=== PATIENT | female | born 1950 | race Caucasian/White ===

== ENCOUNTER → 2016-12-08 | Outpatient (CLI) | payer BC ==
[~2016-12-08] MED LIST: ALBINS INH; ASPI81TA28 PO; ATOR10TA88 PO; CALC1TAB9 PO; CEFD1CAP14 PO; CHOL100010 PO; CHOL2000 PO; CLC100 PO; CLON0.2T11 PO; CLOP1TAB15 PO; CRD2 PO; DOCU100C31 PO; FERR1TAB23 PO; FERR325T PO; FOLITAB21 PO; FRRS300 PO; INSPMPNVLG; INSULIN PUMP; LANS30CA12 PO; LNX125 PO; METO-217 PO; METO1TAB69 PO; NCTI INH; NITR0.4S UT; PLMIH INH; PRED10TA PO; PRVHFAIN INH; SALI0.6510; SERT50TA PO; TPRSR/25 PO; ZTHM250 PO; [UNRECOGNIZED DRUG - OTHER]
[2016-12-08 12:58] LABS: ESTIMATED AVERAGE GLUCOSE 143 mg/dl; HA1C FLAG Normal (Normal)
[2016-12-08 13:32] LABS: BLOOD UREA NITROGEN 14 mg/dl (7-18); BUN/CREATININE RATIO 17.6 (10-20); CARBON DIOXIDE 27 mmol/L (21-32); CHLORIDE 104 mmol/L (98-107); CREATININE 0.81 mg/dl (0.60-1.20); GLUCOSE 123 mg/dl (70-99); POTASSIUM 4.2 mmol/L (3.5-5.1); SODIUM 139 mmol/L (136-145)
[2016-12-08 13:33] LABS: ALB/GLOB RATIO 0.9 (0.9-2); ALKALINE PHOSPHATASE 80 U/L (45-117); ALT/SGPT 29 U/L (12-78); AST/SGOT 19 U/L (15-37); CALCIUM 8.6 mg/dl (8.5-10.1)
== END | disposition home or self-care (01) ==
LOC: C.LAB1850 11:43
PROVIDERS: ATTEND Internal Medicine Endocrinology, Diabetes & Metabolism
DX: E13.9 Other specified diabetes mellitus without complications (principal); I10 Essential (primary) hypertension

== ENCOUNTER 2017-03-03 22:31 | Inpatient (IN) | payer BC ==
[~2017-03-03] VITALS: Ht 162.6 cm; Wt 48.7 kg
[~2017-03-03 22:31] MED LIST changes: -ALBINS INH; -ATOR10TA88 PO; -CEFD1CAP14 PO; -CHOL2000 PO; -CLC100 PO; -DOCU100C31 PO; -FERR1TAB23 PO; +FERR1TAB62 PO; -FERR325T PO; -FRRS300 PO; -INSPMPNVLG; -METO-217 PO; -METO1TAB69 PO; -NCTI INH; -PLMIH INH; -PRED10TA PO; -PRVHFAIN INH; -SALI0.6510; -SERT50TA PO; -ZTHM250 PO
[2017-03-03] MEDS ORDERED: INSPMPNVLG (22:55)
[2017-03-03] MEDS ORDERED: SERT50TA PO (22:55)
[2017-03-03] MEDS ORDERED: ATOR10TA82 PO (22:55)
[2017-03-03] MEDS ORDERED: METO-217 PO (22:55)
[2017-03-03] MEDS ORDERED: LNX125 PO (22:55)
[2017-03-03] MEDS ORDERED: METHYLPREDNISOLONE 125 MG VIAL IV STA (22:57)
[2017-03-03] MEDS ORDERED: ACETAMINOPHEN 500 MG TAB PO STA (22:57)
[2017-03-03] MEDS ORDERED: ALBUT/IPRATROP 3MG/0.5MG NEB 3 ML VIAL INH STA (23:49)
[2017-03-03 23:50] LABS: HEMATOCRIT 27.8 % (37-47); MEAN CELL VOLUME 66.8 fL (80-100); MEAN CORPUSCULAR HEMOGLOBIN 20.4 pg (25-34); MEAN CORPUSCULAR HGB CONC 30.6 g/dl (32-36); MEAN PLATELET VOLUME 9.6 fL (7.4-10.4); PLATELET COUNT 255 K/uL (130-400); RED BLOOD COUNT 4.16 M/uL (4.2-5.4); WHITE BLOOD COUNT 13.67 K/uL (4.8-10.8)
[2017-03-04] VITALS (11 sets, daily range): BP systolic 112–170; BP diastolic 58–72; PULSE 58–77; TEMP 36.4–36.8; O2SAT 90–97; Ht 162.6 cm; Wt 48.7 kg
[2017-03-04 00:09] LABS: ANISOCYTOSIS PRESENT; BASO % 0.2 %; BASO ABS # 0.03 K/uL (0-0.2); COMPLETE YES; EOS % 0.4 %; HYPOCHROMIA PRESENT; IG% 0.6 %; LARGE PLATELETS 1+; LYMPH % 13.2 %; MICROCYTOSIS PRESENT; MONO % 9.1 %; NEUT % 76.5 %; OVALOCYTES 1+; POLYCHROMASIA 1+
[2017-03-04 00:15] LABS: ALT/SGPT 48 U/L (12-78); AST/SGOT 36 U/L (15-37); BLOOD UREA NITROGEN 14 mg/dl (7-18); BUN/CREATININE RATIO 21.5 (10-20); CALCIUM 8.3 mg/dl (8.5-10.1); CARBON DIOXIDE 25 mmol/L (21-32); CHLORIDE 103 mmol/L (98-107); CREATININE 0.64 mg/dl (0.60-1.20); GLUCOSE 121 mg/dl (70-99); POTASSIUM 3.5 mmol/L (3.5-5.1); SODIUM 136 mmol/L (136-145)
[2017-03-04 00:20] LABS: ALB/GLOB RATIO 0.6 (0.9-2); ALKALINE PHOSPHATASE 71 U/L (45-117); CKMB/CK RATIO 1.2 (0-3.0)
[2017-03-04] MEDS ORDERED: DOXYCYCLINE IV 100 MG in DEXTROSE 5% 100ML 100 ML IV STA (00:27)
[2017-03-04] MEDS ORDERED: HYDROCODONE/HOMATROPINE SYRUP 5MG/1.5MG 5ML UDP PO STA (00:27)
[2017-03-04 00:33] LABS: URINE APPEARANCE CLEAR (CLEAR); URINE BILIRUBIN NEG (NEG); URINE COLOR DK YELLOW; URINE EPITHELIAL CELL AUTO >30 /lpf (0-5); URINE NITRITE NEG (NEG); URINE PH 6.5 (4.5-7.5); URINE SPECIFIC GRAVITY 1.025 (1.000-1.030); UROBILINOGEN NEG (NEG)
[2017-03-04 00:34] LABS: MANUAL MICROSCOPIC REQUIRED? NO; REVIEW REQ? NO
[2017-03-04] MEDS ORDERED: MAGNESIUM HYDROXIDE SUSP 30 ML UDC PO PRN (01:00)
[2017-03-04] MEDS ORDERED: POLYETHYLENE (MIRALAX) 17 GM PACK PO PRN (01:00)
[2017-03-04] MEDS ORDERED: ALBUTEROL 0.083% NEBU SOLN 3 ML VIAL INH PRN (01:00)
[2017-03-04] MEDS ORDERED: ACETAMINOPHEN 325 MG TAB PO PRN (01:00)
[2017-03-04] MEDS ORDERED: ZOLPIDEM TARTRATE 5 MG TAB PO PRN (01:00)
[2017-03-04] MEDS ORDERED: NovoLOG INSULIN PUMP SCH (01:00)
[2017-03-04] MEDS ORDERED: ALUMINUM/MAGNESIUM/SIMETH (MAALOX MAX) 30 ML UDC PO PRN (01:00)
[2017-03-04] MEDS ORDERED: ONDANSETRON INJ 2 MG/ML 2 ML VIAL IV PRN (01:00)
--- NOTE | 2017-03-04 01:47 | History and Physical ---
History & Physical Date & Time of Service: Mar 04, 2017 at 01:20 Chief Complaint: FLU Primary Care Physician: RV. Rincon MD History of Present Illness Source: patient 66 y/o F Hx DM 2, CAD - presents with 8 days of flu-like symptoms including a productive cough, body aches, BECERRA, ear fullness, fatigue and fevers. She was apparently prescribed a low dose of prednisone by her MD which had no effect. Over the last day she has become exceedingly short of breath with minimal exertion and describes having to rest after walking across the room. She is a smoker but denies a history of lung disease or previous use of related medications. Initial CXR is clear. Initial labs however reveal a hemoglobin of 8.5. She has a history of mild microcytic anemia per records, although her hemoglobin has not been lower than 12. She denies hematochezia or dark stools. She has had previous colonoscopies with removal of benign polyps. Past Medical/Surgical History Medical Problems: (1) Acute Sinusitis Nos Status: Resolved (2) Anemia, unspecified Status: Chronic (3) Anxiety State Nos Status: Chronic (4) Diab Genesis Wo Compl, Type Ii Or Unspec Type, Not Uncntrld Status: Chronic (5) Diabetes Status: Chronic (6) Ectopic Status: Resolved (7) Hepatitis C Cured 2015 (8) Hyperlipidemia Nec/Nos Status: Chronic (9) Hypertension Nos Status: Chronic (10) Mitral Valve Disorder Status: Chronic (11) Reflux Esophagitis Status: Chronic (12) Sleep Disturbance Nos Status: Chronic 13) CAD - RCA stent Surgical Problems: (1) History of hysterectomy Status: Resolved (2) History of right coronary artery stent placement Status: Resolved (3) S/P right coronary artery (RCA) stent placement Status: Resolved Family History Diabetes mellitus Heart disease Hypertension No history of gastric or colon CA Social History Smokes 1/2 pack daily > 40 years Retired from army Smoking Status: Current Every Day Smoker Marital Status: Housing status: lives alone Occupational Status: retired Allergies Coded Allergies: Levofloxacin (Verified Allergy, Unknown, UNKNOWN, 03/03/17) Penicillins (Verified Allergy, Unknown, UPPER BODY RASH, 03/03/17) Home Medications Scheduled Aspirin (Aspirin Ec), 81 MG PO DAILY Atorvastatin (Lipitor), 10 MG PO DAILY Calcium Citrate-Vitamin D (Citracal + D3 Maximum), 2 TABS PO DAILY Clonidine Hcl (Catapres), 0.2 MG PO HS Clopidogrel (Plavix), 75 MG PO DAILY Digoxin (Digoxin), 0.125 MG PO QAM Doxazosin Mesylate (Doxazosin Mesylate), 2 MG PO HS Folic Fiif-Wmrfepmwsk-Aoxuvhjy (Folbic), 25 MG PO DAILY Insulin Aspart (novoLOG INSULIN PUMP ), 1 EA N/A UD Lansoprazole (Prevacid), 30 MG PO DAILY Metoprolol Succinate (Toprol Xl), 50 MG PO DAILY Nitroglycerin (Nitrostat), 0.4 MG UT PRN Sertraline (Zoloft), 75 MG PO DAILY Review of Systems Constitutional: + chills, + fatigue, + fever, + weakness Eyes: No eye pain, No worsening of vision ENT: + hearing loss (fullness and feeling of impaired hearing), + nasal symptoms (minor congestion) Respiratory: + cough, + dyspnea on exertion, + shortness of breath, + sputum Cardiovascular: No PND, No chest pain, No orthopnea Abdomen: No GI bleeding, No constipation, No diarrhea, No nausea, No pain, No vomiting Musculoskeletal: + muscle pain, No joint pain Genitourinary - Female: No dysuria, No urinary frequency, No urinary urgency Neurologic: + weakness, No memory loss, No paralysis Psychiatric: No anhedonism, No depression symptoms Endocrine: + fatigue Hematologic / Lymphatic: No abnormal bleeding/bruising Integumentary: No rash Allergic / Immunologic: No environmental allergies Physical Exam Vital Signs Date Time Temp Pulse Resp B/P Pulse Ox O2 Delivery O2 Flow Rate FiO2 03/04/17 00:31 95 Nasal Cannula 2.0 03/04/17 00:03 78 28 174/78 91 Room Air 03/03/17 23:57 92 Room Air 03/03/17 23:29 84 03/03/17 22:36 37.9 90 18 153/93 92 Room Air General Appearance: WD/WN, no apparent distress Head: normocephalic, atraumatic Eyes: normal inspection, PERRL, EOMI ENT: normal ENT inspection, hearing grossly normal, TMs normal, pharynx normal Neck: supple, no JVD Respiratory/Chest: chest non-tender, lungs clear, normal breath sounds, no respiratory distress, + pertinent finding (MIld end-expiratory wheezing) Cardiovascular: regular rate, rhythm, no edema, no gallop, no JVD, no murmur, normal peripheral pulses Abdomen/GI: normal bowel sounds, non tender, soft Back: normal inspection, no CVA tenderness, no muscle spasm Extremities/Musculoskelatal: normal inspection, no calf tenderness, normal capillary refill, no pedal edema, normal range of motion 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, no motor/sensory deficits, alert, normal mood/affect, normal reflexes, oriented x 3 Skin: normal color, warm/dry, no rash Diagnostics Laboratory Results Results Past 24 Hours Test 03/03/17 23:30 03/04/17 00:15 03/04/17 00:54 Range/Units White Blood Count 13.67 4.8-10.8 K/uL Red Blood Count 4.16 4.2-5.4 M/uL Hemoglobin 8.5 12.0-16.0 g/dL Hematocrit 27.8 37-47 % Mean Corpuscular Volume 66.8 80-100 fL Mean Corpuscular Hemoglobin 20.4 25-34 pg Mean Corpuscular Hemoglobin Concent 30.6 32-36 g/dl Platelet Count 255 130-400 K/uL Mean Platelet Volume 9.6 7.4-10.4 fL Neutrophils (%) (Auto) 76.5 % Lymphocytes (%) (Auto) 13.2 % Monocytes (%) (Auto) 9.1 % Eosinophils (%) (Auto) 0.4 % Basophils (%) (Auto) 0.2 % Neutrophils # (Auto) 10.46 1.4-6.5 K/uL Lymphocytes # (Auto) 1.80 1.2-3.4 K/uL Monocytes # (Auto) 1.25 0.11-0.59 K/uL Eosinophils # (Auto) 0.05 0-0.5 K/uL Basophils # (Auto) 0.03 0-0.2 K/uL RDW Standard Deviation 49.4 36.4-46.3 fL RDW Coefficient of Variation 20.4 11.5-14.5 % Immature Granulocyte % (Auto) 0.6 % Immature Granulocyte # (Auto) 0.08 0.00-0.02 K/uL Large Platelets 1+ Polychromasia 1+ Hypochromasia PRESENT Anisocytosis PRESENT Microcytosis PRESENT Ovalocytes 1+ Sodium Level 136 136-145 mmol/L Potassium Level 3.5 3.5-5.1 mmol/L Chloride Level 103 98-107 mmol/L Carbon Dioxide Level 25 21-32 mmol/L Anion Gap 8.0 3-11 mmol/L Blood Urea Nitrogen 14 7-18 mg/dl Creatinine 0.64 0.60-1.20 mg/dl Est Creatinine Clear Calc Drug Dose 72.6 ml/min Estimated GFR () 109.3 Estimated GFR (Non- 94.3 BUN/Creatinine Ratio 21.5 10-20 Random Glucose 121 70-99 mg/dl Calcium Level 8.3 8.5-10.1 mg/dl Total Bilirubin 0.5 0.2-1 mg/dl Aspartate Amino Transf (AST/SGOT) 36 15-37 U/L Alanine Aminotransferase (ALT/SGPT) 48 12-78 U/L Alkaline Phosphatase 71 45-117 U/L Total Creatine Kinase 58 26-192 U/L Creatine Kinase MB 0.7 0.5-3.6 ng/ml Creatine Kinase MB Ratio 1.2 0-3.0 Troponin I < 0.015 0-0.045 ng/ml Pro-B-Type Natriuretic Peptide 455 0-900 pg/ml Total Protein 8.3 6.4-8.2 gm/dl Albumin 3.2 3.4-5.0 gm/dl Globulin 5.1 2.5-4.0 gm/dl Albumin/Globulin Ratio 0.6 0.9-2 Urine Color DK YELLOW Urine Appearance CLEAR CLEAR Urine pH 6.5 4.5-7.5 Urine Specific [place] 1.025 1.000-1.030 Urine Protein 1+ NEG Urine Glucose (UA) NEG NEG Urine Ketones TRACE NEG Urine Occult Blood NEG NEG Urine Nitrite NEG NEG Urine Bilirubin NEG NEG Urine Urobilinogen NEG NEG Urine Leukocyte Esterase SMALL NEG Urine WBC (Auto) 5-10 0-5 /hpf Urine RBC (Auto) 0-4 0-4 /hpf Urine Hyaline Casts (Auto) 1-5 0-5 /lpf Urine Epithelial Cells (Auto) >30 0-5 /lpf Urine Bacteria (Auto) NEG NEG Microbiology Results 03/03/17 Blood Culture, Received Pending 03/03/17 Blood Culture, Received Pending Diagnostic Radiology CXR - no acute changes from CXR 2015 - no acute PNM Impression Assessment and Plan 66 y/o F Hx DM 2, CAD - presents with 8 days of flu-like symptoms including a productive cough, body aches, BECERRA, ear fullness, fatigue and fevers. She was apparently prescribed a low dose of prednisone by her MD which had no effect. Over the last day she has become exceedingly short of breath with minimal exertion and describes having to rest after walking across the room. She is a smoker but denies a history of lung disease or previous use of related medications. Initial CXR is clear. Initial labs however reveal a hemoglobin of 8.5. She has a history of mild microcytic anemia per records, although her hemoglobin has not been lower than 12. She denies hematochezia or dark stools. She has had previous colonoscopies with removal of benign polyps. 1) URI/SOB - rapid flu is pending. Pt was febrile on arrival to the ER which is slightly unusual 8 days after the onset of symptoms. She continues to have a productive cough with worsening SOB. A CT chest will therefore be ordered to evaluate for an occult pnm. It is possible that her anemia is now contributing to her SOB and fatigue but does not explain her fever. She is a detention smoker and there may also be an element of undiagnosed lung disease. Empirically she will be treated with Abx, Nebs, Steroids and an 02 protocol. 2) Anemia - She is microcytic on previous labs but was not aware of a history of anemia. We will obtain stool guiacs and check her Hb q6h although I suspect this is a chronic, slow process. We will hold her ASA and Plavix and consult GI. Would consider a transfusion below 8 or with any significant hypoxia considering her Hx of CAD 3) DM - pt has a pump which she will continue to use. 4) CAD - no evidence of ACS - ASA and Plavix held 2/2 anemia - cont B sara and NTG PRN 5) Explained to pt that smoking can lead to lung disease. SCDs - full code Total time for this admit including review of labs, meds, imaging, records - discussion with ER attending and pt - 40 min Level of Care Telemetry Resuscitation Status FULL RESUSCITATION VTE Prophylaxis VTE Risk Assessment Done? Y/N: Yes Risk Level: Moderate Given or contraindicated: SCD's, Contraindicated
--- NOTE | 2017-03-04 02:03 | EMERGENCY ROOM VISIT NOTE ---
History Report prepared by [place]: Karina Cardenas Under the Supervision of: Dr. Lalo Cole M.D. First contact with patient: 22:42 Chief Complaint: FLU LIKE SX Stated Complaint: FLU History of Present Illness The patient is a 66 year old female who presents to the Emergency Room with complaints of worsening flu like symptoms starting eight days ago. The patient states that it started with headaches, body aches and pains. She reports that it made her feel "like I have the flu." The patient then reports that it moved into her lower chest and now has a cough. She states that she took Robitussin and it helped. She reports that she saw her PCP's PA four days ago who prescribed her Prednisone, but the Prednisone offered no relief. She states she came into the ED because she started to become short of breath. The patient complains of lack of energy and trouble hearing form the stuffiness. The patient states she is a smoker, but has not smoked in the last eight days. She reports that she has a history of diabetes and Hep C. She states that she has no history of using a nebulizer or inhaler. She also reports no history of asthma or COPD. Pt denies LOC, fevers, chills, diaphoresis, visual changes, neck pain, chest pain, nausea, vomiting, abdominal pain, back pain, melena, hematochezia, urinary symptoms, numbness, weakness, lymphadenopathy, rash, or other complaints. Source of History: patient Onset: eight days ago Position: other (global) Quality: other (global) Timing: worsening Associated Symptoms: + SOB, + cough, + fatigue Review of Systems See HPI for pertinent positives and negatives. A total of ten systems were reviewed and were otherwise negative. Past Medical & Surgical Medical Problems: (1) Acute Sinusitis Nos (2) Anemia (3) Anemia, unspecified (4) Anxiety State Nos (5) Diab Genesis Wo Compl, Type Ii Or Unspec Type, Not Uncntrld (6) Diabetes (7) Ectopic (8) Hepatitis C (9) Hyperglycemia (10) Hyperlipidemia (11) Hyperlipidemia Nec/Nos (12) Hypertension (13) Hypertension Nos (14) Mitral Valve Disorder (15) Reflux Esophagitis (16) Sleep Disturbance Nos (17) Upper respiratory infection Surgical Problems: (1) History of hysterectomy (2) History of right coronary artery stent placement (3) S/P right coronary artery (RCA) stent placement Family History Diabetes mellitus Heart disease Hypertension Social History Smoking Status: Current Every Day Smoker Alcohol Use: occasionally Marital Status: Housing Status: lives alone Occupation Status: retired Current/Historical Medications Scheduled Aspirin (Aspirin Ec), 81 MG PO DAILY Atorvastatin (Lipitor), 10 MG PO DAILY Calcium Citrate-Vitamin D (Citracal + D3 Maximum), 2 TABS PO DAILY Clonidine Hcl (Catapres), 0.2 MG PO HS Clopidogrel (Plavix), 75 MG PO DAILY Digoxin (Digoxin), 0.125 MG PO QAM Doxazosin Mesylate (Doxazosin Mesylate), 2 MG PO HS Folic Sczn-Vlehgouahp-Lsbhdkno (Folbic), 25 MG PO DAILY Insulin Aspart (novoLOG INSULIN PUMP ), 1 EA N/A UD Lansoprazole (Prevacid), 30 MG PO DAILY Metoprolol Succinate (Toprol Xl), 50 MG PO DAILY Nitroglycerin (Nitrostat), 0.4 MG UT PRN Sertraline (Zoloft), 75 MG PO DAILY Allergies Coded Allergies: Levofloxacin (Verified Allergy, Unknown, UNKNOWN, 03/03/17) Penicillins (Verified Allergy, Unknown, UPPER BODY RASH, 03/03/17) Physical Exam Vital Signs Date Time Temp Pulse Resp B/P Pulse Ox O2 Delivery O2 Flow Rate FiO2 03/04/17 01:31 76 23 138/59 90 03/04/17 01:16 78 20 92 03/04/17 01:01 78 28 91 03/04/17 01:00 157/75 03/04/17 00:46 84 22 159/68 93 03/04/17 00:31 78 27 94 03/04/17 00:31 95 Nasal Cannula 2.0 03/04/17 00:16 82 27 91 03/04/17 00:03 78 28 174/78 91 Room Air 03/04/17 00:01 84 33 91 03/03/17 23:57 92 Room Air 03/03/17 23:31 90 27 03/03/17 23:29 84 03/03/17 22:36 37.9 90 18 153/93 92 Room Air Physical Exam GENERAL: Awake, alert, well-appearing, in no distress HENT: Normocephalic, atraumatic. Oropharynx unremarkable. EYES: Normal conjunctiva. Sclera non-icteric. NECK: Supple. No nuchal rigidity. FROM. No JVD. RESPIRATORY: Expiratory wheezing and scattered rhonchi in right side. Frequent cough present. CARDIAC: Regular rate, normal rhythm. Extremities warm and well perfused. Pulses equal. ABDOMEN: Soft, non-distended. No tenderness to palpation. No rebound or guarding. No masses. RECTAL: Brown stool. Heme negative. MUSCULOSKELETAL: Chest examination reveals no tenderness. The back is symmetrical on inspection without obvious abnormality. There is no CVA tenderness to palpation. No joint edema. LOWER EXTREMITIES: Calves are equal size bilaterally and non-tender. No edema. No discoloration. NEURO: Normal sensorium. No sensory or motor deficits noted. SKIN: No rash or jaundice noted. Medical Decision & Procedures ER Provider Diagnostic Interpretation: Chest x-ray. Findings: A chest x-ray was performed and revealed no pneumothorax , effusion, pulmonary edema, free air under the diaphragm, or wide mediastinum. The was small infiltrate in the right lower lobe. Laboratory Results 03/03/17 23:30 Red Blood Count 4.16, Mean Corpuscular Volume 66.8, Mean Corpuscular Hemoglobin 20.4, Mean Corpuscular Hemoglobin Concent 30.6, Mean Platelet Volume 9.6, Neutrophils (%) (Auto) 76.5, Lymphocytes (%) (Auto) 13.2, Monocytes (%) (Auto) 9.1, Eosinophils (%) (Auto) 0.4, Basophils (%) (Auto) 0.2, Neutrophils # (Auto) 10.46, Lymphocytes # (Auto) 1.80, Monocytes # (Auto) 1.25, Eosinophils # (Auto) 0.05, Basophils # (Auto) 0.03 03/03/17 23:30 Test 03/03/17 23:30 03/04/17 00:15 White Blood Count 13.67 K/uL (4.8-10.8) Red Blood Count 4.16 M/uL (4.2-5.4) Hemoglobin 8.5 g/dL (12.0-16.0) Hematocrit 27.8 % (37-47) Mean Corpuscular Volume 66.8 fL (80-100) Mean Corpuscular Hemoglobin 20.4 pg (25-34) Mean Corpuscular Hemoglobin Concent 30.6 g/dl (32-36) Platelet Count 255 K/uL (130-400) Mean Platelet Volume 9.6 fL (7.4-10.4) Neutrophils (%) (Auto) 76.5 % Lymphocytes (%) (Auto) 13.2 % Monocytes (%) (Auto) 9.1 % Eosinophils (%) (Auto) 0.4 % Basophils (%) (Auto) 0.2 % Neutrophils # (Auto) 10.46 K/uL (1.4-6.5) Lymphocytes # (Auto) 1.80 K/uL (1.2-3.4) Monocytes # (Auto) 1.25 K/uL (0.11-0.59) Eosinophils # (Auto) 0.05 K/uL (0-0.5) Basophils # (Auto) 0.03 K/uL (0-0.2) RDW Standard Deviation 49.4 fL (36.4-46.3) RDW Coefficient of Variation 20.4 % (11.5-14.5) Immature Granulocyte % (Auto) 0.6 % Immature Granulocyte # (Auto) 0.08 K/uL (0.00-0.02) Large Platelets 1+ Polychromasia 1+ Hypochromasia PRESENT Anisocytosis PRESENT Microcytosis PRESENT Ovalocytes 1+ Anion Gap 8.0 mmol/L (3-11) Est Creatinine Clear Calc Drug Dose 72.6 ml/min Estimated GFR () 109.3 Estimated GFR (Non- 94.3 BUN/Creatinine Ratio 21.5 (10-20) Calcium Level 8.3 mg/dl (8.5-10.1) Total Bilirubin 0.5 mg/dl (0.2-1) Aspartate Amino Transf (AST/SGOT) 36 U/L (15-37) Alanine Aminotransferase (ALT/SGPT) 48 U/L (12-78) Alkaline Phosphatase 71 U/L (45-117) Total Creatine Kinase 58 U/L (26-192) Creatine Kinase MB 0.7 ng/ml (0.5-3.6) Creatine Kinase MB Ratio 1.2 (0-3.0) Troponin I < 0.015 ng/ml (0-0.045) Pro-B-Type Natriuretic Peptide 455 pg/ml (0-900) Total Protein 8.3 gm/dl (6.4-8.2) Albumin 3.2 gm/dl (3.4-5.0) Globulin 5.1 gm/dl (2.5-4.0) Albumin/Globulin Ratio 0.6 (0.9-2) Urine Color DK YELLOW Urine Appearance CLEAR (CLEAR) Urine pH 6.5 (4.5-7.5) Urine Specific [place] 1.025 (1.000-1.030) Urine Protein 1+ (NEG) Urine Glucose (UA) NEG (NEG) Urine Ketones TRACE (NEG) Urine Occult Blood NEG (NEG) Urine Nitrite NEG (NEG) Urine Bilirubin NEG (NEG) Urine Urobilinogen NEG (NEG) Urine Leukocyte Esterase SMALL (NEG) Urine WBC (Auto) 5-10 /hpf (0-5) Urine RBC (Auto) 0-4 /hpf (0-4) Urine Hyaline Casts (Auto) 1-5 /lpf (0-5) Urine Epithelial Cells (Auto) >30 /lpf (0-5) Urine Bacteria (Auto) NEG (NEG) Laboratory results reviewed by me Medications Administered Medications (Trade) Dose Ordered Sig/Adam Route Start Time Stop Time Status Last Admin Dose Admin Methylprednisolone Sodium Succinate (Solu-Medrol IV) 125 mg NOW STAT IV 03/03/17 22:57 03/03/17 22:59 DC 03/03/17 23:57 125 MG Albuterol/ Ipratropium (Duoneb) 3 ml NOW STAT INH 03/03/17 23:49 03/03/17 23:50 DC 03/03/17 23:57 3 ML Hydrocodone Bit/ Homatropine Methylb (Hycodan Syrup) 5 ml NOW STAT PO 03/04/17 00:27 03/04/17 00:30 DC 03/04/17 01:00 5 ML ECG Indication: SOB/dyspnea Rate (beats per minute): 93 Rhythm: normal sinus Findings: T-wave inversion (Anterior), no ectopy ED Course 2254: The patient was evaluated in room B4. A complete history and physical exam was performed. 2257: Ordered Tylenol Tab 1000 mg PO, Solu-Medrol IV 125 mg IV. 2349: Ordered Duoneb 3 ml INH. 0014: I reevaluated the patient and completed a rectal examination that was heme negative. 0027: Ordered Hycodan Syrup 5 ml PO, Doxycycline Hyclate 100 mg/ Dextrose 110 ml @ 50 mls/hr IV. 0041: Discussed the patient's case with Dr. Walker. The patient will be evaluated for further treatment and disposition. Medical Decision Triage Nursing notes reviewed. The patient's presentation and history were concerning for shortness of breath . Etiologies such as pneumonia, COPD, reactive airway disease, CHF, cardiac ischemia, pulmonary embolism, pneumothorax, musculoskeletal, infections, gastrointestinal, as well as others were entertained. The patient was evaluated. She was given Solu-Medrol and a DuoNeb. Chest x- ray was concerning for right lower lobe infiltrate. She was wheezing and had rhonchi the side. The patient had a mild leukocytosis but moderate anemia noted on CBC. She appears to be microcytic. The patient had a rectal examination performed and this was heme negative. Her CBC and cardiac markers were unremarkable. The patient's O2 saturations were borderline. She was given Hycodan and IV doxycycline due to her allergies. Given her shortness of breath, anemia that has developed and the pulmonary symptoms the patient will need further evaluation and management in the hospital. I gave my usual and customary discussion regarding this issue. Consultation was made with internal medicine. The patient was evaluated in the Emergency Room for further treatment. The chart was completed utilizing [employer] Speech voice recognition software. Grammatical errors, random word insertions, pronoun errors, and incomplete sentences are an occasional consequence of this system due to software limitations, ambient noise, and hardware issues. Any formal questions or concerns about the content, text, or information contained within the body of this dictation should be directly addressed to the physician for clarification. Consults Time Called: 34 Consulting Physician: Dr. Walker Returned Call: [phone] Discussed the patient's case. The patient will be evaluated for further treatment and disposition. Scribe Attestation The scribe's documentation has been prepared under my direction and personally reviewed by me in its entirety. I confirm that the note above accurately reflects all work, treatment, procedures, and medical decision making performed by me. Departure Information Dispostion Being Evaluated By Hospitalist Referrals RV. Rincon MD (PCP) Patient Instructions My [facility]
[2017-03-04] MEDS: NSS + 20MEQ KCL 1000ML 1,000 ML IV SCH ×2 (03:30→18:21)
[2017-03-04 05:10] LABS: INFLUENZA A PCR Neg for Influ A (NEG); INFLUENZA B PCR Neg for Influ B (NEG)
[2017-03-04] MEDS: METHYLPREDNISOLONE IV 40 MG in SYRINGE 0 ML IV SCH ×3 (05:24→18:23)
[2017-03-04] MEDS ORDERED: DEXTROSE 50% 50 ML SYR IV PRN ×2 (05:45→15:30)
[2017-03-04] MEDS ORDERED: GLUCOSE 10 TABS/TUBE PO PRN ×2 (05:45→15:30)
[2017-03-04] MEDS ORDERED: GLUCOSE 40% GEL 15 GM TUBE PO PRN ×2 (05:45→15:30)
[2017-03-04] MEDS ORDERED: GLUCAGON FOR INJ 1 MG VIAL SQ PRN ×2 (05:45→15:30)
[2017-03-04] MEDS ORDERED: INSULIN ASPART 100 UNITS/ML VIAL SC PRN (05:45)
--- NOTE | 2017-03-04 07:06 | DIAGNOSTIC IMAGING REPORT ---
CT OF THE CHEST WITHOUT IV CONTRAST CLINICAL HISTORY: Persistent hypoxia and fever. COMPARISON STUDY: Chest x-ray dated 03/03/2017 CT DOSE: 272.75 mGycm TECHNIQUE: CT of the thorax was performed from the thoracic inlet to the lung bases. Images are reviewed in the axial, sagittal, and coronal planes. IV contrast was not administered for this examination. FINDINGS: Thyroid: Imaged portions of the thyroid gland are normal in appearance. Thoracic aorta: The thoracic aorta is normal in course and caliber, noting standard 3 vessel arch anatomy. Heart: There is a small pericardial effusion. Lungs and pleural spaces: There are no pleural effusions. There are tubular groundglass opacities within the right upper lobe measuring 31 mm and 20 mm respectively. There is a right lower lobe groundglass opacity measuring 13 mm. A few additional right upper lobe groundglass opacities are evident. There is an area of focal cystic change/emphysema within the superior segment of the right lower lobe. There is scattered tree-in-bud nodularity within the right lower lobe. There is bilateral lower lobe bronchial wall thickening. There are areas of presumed dependent atelectasis within both lower lobes. Mediastinum: There is no mediastinal lymphadenopathy. Janice: There is a tubular right infrahilar opacity. It is difficult to determine whether this represents a vessel, or mucoid distended bronchus. Axilla: Clear. Upper abdomen: There is possible splenomegaly Skeletal structures: There are no lytic or blastic osseous lesions. IMPRESSION: 1. Scattered tree-in-bud nodularity, a nonspecific finding but likely infectious 2. Foci of groundglass opacity including 31 mm and 20 mm. Pure groundglass right upper lobe lesions. These are likely infectious/inflammatory, but a [address] follow-up is recommended 3. Lower lobe bronchial wall thickening and areas of presumed dependent lower lobe atelectatic change 4. Area of focal cystic change/emphysema within the superior segment of the right lower lobe. There is a tubular structure extending to this parenchymal abnormality. This either represents a prominent vessel or prominent mucoid filled bronchus as would be seen in bronchial atresia. 5. Small pericardial effusion Electronically signed by: Fredy Arrington M.D. 03/04/2017 7:04 AM Dictated Date/Time: 03/04/2017 6:53 AM
--- NOTE | 2017-03-04 07:14 | DIAGNOSTIC IMAGING REPORT ---
CHEST ONE VIEW PORTABLE CLINICAL HISTORY: Respiratory distress COMPARISON STUDY: 08/20/2015 FINDINGS: The heart is normal in size. There is mild interstitial thickening. There are a subtle nodular right upper lobe airspace opacities statistically inflammatory. Short-term radiographic follow-up is recommended. There are no pleural effusions.[ IMPRESSION: 1. Subtle nodular right upper lobe airspace opacities statistically inflammatory. 2. Subtle interstitial thickening most pronounced the right lung base. 3. The above-mentioned findings are likely inflammatory. Short-term radiographic follow-up is recommended. Electronically signed by: Fredy Arrington M.D. 03/04/2017 7:12 AM Dictated Date/Time: 03/04/2017 7:10 AM
[2017-03-04] MEDS: VITAMIN B COMPLEX TAB PO SCH (08:45)
[2017-03-04] MEDS: SERTRALINE HCL 50 MG TAB PO SCH (08:46)
[2017-03-04] MEDS: ATORVASTATIN 10 MG TAB PO SCH (08:46)
[2017-03-04] MEDS: METOPROLOL SUCC 50MG EXT REL TAB PO SCH (08:47)
[2017-03-04] MEDS ORDERED: ALBUT/IPRATROP 3MG/0.5MG NEB 3 ML VIAL INH SCH (09:00)
[2017-03-04] MEDS: CEFTRIAXONE SOD INJ 1 GM in DEXTROSE 5% 50ML 50 ML IV SCH (11:06)
--- NOTE | 2017-03-04 11:50 | Hospitalist Progress Note ---
Hospitalist Progress Note Date of Service Mar 04, 2017. (Neda Daily PA-C) Subjective Pt evaluation today including: conversation w/ patient Patient reports feeling completely wiped out. She has no energy. It is difficult to even get up and go to the restroom. She is also feeling somewhat short of breath, particularly with exertion. She has had a nonproductive cough and fever. She was put on prednisone last Thursday. She has been taking it without any relief. She does not report any chest pain or pressure. No dark stools, black stools or bright red blood. She does admit to a poor appetite and a weight loss of 4 pounds over the last 9-10 days. Additional Comments: 6 system review negative. Please see pertinent positives in the history of present illness section. (Neda Daily PA-C) Objective Vital Signs Date Time Temp Pulse Resp B/P Pulse Ox O2 Delivery O2 Flow Rate FiO2 03/04/17 08:00 Nasal Cannula 2.0 03/04/17 07:22 36.4 74 18 112/58 93 Room Air 03/04/17 06:58 72 14 93 Room Air 03/04/17 04:00 Nasal Cannula 2.0 03/04/17 03:08 94 Nasal Cannula 2.0 03/04/17 02:30 36.8 67 18 118/61 93 Room Air 03/04/17 02:00 70 24 137/62 92 Nasal Cannula 3.0 03/04/17 01:31 76 23 138/59 90 03/04/17 01:16 78 20 92 03/04/17 01:01 78 28 91 03/04/17 01:00 157/75 03/04/17 00:46 84 22 159/68 93 03/04/17 00:31 78 27 94 03/04/17 00:31 95 Nasal Cannula 2.0 03/04/17 00:16 82 27 91 03/04/17 00:03 78 28 174/78 91 Room Air 03/04/17 00:01 84 33 91 03/03/17 23:57 92 Room Air 03/03/17 23:31 90 27 03/03/17 23:29 84 03/03/17 22:36 37.9 90 18 153/93 92 Room Air (Neda Daily PA-C) Physical Exam General Appearance: + mild distress (visibly fatigued. Pale.) Eyes: EOMI ENT: + pertinent finding (oral mucosa somewhat dry and pale.) Neck: no JVD Respiratory/Chest: + pertinent finding (coarse breath sounds throughout. Mild wheezing noted. No crackles at the bases.) Cardiovascular: regular rate, rhythm, no murmur Abdomen: normal bowel sounds, non tender, soft Extremities: non-tender, no pedal edema Neurologic/Psychiatric: no motor/sensory deficits, oriented x 3 Skin: warm/dry (Neda Daily PA-C) Laboratory Results 03/03/17 23:30 Red Blood Count 4.16, Mean Corpuscular Volume 66.8, Mean Corpuscular Hemoglobin 20.4, Mean Corpuscular Hemoglobin Concent 30.6, Mean Platelet Volume 9.6, Neutrophils (%) (Auto) 76.5, Lymphocytes (%) (Auto) 13.2, Monocytes (%) (Auto) 9.1, Eosinophils (%) (Auto) 0.4, Basophils (%) (Auto) 0.2, Neutrophils # (Auto) 10.46, Lymphocytes # (Auto) 1.80, Monocytes # (Auto) 1.25, Eosinophils # (Auto) 0.05, Basophils # (Auto) 0.03 03/04/17 06:49 03/03/17 23:30 Test 03/03/17 23:30 03/04/17 00:15 03/04/17 02:55 03/04/17 06:49 White Blood Count 13.67 K/uL (4.8-10.8) Red Blood Count 4.16 M/uL (4.2-5.4) Hemoglobin 8.5 g/dL (12.0-16.0) Hematocrit 27.8 % (37-47) Mean Corpuscular Volume 66.8 fL (80-100) Mean Corpuscular Hemoglobin 20.4 pg (25-34) Mean Corpuscular Hemoglobin Concent 30.6 g/dl (32-36) Platelet Count 255 K/uL (130-400) Mean Platelet Volume 9.6 fL (7.4-10.4) Neutrophils (%) (Auto) 76.5 % Lymphocytes (%) (Auto) 13.2 % Monocytes (%) (Auto) 9.1 % Eosinophils (%) (Auto) 0.4 % Basophils (%) (Auto) 0.2 % Neutrophils # (Auto) 10.46 K/uL (1.4-6.5) Lymphocytes # (Auto) 1.80 K/uL (1.2-3.4) Monocytes # (Auto) 1.25 K/uL (0.11-0.59) Eosinophils # (Auto) 0.05 K/uL (0-0.5) Basophils # (Auto) 0.03 K/uL (0-0.2) RDW Standard Deviation 49.4 fL (36.4-46.3) RDW Coefficient of Variation 20.4 % (11.5-14.5) Immature Granulocyte % (Auto) 0.6 % Immature Granulocyte # (Auto) 0.08 K/uL (0.00-0.02) Large Platelets 1+ Polychromasia 1+ Hypochromasia PRESENT Anisocytosis PRESENT Microcytosis PRESENT Ovalocytes 1+ Anion Gap 8.0 mmol/L (3-11) Est Creatinine Clear Calc Drug Dose 72.6 ml/min Estimated GFR () 109.3 Estimated GFR (Non- 94.3 BUN/Creatinine Ratio 21.5 (10-20) Calcium Level 8.3 mg/dl (8.5-10.1) Total Bilirubin 0.5 mg/dl (0.2-1) Aspartate Amino Transf (AST/SGOT) 36 U/L (15-37) Alanine Aminotransferase (ALT/SGPT) 48 U/L (12-78) Alkaline Phosphatase 71 U/L (45-117) Total Creatine Kinase 58 U/L (26-192) Creatine Kinase MB 0.7 ng/ml (0.5-3.6) Creatine Kinase MB Ratio 1.2 (0-3.0) Troponin I < 0.015 ng/ml (0-0.045) Pro-B-Type Natriuretic Peptide 455 pg/ml (0-900) Total Protein 8.3 gm/dl (6.4-8.2) Albumin 3.2 gm/dl (3.4-5.0) Globulin 5.1 gm/dl (2.5-4.0) Albumin/Globulin Ratio 0.6 (0.9-2) Urine Color DK YELLOW Urine Appearance CLEAR (CLEAR) Urine pH 6.5 (4.5-7.5) Urine Specific [place] 1.025 (1.000-1.030) Urine Protein 1+ (NEG) Urine Glucose (UA) NEG (NEG) Urine Ketones TRACE (NEG) Urine Occult Blood NEG (NEG) Urine Nitrite NEG (NEG) Urine Bilirubin NEG (NEG) Urine Urobilinogen NEG (NEG) Urine Leukocyte Esterase SMALL (NEG) Urine WBC (Auto) 5-10 /hpf (0-5) Urine RBC (Auto) 0-4 /hpf (0-4) Urine Hyaline Casts (Auto) 1-5 /lpf (0-5) Urine Epithelial Cells (Auto) >30 /lpf (0-5) Urine Bacteria (Auto) NEG (NEG) Influenza Type A (RT-PCR) Neg for Influ A (NEG) Influenza Type A Antigen Neg for Influ A (NEG) Influenza Type B Antigen Neg for Influ B (NEG) Influenza Type B (RT-PCR) Neg for Influ B (NEG) Iron Level 20 mcg/dl (35-150) Total Iron Binding Capacity 378 mcg/dl (250-450) Transferrin 287 mg/dl (200-360) Transferrin % Saturation 5 % (15-50) Ferritin 19.0 ng/ml (8.0-388.0) Test 03/04/17 07:40 Bedside Glucose 229 mg/dl (70-90) Last 24 Hours Test 03/03/17 23:30 03/04/17 00:15 03/04/17 02:55 03/04/17 06:49 White Blood Count 13.67 K/uL Red Blood Count 4.16 M/uL Hemoglobin 8.5 g/dL 8.4 g/dL Hematocrit 27.8 % Mean Corpuscular Volume 66.8 fL Mean Corpuscular Hemoglobin 20.4 pg Mean Corpuscular Hemoglobin Concent 30.6 g/dl Platelet Count 255 K/uL Mean Platelet Volume 9.6 fL Neutrophils (%) (Auto) 76.5 % Lymphocytes (%) (Auto) 13.2 % Monocytes (%) (Auto) 9.1 % Eosinophils (%) (Auto) 0.4 % Basophils (%) (Auto) 0.2 % Neutrophils # (Auto) 10.46 K/uL Lymphocytes # (Auto) 1.80 K/uL Monocytes # (Auto) 1.25 K/uL Eosinophils # (Auto) 0.05 K/uL Basophils # (Auto) 0.03 K/uL RDW Standard Deviation 49.4 fL RDW Coefficient of Variation 20.4 % Immature Granulocyte % (Auto) 0.6 % Immature Granulocyte # (Auto) 0.08 K/uL Large Platelets 1+ Polychromasia 1+ Hypochromasia PRESENT Anisocytosis PRESENT Microcytosis PRESENT Ovalocytes 1+ Sodium Level 136 mmol/L Potassium Level 3.5 mmol/L Chloride Level 103 mmol/L Carbon Dioxide Level 25 mmol/L Anion Gap 8.0 mmol/L Blood Urea Nitrogen 14 mg/dl Creatinine 0.64 mg/dl Est Creatinine Clear Calc Drug Dose 72.6 ml/min Estimated GFR () 109.3 Estimated GFR (Non- 94.3 BUN/Creatinine Ratio 21.5 Random Glucose 121 mg/dl Calcium Level 8.3 mg/dl Total Bilirubin 0.5 mg/dl Aspartate Amino Transf (AST/SGOT) 36 U/L Alanine Aminotransferase (ALT/SGPT) 48 U/L Alkaline Phosphatase 71 U/L Total Creatine Kinase 58 U/L Creatine Kinase MB 0.7 ng/ml Creatine Kinase MB Ratio 1.2 Troponin I < 0.015 ng/ml Pro-B-Type Natriuretic Peptide 455 pg/ml Total Protein 8.3 gm/dl Albumin 3.2 gm/dl Globulin 5.1 gm/dl Albumin/Globulin Ratio 0.6 Urine Color DK YELLOW Urine Appearance CLEAR Urine pH 6.5 Urine Specific [place] 1.025 Urine Protein 1+ Urine Glucose (UA) NEG Urine Ketones TRACE Urine Occult Blood NEG Urine Nitrite NEG Urine Bilirubin NEG Urine Urobilinogen NEG Urine Leukocyte Esterase SMALL Urine WBC (Auto) 5-10 /hpf Urine RBC (Auto) 0-4 /hpf Urine Hyaline Casts (Auto) 1-5 /lpf Urine Epithelial Cells (Auto) >30 /lpf Urine Bacteria (Auto) NEG Influenza Type A (RT-PCR) Neg for Influ A Influenza Type A Antigen Neg for Influ A Influenza Type B Antigen Neg for Influ B Influenza Type B (RT-PCR) Neg for Influ B Iron Level 20 mcg/dl Total Iron Binding Capacity 378 mcg/dl Transferrin 287 mg/dl Transferrin % Saturation 5 % Ferritin 19.0 ng/ml Test 03/04/17 07:40 Bedside Glucose 229 mg/dl (Neda Daily PAWillamC) Assessment and Plan 66-year-old female presents to the emergency department with fever, nonproductive cough and overall weakness. Found to be significantly anemic with abnormal findings on the chest CT. Shortness of breath, cough, abnormal CT of the chest-likely infectious etiology such as community-acquired pneumonia. ? Chest CT abnormalities (ground glass opacities, cystic changes, ? tubular structure) -Continue doxycycline 100 mg IV BID -Add Rocephin 1 g IV. Discussed penicillin reaction. She reports a mild rash. No reported anaphylaxis. -Continue Solu-Medrol 40 mg IV q 6 h -Continue duo nebs every 6 hours scheduled -Pulmonary consult -Smoking cessation Microcytic anemia-likely iron deficient -Begin iron sulfate 325 mg po BID in addition to Colace 100 mg daily -Follow up next H&H. Could probably back H&H down to q 12 h is stable -Fecal occult blood--> no high suspicion of GI bleeding -Continue to hold Plavix -Consider adding on aspirin if H&H okay Coronary artery disease status post stent placement 2011 -Continue medical management with metoprolol XL 50 mg daily. -Aspirin and Plavix currently on hold ? History of MVP/heart arrhythmia -Continue digoxin 0.125 mg daily -Check dig level History of hepatitis C thought to be contracted from a blood transfusion 1980 -Treatment supposedly completed in October of last year Diabetes type 1 late onset -Patient has an insulin pump -We will need to increase the basal rate given the patient is on high-dose steroids DVT prophylaxis -Teds, SCDs -Coccal means of antegrade elation currently on hold given anemia CODE STATUS -LEVEL I FULL CODE (Neda Daily PA-C) Reviewed: Pt Seen/Exam by Me (Pepper Sinha MD) History Physician Unix System Administrator Supervision Note: I interviewed and examined the patient. Discussed with ZHOU Daily and agree with findings and plan as documented in the note. Any exceptions or clarifications are listed here: Patient does not feel much better with her breathing and cough since admission. She does report that her raging headache is now almost completely gone. She is still requiring oxygen. Her sugars have been elevated due to the steroids and she does not know how to program her insulin pump. We have turned it off and will manage her insulin subcutaneous injections. She has a history of iron deficiency anemia in the past but reports that she has responded well to by mouth iron tablets in the past. She has had negative serological testing for celiac disease, but has not had a biopsy during endoscopy to check for celiac disease, however she follows a gluten-free diet. She also reports that she developed diabetes in her 50s and is on an insulin pump in order to avoid doing multiple injections syrup the day and has found better control with this. She is not sure of the type of diabetes she has, however she has been told that she may have some sort of autoimmune type of diabetes. She is followed by an endocrinology PA as an outpatient. VSS Thin, pale, NAD RRR no murmurs gallops or rubs Lungs with scattered rhonchi and wheezes throughout bilateral lung briones Abdomen soft nontender nondistended positive bowel sounds Extremities no edema, calves nontender 66-year-old female who is a current smoker, probable type 1 diabetes mellitus, with history of iron deficiency anemia, CAD status post drug-eluting stent in 2011, and history of chronic hepatitis C now cured, who is here with multifocal pneumonia with probable chronic bronchiectasis. -Strongly encouraged smoking cessation -Discussed with pulmonology and likely will have bronchoscopy on Thursday -Sputum culture if possible to be obtained -Continue Rocephin and doxycycline -Wean off oxygen as tolerated For her anemia, this is likely a chronic iron deficiency anemia due to poor absorption, iron studies show low ferritin and low transferrin saturation. However she had a normal EGD and colonoscopy except for mild gastritis within 2 years. Will Hemoccult her stool but as long as it is negative, no further endoscopy as needed. GI has been consulted. Start ferrous sulfate tabs. -Continue to hold aspirin and Plavix but will restart both of them if the Hemoccult is negative as soon as possible For her diabetes, she has turned off her pump. We'll start Lantus 12 units twice a day and sliding scale NovoLog with carb coverage. To start off with, will give Lantus 12 units now this afternoon and 5 units tonight, then start the 12 units twice a day tomorrow. -Check hemoglobin A1c Documented By: Pepper Sinha (Pepper Sinha MD)
[2017-03-04] MEDS: ALBUT/IPRATROP 3MG/0.5MG NEB 3 ML VIAL INH SCH ×3 (12:00→20:00)
[2017-03-04] MEDS: DOXYCYCLINE IV 100 MG in DEXTROSE 5% 100ML 100 ML IV SCH (12:23)
[2017-03-04] MEDS: DOCUSATE SODIUM 100 MG CAP PO SCH (12:24)
--- NOTE | 2017-03-04 12:43 | CONSULTATION REPORT ---
Patient's case reviewed and plan agreed upon.DATE OF CONSULTATION: 03/04/2017 DATE OF CONSULTATION: 03/04/2017. REASON FOR CONSULTATION: Pneumonia with abnormal CAT scan imaging. HISTORY OF PRESENT ILLNESS: The patient is a 66-year-old female who has significant past medical history of anemia, hep C which the patient received cure treatment for, hypertension, mitral valve prolapse, coronary artery disease. The patient presented to the Emergency Room at [facility] on 03/03/2017 in the evening due to increased shortness of breath. The patient reports that she has had approximately 8 days of a flu-like symptom. She states that she started off with body aches, fever or chills. She also had a productive cough of a yellow very thick mucus. She denies any blood in the mucus. She was short of breath associated with this. She did see her PCP office on 02/27/2017 at which point she was started on a Medrol Dosepak by ZHOU in the office. It was felt that she had a viral illness. No testing was done at the time. The patient reports she was also using Robitussin early on which did seem to help bring the mucus up but unfortunately the mucus stopped coming up after about 3 days. She states that her shortness of breath seemed to worsen, she got shortness of breath with any type of exertion. She states that what what prompted her to come into the ER was that she could not really catch her breath. She was short of breath all the time. She states that she has also been having sweats constantly. She has been feeling fatigued and run down. She has also had headache and a lot of sinus drainage. She reports she is very frustrated in that she cannot seem to catch her breath. She states that her ribs are sore from coughing. She denies any other chest pain. She states that she does have a history of reflux but it has been well controlled for several years. She has not had any current reflux symptoms. No nausea or vomiting, no indigestion or heartburn. She states that her appetite is diminished. She reports that she has not had any difficulty with her bowel. She does have a history of colonoscopy without any difficulty. She has not had any difficulty voiding. No genitourinary symptoms. She was found to be slightly anemic on admission. She is on Plavix and aspirin for her cardiac disease and mitral valve prolapse. Her hemoglobin on admission was 8.5, repeat done today was 8.4. She did have a chest x-ray done in the ER which did not show any evidence of pneumonia. She did have flu titers done which were negative as well. She did have a CAT scan of her chest which is showing some abnormalities which will be discussed further on. In talking with the patient the patient did have hep C as stated earlier then was treated with cure. She states she developed hep C from having a blood transfusion in 1979 for an ectopic . She states that her daughter who she was with at the time has tested negative for hep C. We did discuss any potential TB exposure. The patient states that her mother was a nurse and always tested positive for TB. The patient states that she has had multiple TB michael tests in the past which were negative. The patient reports that she currently does follow with cardiology. As far as her current breathing, she states that she received a nebulizer treatment in the ER which did seem to help a little bit. She has not had any other concerns or problems. Her weight has been stable as well. PAST MEDICAL HISTORY: Includes anemia, anxiety, diabetes mellitus, hepatitis C, hyperlipidemia, hypertension, mitral valve prolapse, gastroesophageal reflux disease, coronary artery disease. PAST SURGICAL HISTORY: Include hysterectomy, stent placed in the RCA. FAMILY HISTORY: Includes diabetes mellitus, coronary artery disease, hypertension. SOCIAL HISTORY: The patient is a current smoker. She smokes approximately half pack a day for 40 years. The patient is retired. She worked for the [employer] and was never stationed outside of the country. She is . The patient states that she did live in [place] for 5 years. This was several years ago. She has not been outside of the country for several years. She has also visited [place]. 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 The students are from [place] and [place]. HOME MEDICATIONS: Include aspirin 81 mg daily, atorvastatin 10 mg daily, Citracal D 2 tabs daily, Catapres 0.2 mg nightly, Plavix 75 mg daily, digoxin 0.125 mg daily, doxazosin 2 mg daily, folic acid 25 mg daily, insulin pump as directed, Prevacid 30 mg daily, metoprolol 50 mg daily, nitroglycerin 0.4 mg sublingual as needed and Zoloft 75 mg daily. ALLERGIES: LEVOFLOXACIN AND PENICILLIN. REVIEW OF SYSTEMS: As above, otherwise unremarkable. PHYSICAL EXAMINATION: GENERAL: The patient is a 66-year-old female lying in bed, does not appear in any acute distress. Is able to complete sentences without difficulty; however, when she does move around in bed she does get slightly dyspneic. She is alert and oriented x3. Mood is good. Affect is good. VITAL SIGNS: Temp 36.4, pulse 74, respiration 18, blood pressure is 112/58, pulse ox is 93% on room air. HEAD, EYES, EARS, NOSE, AND THROAT: Normocephalic, atraumatic. Pupils equal, round react to light and accommodation. Extraocular movements are intact. [place] moist gingival and buccal mucosa. NECK: Thin, no mass, no adenopathy, no bruit noted. No JVD or thyromegaly. CHEST: The patient has diminished breath sounds bilaterally. She does have some mild diffuse expiratory wheeze. No rale or rhonchi. CARDIOVASCULAR: Regular rate and rhythm. There are no murmurs, gallops or rubs. ABDOMEN: Bowel sounds are present. Abdomen soft, nontender. No guarding, rigidity or organomegaly. EXTREMITIES: No erythema, no edema. NEUROLOGIC: Cranial nerves II through XII are intact. No focal deficit noted. LABORATORY DATA: Shows white count 13,000, H\T\H 8.5 and 27.8 on admission, platelet count 255,000, hemoglobin today is 8.4, BUN 14, creatinine 0.64. Influenza A and B are negative. Blood cultures are pending. IMAGING: CAT scan of the chest is showing scattered tree-in-bud nodularity throughout. There is also focal ground-glass opacities which includes a 3.1 cm and 2.0 cm right upper lobe lesion as well as some lower lobe bronchial wall thickening and atelectatic change. Also questionable mucoid impaction in the superior segment of the right upper lobe. IMPRESSION: 1. A 66-year-old female who presented with acute onset of dyspnea and flu-like symptoms. At this point, I think the patient is to be continued on current antibiotic which consists of doxycycline and Rocephin. Also recommend she be continued on Solu-Medrol. She currently is getting 40 mg q. 6 hours. I am going to change her nebulizer to q. 4 hours while awake and q. 2 hours p.r.n. as I think that the patient is going to need more aggressive pulmonary toilet. I would like to get the patient started on a mucolytic in the form of Mucinex. I would also like the patient to have an incentive spirometer and flutter valve to see if we can mobilize secretions. She does have a cup in her room for sputum culture. We will await that. In light of the abnormalities on imaging, it may be prudent to have the patient undergo bronchoscopic evaluation. Will discuss with Dr. Murillo. 2. Anemia. This definitely can be contributing to her dyspnea. Hospitalists are following this. Her aspirin and Plavix was held. GI is also consulted. If it does drop any more agree with recommendation for transfusion. 3. Tobacco use. This was discussed with the patient. I think the patient should follow up with pulmonary as an outpatient following hospitalization. I did discuss the potential for doing a bronchoscopy with the patient. She is agreeable to having it done if we felt it was necessary. We will continue to follow the patient during hospitalization. Patient's case reviewed and plan agreed upon. BINA
[2017-03-04] MEDS ORDERED: INSULIN GLARGINE SOLOSTAR 100 UNITS/ML 3 ML PEN SC ONE ×3 (14:15→21:00)
[2017-03-04] MEDS ORDERED: CODEINE SULFATE 30 MG TAB PO PRN (15:45)
[2017-03-04] MEDS ORDERED: CODEINE SULFATE 30 MG TAB PO ONE (16:00)
[2017-03-04] MEDS: DIGOXIN 0.125 MG TAB PO SCH (16:31)
[2017-03-04] MEDS: FERROUS SULFATE 325 MG TAB PO SCH (18:22)
[2017-03-04] MEDS: INSULIN ASPART 100 UNITS/ML 3 ML PEN SC SCH ×2 (18:29→20:43)
[2017-03-04] MEDS: DORNASE ALFA (2500U) 2.5MG/2.5ML INH SCH (20:30)
[2017-03-04] MEDS: GUAIFENESIN 600 MG TABCR PO SCH (20:39)
[2017-03-04] MEDS: CLONIDINE HCL 0.1 MG TAB PO SCH (20:39)
[2017-03-04] MEDS: DOXAZosin MESYLATE TAB 2 MG TAB PO SCH (20:40)
[2017-03-05] VITALS (12 sets, daily range): BP systolic 128–163; BP diastolic 56–68; PULSE 50–89; TEMP 36.5–36.9; O2SAT 91–100
[2017-03-05] MEDS: METHYLPREDNISOLONE IV 40 MG in SYRINGE 0 ML IV SCH ×5 (00:16→23:28)
[2017-03-05] MEDS: DOXYCYCLINE IV 100 MG in DEXTROSE 5% 100ML 100 ML IV SCH ×3 (00:16→23:29)
[2017-03-05 06:23] LABS: BASO % 0.1 %; BASO ABS # 0.02 K/uL (0-0.2); HEMATOCRIT 27.4 % (37-47); IG% 0.7 %; LYMPH % 4.1 %; MEAN CELL VOLUME 68.2 fL (80-100); MEAN CORPUSCULAR HEMOGLOBIN 20.1 pg (25-34); MEAN CORPUSCULAR HGB CONC 29.6 g/dl (32-36); MEAN PLATELET VOLUME 10.6 fL (7.4-10.4); MONO % 3.8 %; NEUT % 91.3 %; PLATELET COUNT 285 K/uL (130-400); RED BLOOD COUNT 4.02 M/uL (4.2-5.4); WHITE BLOOD COUNT 16.91 K/uL (4.8-10.8)
[2017-03-05 06:24] LABS: BUN/CREATININE RATIO 22.5 (10-20); CALCIUM 8.5 mg/dl (8.5-10.1); CREATININE 0.62 mg/dl (0.60-1.20)
[2017-03-05] MEDS: DORNASE ALFA (2500U) 2.5MG/2.5ML INH SCH ×2 (07:35→19:43)
[2017-03-05 07:37] LABS: COMPLETE YES; HYPOCHROMIA PRESENT; MICROCYTOSIS PRESENT; POLYCHROMASIA 1+
[2017-03-05] MEDS: ALBUT/IPRATROP 3MG/0.5MG NEB 3 ML VIAL INH SCH ×4 (07:37→19:43)
[2017-03-05] MEDS: ATORVASTATIN 10 MG TAB PO SCH (07:51)
[2017-03-05] MEDS: FERROUS SULFATE 325 MG TAB PO SCH ×2 (07:51→17:47)
[2017-03-05] MEDS: DOCUSATE SODIUM 100 MG CAP PO SCH ×2 (07:52→20:51)
[2017-03-05] MEDS: GUAIFENESIN 600 MG TABCR PO SCH ×2 (07:52→20:51)
[2017-03-05] MEDS: VITAMIN B COMPLEX TAB PO SCH (07:52)
[2017-03-05] MEDS: SERTRALINE HCL 50 MG TAB PO SCH (07:53)
[2017-03-05] MEDS: METOPROLOL SUCC 50MG EXT REL TAB PO SCH (07:55)
[2017-03-05 08:21] LABS: ESTIMATED AVERAGE GLUCOSE 143 mg/dl; HA1C FLAG Normal (Normal)
[2017-03-05] MEDS: INSULIN ASPART 100 UNITS/ML 3 ML PEN SC SCH ×4 (08:50→20:54)
[2017-03-05] MEDS: INSULIN GLARGINE SOLOSTAR 100 UNITS/ML 3 ML PEN SC SCH ×2 (08:51→20:55)
[2017-03-05] MEDS: CEFTRIAXONE SOD INJ 1 GM in DEXTROSE 5% 50ML 50 ML IV SCH (10:49)
[2017-03-05] MEDS ORDERED: TRAMADOL HCL 50 MG TAB PO PRN (11:30)
[2017-03-05] MEDS ORDERED: LORAZEPAM 0.5 MG TAB PO PRN (11:30)
--- NOTE | 2017-03-05 14:26 | Hospitalist Progress Note ---
Hospitalist Progress Note Date of Service Mar 05, 2017. (Neda Daily PA-C) Subjective Pt evaluation today including: conversation w/ patient, physical exam, chart review, lab review, conversation w/ service consultant, review of inpatient medication list Patient reports no fevers overnight. Still complaining of a nonproductive cough and feeling weak. Mild shortness of breath at rest. Denies having any bowel movements. No abdominal pain or nausea. She is complaining of decreased hearing bilaterally. She also complains of sinus pressure and notes that her teeth have hurt over the last several days. Additional Comments: 6 system review performed and negative unless otherwise noted (Neda Daily PA-C) Objective Vital Signs Date Time Temp Pulse Resp B/P Pulse Ox O2 Delivery O2 Flow Rate FiO2 03/05/17 12:00 Room Air 03/05/17 11:36 36.7 79 16 135/56 100 Room Air 03/05/17 11:03 80 16 94 Nasal Cannula 2.0 03/05/17 08:00 Room Air 03/05/17 07:25 74 16 94 Nasal Cannula 2.0 03/05/17 07:14 36.6 70 16 128/62 94 Room Air 03/05/17 04:33 36.5 50 16 147/66 91 Room Air 03/05/17 04:00 Nasal Cannula 2.0 03/05/17 00:00 Nasal Cannula 2.0 03/04/17 23:53 36.6 58 16 138/60 92 Room Air 03/04/17 20:59 64 18 97 Nasal Cannula 2.0 03/04/17 20:09 36.7 71 18 170/72 94 Nasal Cannula 2.0 03/04/17 20:00 Nasal Cannula 2.0 03/04/17 16:31 68 03/04/17 16:00 Nasal Cannula 2.0 03/04/17 15:44 59 14 97 Nasal Cannula 2.0 03/04/17 15:32 36.8 64 16 137/69 91 Nasal Cannula 3.0 (Neda Daily PA-C) Physical Exam General Appearance: + mild distress (mildly uncomfortable in appearance) Eyes: EOMI Neck: no adenopathy, no JVD Respiratory/Chest: + pertinent finding (coarse breath sounds with wheezing bilaterally.) Cardiovascular: regular rate, rhythm Abdomen: normal bowel sounds, non tender, soft Extremities: non-tender, no pedal edema Neurologic/Psychiatric: no motor/sensory deficits, oriented x 3 Skin: warm/dry, no rash (Neda Daily PA-C) Laboratory Results 03/05/17 05:07 Red Blood Count 4.02, Mean Corpuscular Volume 68.2, Mean Corpuscular Hemoglobin 20.1, Mean Corpuscular Hemoglobin Concent 29.6, Mean Platelet Volume 10.6, Neutrophils (%) (Auto) 91.3, Lymphocytes (%) (Auto) 4.1, Monocytes (%) (Auto) 3.8, Eosinophils (%) (Auto) 0.0, Basophils (%) (Auto) 0.1, Neutrophils # (Auto) 15.43, Lymphocytes # (Auto) 0.70, Monocytes # (Auto) 0.65, Eosinophils # (Auto) 0.00, Basophils # (Auto) 0.02 03/05/17 05:07 Test 03/05/17 05:07 03/05/17 11:51 White Blood Count 16.91 K/uL (4.8-10.8) Red Blood Count 4.02 M/uL (4.2-5.4) Hemoglobin 8.1 g/dL (12.0-16.0) Hematocrit 27.4 % (37-47) Mean Corpuscular Volume 68.2 fL (80-100) Mean Corpuscular Hemoglobin 20.1 pg (25-34) Mean Corpuscular Hemoglobin Concent 29.6 g/dl (32-36) Platelet Count 285 K/uL (130-400) Mean Platelet Volume 10.6 fL (7.4-10.4) Neutrophils (%) (Auto) 91.3 % Lymphocytes (%) (Auto) 4.1 % Monocytes (%) (Auto) 3.8 % Eosinophils (%) (Auto) 0.0 % Basophils (%) (Auto) 0.1 % Neutrophils # (Auto) 15.43 K/uL (1.4-6.5) Lymphocytes # (Auto) 0.70 K/uL (1.2-3.4) Monocytes # (Auto) 0.65 K/uL (0.11-0.59) Eosinophils # (Auto) 0.00 K/uL (0-0.5) Basophils # (Auto) 0.02 K/uL (0-0.2) RDW Standard Deviation 51.4 fL (36.4-46.3) RDW Coefficient of Variation 20.9 % (11.5-14.5) Immature Granulocyte % (Auto) 0.7 % Immature Granulocyte # (Auto) 0.11 K/uL (0.00-0.02) Polychromasia 1+ Hypochromasia PRESENT Microcytosis PRESENT Anion Gap 6.0 mmol/L (3-11) Est Creatinine Clear Calc Drug Dose 72.5 ml/min Estimated GFR () 110.4 Estimated GFR (Non- 95.3 BUN/Creatinine Ratio 22.5 (10-20) Estimated Average Glucose 143 mg/dl Hemoglobin A1c 6.6 % (4.5-5.6) Calcium Level 8.5 mg/dl (8.5-10.1) Bedside Glucose 329 mg/dl (70-90) Last 24 Hours Test 03/04/17 16:43 03/04/17 20:35 03/05/17 05:07 03/05/17 07:25 Bedside Glucose 176 mg/dl 209 mg/dl 210 mg/dl White Blood Count 16.91 K/uL Red Blood Count 4.02 M/uL Hemoglobin 8.1 g/dL Hematocrit 27.4 % Mean Corpuscular Volume 68.2 fL Mean Corpuscular Hemoglobin 20.1 pg Mean Corpuscular Hemoglobin Concent 29.6 g/dl Platelet Count 285 K/uL Mean Platelet Volume 10.6 fL Neutrophils (%) (Auto) 91.3 % Lymphocytes (%) (Auto) 4.1 % Monocytes (%) (Auto) 3.8 % Eosinophils (%) (Auto) 0.0 % Basophils (%) (Auto) 0.1 % Neutrophils # (Auto) 15.43 K/uL Lymphocytes # (Auto) 0.70 K/uL Monocytes # (Auto) 0.65 K/uL Eosinophils # (Auto) 0.00 K/uL Basophils # (Auto) 0.02 K/uL RDW Standard Deviation 51.4 fL RDW Coefficient of Variation 20.9 % Immature Granulocyte % (Auto) 0.7 % Immature Granulocyte # (Auto) 0.11 K/uL Polychromasia 1+ Hypochromasia PRESENT Microcytosis PRESENT Sodium Level 140 mmol/L Potassium Level 4.0 mmol/L Chloride Level 108 mmol/L Carbon Dioxide Level 26 mmol/L Anion Gap 6.0 mmol/L Blood Urea Nitrogen 14 mg/dl Creatinine 0.62 mg/dl Est Creatinine Clear Calc Drug Dose 72.5 ml/min Estimated GFR () 110.4 Estimated GFR (Non- 95.3 BUN/Creatinine Ratio 22.5 Random Glucose 210 mg/dl Estimated Average Glucose 143 mg/dl Hemoglobin A1c 6.6 % Calcium Level 8.5 mg/dl Test 03/05/17 11:51 Bedside Glucose 329 mg/dl (Neda Daily PA-C) Assessment and Plan 66-year-old female presents to the emergency department with fever, nonproductive cough and overall weakness. Found to be significantly anemic with abnormal findings on the chest CT. Shortness of breath, cough, abnormal CT of the chest-likely infectious etiology such as community-acquired pneumonia. ? Chest CT abnormalities (ground glass opacities, cystic changes, ? tubular structure)-O2 stable -Continue doxycycline 100 mg IV BID and Rocephin 1 g IV. Discussed penicillin reaction. She reports a mild rash. No reported anaphylaxis. No rxn noted -Continue Solu-Medrol 40 mg IV q 6 h -Continue duo nebs every 6 hours scheduled -Dornase BID added -Smoking cessation -f/u sputum cx -Pulmonary consult appreciated. Possible Bronch in AM. NPO after MN ? Subjective difficulty hearing, sinus pressure-likely secondary to sinusitis -Continue antibiotics as noted above and monitor for improvement Microcytic anemia-likely iron deficient. Low suspicion of GI bleed -iron sulfate 325 mg po BID in addition to Colace 100 mg BID -H&H daily -Continue to hold plavix, restart ASA -hold off on transfusion til hgb <7.8 -FOB Coronary artery disease status post stent placement 2011 -Continue medical management with metoprolol XL 50 mg daily. -Aspirin restarted -Plavix on hold ? History of MVP/heart arrhythmia -Continue digoxin 0.125 mg daily -Dig therapeutic History of hepatitis C thought to be contracted from a blood transfusion 1980 -Treatment supposedly completed in October of last year Diabetes type 1 late onset-BSGs slightly high -pump d/c'ed -Lantus 12 units BID in addition to a sliding scale DVT prophylaxis -Teds, SCDs -Chemical means currently on hold given anemia CODE STATUS -LEVEL I FULL CODE (Neda Daily, EMELYN) Reviewed: Pt Seen/Exam by Me (Pepper Sinha MD) History Physician Assisted Living Director Supervision Note: I interviewed and examined the patient. Discussed with ZHOU Daily and agree with findings and plan as documented in the note. Any exceptions or clarifications are listed here: Breathing and cough feel about the same today. She is off oxygen at rest at least. She does feel short of breath with ambulation. I discussed the case with Dr. Murillo of pulmonology today. We'll be holding off on bronchoscopy for now. Glucose levels were high today and I was going start an insulin drip, however than the glucose went down to 127. VSS Thin, pale, NAD RRR no murmurs gallops or rubs Lungs with scattered rhonchi and wheezes throughout bilateral lung briones Abdomen soft nontender nondistended positive bowel sounds Extremities no edema, calves nontender 66-year-old female who is a current smoker, probable type 1 diabetes mellitus, with history of iron deficiency anemia, CAD status post drug-eluting stent in 2011, and history of chronic hepatitis C now cured, who is here with multifocal pneumonia with probable chronic bronchiectasis. -Strongly encouraged smoking cessation -Discussed with pulmonology will hold off on bronchoscopy for now -Sputum culture if possible to be obtained -Continue antibiotics -Plan to repeat CT chest in 6 weeks and possible bronchoscopy if abnormal findings are not resolved For her anemia, this is likely a chronic iron deficiency anemia due to poor absorption, iron studies show low ferritin and low transferrin saturation. However she had a normal EGD and colonoscopy except for mild gastritis within 2 years. Will Hemoccult her stool but as long as it is negative, no further endoscopy as needed. GI has been consulted. Start ferrous sulfate tabs. 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 Hemoglobin A1c well controlled at 6.6% -Continue Lantus 12 units twice a day and sliding scale NovoLog with carb coverage. No insulin drip needed at this time Documented By: Pepper Sinha (Pepper Sinha MD)
[2017-03-05] MEDS: DIGOXIN 0.125 MG TAB PO SCH (15:46)
[2017-03-05] MEDS ORDERED: INSULIN IV INFUSION PROTOCOL STA (16:13)
[2017-03-05] MEDS ORDERED: INSULIN PROTOCOL GOAL RANGE ONE (16:15)
[2017-03-05] MEDS ORDERED: SEVERE STRESS LEVEL ONE (16:15)
[2017-03-05] MEDS ORDERED: DC ALL PREVIOUSLY ORDERED DIABETES MEDS ONE (16:15)
[2017-03-05] MEDS ORDERED: PHARMACY GLYCEMIC MGMT CONSULT SCH (16:39)
[2017-03-05] MEDS ORDERED: INSULIN REGULAR 250 UNITS in SODIUM CHLORIDE 0.9% 250ML 250 ML IV SCH (16:57)
[2017-03-05] MEDS ORDERED: INSULIN ASPART 100 UNITS/ML 3 ML PEN SC SCH ×2 (18:00)
[2017-03-05] MEDS: CLONIDINE HCL 0.1 MG TAB PO SCH (20:51)
[2017-03-05] MEDS: DOXAZosin MESYLATE TAB 2 MG TAB PO SCH (20:51)
[2017-03-06] VITALS (12 sets, daily range): BP systolic 147–172; BP diastolic 62–77; PULSE 52–78; TEMP 36.6–36.8; O2SAT 93–97
[2017-03-06] MEDS: METHYLPREDNISOLONE IV 40 MG in SYRINGE 0 ML IV SCH ×3 (05:47→21:54)
[2017-03-06] MEDS: ALBUT/IPRATROP 3MG/0.5MG NEB 3 ML VIAL INH SCH ×3 (07:23→18:57)
[2017-03-06 07:50] LABS: BASO % 0.1 %; BASO ABS # 0.01 K/uL (0-0.2); HEMATOCRIT 27.3 % (37-47); LYMPH % 5.8 %; LYMPH ABS # 0.95 K/uL (1.2-3.4); MEAN CELL VOLUME 67.9 fL (80-100); MEAN CORPUSCULAR HEMOGLOBIN 19.9 pg (25-34); MEAN CORPUSCULAR HGB CONC 29.3 g/dl (32-36); MEAN PLATELET VOLUME 9.8 fL (7.4-10.4); MONO % 4.5 %; NEUT % 88.6 %; PLATELET COUNT 299 K/uL (130-400); RED BLOOD COUNT 4.02 M/uL (4.2-5.4); WHITE BLOOD COUNT 16.29 K/uL (4.8-10.8)
[2017-03-06] MEDS: DORNASE ALFA (2500U) 2.5MG/2.5ML INH SCH ×2 (08:00→19:10)
[2017-03-06 08:11] LABS: ANISOCYTOSIS PRESENT; COMPLETE YES; HYPOCHROMIA PRESENT; MICROCYTOSIS PRESENT
[2017-03-06] MEDS: DOCUSATE SODIUM 100 MG CAP PO SCH ×2 (08:15→21:53)
[2017-03-06] MEDS: FERROUS SULFATE 325 MG TAB PO SCH ×2 (08:15→16:51)
[2017-03-06 08:16] LABS: BUN/CREATININE RATIO 28.9 (10-20); CREATININE 0.63 mg/dl (0.60-1.20); MAGNESIUM 2.3 mg/dl (1.8-2.4); POTASSIUM 4.1 mmol/L (3.5-5.1)
[2017-03-06] MEDS: ASPIRIN 81 MG ECTAB PO SCH (08:16)
[2017-03-06] MEDS: VITAMIN B COMPLEX TAB PO SCH (08:16)
[2017-03-06] MEDS: ATORVASTATIN 10 MG TAB PO SCH (08:16)
[2017-03-06] MEDS: GUAIFENESIN 600 MG TABCR PO SCH (08:17)
[2017-03-06] MEDS: SERTRALINE HCL 50 MG TAB PO SCH (08:17)
[2017-03-06] MEDS: METOPROLOL SUCC 50MG EXT REL TAB PO SCH (08:17)
[2017-03-06] MEDS: POLYETHYLENE (MIRALAX) 17 GM PACK PO SCH (08:26)
[2017-03-06] MEDS: INSULIN GLARGINE SOLOSTAR 100 UNITS/ML 3 ML PEN SC SCH ×2 (08:46→21:58)
[2017-03-06] MEDS: INSULIN ASPART 100 UNITS/ML 3 ML PEN SC SCH ×4 (08:46→21:58)
[2017-03-06] MEDS: CEFTRIAXONE SOD INJ 1 GM in DEXTROSE 5% 50ML 50 ML IV SCH (09:49)
[2017-03-06] MEDS ORDERED: AZITHROMYCIN 250 MG TAB PO ONE (12:00)
--- NOTE | 2017-03-06 13:28 | Hospitalist Progress Note ---
Hospitalist Progress Note Date of Service Mar 06, 2017. (Neda Daily PA-C) Subjective Pt evaluation today including: conversation w/ patient, conversation w/ family , physical exam, chart review, lab review, review of studies, conversation w/ erp implementation consultant, review of inpatient medication list Patient reports less shortness of breath this morning. She also feels like she has more energy. No fever or chills. Denies any chest pain or pressure. No dizziness. Still no bowel movements. Enjoying her breakfast. No nausea. Denies abdominal pain. She is complaining of feeling jittery, which she associates with getting her Mucinex. Additional Comments: 6 system review negative. Please see pertinent positives in the history of present illness section. (Neda Daily PA-C) Objective Vital Signs Date Time Temp Pulse Resp B/P Pulse Ox O2 Delivery O2 Flow Rate FiO2 03/06/17 11:52 36.7 65 16 149/69 94 Room Air 03/06/17 11:19 78 16 96 Room Air 03/06/17 08:00 Room Air 03/06/17 07:23 78 16 96 Room Air 03/06/17 07:15 36.6 52 16 147/65 95 Room Air 03/06/17 04:00 Room Air Nasal Cannula 03/06/17 04:00 36.7 54 16 159/64 96 Room Air 03/06/17 00:00 Room Air 2.0 Nasal Cannula 03/05/17 23:59 36.9 67 16 143/63 94 Room Air 03/05/17 20:48 89 163/68 03/05/17 20:00 94 Room Air 03/05/17 19:43 78 16 96 Room Air 03/05/17 16:24 80 16 94 Nasal Cannula 2.0 03/05/17 16:00 94 Room Air 03/05/17 15:46 71 03/05/17 15:17 36.9 76 18 152/63 94 Room Air (Neda Daily PA-C) Physical Exam General Appearance: no apparent distress (sitting up in a chair conversing with family.) Eyes: EOMI ENT: + pertinent finding (TMs bulging but not erythematous bilaterally. Clear fluid noted behind each TM.) Neck: no JVD Respiratory/Chest: + pertinent finding (few wheezes and coarse breath sounds particularly at the left base. Overall improved.) Cardiovascular: regular rate, rhythm Abdomen: normal bowel sounds, non tender, soft Extremities: non-tender, no pedal edema Neurologic/Psychiatric: no motor/sensory deficits, oriented x 3 Skin: warm/dry (Neda Daily, EMELYN) Laboratory Results 03/06/17 06:20 Red Blood Count 4.02, Mean Corpuscular Volume 67.9, Mean Corpuscular Hemoglobin 19.9, Mean Corpuscular Hemoglobin Concent 29.3, Mean Platelet Volume 9.8, Neutrophils (%) (Auto) 88.6, Lymphocytes (%) (Auto) 5.8, Monocytes (%) (Auto) 4.5, Eosinophils (%) (Auto) 0.0, Basophils (%) (Auto) 0.1, Neutrophils # (Auto) 14.44, Lymphocytes # (Auto) 0.95, Monocytes # (Auto) 0.73, Eosinophils # (Auto) 0.00, Basophils # (Auto) 0.01 03/06/17 06:20 Test 03/06/17 06:20 03/06/17 11:42 White Blood Count 16.29 K/uL (4.8-10.8) Red Blood Count 4.02 M/uL (4.2-5.4) Hemoglobin 8.0 g/dL (12.0-16.0) Hematocrit 27.3 % (37-47) Mean Corpuscular Volume 67.9 fL (80-100) Mean Corpuscular Hemoglobin 19.9 pg (25-34) Mean Corpuscular Hemoglobin Concent 29.3 g/dl (32-36) Platelet Count 299 K/uL (130-400) Mean Platelet Volume 9.8 fL (7.4-10.4) Neutrophils (%) (Auto) 88.6 % Lymphocytes (%) (Auto) 5.8 % Monocytes (%) (Auto) 4.5 % Eosinophils (%) (Auto) 0.0 % Basophils (%) (Auto) 0.1 % Neutrophils # (Auto) 14.44 K/uL (1.4-6.5) Lymphocytes # (Auto) 0.95 K/uL (1.2-3.4) Monocytes # (Auto) 0.73 K/uL (0.11-0.59) Eosinophils # (Auto) 0.00 K/uL (0-0.5) Basophils # (Auto) 0.01 K/uL (0-0.2) RDW Standard Deviation 51.2 fL (36.4-46.3) RDW Coefficient of Variation 21.0 % (11.5-14.5) Immature Granulocyte % (Auto) 1.0 % Immature Granulocyte # (Auto) 0.16 K/uL (0.00-0.02) Nucleated RBC Absolute Count (auto) 0.02 K/uL (0-0) Nucleated Red Blood Cells % 0.1 % Hypochromasia PRESENT Anisocytosis PRESENT Microcytosis PRESENT Anion Gap 7.0 mmol/L (3-11) Est Creatinine Clear Calc Drug Dose 71.1 ml/min Estimated GFR () 109.9 Estimated GFR (Non- 94.8 BUN/Creatinine Ratio 28.9 (10-20) Calcium Level 9.0 mg/dl (8.5-10.1) Magnesium Level 2.3 mg/dl (1.8-2.4) Bedside Glucose 180 mg/dl (70-90) Last 24 Hours Test 03/05/17 16:30 03/05/17 20:20 03/06/17 06:20 03/06/17 07:32 Bedside Glucose 127 mg/dl 137 mg/dl 184 mg/dl White Blood Count 16.29 K/uL Red Blood Count 4.02 M/uL Hemoglobin 8.0 g/dL Hematocrit 27.3 % Mean Corpuscular Volume 67.9 fL Mean Corpuscular Hemoglobin 19.9 pg Mean Corpuscular Hemoglobin Concent 29.3 g/dl Platelet Count 299 K/uL Mean Platelet Volume 9.8 fL Neutrophils (%) (Auto) 88.6 % Lymphocytes (%) (Auto) 5.8 % Monocytes (%) (Auto) 4.5 % Eosinophils (%) (Auto) 0.0 % Basophils (%) (Auto) 0.1 % Neutrophils # (Auto) 14.44 K/uL Lymphocytes # (Auto) 0.95 K/uL Monocytes # (Auto) 0.73 K/uL Eosinophils # (Auto) 0.00 K/uL Basophils # (Auto) 0.01 K/uL RDW Standard Deviation 51.2 fL RDW Coefficient of Variation 21.0 % Immature Granulocyte % (Auto) 1.0 % Immature Granulocyte # (Auto) 0.16 K/uL Nucleated RBC Absolute Count (auto) 0.02 K/uL Nucleated Red Blood Cells % 0.1 % Hypochromasia PRESENT Anisocytosis PRESENT Microcytosis PRESENT Sodium Level 139 mmol/L Potassium Level 4.1 mmol/L Chloride Level 106 mmol/L Carbon Dioxide Level 26 mmol/L Anion Gap 7.0 mmol/L Blood Urea Nitrogen 18 mg/dl Creatinine 0.63 mg/dl Est Creatinine Clear Calc Drug Dose 71.1 ml/min Estimated GFR () 109.9 Estimated GFR (Non- 94.8 BUN/Creatinine Ratio 28.9 Random Glucose 159 mg/dl Calcium Level 9.0 mg/dl Magnesium Level 2.3 mg/dl Test 03/06/17 11:42 Bedside Glucose 180 mg/dl (Neda Daily, PAWillamC) Assessment and Plan 66-year-old female presents to the emergency department with fever, nonproductive cough and overall weakness. Found to be significantly anemic with abnormal findings on the chest CT. Shortness of breath, cough, abnormal CT of the chest-likely infectious etiology such as community-acquired pneumonia-clinically improving. -Continue doxycycline 100 mg IV BID and Rocephin 1 g IV. Discussed penicillin reaction. She reports a mild rash. No reported anaphylaxis. No rxn noted -Taper Solu-Medrol 60 mg IV to q 8 hr -Continue duo nebs every 6 hours scheduled -ok to d/c Mucinex per pulm -Dornase BID -Smoking cessation -Discussed with pulmonary. No bronchoscopy while inpatient. Continue to treat as infectious etiology. Repeat CT in 6 weeks. Possible bronchoscopy as an outpatient. ? Subjective difficulty hearing, sinus pressure-TMs bulging with fluid bilaterally. Likely element of sinusitis. Overall symptoms are improving. -Continue antibiotics as noted above and monitor for improvement Microcytic anemia-likely iron deficient. Low suspicion of GI bleed -iron sulfate 325 mg po BID in addition to Colace 100 mg BID -H&H daily -Continue to hold plavix, restart ASA -FOB Coronary artery disease status post stent placement 2011-no anginal symptoms -Continue medical management with metoprolol XL 50 mg daily. -Aspirin restarted -Plavix on hold ? History of MVP/heart arrhythmia -Continue digoxin 0.125 mg daily -Dig therapeutic History of hepatitis C thought to be contracted from a blood transfusion 1980 -Treatment supposedly completed in October of last year Diabetes type 1 late onset- -pump d/c'ed -pharmacy now managing DVT prophylaxis -Teds, SCDs -Chemical means currently on hold given anemia CODE STATUS -LEVEL I FULL CODE (Neda Daily, EMELYN) Reviewed: Pt Seen/Exam by Me (Pepper Sinha MD) History Physician Closing Coordinator Supervision Note: I interviewed and examined the patient. Discussed with ZHOU Daily and agree with findings and plan as documented in the note. Any exceptions or clarifications are listed here: Feeling much better today. VSS Thin, pale, NAD RRR no murmurs gallops or rubs Lungs with scattered rhonchi and wheezes throughout bilateral lung briones improved from previous Abdomen soft nontender nondistended positive bowel sounds Extremities no edema, calves nontender 66-year-old female who is a current smoker, probable type 1 diabetes mellitus, with history of iron deficiency anemia, CAD status post drug-eluting stent in 2011, and history of chronic hepatitis C now cured, who is here with multifocal pneumonia with probable chronic bronchiectasis. -Strongly encouraged smoking cessation-she plans on using nicotine lozenges -Discussed with pulmonology -Continue Rocephin and changed to by mouth azithromycin-we'll likely discharge to home tomorrow on by mouth Omnicef and azithromycin -Plan to repeat CT chest in 6 weeks and possible bronchoscopy if abnormal findings are not resolved For her anemia, this is a chronic iron deficiency anemia due to poor absorption , iron studies show low ferritin and low transferrin saturation. She had a normal EGD and colonoscopy except for mild gastritis 2 years ago. Hemoccult stool is negative, no further endoscopy is needed. -Continue ferrous sulfate tabs. 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 Hemoglobin A1c well controlled at 6.6% -Continue Lantus 12 units twice a day and sliding scale NovoLog with carb coverage. No insulin drip needed at this time Documented By: Pepper Sinha (Pepper Sinha MD)
--- NOTE | 2017-03-06 14:23 | DIAGNOSTIC IMAGING REPORT ---
CHEST 2 VIEWS ROUTINE CLINICAL HISTORY: pneumonia COMPARISON STUDY: 03/03/2017 FINDINGS: The cardiac and mediastinal contours remain stable. The previously described right upper lobe airspace opacity is not visualized the current study. There is no focal pulmonary consolidation. There is no failure. There is blunting of the posterior costophrenic angles. Trace effusions are suspected.[ IMPRESSION: 1. No evidence of parenchyma consolidation on conventional radiographic imaging 2. Trace pleural effusions Electronically signed by: Fredy Arrington M.D. 03/06/2017 2:21 PM Dictated Date/Time: 03/06/2017 2:20 PM
--- NOTE | 2017-03-06 16:38 | PROGRESS NOTE ---
DATE: 03/06/2017 PULMONARY PROGRESS NOTE PROBLEM LIST: Includes: 1. Respiratory infection including possibly pneumonia with some hypoxia. 2. Anemia. 3. Tobacco use. SUBJECTIVE: The patient is feeling much better today. She states that she is able to take a deep breath and without coughing as much. She actually has very little cough. At this time, she has not gotten much mucus up when she just cough. She has no chest discomfort or heaviness. No chest pain or painful respirations. She denies any other concerns or problems at this time. The patient's daughter, niece and mother were in the room today. They all had several questions and I did spend approximately 45 minutes to an hour discussing and answering questions for them. The patient reports that she has not really had much sputum production at this point. She was supposed to get a sputum culture, but has been unable to do this. She denies any other concerns. She has been tolerating her medications well. OBJECTIVE: GENERAL: The patient is a 66-year-old female sitting at bedside, in no acute distress. She is alert and oriented x3. Mood is good. Affect is good. VITAL SIGNS: Temp 36.8, pulse 59, respirations 16, blood pressure is 166/62, pulse ox is 97% on room air. HEENT: Normocephalic, atraumatic. Pupils equal, round and react to light and accommodation. Extraocular movements are intact. [place] moist gingival and buccal mucosa. NECK: Supple. No mass. No adenopathy. No bruit. CHEST: She does have a few scattered wheezes throughout, but does have much improved breath sounds from when I listened to her on the . No rale or rhonchi appreciated. CARDIOVASCULAR: Regular rate and rhythm. No murmurs, gallops or rubs. ABDOMEN: Soft, nontender. No guarding, rigidity or organomegaly. EXTREMITIES: No erythema or edema. LABORATORY DATA: Shows a white count of 16,000, H\T\H of 8.0 and 27.3, platelet count of 299,000. Blood cultures are negative to date. IMAGING DATA: Chest x-ray that was ordered earlier in the day showing resolution of the previously mentioned consolidation and is showing some questionable trace pleural effusions as well. IMPRESSION AND PLAN: 1. A 66-year-old female who had presented to the hospital with acute onset of dyspnea and flu-like symptoms. The patient is showing significant improvement. Imaging looks better. At this point, we can continue to taper Solu-Medrol and convert to where she is on prednisone. Once on prednisone, I would recommend a taper of 10 mg every 2 days until she is off. Also recommend continue doxycycline to complete a 10-day course. I will not be in over the weekend, but Dr. Murillo will. It sounds like the patient should be ready for discharge sometime over the weekend, hopefully. We did discuss and the patient would like to follow up with our office as an outpatient. An appointment was made for March 19 in the [place] office. This information was entered on the discharge forms. 2. Anemia. Hospitalist are following this. 3. Tobacco use. We had a long discussion again today about tobacco use with the patient at the family's request. We are going to work on this as an outpatient as well. The patient is hopeful that she will be able to stop smoking. We will continue to follow through hospitalization. Patient'[id number] MTDD
[2017-03-06] MEDS: DIGOXIN 0.125 MG TAB PO SCH (16:50)
[2017-03-06] MEDS ORDERED: ENOXAPARIN 40 MG/0.4 ML SYR SQ ONE (16:51)
[2017-03-06] MEDS: BOOST GLUCOSE CONTROL PO SCH (16:54)
[2017-03-06 18:19] LABS: INR 1.2 (0.9-1.1); PARTIAL THROMBOPLASTIN RATIO 0.9; PROTHROMBIN TIME (PATIENT) 12.4 SECONDS (9.0-12.0)
[2017-03-06] MEDS ORDERED: SODIUM CHLORIDE 0.65% NA SOLN 45 ML (OCEAN) ONE (19:09)
[2017-03-06] MEDS ORDERED: SODIUM CHLORIDE 0.65% NA SOLN 45 ML (OCEAN) PRN (19:15)
[2017-03-06] MEDS: DOXAZosin MESYLATE TAB 2 MG TAB PO SCH (21:53)
[2017-03-06] MEDS: CLONIDINE HCL 0.1 MG TAB PO SCH (21:53)
[2017-03-07] VITALS (8 sets, daily range): BP systolic 114–170; BP diastolic 61–76; PULSE 51–74; TEMP 36.6–37; O2SAT 97–100
[2017-03-07] MEDS: METHYLPREDNISOLONE IV 40 MG in SYRINGE 0 ML IV SCH ×2 (06:25→13:03)
[2017-03-07] MEDS: ALBUT/IPRATROP 3MG/0.5MG NEB 3 ML VIAL INH SCH ×3 (07:48→16:00)
[2017-03-07] MEDS: DORNASE ALFA (2500U) 2.5MG/2.5ML INH SCH (07:48)
[2017-03-07 08:07] LABS: HEMATOCRIT 27.8 % (37-47); MEAN CORPUSCULAR HEMOGLOBIN 20.3 pg (25-34); MEAN CORPUSCULAR HGB CONC 29.9 g/dl (32-36); MEAN PLATELET VOLUME 10.2 fL (7.4-10.4); PLATELET COUNT 323 K/uL (130-400); RED BLOOD COUNT 4.09 M/uL (4.2-5.4); WHITE BLOOD COUNT 11.97 K/uL (4.8-10.8)
[2017-03-07 08:15] LABS: ANISOCYTOSIS PRESENT; BASO % 0.1 %; BASO ABS # 0.01 K/uL (0-0.2); COMPLETE YES; EOS % 0.1 %; LARGE PLATELETS 1+; LYMPH % 12.7 %; LYMPH ABS # 1.52 K/uL (1.2-3.4); MICROCYTOSIS PRESENT; MONO % 5.8 %; NEUT % 80.3 %
[2017-03-07 08:20] LABS: CREATININE 0.62 mg/dl (0.60-1.20); POTASSIUM 4.2 mmol/L (3.5-5.1)
[2017-03-07 08:21] LABS: MAGNESIUM 2.3 mg/dl (1.8-2.4)
[2017-03-07 08:53] LABS: CALCIUM 8.8 mg/dl (8.5-10.1)
[2017-03-07] MEDS ORDERED: INSULIN GLARGINE SOLOSTAR 100 UNITS/ML 3 ML PEN SC SCH (09:00)
[2017-03-07] MEDS ORDERED: AZITHROMYCIN 250 MG TAB PO SCH (09:00)
[2017-03-07] MEDS ORDERED: CLOPIDOGREL BISULFATE 75 MG TAB PO SCH (09:00)
[2017-03-07] MEDS: FERROUS SULFATE 325 MG TAB PO SCH ×2 (09:02→17:00)
[2017-03-07] MEDS: METOPROLOL SUCC 50MG EXT REL TAB PO SCH (09:02)
[2017-03-07] MEDS: DOCUSATE SODIUM 100 MG CAP PO SCH (09:02)
[2017-03-07] MEDS: SERTRALINE HCL 50 MG TAB PO SCH (09:02)
[2017-03-07] MEDS: POLYETHYLENE (MIRALAX) 17 GM PACK PO SCH (09:04)
[2017-03-07] MEDS: ASPIRIN 81 MG ECTAB PO SCH (09:05)
[2017-03-07] MEDS: ATORVASTATIN 10 MG TAB PO SCH (09:05)
[2017-03-07] MEDS: BOOST GLUCOSE CONTROL PO SCH ×2 (09:05→17:00)
[2017-03-07] MEDS: VITAMIN B COMPLEX TAB PO SCH (09:05)
[2017-03-07] MEDS: CEFTRIAXONE SOD INJ 1 GM in DEXTROSE 5% 50ML 50 ML IV SCH (09:06)
[2017-03-07] MEDS: INSULIN ASPART 100 UNITS/ML 3 ML PEN SC SCH ×3 (09:09→16:30)
[2017-03-07] MEDS ORDERED: PRED10TA PO (14:06)
[2017-03-07] MEDS ORDERED: ALBINS INH (14:06)
[2017-03-07] MEDS ORDERED: PLMIH INH (14:06)
[2017-03-07] MEDS ORDERED: CLC100 PO (14:06)
[2017-03-07] MEDS ORDERED: FRRS300 PO (14:06)
[2017-03-07] MEDS ORDERED: CEFD1CAP14 PO (14:06)
[2017-03-07] MEDS ORDERED: PRVHFAIN INH (14:06)
[2017-03-07] MEDS ORDERED: SALI0.6510 (14:06)
[2017-03-07] MEDS ORDERED: AZIT-57 PO (14:06)
--- NOTE | 2017-03-07 14:11 | Discharge Instructions ---
Discharge Instructions Date of Service Mar 07, 2017. Admission Reason for Admission: Anemia,Pneumonia Discharge Discharge Diagnosis / Problem: Pneumonia, anemia Discharge Goals Goal(s): Improve disease control, Diagnostic testing, Therapeutic intervention Activity Recommendations Activity Limitations: as noted below Lifting Limitations: gradually increase as tolerated Exercise/Sports Limitations: gradually increase as tolerated Shower/Bathe: no limitations Driving or Machine Use: no limitations . Instructions / Follow-Up Instructions / Follow-Up You were admitted for pneumonia and treated with antibiotics. You will need to follow up with the [facility] [employer] within 2 weeks and then have a repeat CT scan of your chest in 6 weeks to ensure the pneumonia has resolved. Please continue to not smoke cigarettes. You were also found to be anemic and this is due to iron deficiency. You did NOT have blood in your stool and it is safe for you to take your aspirin and Plavix. You should continue to take iron pills along with a stool softener twice daily and follow up with your PCP about this. An appt with a Supervisor Se[facility] was also scheduled for you for this. Please see your PCP in 1-2 weeks. Current Hospital Diet Patient's current hospital diet: Gluten Free Diet, Diabetes Type 1 Diet Discharge Diet Recommended Diet: Diabetes Type 1 Diet (and Gluten free) Procedures Procedures Performed: CT Chest Pending Studies Studies pending at discharge: no Laboratory Results Hemoglobin A1c Test 03/05/17 05:07 Range/Units Estimated Average Glucose 143 mg/dl Hemoglobin A1c 6.6 H 4.5-5.6 % Medical Emergencies . Who to Call and When: Medical Emergencies: If at any time you feel your situation is an emergency, please call 911 immediately. . Non-Emergent Contact Non-Emergency issues call your: Primary Care Provider, [employer] [employer] Call Non-Emergent contact if: you have a fever, you have any medication questions If your cough or shortness of breath is worsening . . "Provider Documentation" section prepared by Pepper Sinha. . Change Management Facilitator Recommendations Change Management Facilitator Recommendations: Her followup appointment with Pulm is on March 19, 2017 at 2:15 pm in the [place] office with Vikram Titus PA-C. VTE Core Measure Inpt VTE Proph given/why not?: Enoxaparin (Lovenox)SQ, SCD's, Contraindicated ( due to anemia)
[2017-03-07] MEDS: DIGOXIN 0.125 MG TAB PO SCH (16:00)
[2017-03-07] MEDS ORDERED: NCTI INH (16:47)
[2017-03-07] MEDS ORDERED: ENOXAPARIN 40 MG/0.4 ML SYR SQ SCH (18:00)
--- NOTE | 2017-03-09 11:49 | Discharge Summary ---
Discharge Summary Date of Service March 09, 2017. Discharge Summary Admission Date: Mar 04, 2017 at 01:03 Discharge Date: Mar 07, 2017 Discharge Disposition: Home Principal Diagnosis: Multifocal Pneumonia, Acute hypoxemic respiratory insufficiency Problems/Secondary Diagnoses: Current smoker Insulin dependent diabetes mellitus Iron deficiency anemia CAD status post drug-eluting stent in 2011 History of chronic hepatitis C now cured Serous otitis media Acute sinusitis MVP/heart arrhythmia that sounds like SVT? Procedures: Chest CT Chest xray Consultations: Pulmonology Medication Reconciliation New Medications: Albuterol (Ventolin Hfa) 60 Puffs/5400 Mcg Aers 2 PUFF INH Q4 for SOB/Wheezing, #1 INHALER Cefdinir (Omnicef) 300 Mg Cap 300 MG PO Q12H for 6 Days, #12 CAP Nicotine (Nicotrol Inhaler) 10 Mg Inh 4 MG INH Q1H PRN for nicotine craving MDD 64mg, #3 BOX 3 Refills Prednisone Tab (Prednisone) 10 Mg Tab 60 MG PO DAILY for 12 Days, #42 TAB x 2 days then go down by 10mg per day every 2 days until tabs finished Albuterol Sulf (Albuterol Sulfate) 2.5 Mg/3 Ml Nebu 2.5 MG INH Q4H PRN for Shortness of Breath, #100 AMP Azithromycin (Azithromycin) 250 Mg Tab 250 MG PO DAILY for 3 Days, #3 TAB Docusate Sodium (Docusate Sodium) 100 Mg Cap 100 MG PO BID for 30 Days, #60 CAP Dornase [place] (Pulmozyme) 2.5 Ml Inha 2.5 ML INH BIDR for 30 Days, #1 INHA Ferrous Sulfate (Ferrous Sulfate) 325 Mg Tab 325 MG PO BIDM for 30 Days, #60 TAB Saline ([place] Nasal [place]) 0.65 % Spr 2 SPRAYS NA Q2H PRN for nasal congestion,ear fullness for 30 Days Continued Medications: Aspirin (Aspirin Ec) 81 Mg Tab 81 MG PO DAILY Atorvastatin (Lipitor) 10 Mg Tab 10 MG PO DAILY, TAB Calcium Citrate-Vitamin D (Citracal + D3 Maximum) 1 Tab Tab 2 TABS PO DAILY Clonidine Hcl (Catapres) 0.2 Mg Tab 0.2 MG PO HS, TAB Clopidogrel (Plavix) 75 Mg Tab 75 MG PO DAILY, TAB Digoxin (Digoxin) 0.125 Mg Tab 0.125 MG PO QAM Doxazosin Mesylate (Doxazosin Mesylate) 2 Mg Tab 2 MG PO HS Folic Evbv-Mbedptvfum-Gdtfqnqe (Folbic) 1 Tab Tab 25 MG PO DAILY Insulin Aspart (novoLOG INSULIN PUMP ) 1 Ea Inj 1 EA N/A UD, EA Lansoprazole (Prevacid) 30 Mg Capcr 30 MG PO DAILY, CAP Metoprolol Succinate (Toprol Xl) 50 Mg Tabcr 50 MG PO DAILY, #30 TAB Nitroglycerin (Nitrostat) 0.4 Mg Sub 0.4 MG UT PRN, BTL Sertraline (Zoloft) 50 Mg Tab 75 MG PO DAILY, TAB Referrals At Discharge Follow up Referrals: Guest Attendant Referral - 03/19/17 with Patrick Titus PA-C Discharge Exam Physical Exam: VSS, [id number]% on RA Thin, pale, NAD RRR no murmurs gallops or rubs Lungs with scattered rhonchi and wheezes throughout bilateral lung briones much improved from previous Abdomen soft nontender nondistended positive bowel sounds Extremities no edema, calves nontender Review of Systems: Constitutional: No fever Eyes: No problem reported ENT: No problem reported Respiratory: No problem reported Cardiovascular: No problem reported Abdomen: No problem reported Musculoskeletal: No problem reported Genitourinary - Female: No problem reported Neurologic: No problem reported Psychiatric: No problem reported Endocrine: No problem reported Hematologic / Lymphatic: No problem reported Integumentary: No problem reported Hospital Course 66-year-old female who is a current smoker, probable type 1 diabetes mellitus, with history of iron deficiency anemia, CAD status post drug-eluting stent in 2011, and history of chronic hepatitis C now cured, who is here with multifocal pneumonia with probable chronic bronchiectasis. -received doxycycline 100 mg IV BID and Rocephin 1 g IV x 3 days. Discussed penicillin reaction. She reports a mild rash. No reported anaphylaxis. No rxn noted during hospitalization--> dc to home on po azithro and Omnicef to complete 10 day course -received Solu-Medrol 60 mg IV and taper down on po prednisone upon discharge -Continue albuterol nebs and/or Ventolin HFA q4hrs upon return to home -started on Dornase BID -Smoking cessation counseling provided extensively -Discussed with pulmonary. No bronchoscopy while inpatient. Continue to treat as infectious etiology. Repeat CT in 6 weeks. Possible bronchoscopy as an outpatient if findings not improving to r/o malignancy or bronchiectasis. For her anemia, this is a chronic iron deficiency anemia due to poor absorption , iron studies show low ferritin and low transferrin saturation. She had a normal EGD and colonoscopy except for mild gastritis 2 years ago. Hemoccult stool is negative, no further endoscopy is needed. -Continue ferrous sulfate tabs and colace -Okay to restart aspirin and will restart Plavix Diabetes mellitus type 1.5-she has turned off her pump. Hemoglobin A1c well controlled at 6.6% -Continue Lantus 12 units twice a day and sliding scale NovoLog with carb coverage. No insulin drip needed at this time Difficulty hearing secondary to serous otitis media, sinusitis-TMs bulging with fluid bilaterally. Likely element of sinusitis. Overall symptoms are improving. -Continue antibiotics as noted above and monitor for improvement Coronary artery disease status post stent placement 2011-no anginal symptoms this admission -Continue medical management with metoprolol XL 50 mg daily. -Aspirin and Plavix History of MVP/heart arrhythmia that sounds like SVT? -Continue digoxin 0.125 mg daily -Dig level within normal range here History of hepatitis C thought to be contracted from a blood transfusion 1980 -Treatment completed in October of last year and in remission as per pt Diabetes type 1 late onset- -pump d/c'ed -on Lantus and Novolog SSI here with carb coverage--> glucose in 300s due to steroids, hyperglycemia but improved after adjustment in dosing -turn pump back on for home use HgbA1C here well controlled at 6.6% DVT prophylaxis -Teds, SCDs CODE STATUS -LEVEL I FULL CODE Dispo-to home today Total Time Spent: Greater than 30 minutes This includes examination of the patient, discharge planning, medication reconciliation, and communication with other providers. Discharge Instructions Please refer to the electronic Patient Visit Report (Discharge Instructions) for additional information. Follow-Up PCP within 1 week Pulmonology within 2 weeks Additional Copies To RV. Rin[place] MD; Patrick Titus PA-C
[2017-05-27] MEDS ORDERED: DOCU100C31 PO (07:42)
[2017-05-27] MEDS ORDERED: FERR1TAB23 PO (07:42)
[2017-05-27] MEDS ORDERED: METO100T44 PO (07:42)
[2017-05-27] MEDS ORDERED: CHOL2000 PO (07:42)
== END 2017-03-07 16:50 | disposition home or self-care (01) | DRG 194 ==
LOC: ENRESERVTM → ENRESERVDT → C.EDB 22:32 → C.MED 03-04 01:03
PROVIDERS: ADMIT Internal Medicine; ATTEND Family Medicine
DX: J18.9 Pneumonia, unspecified organism (principal); J47.0 Bronchiectasis with acute lower respiratory infection; J01.90 Acute sinusitis, unspecified; H65.93 Unspecified nonsuppurative otitis media, bilateral; I25.10 Atherosclerotic heart disease of native coronary artery without angina pectoris; D50.9 Iron deficiency anemia, unspecified; E10.9 Type 1 diabetes mellitus without complications; I10 Essential (primary) hypertension; K21.9 Gastro-esophageal reflux disease without esophagitis; Z79.02 Long term (current) use of antithrombotics/antiplatelets; Z79.4 Long term (current) use of insulin; Z79.82 Long term (current) use of aspirin; Z79.899 Other long term (current) drug therapy; Z96.41 Presence of insulin pump (external) (internal); Z95.5 Presence of coronary angioplasty implant and graft; Z86.19 Personal history of other infectious and parasitic diseases; F17.200 Nicotine dependence, unspecified, uncomplicated

== ENCOUNTER → 2017-04-20 | Outpatient (CLI) | payer BC ==
[~2017-04-20] MED LIST changes: +ALBINS INH; +ATOR10TA82 PO; +AZIT-57 PO; -CHOL100010 PO; +CHOL2000 PO; +CLC100 PO; +DOCU100C31 PO; +FERR1TAB23 PO; -FERR1TAB62 PO; +FRRS300 PO; +INSPMPNVLG; -INSULIN PUMP; +METO-217 PO; +METO100T44 PO; +NCTI INH; +PLMIH INH; +PRVHFAIN INH; +SALI0.6510; +SERT50TA PO; -TPRSR/25 PO; -[UNRECOGNIZED DRUG - OTHER]
[2017-04-20 10:07] LABS: ESTIMATED AVERAGE GLUCOSE 117 mg/dl; HA1C FLAG Normal (Normal)
[2017-04-20 10:13] LABS: CHOLESTEROL/HDL RATIO 5.5; THYROID STIMULATING HORMONE 2.47 uIu/ml (0.300-4.500)
== END | disposition home or self-care (01) ==
LOC: C.LAB1850 07:50
PROVIDERS: ATTEND Physician Assistant
DX: E13.9 Other specified diabetes mellitus without complications (principal)

== ENCOUNTER → 2017-05-14 | Outpatient (CLI) | payer OTHER, BC ==
[~2017-05-14] MED LIST changes: -ATOR10TA82 PO; +ATOR10TA88 PO; -AZIT-57 PO; -METO100T44 PO; +METO1TAB69 PO; +ZTHM250 PO
[2017-05-14 14:40] LABS: BASO % 0.3 %; BASO ABS # 0.02 K/uL (0-0.2); EOS % 2.1 %; HEMATOCRIT 41.4 % (37-47); IG% 0.3 %; LYMPH % 21.4 %; LYMPH ABS # 1.61 K/uL (1.2-3.4); MEAN CORPUSCULAR HEMOGLOBIN 28.6 pg (25-34); MEAN CORPUSCULAR HGB CONC 34.1 g/dl (32-36); NEUT % 69.9 %; PLATELET COUNT 163 K/uL (130-400); RED BLOOD COUNT 4.93 M/uL (4.2-5.4); WHITE BLOOD COUNT 7.52 K/uL (4.8-10.8)
[2017-05-14 14:57] LABS: ALT/SGPT 79 U/L (12-78); BLOOD UREA NITROGEN 14 mg/dl (7-18); BUN/CREATININE RATIO 16.4 (10-20); CALCIUM 9.2 mg/dl (8.5-10.1); CARBON DIOXIDE 28 mmol/L (21-32); CHLORIDE 105 mmol/L (98-107); CREATININE 0.85 mg/dl (0.60-1.20); GLUCOSE 102 mg/dl (70-99); POTASSIUM 4.1 mmol/L (3.5-5.1); SODIUM 139 mmol/L (136-145)
[2017-05-14 15:00] LABS: ALKALINE PHOSPHATASE 71 U/L (45-117); AST/SGOT 57 U/L (15-37); TOTAL IRON BINDING CAPACITY 325 mcg/dl (250-450)
[2017-05-14 15:12] LABS: ANISOCYTOSIS PRESENT; COMPLETE YES; HYPOCHROMIA PRESENT; MICROCYTOSIS PRESENT
== END | disposition home or self-care (01) ==
LOC: C.LAB1850 12:31
PROVIDERS: ATTEND Internal Medicine Hematology & Oncology
DX: D50.0 Iron deficiency anemia secondary to blood loss (chronic) (principal); M10.9 Gout, unspecified

== ENCOUNTER → 2017-06-04 | Day surgery (SDC) | payer OTHER, BC ==
[2017-05-27 07:44] VITALS: Ht 165.1 cm; Wt 53.6 kg
[~2017-06-04] VITALS: Ht 165.1 cm; Wt 53.6 kg
[~2017-06-04] MED LIST changes: -CALC1TAB9 PO; -CLC100 PO; -FRRS300 PO; +LIDOCAINE HCL 2% 2 ML VIAL (20MG/ML) ONE; -METO-217 PO; -PLMIH INH; +PROPOFOL IV EMULSION 10 MG/ML 20 ML VIAL IV ONE; +SODIUM CHLORIDE 0.9% 500ML 500 ML IV ONE; -ZTHM250 PO
--- NOTE | 2017-06-04 08:47 | Endo History and Physical ---
History & Physical Date of Service: Jun 04, 2017. Chief Complaint: anemia Referring Physician: Dr. Oswald History of Present Illness 67 yo CF who presents for EGD and colonoscopy secondary to anemia. Past Medical History Diabetes, Anxiety, Reflux, Heart Disease, Hypertension Past Surgical History Hx Cardiac Surgery: Yes (HEART CATH-1 STENT PLACED) Hx Internal Defibrillator: No Hx Pacemaker: No Hx Abdominal Surgery: Yes (ECOPTIC SX) Hx Post-Op Nausea and Vomiting: No Hx Cancer Surgery: No (CLARITA BSO) Hx Thoracic Surgery: No Hx Orthopedic: Yes (LEFT THUMB TRIGGER FINGER) Hx Urinary Tract Surgery: No Family History Polyp, IBD Social History Smoking Status: Current Every Day Smoker Hx Substance Use: No Hx Alcohol Use: Yes (1 GLASS OF WINE DAILY) Allergies Coded Allergies: Levofloxacin (Verified Allergy, Unknown, FOGGY FEELING, 05/27/17) Penicillins (Verified Allergy, Unknown, UPPER BODY RASH, 05/27/17) Gluten (Verified Adverse Reaction, Unknown, GI SYMPTOMS, 05/27/17) Current Medications Reported Home Medications Medications Dose Route/Sig Max Daily Dose Days Date Category Toprol-Xl (Metoprolol Succinate) 100 Mg Tabcr 50 Mg PO BID 05/27/17 Reported Iron (Ferrous Sulfate) 325 Mg Tab 1 Tab PO QAM 05/27/17 Reported Docusate Sodium 100 Mg Cap 1 Cap PO QAM 7 05/27/17 Reported Vitamin D3 (Cholecalciferol) 2,000 Unit Cap 1 Cap PO DAILY 90 05/27/17 Reported Nicotrol Inhaler (Nicotine) 10 Mg Inh 4 Mg INH Q1H PRN MDD 64mg 03/07/17 Rx [place] Nasal [place] (Saline) 0.65 % Spr 2 Sprays NA Q2H PRN 30 03/07/17 Rx Ventolin Hfa (Albuterol) 60 Puffs/5400 Mcg Aers 2 Puff INH Q4 03/07/17 Rx Albuterol Sulfate (Albuterol Sulf) 2.5 Mg/3 Ml Nebu 2.5 Mg INH Q4H PRN 03/07/17 Rx Digoxin 0.125 Mg Tab 0.125 Mg PO QAM 03/03/17 Reported Lipitor (Atorvastatin Calcium) 10 Mg Tab 10 Mg PO HS 03/03/17 Reported Zoloft (Sertraline HCl) 50 Mg Tab 75 Mg PO QAM 03/03/17 Reported novoLOG INSULIN PUMP (Insulin Aspart) 1 Ea Inj 1 Ea N/A UD 03/03/17 Reported Doxazosin Mesylate 2 Mg Tab 2 Mg PO HS 08/20/15 Reported Folbic (Folic Yylg-Bmkfycjqny-Bqzonvmu) 1 Tab Tab 25 Mg PO QAM 04/11/15 Reported Nitrostat (Nitroglycerin) 0.4 Mg Sub 0.4 Mg UT PRN 03/29/15 Reported Prevacid (Lansoprazole) 30 Mg Capcr 30 Mg PO QAM 10/21/13 Reported Plavix (Clopidogrel Bisulfate) 75 Mg Tab 75 Mg PO HS 10/20/13 Reported Catapres (Clonidine Hcl) 0.2 Mg Tab 0.2 Mg PO HS 10/20/13 Reported Aspirin Ec (Aspirin) 81 Mg Tab 81 Mg PO HS 10/20/13 Reported Vital Signs Weight (Kilograms): 53.64 Height (Feet): 5 Height (Inches): 5 Date Time Temp Pulse Resp B/P (MAP) Pulse Ox O2 Delivery O2 Flow Rate FiO2 06/04/17 08:10 36.1 46 20 152/82 (105) 99 Room Air Physical Exam General Appearance: WD/WN, no apparent distress Respiratory/Chest: Auscultation: breath sounds normal Cardiovascular: Heart Auscultation: RRR Abdomen: Bowel Sounds: normal Inspection & Palpation: soft, non-distended, no tenderness, guarding & rebound Assessment and Plan Assessment: 67 yo CF who presents for EGD and colonoscopy secondary to anemia. Plan: Proceed with EGD and colonoscopy.
--- NOTE | 2017-06-04 09:17 | Discharge Instructions ---
Endoscopy Patient Instructions Date / Procedure(s) Performed Jun 04, 2017. Colonoscopy, EGD Allergy Information Coded Allergies: Levofloxacin (Verified Allergy, Unknown, FOGGY FEELING, 05/27/17) Penicillins (Verified Allergy, Unknown, UPPER BODY RASH, 05/27/17) Gluten (Verified Adverse Reaction, Unknown, GI SYMPTOMS, 05/27/17) Discharge Date / Findings Jun 04, 2017. EGD: Gastritis Colonoscopy: Colon polyp, Diverticulosis, Internal hemorrhoids Medication Instructions Stopped Medication(s): Plavix stopped on 05/26,last dose ASA 05/31 OK to resume all medications today as prescribed Reported Home Medications Medications Dose Route/Sig Max Daily Dose Days Date Category Toprol-Xl (Metoprolol Succinate) 100 Mg Tabcr 50 Mg PO BID 05/27/17 Reported Iron (Ferrous Sulfate) 325 Mg Tab 1 Tab PO QAM 05/27/17 Reported Docusate Sodium 100 Mg Cap 1 Cap PO QAM 7 05/27/17 Reported Vitamin D3 (Cholecalciferol) 2,000 Unit Cap 1 Cap PO DAILY 90 05/27/17 Reported Nicotrol Inhaler (Nicotine) 10 Mg Inh 4 Mg INH Q1H PRN MDD 64mg 03/07/17 Rx [place] Nasal [place] (Saline) 0.65 % Spr 2 Sprays NA Q2H PRN 30 03/07/17 Rx Ventolin Hfa (Albuterol) 60 Puffs/5400 Mcg Aers 2 Puff INH Q4 03/07/17 Rx Albuterol Sulfate (Albuterol Sulf) 2.5 Mg/3 Ml Nebu 2.5 Mg INH Q4H PRN 03/07/17 Rx Digoxin 0.125 Mg Tab 0.125 Mg PO QAM 03/03/17 Reported Lipitor (Atorvastatin Calcium) 10 Mg Tab 10 Mg PO HS 03/03/17 Reported Zoloft (Sertraline HCl) 50 Mg Tab 75 Mg PO QAM 03/03/17 Reported novoLOG INSULIN PUMP (Insulin Aspart) 1 Ea Inj 1 Ea N/A UD 03/03/17 Reported Doxazosin Mesylate 2 Mg Tab 2 Mg PO HS 08/20/15 Reported Folbic (Folic Tvxk-Owaheppypb-Gbnddcom) 1 Tab Tab 25 Mg PO QAM 04/11/15 Reported Nitrostat (Nitroglycerin) 0.4 Mg Sub 0.4 Mg UT PRN 03/29/15 Reported Prevacid (Lansoprazole) 30 Mg Capcr 30 Mg PO QAM 10/21/13 Reported Plavix (Clopidogrel Bisulfate) 75 Mg Tab 75 Mg PO HS 10/20/13 Reported Catapres (Clonidine Hcl) 0.2 Mg Tab 0.2 Mg PO HS 10/20/13 Reported Aspirin Ec (Aspirin) 81 Mg Tab 81 Mg PO HS 10/20/13 Reported Provider Instructions Activity Restrictions - No exercising or heavy lifting for 24 hours. - Do not drink alcohol the day of the procedure. - Do not drive a car or operate machinery until the day after the procedure. - Do not make any important decisions or sign important papers in 24 hours after the procedure. Following Day: - Return to full activity which may include returning to work/school. Diet Start your diet with liquids and light foods (jello, soup, juice, toast). Then eat your usual diet if not nauseated. Treatment For Common After Affects For mild abdominal pain, bloating, or excessive gas: - Rest - Eat lightly - Lie on right side Follow-Up Information Follow-up with Dr. Oswald as scheduled Anesthesia Information What You Should Know You have had a procedure that required some medicine to reduce anxiety and discomfort. This treatment is called moderate sedation. After receiving the treatment, you may be sleepy, but you will be able to breathe on your own. The effects of the treatment may last for several hours. Follow these instructions along with Activity/Diet recommendations noted above: * Do NOT do anything where dizziness or clumsiness would be dangerous. * Rest quietly at home today, then you can be up and about tomorrow. * Have a responsible person stay with you the rest of today. * You may have had an I.V. today. If so, you may take the dressing off later today. Recommendations Call your doctor if: * Trouble breathing * Continuous vomiting for more than 24 hours * Temperature above 101 degrees * Severe abdominal pain or bloating * Pain not relieved by pain medicine ordered * There is increased drainage or redness from any incision * A large amount of rectal bleeding greater than 2-3 tablespoons. (If you had a polyp/s removed or have hemorrhoids, a small amount of blood - from the rectum is to be expected.) * You have any unanswered questions or concerns. IN THE EVENT OF A SERIOUS EMERGENCY, GO TO THE NEAREST EMERGENCY ROOM Your discharge instructions were prepared by provider Prasad Saleem. Patient Instructions Signature Page Loren Chavez Patient (or Guardian) Signature/Date: I have read and understand the instructions given to me by my caregivers. Caregiver/RN/Doctor Signature/Date: The above-named patient and/or guardian has received patient instructions on this date. + Original Patient Signature Page (only) stays with chart. Please make copy for patient.
--- NOTE | 2017-06-04 09:24 | GI REPORT ---
Procedure Date: 06/04/2017 8:11 AM Procedure: Colonoscopy Indications: Iron deficiency anemia Medicines: Monitored Anesthesia Care Complications: No immediate complications. Estimated Blood Loss: Estimated blood loss: none. Procedure: Pre-Anesthesia Assessment: - Prior to the procedure, a History and Physical was performed, and patient medications and allergies were reviewed. The patient's tolerance of previous anesthesia was also reviewed. The risks and benefits of the procedure and the sedation options and risks were discussed with the patient. All questions were answered, and informed consent was obtained. Prior Anticoagulants: The patient last took aspirin 1 day and Plavix (clopidogrel) 9 days prior to the procedure. ASA Grade Assessment: III - A patient with severe systemic disease. After reviewing the risks and benefits, the patient was deemed in satisfactory condition to undergo the procedure. After I obtained informed consent, the scope was passed under direct vision. Throughout the procedure, the patient's blood pressure, pulse, and oxygen saturations were monitored continuously. The Scope was introduced through the anus and advanced to the terminal ileum. The colonoscopy was performed without difficulty. The patient tolerated the procedure well. The quality of the bowel preparation was good. The terminal ileum, ileocecal valve, appendiceal orifice, and rectum were photographed. Findings: A 5 mm polyp was found in the transverse colon. The polyp was sessile. The polyp was removed with a hot snare. Resection and retrieval were complete. Multiple small-mouthed diverticula were found in the sigmoid colon. Non-bleeding internal hemorrhoids were found during retroflexion. The hemorrhoids were small. Impression: - One 5 mm polyp in the transverse colon, removed with a hot snare. Resected and retrieved. - Diverticulosis in the sigmoid colon. - Non-bleeding internal hemorrhoids. Recommendation: - Resume previous diet. - Continue present medications. - Repeat colonoscopy for surveillance based on pathology results. - Return to primary care physician as previously scheduled. Prasad Saleem DO 06/04/2017 9:23:04 AM This report has been signed electronically. Note Initiated On: 06/04/2017 8:11 AM I attest to the content of the Intraoperative Record and orders documented therein, exceptions below
--- NOTE | 2017-06-04 09:29 | GI REPORT ---
Procedure Date: 06/04/2017 8:12 AM Procedure: Upper GI endoscopy Indications: Iron deficiency anemia Medicines: Monitored Anesthesia Care Complications: No immediate complications. Estimated Blood Loss: Estimated blood loss: none. Procedure: Pre-Anesthesia Assessment: - Prior to the procedure, a History and Physical was performed, and patient medications and allergies were reviewed. The patient's tolerance of previous anesthesia was also reviewed. The risks and benefits of the procedure and the sedation options and risks were discussed with the patient. All questions were answered, and informed consent was obtained. Prior Anticoagulants: The patient last took aspirin 1 day and Plavix (clopidogrel) 9 days prior to the procedure. ASA Grade Assessment: III - A patient with severe systemic disease. After reviewing the risks and benefits, the patient was deemed in satisfactory condition to undergo the procedure. After obtaining informed consent, the endoscope was passed under direct vision. Throughout the procedure, the patient's blood pressure, pulse, and oxygen saturations were monitored continuously. The scope was introduced through the mouth, and advanced to the second part of duodenum. The upper GI endoscopy was accomplished without difficulty. The patient tolerated the procedure well. Findings: The esophagus was normal. Patchy moderately erythematous mucosa without bleeding was found in the stomach. The examined duodenum was normal. Impression: - Normal esophagus. - Erythematous mucosa in the stomach. - Normal examined duodenum. - No specimens collected. Recommendation: - Resume previous diet. - Continue present medications. - Return to primary care physician as previously scheduled. Prasad Saleem DO 06/04/2017 9:28:16 AM This report has been signed electronically. Note Initiated On: 06/04/2017 8:12 AM I attest to the content of the Intraoperative Record and orders documented therein, exceptions below
[2017-06-04 10:00] VITALS: BP 177/83; PULSE 51; O2SAT 100
--- NOTE | 2017-06-04 10:17 | Anesthesiology Progress Note ---
Anesthesia Post Op Note Date & Time Jun 04, 2017 at 10:17 Vital Signs Pain Intensity: 0 Vital Signs Past 12 Hours Date Time Temp Pulse Resp B/P (MAP) Pulse Ox O2 Delivery O2 Flow Rate FiO2 06/04/17 10:00 51 20 177/83 (114) 100 Room Air 06/04/17 09:34 51 16 161/68 (99) 98 Room Air 06/04/17 09:19 54 14 136/67 (90) 99 Room Air 06/04/17 08:10 36.1 46 20 152/82 (105) 99 Room Air Notes Mental Status: alert / awake / arousable, participated in evaluation Pt Amnestic to Procedure: Yes Nausea / Vomiting: adequately controlled Pain: adequately controlled Airway Patency, RR, SpO2: stable & adequate BP & HR: stable & adequate Hydration State: stable & adequate Anesthetic Complications: no major complications apparent
== END | disposition home or self-care (01) ==
LOC: C.GI 07:33
PROVIDERS: ATTEND Internal Medicine
DX: D50.9 Iron deficiency anemia, unspecified (principal); D12.3 Benign neoplasm of transverse colon; K57.92 Diverticulitis of intestine, part unspecified, without perforation or abscess without bleeding; K64.8 Other hemorrhoids; E11.9 Type 2 diabetes mellitus without complications; F41.9 Anxiety disorder, unspecified; K21.9 Gastro-esophageal reflux disease without esophagitis; I10 Essential (primary) hypertension; F17.200 Nicotine dependence, unspecified, uncomplicated; Z79.82 Long term (current) use of aspirin; J44.9 Chronic obstructive pulmonary disease, unspecified; G47.33 Obstructive sleep apnea (adult) (pediatric); I25.10 Atherosclerotic heart disease of native coronary artery without angina pectoris; I34.1 Nonrheumatic mitral (valve) prolapse; B19.20 Unspecified viral hepatitis C without hepatic coma; E10.9 Type 1 diabetes mellitus without complications; Z96.41 Presence of insulin pump (external) (internal); Z85.41 Personal history of malignant neoplasm of cervix uteri; Z95.5 Presence of coronary angioplasty implant and graft

== ENCOUNTER → 2017-07-20 | Outpatient (CLI) | payer OTHER, BC ==
[~2017-07-20] MED LIST changes: -LIDOCAINE HCL 2% 2 ML VIAL (20MG/ML) ONE; -PROPOFOL IV EMULSION 10 MG/ML 20 ML VIAL IV ONE; -SODIUM CHLORIDE 0.9% 500ML 500 ML IV ONE
[2017-07-20 10:16] LABS: ESTIMATED AVERAGE GLUCOSE 137 mg/dl; HA1C FLAG Normal (Normal)
[2017-07-20 10:19] LABS: THYROID STIMULATING HORMONE 2.34 uIu/ml (0.300-4.500)
== END | disposition home or self-care (01) ==
LOC: C.LAB1850 08:14
PROVIDERS: ATTEND Internal Medicine
DX: R74.8 Abnormal levels of other serum enzymes (principal); R53.83 Other fatigue; E10.9 Type 1 diabetes mellitus without complications

== ENCOUNTER → 2017-07-28 | Outpatient (CLI) | payer BC | END | disposition home or self-care (01) | LOC: C.MAMM 08:45 | PROVIDERS: ATTEND Internal Medicine | DX: M85.88 Other specified disorders of bone density and structure, other site (principal); M85.852 Other specified disorders of bone density and structure, left thigh; M85.851 Other specified disorders of bone density and structure, right thigh ==

== ENCOUNTER → 2017-08-25 | Outpatient (CLI) | payer OTHER, BC ==
[2017-08-25 16:52] LABS: BLOOD UREA NITROGEN 13 mg/dl (7-18); BUN/CREATININE RATIO 17.8 (10-20); CALCIUM 8.8 mg/dl (8.5-10.1); CARBON DIOXIDE 29 mmol/L (21-32); CHLORIDE 102 mmol/L (98-107); CREATININE 0.72 mg/dl (0.60-1.20); GLUCOSE 115 mg/dl (70-99); POTASSIUM 3.6 mmol/L (3.5-5.1); SODIUM 137 mmol/L (136-145)
== END | disposition home or self-care (01) ==
LOC: C.LAB1850 16:01
PROVIDERS: ATTEND Physician Assistant
DX: E11.3299 Type 2 diabetes mellitus with mild nonproliferative diabetic retinopathy without macular edema, unspecified eye (principal); J44.9 Chronic obstructive pulmonary disease, unspecified; R06.02 Shortness of breath

== ENCOUNTER → 2017-08-27 | Outpatient (CLI) | payer OTHER, BC ==
[~2017-08-27] MED LIST changes: +OPTIRAY 320 IV PRN
--- NOTE | 2017-08-27 09:11 | DIAGNOSTIC IMAGING REPORT ---
CT OF THE CHEST WITH IV CONTRAST CLINICAL HISTORY: J44.9 Chronic obstructive pulmonary [id number] eustachian tube dysfunction. Abnormal prior CT scan with groundglass opacities COMPARISON STUDY: 03/04/2017 TECHNIQUE: Following the IV administration of 119 mL of Optiray-320, CT of the thorax was performed from the thoracic inlet to the lung bases. Images are reviewed in the axial, sagittal, and coronal planes. IV contrast was administered without complication. A dose lowering technique was utilized adhering to the principles of ALARA. CT DOSE: 215.37 mGy.cm FINDINGS: Thyroid: Imaged portions of the thyroid gland are normal in appearance. Thoracic aorta: The thoracic aorta is normal in course and caliber, noting standard 3-vessel arch anatomy. No aneurysm or dissection is seen. There are extensive atheromatous changes present within the distal descending thoracic aorta. Pulmonary vasculature: The pulmonary trunk is normal in caliber. There are no central filling defects identified to suggest pulmonary embolus. Note that this examination was not protocoled for the evaluation of pulmonary emboli. HEART: The heart is normal in size and configuration, without pericardial effusion. Lungs and pleural spaces: There is pulmonary emphysema. There is no focal pulmonary consolidation. There is been interval resolution of the previously identified right upper lobe groundglass opacities. There is a new 5 mm groundglass opacity within the left upper lobe as visualized in image #[id number]. There is a persistent right lower lobe tubular opacity, possibly representing a mucoid impacted bronchus. There is associated focal cystic change/emphysema within the superior segment of the right lower lobe. Mediastinum: There is no mediastinal lymphadenopathy. Janice: Clear. Axilla: Clear. Upper abdomen: Partially visualized upper abdominal viscera is within normal limits. Skeletal structures: There are no lytic or blastic osseous lesions. IMPRESSION: 1. Interval resolution of the previously identified right upper lobe groundglass opacities 2. Persistent area of focal cystic change/emphysema within the superior segment of the right lower lobe. There is a tubular structure extending to this parenchymal abnormality. 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 No evidence of pathologic adenopathy 4. New 5 mm groundglass nodule within the left upper lobe. Based on current recommendations, no follow-up is indicated Please refer to below summary of Fleischner criteria recommendations for follow-up of incidental CT nodules (Mednel Barnes, Guidelines for management of small pulmonary nodules detected on CT scans: A statement from the Fleischner Society, Radiology 237: [phone].) SOLID NODULES Solitary nodule size: <6 mm * low risk patients: no follow-up needed * high risk patients: optional CT at 12 months Solitary nodule size: 6-8 mm * low risk patients: follow-up at 6-12 months, then consider further follow-up at 18-24 months * high risk patients: initial follow-up CT at 6-12 months and then at 18-24 months if no change Solitary nodule size: >8 mm * either low or high risk patients - consider follow-up CT at 3 months, and/or CT-PET, and/or biopsy Multiple nodules size: <6 mm * low risk patients: no routine follow-up * high risk patients: optional CT at 12 months Multiple nodules size: 6-8 mm * low risk patients: follow-up at 3-6 months, then consider further follow-up at 18-24 months * high risk patients: follow-up at 3-6 months, then at 18-24 months if no change Multiple nodules size: >8 mm * low risk patients: follow-up at 3-6 months, then consider further follow-up at 18-24 months * high risk patients: follow-up at 3-6 months, then at 18-24 months if no change Note: newly detected indeterminate nodule in persons 35 years of age or older. * low risk patients: minimal or absent history of smoking and/or other known risk factors * high risk patients: history of smoking or of other known risk factors (e.g. first degree relative with lung cancer, or exposure to asbestos, radon, uranium) * if a nodule up to 8 mm is partly solid or is ground glass further follow-up is required after 24 months to exclude possible slow growing adenocarcinoma (CHRIS) SUBSOLID NODULES Solitary pure ground-glass nodule * nodule size <6 mm - no CT follow-up required * nodule size >=6 mm - follow-up CT at 6-12 months, then every 2 years until 5 years Solitary part-solid nodule * nodule size <6 mm - no CT follow-up required * nodule size >=6 mm - follow-up CT at 3-6 months. If unchanged, and solid component remains <6 mm, then annual follow-up for 5 years Multiple subsolid nodules * nodule size <6 mm - follow-up CT at 3-6 months, consider further follow-up at 2 and 4 years if stable * nodule size >=6 mm - follow-up CT at 3-6 months, subsequent management based on the most suspicious nodule(s) Electronically signed by: Fredy Arrington M.D. 08/27/2017 9:09 AM Dictated Date/Time: 08/27/2017 9:00 AM
== END | disposition home or self-care (01) ==
LOC: C.CTS 08:38
PROVIDERS: ATTEND Physician Assistant
DX: H69.80 Other specified disorders of Eustachian tube, unspecified ear (principal); J44.9 Chronic obstructive pulmonary disease, unspecified; R91.1 Solitary pulmonary nodule

== ENCOUNTER → 2017-10-14 | Outpatient (CLI) | payer OTHER, BC ==
[~2017-10-14] MED LIST changes: +ATOR10TA82 PO; -ATOR10TA88 PO; +METO100T44 PO; -METO1TAB69 PO; -OPTIRAY 320 IV PRN
== END | disposition home or self-care (01) ==
LOC: C.PAPS 16:40
PROVIDERS: ATTEND Obstetrics & Gynecology
DX: Z12.4 Encounter for screening for malignant neoplasm of cervix (principal); Z11.51 Encounter for screening for human papillomavirus (HPV)

== ENCOUNTER → 2017-10-19 | Outpatient (CLI) | payer OTHER, BC ==
[2017-10-19 10:12] LABS: CHOLESTEROL/HDL RATIO 5.9
[2017-10-19 10:15] LABS: CREATININE RANDOM URINE 97.7 mg/dl
[2017-10-19 10:26] LABS: RATIO 12.5 mcg/mg (0-30.0)
[2017-10-19 10:30] LABS: ESTIMATED AVERAGE GLUCOSE 128 mg/dl; HA1C FLAG Normal (Normal)
== END | disposition home or self-care (01) ==
LOC: C.LAB1850 08:15
PROVIDERS: ATTEND Physician Assistant
DX: E10.9 Type 1 diabetes mellitus without complications (principal)

== ENCOUNTER → 2017-10-23 | Outpatient (CLI) | payer OTHER, BC ==
--- NOTE | 2017-10-26 07:58 | MAMMOGRAPHY REPORT ---
BILATERAL DIGITAL SCREENING MAMMOGRAM TOMOSYNTHESIS WITH CAD: 10/23/2017 CLINICAL HISTORY: Routine screening. The patient has no current complaints. TECHNIQUE: Breast tomosynthesis in addition to standard 2D mammography was performed. Current study was also evaluated with a Computer Aided Detection (CAD) system. COMPARISON: Comparison is made to exams dated: 10/21/2016 mammogram, 10/15/2015 mammogram, 10/13/2014 mammogram, 07/25/2013 mammogram - [facility], 09/24/2011 mammogram - [facility], and 03/09/2007 mammogram - [facility]. BREAST COMPOSITION: The tissue of both breasts is extremely dense, which lowers the sensitivity of m ammography. FINDINGS: No suspicious masses, calcifications, or areas of architectural distortion are noted in ei ther breast. There has been no significant interval change compared to prior exams. IMPRESSION: ACR BI-RADS CATEGORY 1: NEGATIVE There is no mammographic evidence of malignancy. A 1 year screening mammogram is recommended. The pa tient will receive written notification of the results. Approximately 10% of breast cancers are not detected with mammography. A negative mammographic report should not delay biopsy if a clinically suggestive mass is present. Kristy Card M.D. /:10/23/2017 16:58:35 Fermenter Operator: Desi LINTON(Hao)(Rashawn), [facility] letter sent: Normal 1/2 BI-RADS Code: ACR BI-RADS Category 1: Negative
== END | disposition home or self-care (01) ==
LOC: C.MAMM 10:29
PROVIDERS: ATTEND Internal Medicine
DX: Z12.31 Encounter for screening mammogram for malignant neoplasm of breast (principal)

== ENCOUNTER → 2017-11-16 | Outpatient (CLI) | payer OTHER, BC | END | disposition home or self-care (01) | LOC: C.LAB1850 13:13 | PROVIDERS: ATTEND Physician Assistant | DX: R68.2 Dry mouth, unspecified (principal) ==

== ENCOUNTER → 2017-12-28 | Outpatient (CLI) | payer OTHER, BC | LOC: C.LAB1850 09:14 | PROVIDERS: ATTEND Internal Medicine Cardiovascular Disease | DX: I25.10 Atherosclerotic heart disease of native coronary artery without angina pectoris (principal) ==

== ENCOUNTER → 2018-02-18 | Outpatient (CLI) | payer OTHER, BC | END | disposition home or self-care (01) | LOC: C.LAB1850 07:25 | PROVIDERS: ATTEND Physician Assistant | DX: E78.5 Hyperlipidemia, unspecified (principal); E10.9 Type 1 diabetes mellitus without complications ==

== ENCOUNTER → 2018-03-09 | Outpatient (CLI) | payer OTHER, BC ==
--- NOTE | 2018-03-09 13:18 | DIAGNOSTIC IMAGING REPORT ---
STANDING AP RADIOGRAPH OF THE KNEES CLINICAL HISTORY: Knee pain. COMPARISON: None FINDINGS: Right knee: Medial and lateral compartment joint spaces are preserved. No fracture or osseous lesion is identified on this AP projection. There is no significant osteophytosis. Left knee: Medial and lateral compartment joint spaces are preserved. No fracture or osseous lesion is identified on AP projection. IMPRESSION: Unremarkable standing AP radiograph of the knees. Electronically signed by: Froylan Jacobs M.D. 03/09/2018 1:16 PM Dictated Date/Time: 03/09/2018 1:13 PM
== END | disposition home or self-care (01) ==
LOC: C.RAD1850 12:51
PROVIDERS: ATTEND Internal Medicine
DX: M25.561 Pain in right knee (principal)

== ENCOUNTER → 2018-03-19 | Outpatient (CLI) | payer OTHER, BC ==
--- NOTE | 2018-03-19 10:46 | DIAGNOSTIC IMAGING REPORT ---
BRAIN WITHOUT CONTRAST HISTORY: Mental status change I25.10 Coronary [id number] [id number] FatigueF4 TECHNIQUE: Multiplanar multisequence MRI of the brain was performed without the use of contrast. COMPARISON STUDY: None. FINDINGS: There are no areas of restricted diffusion to suggest acute infarction. The midline structures are intact. The paranasal sinuses are clear. The mastoid air cells are clear. The ventricles and sulci are within normal limits for age. There is no mass, hematoma, midline shift. The major vascular flow-voids at the skull base are well maintained. IMPRESSION: No acute intracranial abnormality. The above report was generated using voice recognition software. It may contain grammatical, syntax or spelling errors. Electronically signed by: Fletcher Warner M.D. 03/19/2018 10:45 AM Dictated Date/Time: 03/19/2018 10:41 AM
== END | disposition home or self-care (01) ==
LOC: C.MRIBC 09:47
PROVIDERS: ATTEND Internal Medicine
DX: F40.240 Claustrophobia (principal); I25.10 Atherosclerotic heart disease of native coronary artery without angina pectoris; R51 Headache; R53.83 Other fatigue; I10 Essential (primary) hypertension

== ENCOUNTER → 2018-06-17 | Outpatient (CLI) | payer OTHER, BC ==
[2018-06-17 10:00] LABS: HEMOGLOBIN A1C 6.1 % (4.5-5.6)
[2018-06-17 10:06] LABS: ALKALINE PHOSPHATASE 48 U/L (45-117); ALT/SGPT 27 U/L (12-78); AST/SGOT 20 U/L (15-37); BLOOD UREA NITROGEN 16 mg/dl (7-18); CALCIUM 8.6 mg/dl (8.5-10.1); CARBON DIOXIDE 29 mmol/L (21-32); CHOLESTEROL 142 mg/dl (0-200); CREATININE 0.88 mg/dl (0.60-1.20); GLUCOSE 123 mg/dl (70-99); LDL CHOLESTEROL CALCULATED 53 mg/dl; POTASSIUM 3.7 mmol/L (3.5-5.1); SODIUM 139 mmol/L (136-145); TOTAL PROTEIN 7.7 gm/dl (6.4-8.2)
== END | disposition home or self-care (01) ==
LOC: C.LAB1850 08:10
PROVIDERS: ATTEND Physician Assistant
DX: E10.9 Type 1 diabetes mellitus without complications (principal)

== ENCOUNTER 2022-06-13 00:42 | Observation (INO) ==
--- NOTE | 2022-06-13 00:56 | Emergency Department Note ---
Impression & Plan Chest pain ADMIT ED Provider Note HPI: The patient is a 72-year-old female with history of paroxysmal atrial fibrillation, on anticoagulation, who presents emergency department with a chief complaint of chest discomfort and palpitations. Patient arrives via EMS, EKG in the field showed atrial fibrillation with RVR, patient states she did take a dose of metoprolol prior to arriving to the hospital, while in route repeat EKG was obtained that showed patient had converted to sinus rhythm. Patient did state that she had some chest pressure that lasted about 45 minutes although this resolved when she was on her way to the ED. On arrival here to the ED the patient is in sinus rhythm, she denies any current chest pain, denies any shortness of breath, she is otherwise in no acute distress on my initial assessment. ROS: -Cardio: Palpitations, chest pain, atrial fibrillation with RVR *10 point review systems was conducted and is otherwise negative unless stated above *Outpatient medications and allergy history reviewed PE: General: Alert, NAD HEENT: Normocephalic, atraumatic Eyes: Extraocular eye movement is intact, no scleral erythema Pulmonary: Clear to auscultation bilaterally, no wheezing Cardio: Regular rate and rhythm GI: Abdomen is soft, nontender : No suprapubic tenderness MSK: No evidence of trauma or malformation of the extremities, no edema Skin: No evidence of rash Neuro: Alert, no focal deficits Psychiatric: Cooperative laboratory monitor: - An order was placed for continuous cardiac monitoring - Patient was noted to be in sinus rhythm with rate of 80 EKG: Rate: 78 Rhythm: Normal sinus rhythm Intervals: Within normal limits ST changes: No ST elevation Time: 0054 Medical Decision Making: Patient presented to the emergency department with a chief complaint of substernal chest discomfort as well as palpitations that been ongoing for about 45 minutes prior to arrival to the ED. EKG obtained in the field via EMS showed evidence of atrial fibrillation with RVR. Patient does have a history of paroxysmal atrial fibrillation. She took a dose of her metoprolol prior to arrival and by the time I am assessing her here in the ED she is converted back to sinus rhythm. Patient states her chest pain is also improved. IV was established, lab work obtained, lab work shows a normal high-sensitivity troponin level, EKG does not show any acute ischemic changes and patient is noted to be back in normal sinus rhythm. Lab work otherwise shows evidence of a slight hypokalemia 3.3, this was repleted orally in the ED. Otherwise no critical electrolyte abnormalities are noted. Patient was held in the ED and delta troponin was obtained and does show change from 12.1-19.1. On my reassessment the patient is resting comfortably, she does have multiple risk factors including age, smoking history, tells me she does have a history of a right coronary artery stent that was placed in 2011 at [facility] in [place]. I feel that given the delta troponin change and patient's episode of chest discomfort prior to arrival she should be admitted for observation and trending of troponin and likely cardiology consultation. Patient is in agreement to this. Hospitalist service was consulted for admi ssion and the patient was admitted in stable condition for further care. Diagnosis: 1. Atrial fibrillation with RVR, resolved 2. Substernal chest pain, transient 3. Elevated high-sensitivity troponin 4. History of coronary artery disease status post stent Disposition: Admission Fletcher Garcia DO Emergency Medicine Past Med/Surg History Medical History Abdominal bruit Adenomatous polyp of colon Anemia Anxiety Arthritis CAD (coronary artery disease) Carpal tunnel syndrome Celiac artery stenosis Cervical cancer screening Chronic obstructive pulmonary disease Claustrophobia Coronary arteriosclerosis Diabetes Diabetic retinopathy, nonproliferative Fatigue Gluten intolerance Hepatitis C History of hepatitis C virus infection Hypertrophy of nasal turbinates Internal hemorrhoids Iron deficiency anemia 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 Denies family history of Colon cancer Ovarian cancer Prostate cancer Crohn's disease Colorectal cancer Social History Smoking Status: Current every day smoker Tobacco Type: Cigarettes Hx Alcohol Use: No Hx Substance Use: No Preferred Language: Luxembourgish Communication Ability: Effective Visual Impairment: No Limitations Hearing Ability: Normal marital status: / Current Living Situation: Alone current occupational status: retired Feels Safe at Home: Yes Seatbelt Use: always Sunscreen Use: Yes Allergies Allergies Allergy/AdvReac Type Severity Reaction Status Date / Time levofloxacin Allergy U FOGGY Verified 06/13/22 02:37 FEELING Penicillins Allergy U UPPER BODY Verified 06/13/22 02:37 RASH gluten AdvReac U GI SYMPTOMS Verified 06/13/22 02:37 Acetaminophen TABS AdvReac not to Uncoded 06/13/22 02:37 take due to hep C Home Meds Home Medications Medication Instructions Recorded Confirmed lancets 28 gauge (FreeStyle #25 ea 06/02/19 05/22/22 Lancets) aspirin 81 mg tablet,delayed 81 mg PO 3XWK 07/05/19 06/13/22 release blood sugar diagnostic (FreeStyle #10 ea 08/20/21 05/22/22 Lite Strips) fenofibrate nanocrystallized 145 145 mg PO HS 03/27/22 06/13/22 mg tablet lansoprazole 30 mg capsule,delayed 30 mg PO DAILYBB esophageal reflux 03/27/22 06/13/22 release metoprolol tartrate 25 mg tablet 25 mg PO UD 03/27/22 06/13/22 multivitamin 1 tab PO HS 03/27/22 06/13/22 triamterene 37.5 1 cap PO QAM 03/27/22 06/13/22 mg-hydrochlorothiazide 25 mg capsule sertraline 50 mg tablet 50 mg PO HS 04/03/22 06/13/22 vitamin B complex (B 1 tab PO DAILY 05/08/22 06/13/22 Complex-Vitamin B12 tablet) potassium chloride 20 mEq oral 20 meq PO 2XWK hypokalemia 06/13/22 06/13/22 packet Previous Rx's Medication Instructions Recorded nitroglycerin 0.4 mg sublingual 0.4 mg sublingual Q5M PRN chest 10/23/20 tablet pain #25 tabs Novolog U-100 Insulin aspart 100 See Rx Instructions subcut 02/04/21 unit/mL subcutaneous solution .COMPLEX #20 mL (insulin aspart U-100) flash glucose sensor (FreeStyle #2 ea 10/30/21 Julianna 14 Day Sensor kit) doxazosin 2 mg tablet 2 mg PO HS #90 tabs 03/27/22 atorvastatin 40 mg tablet 40 mg PO DAILY #90 tabs 03/31/22 clonazepam 0.5 mg tablet 0.5 mg PO HS PRN Sleep /Anxiety 03/31/22 #30 tabs clonidine HCl 0.1 mg tablet See Rx Instructions .Route 03/31/22 .COMPLEX #60 tabs metoprolol succinate 50 mg capsule 50 mg PO DAILY #90 ea 03/31/22 sprinkle, ext. release 24 hr Omnipod Dash Pods (Gen 4) (insulin #30 ea 04/03/22 pump cart,cont inf,BT) apixaban 5 mg tablet 5 mg PO BID #180 tabs 05/08/22 digoxin 125 mcg (0.125 mg) tablet 125 mcg PO 3XWK #90 tabs 05/16/22 Results & Data (ED) Vital Signs Vital Signs - 24 hr 06/13/22 00:57 06/13/22 00:57 06/13/22 00:57 Temperature 36.7 C Temperature Source Oral Pulse Rate 77 Pulse Rate [Apical] Pulse Rate from SpO2 Sensor Respiratory Rate 18 Respiratory Effort / Characteristics Non-Labored Spontaneous Respiratory Depth Normal Blood Pressure 131/79 Blood Pressure [Right Arm] Blood Pressure Mean 96 Blood Pressure Mean [Right Arm] Blood Pressure Position Right Lateral Pulse Oximetry 97 96 96 Oxygen Delivery Method Room Air Room Air Room Air Sepsis Recent Fever Within 48 Hours No Sepsis New/Unexplained Change in Mental Status No Sepsis Action Taken by Nursing No Action Required 06/13/22 02:34 06/13/22 03:00 06/13/22 03:30 Temperature Temperature Source Pulse Rate 68 58 L Pulse Rate [Apical] 66 Pulse Rate from SpO2 Sensor 68 58 L Respiratory Rate 17 25 H 19 Respiratory Effort / Characteristics Non-Labored Respiratory Depth Normal Blood Pressure 126/70 Blood Pressure [Right Arm] 126/70 Blood Pressure Mean 88 Blood Pressure Mean [Right Arm] 88 Blood Pressure Position Pulse Oximetry 97 98 97 Oxygen Delivery Method Room Air Room Air Sepsis Recent Fever Within 48 Hours Sepsis New/Unexplained Change in Mental Status Sepsis Action Taken by Nursing Laboratory Data Result diagrams: 06/13/22 00:55 06/13/22 00:55 Lab Results 06/13/22 06/13/22 06/13/22 Range/Units 00:55 00:55 00:55 WBC 6.09 (4.8-10.8) K/ul RBC 4.20 (3.93-5.22) M/uL Hgb 12.8 (12.0-16.0) g/dl Hct 38.3 (34.1-44.9) % MCV 91.2 (80.0-100.0) fL MCH 30.5 (25.0-34.0) pg MCHC 33.4 (32.0-36.0) g/dL RDW Std Deviation 42.8 (36.4-46.3) fL RDW Coeff of Mercedes 12.9 (11.5-14.5) % Plt Count 264 (130-400) K/uL MPV 10.5 (9.4-12.3) fL Immature Gran % (Auto) 0.5 % Neut % (Auto) 56.9 % Lymph % (Auto) 32.2 % [place] % (Auto) 7.9 % Eos % (Auto) 2.0 % Baso % (Auto) 0.5 % Neut # (Auto) 3.47 (1.4-6.5) K/uL Lymph # (Auto) 1.96 (1.2-3.4) K/uL [place] # (Auto) 0.48 (0.24-0.82) K/uL Eos # (Auto) 0.12 (0-0.50) K/uL Baso # (Auto) 0.03 (0-0.2) K/uL Immature Gran # (Auto) 0.03 H (0.00-0.02) K/uL PT 12.3 H (9.0-12.0) Seconds INR 1.2 H (0.9-1.1) APTT 25.8 (21.0-31.0) Seconds PTT Ratio 0.9 Sodium 135 L (136-145) mmol/L Potassium 3.3 L (3.5-5.1) mmol/L Chloride 101 (98-107) mmol/L Carbon Dioxide 25 (21-32) mmol/L Anion Gap 9 (3-11) BUN 18 (6-23) mg/dl Creatinine 0.77 (0.6-1.2) mg/dl Est Cr Clr Drug Dosing 54.6 ml/min Est GFR ( Amer) 90.7 ml/min Est GFR (Non-Af Amer) 78.2 ml/min BUN/Creatinine Ratio 23.4 H (10-20) Glucose 190 H (70-99(Fasting)) mg/dl Calcium 9.2 (8.5-10.1) mg/dl Magnesium (1.7-2.4) mg/dl Total Bilirubin 0.4 (0.2-1.0) mg/dl AST 33 (13-39) U/L ALT 21 (7-52) U/L Alkaline Phosphatase 49 (34-104) U/L Troponin I High Sens 12.0 (0-14) pg/ml Total Protein 7.5 (6.0-8.3) gm/dl Albumin 4.2 (3.4-5.0) gm/dl Globulin 3.3 (2.5-4.0) gm/dl Albumin/Globulin Ratio 1.3 (0.9-2) Lipase 84 H (11-82) U/L 06/13/22 Range/Units 02:28 WBC (4.8-10.8) K/ul RBC (3.93-5.22) M/uL Hgb (12.0-16.0) g/dl Hct (34.1-44.9) % MCV (80.0-100.0) fL MCH (25.0-34.0) pg MCHC (32.0-36.0) g/dL RDW Std Deviation (36.4-46.3) fL RDW Coeff of Mercedes (11.5-14.5) % Plt Count (130-400) K/uL MPV (9.4-12.3) fL Immature Gran % (Auto) % Neut % (Auto) % Lymph % (Auto) % [place] % (Auto) % Eos % (Auto) % Baso % (Auto) % Neut # (Auto) (1.4-6.5) K/uL Lymph # (Auto) (1.2-3.4) K/uL [place] # (Auto) (0.24-0.82) K/uL Eos # (Auto) (0-0.50) K/uL Baso # (Auto) (0-0.2) K/uL Immature Gran # (Auto) (0.00-0.02) K/uL PT (9.0-12.0) Seconds INR (0.9-1.1) APTT (21.0-31.0) Seconds PTT Ratio Sodium (136-145) mmol/L Potassium (3.5-5.1) mmol/L Chloride (98-107) mmol/L Carbon Dioxide (21-32) mmol/L Anion Gap (3-11) BUN (6-23) mg/dl Creatinine (0.6-1.2) mg/dl Est Cr Clr Drug Dosing ml/min Est GFR ( Amer) ml/min Est GFR (Non-Af Amer) ml/min BUN/Creatinine Ratio (10-20) Glucose (70-99(Fasting)) mg/dl Calcium (8.5-10.1) mg/dl Magnesium 1.7 (1.7-2.4) mg/dl Total Bilirubin (0.2-1.0) mg/dl AST (13-39) U/L ALT (7-52) U/L Alkaline Phosphatase (34-104) U/L Troponin I High Sens 19.1 H D (0-14) pg/ml Total Protein (6.0-8.3) gm/dl Albumin (3.4-5.0) gm/dl Globulin (2.5-4.0) gm/dl Albumin/Globulin Ratio (0.9-2) Lipase (11-82) U/L Administered Medications Discontinued Medications Potassium Chloride (Potassium Chloride Crtab 20 Meq Tabcr) 40 meq PO NOW STA Stop: 06/13/22 02:22 Last Admin: 06/13/22 03:03 Dose: 40 meq Documented By: [facility] Discharge Plan Visit Data Chief Complaint: Chest Pain ED Provider: Fletcher Garcia Discharge Problem: Chest pain Patient Disposition: Admitted As Inpatient Forms Stand Alone Forms: My [facility] [employer] Prescriptions Prescriptions: No Action Novolog U-100 Insulin aspart 100 unit/mL solution See Rx Instructions SQ .COMPLEX Qty: 20 5RF Rx Instructions: 45-50 UNITS DAILY VIA INSULIN PUMP; (DME) FreeStyle Julianna 14 Day Sensor Kit See Rx Instructions .ROUTE .MEDSUPPLY Qty: 2 11RF Rx Instructions: Change sensor every 14 days doxazosin 2 mg tablet 2 mg PO HS Qty: 90 3RF clonidine HCl 0.1 mg tablet See Rx Instructions .ROUTE .COMPLEX Qty: 60 5RF Dose Instruction: TAKE 1 TABLET BY MOUTH TWICE DAILY Rx Instructions: TAKE 1 TABLET BY MOUTH TWICE DAILY clonazepam 0.5 mg tablet 0.5 mg PO HS PRN (Reason: Sleep /Anxiety ) Qty: 30 0RF digoxin 125 mcg (0.125 mg) tablet 125 mcg PO 3XWK Qty: 90 3RF Rx Instructions: mowefr sertraline 50 mg tablet 50 mg PO HS atorvastatin 40 mg tablet 40 mg PO DAILY Qty: 90 3RF metoprolol succinate 50 mg capsule,sprinkle,ER 24hr 50 mg PO DAILY Qty: 90 3RF nitroglycerin 0.4 mg tablet, sublingual 0.4 mg SL Q5M PRN (Reason: chest pain) Qty: 25 3RF Rx Instructions: do not exceed 3 doses per episode vitamin B complex [B Complex-Vitamin B12] Tablet 1 tab PO DAILY apixaban 5 mg tablet 5 mg PO BID Qty: 180 3RF (DME) lancets [FreeStyle Lancets] 28 gauge misc See Dose Instructions .ROUTE .MEDSUPPLY Qty: 25 Rx Instructions: FOR USE 4 TIMES DAILY (DME) FreeStyle Lite Strips Strip See Rx Instructions .ROUTE .MEDSUPPLY Qty: 10 Rx Instructions: TEST 1 TIMES DAILY (DME) Omnipod Dash Pods (Gen 4) Cartridge See Rx Instructions .Route Qty: 30 3RF Rx Instructions: Change pod every 72 hours aspirin 81 mg tablet,delayed release (DR/EC) 81 mg PO 3XWK Rx Instructions: mowefr potassium chloride 20 mEq packet 20 meq PO 2XWK multivitamin Tablet 1 tab PO HS metoprolol tartrate 25 mg tablet 25 mg PO UD Rx Instructions: Take one tablet for increased heart rate more than 120. triamterene-hydrochlorothiazid 37.5-25 mg capsule 1 cap PO QAM lansoprazole 30 mg capsule,delayed release(DR/EC) 30 mg PO DAILYBB fenofibrate nanocrystallized 145 mg tablet 145 mg PO HS Referrals Referrals: Saba Hinkle MD [Primary Care Provider] -
[2022-06-13 01:19] LABS: Basophils # (auto) 0.03 K/uL (0-0.2); Basophils % (auto) 0.5 %; Eosinophils # (auto) 0.12 K/uL (0-0.50); Hematocrit (blood only) 38.3 % (34.1-44.9); Hemoglobin 12.8 g/dl (12.0-16.0); Immature Granulocytes # (auto) 0.03 K/uL (0.00-0.02); Immature Granulocytes % (auto) 0.5 %; Lymphocytes # (auto) 1.96 K/uL (1.2-3.4); Lymphocytes % (auto) 32.2 %; Mean Corpuscular Hemoglobin 30.5 pg (25.0-34.0); Mean Corpuscular Hgb Conc 33.4 g/dL (32.0-36.0); Mean Corpuscular Volume 91.2 fL (80.0-100.0); Mean Platelet Volume 10.5 fL (9.4-12.3); Monocytes # (auto) 0.48 K/uL (0.24-0.82); Monocytes % (auto) 7.9 %; Neutrophils # (auto) 3.47 K/uL (1.4-6.5); Neutrophils % (auto) 56.9 %; Platelet Count 264 K/uL (130-400); RDW Coefficient of Variation 12.9 % (11.5-14.5); RDW Standard Deviation 42.8 fL (36.4-46.3); White Blood Count 6.09 K/ul (4.8-10.8)
[2022-06-13 01:37] LABS: INR 1.2 (0.9-1.1); Partial Thromboplastin Ratio 0.9; Partial Thromboplastin Time 25.8 Seconds (21.0-31.0); Prothrombin Time 12.3 Seconds (9.0-12.0)
[2022-06-13 01:43] LABS: Albumin Globulin Ratio 1.3 (0.9-2); Albumin Level 4.2 gm/dl (3.4-5.0); BUN Creatinine Ratio 23.4 (10-20); Bilirubin,Total 0.4 mg/dl (0.2-1.0); Calcium 9.2 mg/dl (8.5-10.1); Creatinine Clr Calc Pharmacy 54.6 ml/min; Est GFR (African American) 90.7 ml/min; Est GFR (Non-African American) 78.2 ml/min; Globulin 3.3 gm/dl (2.5-4.0); Potassium 3.3 mmol/L (3.5-5.1); Total Protein 7.5 gm/dl (6.0-8.3)
[2022-06-13] MEDS ORDERED: POTASSIUM CHLORIDE CRTAB 20 MEQ TABCR PO STA ×2 (02:21→04:20)
[2022-06-13 03:08] LABS: Magnesium 1.7 mg/dl (1.7-2.4)
[2022-06-13 03:17] LABS: Troponin I High Sensitivity 19.1 pg/ml (0-14)
[2022-06-13] MEDS ORDERED: ASPIRIN CHEW 324 MG PO STA (04:02)
--- NOTE | 2022-06-13 04:38 | History & Physical Report ---
Date of Service June 13, 2022 Assessment & Plan (1) Paroxysmal atrial fibrillation with RVR: Plan: Paroxysmal A. fib with RVR/NSTEMI/hypokalemia/hypomagnesemia- The patient will be admitted to telemetry for serial cardiac enzymes, serial EKG's, cardiac rhythm monitoring and a 2-D echocardiogram with Dopplers. Give Klor-Con 40 mEq p.o. x2 for a total of 80 Get mag sulfate 1 g IV Would stop triamterene hydrochlorothiazide continue apixaban, aspirin, clonidine, digoxin, doxazosin, metoprolol succinate, meToprolol tartrate Consult her retail merchandising specialist Dr. 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 Primary Care Provider: Saba Hinkle MD The patient is a 72 yo female with PMH including SVT, hypokalemia, non-STEMI, paroxysmal atrial fibrillation with RVR, hyperlipidemia, left renal artery stenosis, reflux esophagitis, history of hepatitis C, superior mesenteric artery stenosis, right renal artery stenosis, SABINE, COPD, celiac artery stenosis, abdominal aortic aneurysm, hypertension, hyperlipidemia, and placement of RCA stent. When she developed palpitations and chest tightness this evening, she took an additional dose of metoprolol, and then called EMS. When EMS arrived, EKG at that time showed atrial fibrillation with RVR. In route to the hospital, the patient converted to sinus rhythm, remains in sinus rhythm in the ED. Significant abnormal laboratories: Potassium 3.3, glucose 190, troponin initially 12.0, with repeat in 2 hours increased at 19.1. Patient was given Klor-Con 40 mEq p.o. by the ED, and I added additional 40 mEq while in the ED. Allergies Allergy/AdvReac Type Severity Reaction Status Date / Time levofloxacin Allergy U FOGGY Verified 06/13/22 02:37 FEELING Penicillins Allergy U UPPER BODY Verified 06/13/22 02:37 RASH gluten AdvReac U GI SYMPTOMS Verified 06/13/22 02:37 Acetaminophen TABS AdvReac not to Uncoded 06/13/22 02:37 take due to hep C Home Medications Medication Instructions Recorded Confirmed Type lancets 28 gauge (FreeStyle #25 ea 06/02/19 05/22/22 History Lancets) aspirin 81 mg tablet,delayed 81 mg PO 3XWK 07/05/19 06/13/22 History release nitroglycerin 0.4 mg sublingual 0.4 mg sublingual Q5M PRN chest 10/23/20 06/13/22 Rx tablet pain #25 tabs Novolog U-100 Insulin aspart 100 See Rx Instructions subcut 02/04/21 06/13/22 Rx unit/mL subcutaneous solution .COMPLEX #20 mL (insulin aspart U-100) blood sugar diagnostic (FreeStyle #10 ea 08/20/21 05/22/22 History Lite Strips) flash glucose sensor (FreeStyle #2 ea 10/30/21 05/22/22 Rx Julianna 14 Day Sensor kit) doxazosin 2 mg tablet 2 mg PO HS #90 tabs 03/27/22 06/13/22 Rx fenofibrate nanocrystallized 145 145 mg PO HS 03/27/22 06/13/22 History mg tablet lansoprazole 30 mg capsule,delayed 30 mg PO DAILYBB esophageal reflux 03/27/22 06/13/22 History release metoprolol tartrate 25 mg tablet 25 mg PO UD 03/27/22 06/13/22 History multivitamin 1 tab PO HS 03/27/22 06/13/22 History triamterene 37.5 1 cap PO QAM 03/27/22 06/13/22 History mg-hydrochlorothiazide 25 mg capsule atorvastatin 40 mg tablet 40 mg PO DAILY #90 tabs 03/31/22 06/13/22 Rx clonazepam 0.5 mg tablet 0.5 mg PO HS PRN Sleep /Anxiety 03/31/22 06/13/22 Rx #30 tabs clonidine HCl 0.1 mg tablet See Rx Instructions .Route 03/31/22 06/13/22 Rx .COMPLEX #60 tabs metoprolol succinate 50 mg capsule 50 mg PO DAILY #90 ea 03/31/22 06/13/22 Rx sprinkle, ext. release 24 hr Omnipod Dash Pods (Gen 4) (insulin #30 ea 04/03/22 06/13/22 Rx pump cart,cont inf,BT) sertraline 50 mg tablet 50 mg PO HS 04/03/22 06/13/22 History apixaban 5 mg tablet 5 mg PO BID #180 tabs 05/08/22 06/13/22 Rx vitamin B complex (B 1 tab PO DAILY 05/08/22 06/13/22 History Complex-Vitamin B12 tablet) digoxin 125 mcg (0.125 mg) tablet 125 mcg PO 3XWK #90 tabs 05/16/22 06/13/22 Rx potassium chloride 20 mEq oral 20 meq PO 2XWK hypokalemia 06/13/22 06/13/22 History packet Past Med/Surg History Medical History Abdominal bruit Adenomatous polyp of colon Anemia Anxiety Arthritis CAD (coronary artery disease) Carpal tunnel syndrome Celiac artery stenosis Cervical cancer screening Chronic obstructive pulmonary disease Claustrophobia Coronary arteriosclerosis Diabetes Diabetic retinopathy, nonproliferative Fatigue Gluten intolerance Hepatitis C History of hepatitis C virus infection Hypertrophy of nasal turbinates Internal hemorrhoids Iron deficiency anemia 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 Denies family history of Colon cancer Ovarian cancer Prostate cancer Crohn's disease Colorectal cancer Social History Smoking Status: Current every day smoker Tobacco Type: Cigarettes Hx Alcohol Use: No Hx Substance Use: No Preferred Language: Chinese Communication Ability: Effective Visual Impairment: No Limitations Hearing Ability: Normal marital status: / Current Living Situation: Alone current occupational status: retired Feels Safe at Home: Yes Seatbelt Use: always Sunscreen Use: Yes Review of Systems Review of Systems: The patient denies cough, lower extremity swelling, sore throat, fevers, chills, sweats, nausea, vomiting, diarrhea , constipation, abdominal pain, pelvic pain, blood in urine or stool, dysuria, urinary frequency or urgency, lightheadedness, dizziness, headache, memory loss, loss of consciousness, rash, abnormal bruising or bleeding, imbalance, focal or generalized weakness, numbness or tingling in arms or legs, generalized arthralgias or myalgias, back or neck pain, or night sweats. The review of systems is otherwise negative other than for that already noted above, and at least 10 systems have been reviewed. Physical Exam Physical Exam: The patient is awake, alert and oriented 3, well developed and well nourished, normocephalic and atraumatic, lying in bed and in no acute distress. HEENT--PERRL, EOMI, mucous membranes and oropharynx normal. Neck--supple. No JVD. No bruits. Thyroid normal, trachea midline, no adenopathy. Heart--normal S1 and S2. No murmurs, rubs or gallops. Lungs--clear bilaterally, no respiratory distress, no accessory muscle use. Abdomen--normal bowel sounds and soft. Nontender. Nondistended, no hernias or masses, no organomegaly. Extremities--no cyanosis or clubbing. No edema. There are good distal pulses b/l. Dermatologic--normal skin turgor, normal color, no abnormal lymph nodes, no rash. Neurologic--cranial nerves II through XII grossly intact. Rheumatologic--normal range of motion. Psychiatric--normal affect. Results & Data Results & Data ([facility]) Vital Signs (Past 12 Hours) Vital Signs Temp Pulse Pulse Resp BP BP Pulse Ox 06/13/22 04:00 59 L 14 132/66 97 06/13/22 03:30 58 L 19 97 06/13/22 03:00 68 25 H 98 06/13/22 02:34 66 17 126/70 97 06/13/22 00:57 96 06/13/22 00:57 96 06/13/22 00:57 36.7 C 77 18 131/79 97 O2 Del Method 06/13/22 04:00 Room Air 06/13/22 03:30 Room Air 06/13/22 03:00 Room Air 06/13/22 02:34 06/13/22 00:57 Room Air 06/13/22 00:57 Room Air 06/13/22 00:57 Room Air Laboratory Results Laboratory Results WBC 6.09 K/ul (4.8-10.8) 06/13/22 00:55 RBC 4.20 M/uL (3.93-5.22) 06/13/22 00:55 Hgb 12.8 g/dl (12.0-16.0) 08 00:55 Hct 38.3 % (34.1-44.9) 06/13/22 00:55 MCV 91.2 fL (80.0-100.0) 06/13/22 00:55 MCH 30.5 pg (25.0-34.0) 06/13/22 00:55 MCHC 33.4 g/dL (32.0-36.0) 06/13/22 00:55 RDW Std Deviation 42.8 fL (36.4-46.3) 06/13/22 00:55 RDW Coeff of Mercedes 12.9 % (11.5-14.5) 06/13/22 00:55 Plt Count 264 K/uL (130-400) 06/13/22 00:55 MPV 10.5 fL (9.4-12.3) 06/13/22 00:55 Immature Gran % (Auto) 0.5 % 06/13/22 00:55 Neut % (Auto) 56.9 % 06/13/22 00:55 Lymph % (Auto) 32.2 % 06/13/22 00:55 [place] % (Auto) 7.9 % 06/13/22 00:55 Eos % (Auto) 2.0 % 06/13/22 00:55 Baso % (Auto) 0.5 % 06/13/22 00:55 Neut # (Auto) 3.47 K/uL (1.4-6.5) 06/13/22 00:55 Lymph # (Auto) 1.96 K/uL (1.2-3.4) 06/13/22 00:55 [place] # (Auto) 0.48 K/uL (0.24-0.82) 06/13/22 00:55 Eos # (Auto) 0.12 K/uL (0-0.50) 06/13/22 00:55 Baso # (Auto) 0.03 K/uL (0-0.2) 06/13/22 00:55 Immature Gran # (Auto) 0.03 K/uL (0.00-0.02) H 06/13/22 00:55 PT 12.3 Seconds (9.0-12.0) H 06/13/22 00:55 INR 1.2 (0.9-1.1) H 06/13/22 00:55 APTT 25.8 Seconds (21.0-31.0) 06/13/22 00:55 PTT Ratio 0.9 06/13/22 00:55 Sodium 135 mmol/L (136-145) L 06/13/22 00:55 Potassium 3.3 mmol/L (3.5-5.1) L 06/13/22 00:55 Chloride 101 mmol/L (98-107) 06/13/22 00:55 Carbon Dioxide 25 mmol/L (21-32) 06/13/22 00:55 Anion Gap 9 (3-11) 06/13/22 00:55 BUN 18 mg/dl (6-23) 06/13/22 00:55 Creatinine 0.77 mg/dl (0.6-1.2) 06/13/22 00:55 Est Cr Clr Drug Dosing 54.6 ml/min 06/13/22 00:55 Est GFR ( Amer) 90.7 ml/min 06/13/22 00:55 Est GFR (Non-Af Amer) 78.2 ml/min 06/13/22 00:55 BUN/Creatinine Ratio 23.4 (10-20) H 06/13/22 00:55 Glucose 190 mg/dl (70-99(Fasting)) H 06/13/22 00:55 Calcium 9.2 mg/dl (8.5-10.1) 06/13/22 00:55 Magnesium 1.7 mg/dl (1.7-2.4) 06/13/22 02:28 Total Bilirubin 0.4 mg/dl (0.2-1.0) 06/13/22 00:55 AST 33 U/L (13-39) 06/13/22 00:55 ALT 21 U/L (7-52) 06/13/22 00:55 Alkaline Phosphatase 49 U/L (34-104) 06/13/22 00:55 Troponin I High Sens 19.1 pg/ml (0-14) H D 06/13/22 02:28 Total Protein 7.5 gm/dl (6.0-8.3) 06/13/22 00:55 Albumin 4.2 gm/dl (3.4-5.0) 06/13/22 00:55 Globulin 3.3 gm/dl (2.5-4.0) 06/13/22 00:55 Albumin/Globulin Ratio 1.3 (0.9-2) 06/13/22 00:55 Lipase 84 U/L (11-82) H 06/13/22 00:55 SARS-CoV-2, RNA, NAAT NEGATIVE (NEGATIVE) 06/13/22 03:43 Code Status & VTE Plan Code Status Full code VTE Prophylaxis Plan VTE Prophylaxis will be ordered: Yes PG Care Time/CCT Total # of Minutes Spent Total Time Spent with Patient: Total time spent is greater than 50% in coordination of care (as documented) at patient's floor/unit and/or counseling patient: Coding Level of Care Code INT OBSERVATION CARE 72M LVL 3 Diagnoses Paroxysmal atrial fibrillation with RVR I48.0 Non-ST elevation (NSTEMI) myocardial infarction I21.4 Hyperlipidemia E78.5 Hypokalemia E87.6 Hypomagnesemia E83.42 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
[2022-06-13] MEDS ORDERED: MAGNESIUM SULFATE / D5W 1 GM/100 ML BAG IV ONE (05:11)
[2022-06-13] MEDS ORDERED: INSULIN ASPART PER UNIT SQ SCH (07:14)
[2022-06-13] MEDS ORDERED: NITROGLYCERIN SL 0.4 MG/TAB TAB SL PRN (07:14)
[2022-06-13] MEDS ORDERED: clonazePAM 0.5 MG TAB PO PRN (07:14)
[2022-06-13] MEDS ORDERED: ONDANSETRON INJ 2 MG/ML 2 ML VIAL IV PRN (07:14)
--- NOTE | 2022-06-13 07:50 | XRay Report ---
SINGLE VIEW CHEST CLINICAL HISTORY: Atypical chest pain. FINDINGS: An AP, portable, upright chest radiograph is compared to study dated 05/20/2022 and correlat ed with chest CT dated 03/27/2022. The examination is degraded by portable technique and apical lordot ic positioning. The heart is mildly enlarged noting atherosclerotic calcification of the thoracic aor ta. The pulmonary vasculature is noncongested. Emphysema and chronic interstitial thickening is simil ar to previous. Parenchymal scarring is seen throughout both lungs. Nipple shadows project over the l rashel bases. The lungs and pleural spaces are otherwise clear. No pneumothorax is seen. The skeletal st ructures are osteopenic. The bony thorax is grossly intact. IMPRESSION: Cardiomegaly and emphysema with no active disease in the chest. ACT 112: Negative or not required by law. Electronically signed by: Clemente Krueger M.D. 06/13/2022 7:48 AM
--- NOTE | 2022-06-13 08:12 | Hospitalist Progress Note ---
Date of Service June 13, 2022 Assessment & Plan (1) Paroxysmal atrial fibrillation with RVR: Plan: Paroxysmal A. fib with RVR/NSTEMI/hypokalemia/hypomagnesemia- The patient will be admitted to telemetry for serial cardiac enzymes, serial EKG's, cardiac rhythm monitoring and a 2-D echocardiogram with Dopplers. Give Klor-Con 40 mEq p.o. x2 for a total of 80 Get mag sulfate 1 g IV Would stop triamterene hydrochlorothiazide continue apixaban, aspirin, clonidine, digoxin, doxazosin, metoprolol succinate, meToprolol tartrate Consult her spa coordinator Dr. 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 HEENT--PERRL, EOMI, mucous membranes and oropharynx normal. Neck--supple. No JVD. No bruits. Thyroid normal, trachea midline, no adenopathy. Heart--normal S1 and S2. No murmurs, rubs or gallops. Lungs--clear bilaterally, no respiratory distress, no accessory muscle use. Abdomen--normal bowel sounds and soft. Nontender. Nondistended, no hernias or masses, no organomegaly. Extremities--no cyanosis or clubbing. No edema. There are good distal pulses b/l. Dermatologic--normal skin turgor, normal color, no abnormal lymph nodes, no rash. Neurologic--cranial nerves II through XII grossly intact. Rheumatologic--normal range of motion. Psychiatric--normal affect. Results & Data Results & Data ([facility]) Vital Signs (Past 12 Hours) Vital Signs Temp Pulse Pulse Resp BP BP Pulse Ox 06/13/22 07:15 51 L 06/13/22 07:09 36.8 C 54 L 14 125/75 97 06/13/22 06:03 60 20 145/66 H 97 06/13/22 05:00 55 L 19 115/54 L 98 06/13/22 04:00 59 L 14 132/66 97 06/13/22 03:30 58 L 19 97 06/13/22 03:00 68 25 H 98 06/13/22 02:34 66 17 126/70 97 06/13/22 00:57 96 06/13/22 00:57 96 06/13/22 00:57 36.7 C 77 18 131/79 97 O2 Del Method 06/13/22 07:15 06/13/22 07:09 Room Air 06/13/22 06:03 Room Air 06/13/22 05:00 Room Air 06/13/22 04:00 Room Air 06/13/22 03:30 Room Air 06/13/22 03:00 Room Air 06/13/22 02:34 06/13/22 00:57 Room Air 06/13/22 00:57 Room Air 06/13/22 00:57 Room Air
[2022-06-13] MEDS ORDERED: CARBOHYDRATES FOR HYPOGLYCEMIA PO PRN (08:15)
[2022-06-13] MEDS ORDERED: INSULIN ASPART 100 UNITS/ML VIAL SC PRN (08:15)
[2022-06-13] MEDS ORDERED: GLUCOSE 40% GEL 15 GM TUBE PO PRN (08:15)
[2022-06-13] MEDS ORDERED: DEXTROSE 50% 50 ML SYRINGE IV PRN (08:15)
[2022-06-13] MEDS ORDERED: GLUCOSE 10 TAB/TUBE PO PRN (08:15)
[2022-06-13] MEDS ORDERED: GLUCAGON FOR INJ 1 MG VIAL SQ PRN (08:15)
[2022-06-13] MEDS ORDERED: PHARMACY GLYCEMIC MGMT CONSULT PRN (08:23)
[2022-06-13] MEDS ORDERED: cloNIDine HCL 0.1 MG TAB PO SCH (09:00)
[2022-06-13] MEDS ORDERED: POTASSIUM CHLORIDE PWD 20 MEQ PACK PO SCH (09:00)
[2022-06-13] MEDS ORDERED: VITAMIN B COMPLEX TAB PO SCH (09:00)
[2022-06-13] MEDS ORDERED: DIGOXIN 0.125 MG TAB PO SCH (09:00)
[2022-06-13] MEDS ORDERED: ATORVASTATIN 40 MG TAB PO SCH (09:00)
[2022-06-13] MEDS ORDERED: PANTOprazole 40 MG TAB PO SCH (09:00)
[2022-06-13] MEDS ORDERED: ASPIRIN 81 MG ECTAB PO SCH (09:00)
[2022-06-13] MEDS ORDERED: APIXABAN 5 MG TABLET PO SCH (09:00)
[2022-06-13] MEDS: METOPROLOL SUCC 50MG EXT REL TAB PO SCH ×2 (09:08→10:10)
--- NOTE | 2022-06-13 09:19 | Pharmacy Report ---
Pharmacy Glycemic Short Note 2 - Date of Service June 13, 2022 - Glycemic Short BSG Results (Last 24 hours): 06/13/22 00:55 Glucose 190 H OUTPATIENT ANTIDIABETIC REGIMEN: * insulin pump - basal ~10.25 units/day / CF 100 / CR 20 * A1c 6.1 04/01/22 ASSESSMENT: * 72 year old admitted with atrial fibrillation. Patient is type 1 diabetic managed on insulin pump. She continues with insulin pump today. Talked with patient and she feels comfortable managing insulin pump while admitted. She reports that her pump supplies will late this evening, but will try and have a neighbor bring in more supplies if the plan is for her to stay overnight * She reports she is feeling well and ate some breakfast this morning. Her continuous glucose monitor showed her blood sugar was 160 mg/dL this morning. She was able to tell me her insulin pump settings and I was able to confirm settings with outpatient diabetes visit notes as she follows with BENITA Gordon. Will follow, may need to transition to SQ insulin this evening depending on if supplies for insulin pump can be brought in PLAN FOR INPATIENT GLYCEMIC CONTROL: * Continue insulin pump - patient signed insulin pump agreement per hospital policy
[2022-06-13] MEDS: NovoLOG INSULIN PUMP SCH ×2 (09:40→11:47)
[2022-06-13 10:44] LABS: BUN Creatinine Ratio 23.4 (10-20); Calcium 9.1 mg/dl (8.5-10.1); Creatinine Clr Calc Pharmacy 57.1 ml/min; Est GFR (African American) 90.7 ml/min; Est GFR (Non-African American) 78.2 ml/min; Potassium 4.2 mmol/L (3.5-5.1)
--- NOTE | 2022-06-13 13:04 | Cardiology Consultation ---
Date of Consultation June 13, 2022 Assessment & Plan (1) Paroxysmal atrial fibrillation with RVR: -converted to sinus rhythm on fruit to the emergency room last evening. -would increase metoprolol succinate to 50 mg b.i.d. -would increase potassium supplements to 20 mEq b.i.d. -continue metoprolol tartrate p.r.n. atrial fibrillation. -keep appoint with scheduled for August 14. -follow-up with me as scheduled in July. (2) CAD (coronary artery disease): -RCA ANITA December 2011. -patent stent at catheterization in March 2022. -severe ostial LCX stenosis, medical management. (3) Hypertension: -adequate control on current regimen. (4) Hyperlipidemia: -continue atorvastatin and Tricor. History of Present Illness Attending Physician: Randy Briceno, History of Present Illness Mrs. Chavez is a 72-year-old female admitted earlier today because of a paroxysm of atrial fibrillation and a rapid ventricular response. This consultation was ordered to assist in her cardiac management. Of note, patient is well known to me from the outpatient setting. The patient was in usual state of health until last evening when she developed a paroxysm of her previously diagnosed atrial fibrillation. She noted significant palpitations and heaviness in her chest. Heart rate was well over 100 beats per minute. She administered an extra dose of short-acting metoprolol, however, remained in atrial fibrillation. Therefore, she called 911. During transportation, the patient converted to sinus rhythm. She was seen in our office on May 22 and had complained of several episodes of her atrial fibrillation. Mr. Johnson made arrangements for her to meet with Dr. Foreman with the [facility] this is scheduled for August 14. Consideration will be made for a radiofrequency ablation. She does carry history of coronary artery disease. She had a ANITA placed in the RCA in December 2011. She underwent a cardiac catheterization in March 2022 which noted a patent stent and severe disease in the ostium of the left circumflex. A small obtuse marginal branch was 100% occluded. Medical management was suggested at that time. Currently, patient is resting comfortably in bed without complaints. Past medical and surgical history 1. Coronary artery disease-see above 2. RCA ANITA-December 2011, patent March 2022 3. Hypertension 4. Hypercholesterolemia 5. Class 1 angina pectoris 6. Paroxysmal atrial fibrillation 7. Paroxysmal SVT 8. GERD 9. Diabetes mellitus 10. COPD 11. Iron deficiency anemia 12. Peripheral vascular disease 13. Right renal artery stenosis 14. Superior mesenteric artery stenosis 15. Celiac artery stenosis 16. Vitamin-D deficiency 17. Colonic polyps 18. Hepatitis-C 19. Liver hemangioma 20. Hysterectomy Social history , lives alone Smokes 1 pack of cigarettes daily No alcohol Family history Noncontributory Review of systems A 10 review systems was undertaken and negative except for that described above. Allergies Allergy/AdvReac Type Severity Reaction Status Date / Time levofloxacin Allergy U FOGGY Verified 06/13/22 02:37 FEELING Penicillins Allergy U UPPER BODY Verified 06/13/22 02:37 RASH acetaminophen AdvReac Unknown not to Verified 06/13/22 06:33 take due to hep C gluten AdvReac U GI SYMPTOMS Verified 06/13/22 02:37 Home Medications Medication Instructions Recorded Confirmed Type lancets 28 gauge (FreeStyle #25 ea 06/02/19 05/22/22 History Lancets) aspirin 81 mg tablet,delayed 81 mg PO 3XWK 07/05/19 06/13/22 History release nitroglycerin 0.4 mg sublingual 0.4 mg sublingual Q5M PRN chest 10/23/20 06/13/22 Rx tablet pain #25 tabs Novolog U-100 Insulin aspart 100 See Rx Instructions subcut 02/04/21 06/13/22 Rx unit/mL subcutaneous solution .COMPLEX #20 mL (insulin aspart U-100) blood sugar diagnostic (FreeStyle #10 ea 08/20/21 05/22/22 History Lite Strips) flash glucose sensor (FreeStyle #2 ea 10/30/21 05/22/22 Rx Julianna 14 Day Sensor kit) doxazosin 2 mg tablet 2 mg PO HS #90 tabs 03/27/22 06/13/22 Rx fenofibrate nanocrystallized 145 145 mg PO HS 03/27/22 06/13/22 History mg tablet lansoprazole 30 mg capsule,delayed 30 mg PO DAILYBB esophageal reflux 03/27/22 06/13/22 History release metoprolol tartrate 25 mg tablet 25 mg PO UD 03/27/22 06/13/22 History multivitamin 1 tab PO HS 03/27/22 06/13/22 History triamterene 37.5 1 cap PO QAM 03/27/22 06/13/22 History mg-hydrochlorothiazide 25 mg capsule atorvastatin 40 mg tablet 40 mg PO DAILY #90 tabs 03/31/22 06/13/22 Rx clonazepam 0.5 mg tablet 0.5 mg PO HS PRN Sleep /Anxiety 03/31/22 06/13/22 Rx #30 tabs clonidine HCl 0.1 mg tablet See Rx Instructions .Route 03/31/22 06/13/22 Rx .COMPLEX #60 tabs Omnipod Dash Pods (Gen 4) (insulin #30 ea 04/03/22 06/13/22 Rx pump cart,cont inf,BT) sertraline 50 mg tablet 50 mg PO HS 04/03/22 06/13/22 History apixaban 5 mg tablet 5 mg PO BID #180 tabs 05/08/22 06/13/22 Rx vitamin B complex (B 1 tab PO DAILY 05/08/22 06/13/22 History Complex-Vitamin B12 tablet) digoxin 125 mcg (0.125 mg) tablet 125 mcg PO 3XWK #90 tabs 05/16/22 06/13/22 Rx metoprolol succinate 50 mg capsule 50 mg PO BID #60 ea 06/13/22 Rx sprinkle, ext. 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 HEENT exam is negative. Neck is supple with full carotid upstrokes. There no carotid bruits. No jugular venous distention. There is no thyromegaly. Cardiovascular exam reveals a regular rhythm with a normal S1 and S2. No S3, S4, or murmurs are noted. Lungs are clear without rales rhonchi, or recent. Abdomen is benign without bruits. Extremities reveal intact radial artery and posterior tibial pulses bilaterally. There is no peripheral edema. Results & Data ([facility]) Vital Signs (Past 12 Hours) Vital Signs Temp Pulse Pulse Resp BP BP Pulse Ox 06/13/22 11:01 36.8 C 54 L 14 125/75 97 06/13/22 09:08 57 L 06/13/22 07:15 51 L 06/13/22 07:09 36.8 C 54 L 14 125/75 97 06/13/22 06:03 60 20 145/66 H 97 06/13/22 05:00 55 L 19 115/54 L 98 06/13/22 04:00 59 L 14 132/66 97 06/13/22 03:30 58 L 19 97 06/13/22 03:00 68 25 H 98 06/13/22 02:34 66 17 126/70 97 O2 Del Method 06/13/22 11:01 06/13/22 09:08 06/13/22 07:15 06/13/22 07:09 Room Air 06/13/22 06:03 Room Air 06/13/22 05:00 Room Air 06/13/22 04:00 Room Air 06/13/22 03:30 Room Air 06/13/22 03:00 Room Air 06/13/22 02:34 Laboratory Results CBC notes hemoglobin 12.8, hematocrit 30.3, white count 6.09, and platelet count [id number]. Electrolytes note a sodium of 135, potassium 3.3, chloride 101, bicarb 25, BUN 18, creatinine 0.77, glucose of 190. High sensitivity troponin was 12.0 on presentation, currently 19.1. Diagnostic Findings Echocardiogram performed March 08, 2022 noted normal systolic function with ejection fraction of 60-65%. There was mild LVH with mild mitral regurgitation. EKG now notes sinus rhythm with poor R-wave progression across the anterior precordium. Chest x-ray notes cardiomegaly and emphysematous changes. PG Care Time/CCT Total # of Minutes Spent Total Time Spent with Patient: Total time spent is greater than 50% in coordination of care (as documented) at patient's floor/unit and/or counseling patient: Coding Level of Care Code INT OBSERVATION CARE 72M LVL 3 Diagnoses Paroxysmal atrial fibrillation with RVR I48.0 CAD (coronary artery disease) I25.10 Hypertension I10 Hyperlipidemia E78.5
--- NOTE | 2022-06-13 15:16 | Electrocardiogram Report ---
Test Reason : Blood Pressure : / mmHG Vent. Rate : 078 BPM Atrial Rate : 078 BPM P-R Int : 166 ms QRS Dur : 088 ms QT Int : 408 ms P-R-T Axes : 073 013 066 degrees QTc Int : 465 ms Normal sinus rhythm When compared with ECG of 20-MAY-2022 21:35, Borderline criteria for Inferior infarct are no longer Present Nonspecific T wave abnormality no longer evident in Inferior leads T wave inversion no longer evident in Lateral leads Confirmed by Trip Maurice ([id number]) on 06/13/2022 3:16:19 PM Referred By: Saba Hsieh Confirmed By:Paddy Maurice
--- NOTE | 2022-06-13 19:28 | Discharge Summary ---
Date of Service June 13, 2022 Admission HPI Per Admitting Provider The patient is a 72 yo female with PMH including SVT, hypokalemia, non-STEMI, paroxysmal atrial fibrillation with RVR, hyperlipidemia, left renal artery stenosis, reflux esophagitis, history of hepatitis C, superior mesenteric artery stenosis, right renal artery stenosis, SABINE, COPD, celiac artery stenosis, abdominal aortic aneurysm, hypertension, hyperlipidemia, and placement of RCA stent. When she developed palpitations and chest tightness this evening, she took an additional dose of metoprolol, and then called EMS. When EMS arrived, EKG at that time showed atrial fibrillation with RVR. In route to the hospital, the patient converted to sinus rhythm, remains in sinus rhythm in the ED. Significant abnormal laboratories: Potassium 3.3, glucose 190, troponin initially 12.0, with repeat in 2 hours increased at 19.1. Patient was given Klor-Con 40 mEq p.o. by the ED, and I added additional 40 mEq while in the ED. Principal Diagnosis afib, RVR - now converted to NSR Discharge Exam In general she is awake and alert pleasant no distress. HEENT normocephalic atraumatic mucous membranes moist. Breathing unlabored no accessory muscle use good effort. Skin shows no rashes no pallor or icterus. Neuro without focal deficits. Discharge Data Allergies Allergy/AdvReac Type Severity Reaction Status Date / Time levofloxacin Allergy U FOGGY Verified 06/13/22 02:37 FEELING Penicillins Allergy U UPPER BODY Verified 06/13/22 02:37 RASH acetaminophen AdvReac Unknown not to Verified 06/13/22 06:33 take due to hep C gluten AdvReac U GI SYMPTOMS Verified 06/13/22 02:37 Consultations 06/13/22 04:08 ED Decision to Admit Stat 06/13/22 07:14 Consult Cardiology Routine Hospital Course (1) Paroxysmal atrial fibrillation with RVR: Paroxysmal A. fib with RVR/NSTEMI/hypokalemia/hypomagnesemia- Converted to sinus rhythm. Stable for home. Increase metoprolol, increase potassium. Outpatient follow-up with cardiology and electrophysiology. 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), managed as type 1: On an insulin pump Total Time Total Time Spent Total Time Spent (In Minutes): Less than 30 Discharge Plan Discharge Items Patient Disposition: Home - Self-Care Reason For Visit: ATRIAL FIB WITH RVR,HYPOKALEMIA Discharge Diagnosis: Atrial fibrillationnow under control again Activity: Resume your previous activity Non-emergency contact: Primary Care Provider and Residential Appraiser Call non-emergency contact if: you have any medication questions and your symptoms worsen Follow-up/Referrals: Saba Hinkle MD [Primary Care Provider] - Diet: Regular Addtl Attending Provider Instructions: Atrial fibrillation -Fortunately, while your heart did start racing again with atrial fibrillation, it did, under quick control basically by itself. That said, as we discussed, given that these things do not always self resolveI would rather have you evaluated when things start to race/when you are feeling palpitations, rather than have you sit at home and potentially get into trouble. Your apple watch, while not technically FDA approved, is something that I would look at is a fairly trustworthy deviceparticularly as it relates to your heart rates and to a large degree the rhythmso the way you have been using it makes sense. Of course, if you are feeling symptoms even if the watch tells you "everything is okay" I would still want you to be looked at. -For now, we will increase the metoprolol to 50 mg twice a day, and increase the potassium to 20 mEq twice a daythis should hopefully help keep things under a bit better control -Dr. Hassan will be trying to get the electrophysiology appointment moved up to sooner. As we discussed, an ablation for atrial fibrillation generally is not so much a cure as it is another tool to help control be better than it has been -have Dr Seymour or Dr Hassan check labwork (BMP, basic metabolic panel) next week Pending Studies at Discharge: No Stand-Alone Forms: My [employer], Smoking Cessation Medications and DC Order Prescriptions: Continued Novolog U-100 Insulin aspart 100 unit/mL solution See Rx Instructions SQ .COMPLEX Qty: 20 5RF Rx Instructions: 45-50 UNITS DAILY VIA INSULIN PUMP; (DME) FreeStyle Julianna 14 Day Sensor Kit See Rx Instructions .ROUTE .MEDSUPPLY Qty: 2 11RF Rx Instructions: Change sensor every 14 days doxazosin 2 mg tablet 2 mg PO HS Qty: 90 3RF clonidine HCl 0.1 mg tablet See Rx Instructions .ROUTE .COMPLEX Qty: 60 5RF Dose Instruction: TAKE 1 TABLET BY MOUTH TWICE DAILY Rx Instructions: TAKE 1 TABLET BY MOUTH TWICE DAILY clonazepam 0.5 mg tablet 0.5 mg PO HS PRN (Reason: Sleep /Anxiety ) Qty: 30 0RF digoxin 125 mcg (0.125 mg) tablet 125 mcg PO 3XWK Qty: 90 3RF Rx Instructions: mowefr sertraline 50 mg tablet 50 mg PO HS atorvastatin 40 mg tablet 40 mg PO DAILY Qty: 90 3RF nitroglycerin 0.4 mg tablet, sublingual 0.4 mg SL Q5M PRN (Reason: chest pain) Qty: 25 3RF Rx Instructions: do not exceed 3 doses per episode vitamin B complex [B Complex-Vitamin B12] Tablet 1 tab PO DAILY apixaban 5 mg tablet 5 mg PO BID Qty: 180 3RF (DME) lancets [FreeStyle Lancets] 28 gauge misc See Dose Instructions .ROUTE .MEDSUPPLY Qty: 25 Rx Instructions: FOR USE 4 TIMES DAILY (DME) FreeStyle Lite Strips Strip See Rx Instructions .ROUTE .MEDSUPPLY Qty: 10 Rx Instructions: TEST 1 TIMES DAILY (DME) Omnipod Dash Pods (Gen 4) Cartridge See Rx Instructions .Route Qty: 30 3RF Rx Instructions: Change pod every 72 hours aspirin 81 mg tablet,delayed release (DR/EC) 81 mg PO 3XWK Rx Instructions: mowefr multivitamin Tablet 1 tab PO HS metoprolol tartrate 25 mg tablet 25 mg PO UD Rx Instructions: Take one tablet for increased heart rate more than 120. triamterene-hydrochlorothiazid 37.5-25 mg capsule 1 cap PO QAM lansoprazole 30 mg capsule,delayed release(DR/EC) 30 mg PO DAILYBB fenofibrate nanocrystallized 145 mg tablet 145 mg PO HS Changed potassium chloride 20 mEq packet 20 meq PO BID Qty: 60 0RF metoprolol succinate 50 mg capsule,sprinkle,ER 24hr 50 mg PO BID Qty: 60 3RF Discharge Orders: Discharge Order (Routine); Ordered 06/13/22 Ordered By: Randy Briceno Admission Data Admit Date/Time: 06/13/22 04:34 Attending Provider: Randy Briceno Admit Provider: Giacomo Blevins Primary Care Provider: Saba Hinkle V. 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
[2022-06-13] MEDS ORDERED: SERTRALINE HCL 50 MG TABLET PO SCH (21:00)
[2022-06-13] MEDS ORDERED: DOXAZosin MESYLATE TAB 2 MG TAB PO SCH (21:00)
[2022-06-13] MEDS ORDERED: FENOFIBRATE NANOCRYSTALLIZED 145 MG TABLET PO SCH (21:00)
== END 2022-06-13 13:19 | disposition home or self-care (01) ==
LOC: 2S 00:42 → ED 00:42 → SUATTDRO 04:34 → 2S 06:28

== ENCOUNTER 2022-08-03 08:08 | Inpatient (IN) ==
[2022-08-03] MEDS ORDERED: METOPROLOL TARTRATE 1 MG/ML VIAL IV STA ×2 (08:18→08:38)
[2022-08-03 08:44] LABS: Basophils # (auto) 0.02 K/uL (0-0.2); Basophils % (auto) 0.3 %; Eosinophils # (auto) 0.01 K/uL (0-0.50); Eosinophils % (auto) 0.1 %; Hemoglobin 11.3 g/dl (12.0-16.0); Immature Granulocytes # (auto) 0.02 K/uL (0.00-0.02); Immature Granulocytes % (auto) 0.3 %; Lymphocytes # (auto) 0.85 K/uL (1.2-3.4); Lymphocytes % (auto) 11.4 %; Mean Corpuscular Hemoglobin 28.3 pg (25.0-34.0); Mean Corpuscular Hgb Conc 33.2 g/dL (32.0-36.0); Mean Corpuscular Volume 85.2 fL (80.0-100.0); Mean Platelet Volume 11.1 fL (9.4-12.3); Monocytes # (auto) 0.56 K/uL (0.24-0.82); Monocytes % (auto) 7.5 %; Neutrophils % (auto) 80.4 %; Platelet Count 210 K/uL (130-400); RDW Coefficient of Variation 12.8 % (11.5-14.5); RDW Standard Deviation 39.4 fL (36.4-46.3); Red Blood Count 3.99 M/uL (3.93-5.22); White Blood Count 7.46 K/ul (4.8-10.8)
[2022-08-03 09:23] LABS: Troponin I High Sensitivity 14.7 pg/ml (0-14)
[2022-08-03 09:47] LABS: Calcium 8.5 mg/dl (8.5-10.1)
--- NOTE | 2022-08-03 09:48 | XRay Report ---
SINGLE VIEW CHEST CLINICAL HISTORY: Atypical chest pain. FINDINGS: An AP, portable, upright chest radiograph is compared to study dated 07/19/2022 and correlat ed with chest CT dated 03/27/2022. The heart is mildly enlarged noting atherosclerotic calcification o f the thoracic aorta. The pulmonary vasculature is noncongested. Emphysema and chronic interstitial t hickening is similar to previous. Airspace opacities are seen at the right lung base. No large pleura l effusion or pneumothorax is identified. The skeletal structures are osteopenic. The bony thorax is grossly intact. IMPRESSION: 1. Cardiomegaly and emphysema without radiographic evidence of congestive failure. 2. Airspace opacities at the right lung base could represent atelectasis versus pneumonia/aspiration pneumonitis. Clinical correlation will be required and radiographic follow-up to resolution is recomm ended ACT 112: Negative or not required by law. Electronically signed by: Clemente Krueger M.D. 08/03/2022 9:46 AM
[2022-08-03 09:53] LABS: BUN Creatinine Ratio 19.4 (10-20); Creatinine Clr Calc Pharmacy 43.6 ml/min; Est GFR (African American) 60.2 ml/min; Total Protein 7.1 gm/dl (6.0-8.3)
--- NOTE | 2022-08-03 09:54 | Emergency Department Note ---
History of Present Illness General Chief complaint: Cardiac Assessment Time Seen by Provider: 08/03/22 08:09 History of Present Illness 72-year-old female presents to the ED with a chief complaint of lightheadedness and palpitations. The patient states that she had some body aches yesterday and felt cold. That seems to be improving today. The patient states that only been around someone with COVID. The reason the patient came to the ED this morning, however, is that she developed lightheadedness and a sensation that her heart was racing. She states that this seemed to be intermittent. Coming and going about every 5 to 10 minutes. EMS, during transport found the patient to have intermittent SVT with heart rates up to 160. This would break after a few minutes into a sinus rhythm. The patient was hypotensive for EMS during the episode where her blood pressure would drop as low as 70 systolic. She was given some IV fluids in route here. The patient did have the same episodes while she was in the emergency department. Chronically on apixaban. She reports this is for her intermittent A. fib. She states that she is not chronically in A. fib. She is scheduled for an ablation in August. Home Medications Medication Instructions Recorded Confirmed Type lancets 28 gauge (FreeStyle #25 ea 06/02/19 07/10/22 History Lancets) aspirin 81 mg tablet,delayed 81 mg PO 3XWK 07/05/19 08/03/22 History release nitroglycerin 0.4 mg sublingual 0.4 mg sublingual Q5M PRN chest 10/23/20 08/03/22 Rx tablet pain #25 tabs blood sugar diagnostic (FreeStyle #10 ea 08/20/21 07/10/22 History Lite Strips) doxazosin 2 mg tablet 2 mg PO HS #90 tabs 03/27/22 08/03/22 Rx fenofibrate nanocrystallized 145 145 mg PO HS 03/27/22 08/03/22 History mg tablet multivitamin 1 tab PO HS 03/27/22 08/03/22 History atorvastatin 40 mg tablet 40 mg PO DAILY #90 tabs 03/31/22 08/03/22 Rx Omnipod Dash Pods (Gen 4) (insulin #30 ea 04/03/22 07/10/22 Rx pump cart,cont inf,BT) sertraline 50 mg tablet 50 mg PO HS 04/03/22 08/03/22 History apixaban 5 mg tablet 5 mg PO BID #180 tabs 05/08/22 08/03/22 Rx digoxin 125 mcg (0.125 mg) tablet 125 mcg PO 3XWK #90 tabs 05/16/22 08/03/22 Rx metoprolol succinate 50 mg capsule 50 mg PO BID #60 ea 06/13/22 08/03/22 Rx sprinkle, ext. release 24 hr potassium chloride 20 mEq oral 20 meq PO BID hypokalemia #60 ea 06/13/22 08/03/22 Rx packet Novolog U-100 Insulin aspart 100 See Rx Instructions subcut 06/17/22 08/03/22 Rx unit/mL subcutaneous solution .COMPLEX #20 mL (insulin aspart U-100) coenzyme Q10 75 mg capsule (Ultra 100 mg PO 3XWK 06/25/22 08/03/22 History CoQ10) blood-glucose sensor (Dexcom G6 #3 ea 07/10/22 07/10/22 Rx Sensor device) metoprolol tartrate 25 mg tablet 25 mg PO DAILY PRN a fib 07/10/22 08/03/22 History lansoprazole 30 mg capsule,delayed 30 mg PO DAILYBB esophageal reflux 07/18/22 08/03/22 Rx release #30 caps triamterene 37.5 1 cap PO QAM #90 caps 07/18/22 08/03/22 Rx mg-hydrochlorothiazide 25 mg capsule clonidine HCl 0.1 mg tablet 0.1 mg PO BID 07/19/22 08/03/22 History clonazepam 0.5 mg tablet 0.25 - 0.5 mg PO HS PRN Sleep 07/25/22 08/03/22 Rx /Anxiety #30 tabs Allergies Allergy/AdvReac Type Severity Reaction Status Date / Time levofloxacin Allergy U FOGGY Verified 08/03/22 09:30 FEELING Penicillins Allergy U UPPER BODY Verified 08/03/22 09:30 RASH acetaminophen AdvReac Unknown not to Verified 08/03/22 09:30 take due to hep C gluten AdvReac U GI SYMPTOMS Verified 08/03/22 09:30 Past Med/Surg History Medical History Abdominal bruit Adenomatous polyp of colon Anemia Anxiety Arthritis CAD (coronary artery disease) Carpal tunnel syndrome Celiac artery stenosis Cervical cancer screening Chest pain Chronic obstructive pulmonary disease Claustrophobia Coronary arteriosclerosis Diabetes Diabetic retinopathy, nonproliferative Fatigue Gluten intolerance Hepatitis C History of hepatitis C virus infection Hypertrophy of nasal turbinates Internal hemorrhoids Iron deficiency anemia 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 Denies family history of Colon cancer Ovarian cancer Prostate cancer Crohn's disease Colorectal cancer Social History Smoking Status: Current every day smoker Tobacco Type: Cigarettes Cigarettes Per Day: 10; Hx Alcohol Use: Yes Alcohol type: wine Hx Substance Use: No Preferred Language: Slovak Communication Ability: Effective Visual Impairment: No Limitations Hearing Ability: Normal [employer] Work[employer] Required: No Beliefs That Will Affect Care: None marital status: / Current Living Situation: Alone current occupational status: retired Feels Safe at Home: Yes Seatbelt Use: always Sunscreen Use: Yes Review of Systems A total of 10 systems reviewed and were otherwise negative Physical Exam Vital Signs Vital Signs - 24 hr 08/03/22 08:16 08/03/22 08:25 08/03/22 08:25 Temperature 37.1 C Temperature Source Oral Pulse Rate 78 Pulse Rate [Finger] 75 Pulse Rhythm Irregular Pulse Rhythm [Finger] Respiratory Rate 18 18 Respiratory Effort / Characteristics Respiratory Depth Blood Pressure 138/68 Blood Pressure [Right Arm] 154/82 H Blood Pressure Mean 91 Blood Pressure Mean [Right Arm] 106 Pulse Oximetry 96 95 96 Oxygen Delivery Method Room Air Room Air Room Air Sepsis Recent Fever Within 48 Hours No Sepsis New/Unexplained Change in Mental Status No Sepsis Action Taken by Nursing No Action Required 08/03/22 08:36 08/03/22 08:43 08/03/22 09:11 Temperature Temperature Source Pulse Rate Pulse Rate [Finger] 157 H 76 73 Pulse Rhythm Pulse Rhythm [Finger] Regular Respiratory Rate 18 16 16 Respiratory Effort / Characteristics Non-Labored Non-Labored Respiratory Depth Normal Normal Blood Pressure Blood Pressure [Right Arm] 142/75 H 142/75 H 98/65 L Blood Pressure Mean Blood Pressure Mean [Right Arm] 97 97 76 Pulse Oximetry 98 95 95 Oxygen Delivery Method Room Air Room Air Room Air Sepsis Recent Fever Within 48 Hours Sepsis New/Unexplained Change in Mental Status Sepsis Action Taken by Nursing 08/03/22 09:32 08/03/22 10:11 08/03/22 10:41 Temperature Temperature Source Pulse Rate Pulse Rate [Finger] 73 160 H 62 Pulse Rhythm Pulse Rhythm [Finger] Respiratory Rate 16 18 16 Respiratory Effort / Characteristics Non-Labored Respiratory Depth Normal Normal Blood Pressure Blood Pressure [Right Arm] 117/63 126/65 105/58 L Blood Pressure Mean Blood Pressure Mean [Right Arm] 81 85 73 Pulse Oximetry 94 94 96 Oxygen Delivery Method Room Air Room Air Room Air Sepsis Recent Fever Within 48 Hours Sepsis New/Unexplained Change in Mental Status Sepsis Action Taken by Nursing CONSTITUTIONAL/VITAL SIGNS: Reviewed / noted above. GENERAL: Non-toxic in appearance. INTEGUMENTARY: Warm, dry, and [place]. HEAD: Normocephalic. EYES: without scleral icterus or trauma. ENT/OROPHARYNX: clear and moist. LYMPHADENOPATHY/NECK: Is supple without lymphadenopathy or meningismus. RESPIRATORY: Clear to auscultation bilaterally. No increased work of breathing. CARDIOVASCULAR: Regular rate and rhythm. GI/ABDOMEN: Soft and nontender. No organomegaly or pulsatile mass. EXTREMITIES: Warm and well perfused. BACK: No CVA tenderness. NEUROLOGICAL: Intact without focal deficits. PSYCHIATRIC: normal affect. MUSCULOSKELETAL: Normally developed with good muscle tone. TRIAGE NURSING DOCUMENTATION REVIEWED. Course Administered Medications Discontinued Medications Amiodarone HCl/Dextrose (Nexterone / D5w) 150 mg in 100 mls @ 600 mls/hr IV NOW STA Stop: 08/03/22 10:18 Last Infusion: 08/03/22 10:36 Dose: 0 mls/hr Documented By: REG Co-signed By: LORETTA Admin: 08/03/22 10:23 Dose: 600 mls/hr Documented By: REG Co-signed By: LORETTA Metoprolol Tartrate (Metoprolol Tartrate 1 Mg/Ml Vial) 5 mg IV NOW STA Stop: 08/03/22 08:19 Last Admin: 08/03/22 08:31 Dose: 5 mg Documented By: REG Metoprolol Tartrate (Metoprolol Tartrate 1 Mg/Ml Vial) 5 mg IV NOW STA Stop: 08/03/22 08:39 Last Admin: 08/03/22 08:41 Dose: 5 mg Documented By: REG Medical Decision Making Differential Diagnosis The differential that was considered includes acute myocardial infarction, acute coronary syndrome, myocarditis, pericarditis, pericardial effusions /tamponade, esophageal perforation, thoracic aortic dissection, pulmonary embolism, pneumonia, pneumothorax, pancreatitis, shingles, acute cholecystitis, perforated abdominal viscus. Medical Records Attestation: I reviewed the patient's medical records. Home Medications Current Medication List: was personally reviewed by me Laboratory Data Attestation: I reviewed the patient's lab results. Result diagrams: 08/03/22 08:20 08/03/22 08:20 Lab Results 08/03/22 08/03/22 08/03/22 Range/Units 08:20 08:20 08:20 WBC 7.46 (4.8-10.8) K/ul RBC 3.99 (3.93-5.22) M/uL Hgb 11.3 L (12.0-16.0) g/dl Hct 34.0 L (34.1-44.9) % MCV 85.2 (80.0-100.0) fL MCH 28.3 (25.0-34.0) pg MCHC 33.2 (32.0-36.0) g/dL RDW Std Deviation 39.4 (36.4-46.3) fL RDW Coeff of Mercedes 12.8 (11.5-14.5) % Plt Count 210 (130-400) K/uL MPV 11.1 (9.4-12.3) fL Immature Gran % (Auto) 0.3 % Neut % (Auto) 80.4 % Lymph % (Auto) 11.4 % [place] % (Auto) 7.5 % Eos % (Auto) 0.1 % Baso % (Auto) 0.3 % Neut # (Auto) 6.00 (1.4-6.5) K/uL Lymph # (Auto) 0.85 L (1.2-3.4) K/uL [place] # (Auto) 0.56 (0.24-0.82) K/uL Eos # (Auto) 0.01 (0-0.50) K/uL Baso # (Auto) 0.02 (0-0.2) K/uL Immature Gran # (Auto) 0.02 (0.00-0.02) K/uL Sodium 133 L (136-145) mmol/L Potassium 3.0 L (3.5-5.1) mmol/L Chloride 100 (98-107) mmol/L Carbon Dioxide 25 (21-32) mmol/L Anion Gap 8 (3-11) BUN 21 (6-23) mg/dl Creatinine 1.08 (0.6-1.2) mg/dl Est Cr Clr Drug Dosing 43.6 ml/min Est GFR ( Amer) 60.2 ml/min Est GFR (Non-Af Amer) 52.0 ml/min BUN/Creatinine Ratio 19.4 (10-20) Glucose 171 H (70-99(Fasting)) mg/dl Calcium 8.5 (8.5-10.1) mg/dl Total Bilirubin 0.7 (0.2-1.0) mg/dl AST 28 (13-39) U/L ALT 17 (7-52) U/L Alkaline Phosphatase 29 L (34-104) U/L Troponin I High Sens 14.7 H D (0-14) pg/ml Total Protein 7.1 (6.0-8.3) gm/dl Albumin 3.8 (3.4-5.0) gm/dl Globulin 3.3 (2.5-4.0) gm/dl Albumin/Globulin Ratio 1.2 (0.9-2) Lipase 47 (11-82) U/L TSH 1.293 (0.300-4.500) uIu/ml Imaging Data Radiologist's Impression: Chest X-Ray 08/03/22 08:18 SINGLE VIEW CHEST CLINICAL HISTORY: Atypical chest pain. FINDINGS: An AP, portable, upright chest radiograph is compared to study dated 07/19/2022 and correlated with chest CT dated 03/27/2022. The heart is mildly enlarged noting atherosclerotic calcification of the thoracic aorta. The pulmonary vasculature is noncongested. Emphysema and chronic interstitial thickening is similar to previous. Airspace opacities are seen at the right lung base. No large pleural effusion or pneumothorax is identified. The skeletal structures are osteopenic. The bony thorax is grossly intact. IMPRESSION: 1. Cardiomegaly and emphysema without radiographic evidence of congestive failure. 2. Airspace opacities at the right lung base could represent atelectasis versus pneumonia/aspiration pneumonitis. Clinical correlation will be required and radiographic follow-up to resolution is recommended ACT 112: Negative or not required by law. Electronically signed by: Clemente Krueger M.D. 08/03/2022 9:46 AM ECG Data Attestation: I personally reviewed and interpreted this ECG as follows: Additional Comments: Twelve-lead EKG #1: Per my interpretation there is a sinus rhythm at a rate of 83 with a PAC. No ST elevation. Normal QTC. Twelve-lead EKG #2: Per my interpretation shows a SVT at a rate of [address] depressions laterally. No ST elevations. No PVCs. Normal QTC. MDM Narrative 72-year-old female presents to the ED with a chief complaint of palpitations that started this morning as well as some dizziness associated with the palpitations. Patient was found to have intermittent SVT for EMS with heart rates of 160 and hypotension with this. The heart rates would spontaneously convert to a sinus rhythm in the 80s. This occurred a couple of times for EMS and a couple of times here. The patient SVT with a heart rate of 160. She would then spontaneously convert to a sinus rhythm in the 80s here. She was given 10 mg of IV Lopressor. This controlled her SVT for about an hour. She then developed additional intermittent SVT he was given 150 mg IV amiodarone.. A chest x-ray did not show any acute process although a right lung basilar opacity could represent atelectasis, pneumonia or aspiration pneumonitis. Clinically the patient does have a cough during exam but denied having a cough. She is not hypoxic or febrile. She has had a recent episode of body aches yesterday but is feeling better today. Her white blood cell count is normal. Chemistry panel shows a potassium of 3.0. Troponin is mildly elevated at 14.7. This might be related to the patient's SVT as she does have some T wave changes laterally during the SVT. Amiodarone, patient's heart rate seems to be under control. I did speak with Dr. Presley. He does recommend continuing her on amiodarone drip. The patient will be seen by the hospitalist. She was given some oral potassium for her hypokalemia. She was also given a dose of IV Zithromax and IV Rocephin for possible pneumonia. Impression & Plan Nonsustained paroxysmal supraventricular tachycardia, Elevated troponin, Right lower lobe pneumonia, Hypokalemia Discharge Plan Visit Data Chief Complaint: Cardiac Assessment ED Provider: Nikolas Berg Discharge Problem: Nonsustained paroxysmal supraventricular tachycardia, Elevated troponin, Right lower lobe pneumonia, Hypokalemia Patient Disposition: Being Evaluated by Hospitalist Forms Stand Alone Forms: [facility] Prescriptions Prescriptions: No Action doxazosin 2 mg tablet 2 mg PO HS Qty: 90 3RF digoxin 125 mcg (0.125 mg) tablet 125 mcg PO 3XWK Qty: 90 3RF Rx Instructions: Mon, Wed, Fri Novolog U-100 Insulin aspart 100 unit/mL solution See Rx Instructions SQ .COMPLEX Qty: 20 5RF Rx Instructions: 45-50 UNITS DAILY VIA INSULIN PUMP; Ultra CoQ10 75 mg capsule 100 mg PO 3XWK Rx Instructions: 100 mg orally 3 times a week; Mon, Wed, Fri lansoprazole 30 mg capsule,delayed release(DR/EC) 30 mg PO DAILYBB Qty: 30 11RF triamterene-hydrochlorothiazid 37.5-25 mg capsule 1 cap PO QAM Qty: 90 3RF clonazepam 0.5 mg tablet 0.25 - 0.5 mg PO HS PRN (Reason: Sleep /Anxiety ) Qty: 30 1RF sertraline 50 mg tablet 50 mg PO HS atorvastatin 40 mg tablet 40 mg PO DAILY Qty: 90 3RF nitroglycerin 0.4 mg tablet, sublingual 0.4 mg SL Q5M PRN (Reason: chest pain) Qty: 25 3RF Rx Instructions: do not exceed 3 doses per episode apixaban 5 mg tablet 5 mg PO BID Qty: 180 3RF (DME) Dexcom G6 Sensor Device See Rx Instructions .ROUTE Qty: 3 0RF Rx Instructions: change every 10 days (DME) lancets [FreeStyle Lancets] 28 gauge misc See Dose Instructions .ROUTE .MEDSUPPLY Qty: 25 Rx Instructions: FOR USE 4 TIMES DAILY (DME) FreeStyle Lite Strips Strip See Rx Instructions .ROUTE .MEDSUPPLY Qty: 10 Rx Instructions: TEST 1 TIMES DAILY (DME) Omnipod Dash Pods (Gen 4) Cartridge See Rx Instructions .Route Qty: 30 3RF Rx Instructions: Change pod every 72 hours aspirin 81 mg tablet,delayed release (DR/EC) 81 mg PO 3XWK Rx Instructions: Mon, Wed, Fri potassium chloride 20 mEq packet 20 meq PO BID Qty: 60 0RF metoprolol succinate 50 mg capsule,sprinkle,ER 24hr 50 mg PO BID Qty: 60 3RF multivitamin Tablet 1 tab PO HS fenofibrate nanocrystallized 145 mg tablet 145 mg PO HS metoprolol tartrate 25 mg tablet 25 mg PO DAILY PRN (Reason: a fib) Rx Instructions: Take one tablet for increased heart rate more than 120. clonidine HCl 0.1 mg tablet 0.1 mg PO BID Rx Instructions: TAKE 1 TABLET BY MOUTH TWICE DAILY Referrals Referrals: Saba Hinkle MD [Primary Care Provider] -
[2022-08-03] MEDS ORDERED: POTASSIUM CHLORIDE CRTAB 20 MEQ TABCR PO STA (09:59)
[2022-08-03 10:02] LABS: Bilirubin,Total 0.7 mg/dl (0.2-1.0)
[2022-08-03] MEDS ORDERED: cefTRIAXone SODIUM 2,000 MG/70 ML BAG IV STA (10:05)
[2022-08-03] MEDS ORDERED: AZITHROMYCIN 500 MG in DEXTROSE 5% 250 ML IV STA (10:05)
[2022-08-03 10:08] LABS: Albumin Globulin Ratio 1.2 (0.9-2); Albumin Level 3.8 gm/dl (3.4-5.0); Globulin 3.3 gm/dl (2.5-4.0)
[2022-08-03] MEDS ORDERED: 0.2 MICRON FILTER SET 1 EACH IV ONE ×3 (10:09→18:03)
[2022-08-03] MEDS ORDERED: AMIODARONE / D5W 150 MG/100 ML BAG IV STA (10:09)
[2022-08-03] MEDS ORDERED: AMIODARONE IV BOLUS & DRIP IV STA (10:41)
[2022-08-03] MEDS ORDERED: AMIODARONE / D5W 360 MG/200 ML BAG IV ONE (10:41)
[2022-08-03] MEDS ORDERED: METOPROLOL TARTRATE 25 MG TAB PO PRN (11:12)
[2022-08-03] MEDS ORDERED: INSULIN ASPART PER UNIT SQ SCH (11:15)
[2022-08-03] MEDS ORDERED: POTASSIUM CHLORIDE PWD 20 MEQ PACK PO STA (11:30)
[2022-08-03] MEDS ORDERED: PHARMACY GLYCEMIC MGMT CONSULT PRN (11:30)
[2022-08-03] MEDS ORDERED: SODIUM CHLORIDE 0.9% 500 ML IV ONE (11:30)
[2022-08-03] MEDS ORDERED: CELECOXIB 100 MG CAP PO ONE (14:15)
--- NOTE | 2022-08-03 15:12 | History & Physical Report ---
Date of Service August 03, 2022 Assessment & Plan (1) Nonsustained paroxysmal supraventricular tachycardia: Plan: Nonsustained SVT in a 72 yo female with possible history of atrial fibrillation. Responded to amiodarone. Patient currently in sinus. consult cardio. continue anticoagulation. Patient had a sick contact with covid 19. recevied antibiotics for possible pneumonia. will hold and monitor. zan check inflammatory markers and check UA (2) Elevated troponin: Plan: likely from deman ischemia (3) Hypokalemia: Plan: will replenish (4) Anxiety: Plan: resume home meds (5) Hypertension: Plan: resume home meds (6) Hyperlipidemia: Plan: resume home meds (7) S/P right coronary artery (RCA) stent placement: Plan: chronic History of Present Illness Chief Complaint: palpitations/ lightheadedness Primary Care Provider: Saba Hinkle MD 72 yo female presents to the ED with PMH of SVT, questionable Atrial fibrillation, with planned ablation in August. Patient reports that yesterday she had generalized malaise, with generalized weakness, lack of appetite, aches and felt cold. Patient today was found to be lightheaded and dizzy. Her apple watch was noted to have shown atrial fibrillation and elevated heart rate over 100. Patient reports having a heart monitor at home that broke 2 weeks ago. EMS was called and patient was found to be hypotensive and in SVT with rates above 160 Patient required fluid boluses, rhtym would spontaneously convert. Once in the ER, patient was placed on amiodarone. Cardiology was consulted as well as Hospitalist team. Allergies Allergy/AdvReac Type Severity Reaction Status Date / Time levofloxacin Allergy U FOGGY Verified 08/03/22 09:30 FEELING Penicillins Allergy U UPPER BODY Verified 08/03/22 09:30 RASH acetaminophen AdvReac Unknown not to Verified 08/03/22 09:30 take due to hep C gluten AdvReac U GI SYMPTOMS Verified 08/03/22 09:30 Home Medications Medication Instructions Recorded Confirmed Type lancets 28 gauge (FreeStyle #25 ea 06/02/19 07/10/22 History Lancets) aspirin 81 mg tablet,delayed 81 mg PO 3XWK 07/05/19 08/03/22 History release nitroglycerin 0.4 mg sublingual 0.4 mg sublingual Q5M PRN chest 10/23/20 08/03/22 Rx tablet pain #25 tabs blood sugar diagnostic (FreeStyle #10 ea 08/20/21 07/10/22 History Lite Strips) doxazosin 2 mg tablet 2 mg PO HS #90 tabs 03/27/22 08/03/22 Rx fenofibrate nanocrystallized 145 145 mg PO HS 03/27/22 08/03/22 History mg tablet multivitamin 1 tab PO HS 03/27/22 08/03/22 History atorvastatin 40 mg tablet 40 mg PO DAILY #90 tabs 03/31/22 08/03/22 Rx Omnipod Dash Pods (Gen 4) (insulin #30 ea 04/03/22 07/10/22 Rx pump cart,cont inf,BT) sertraline 50 mg tablet 50 mg PO HS 04/03/22 08/03/22 History apixaban 5 mg tablet 5 mg PO BID #180 tabs 05/08/22 08/03/22 Rx digoxin 125 mcg (0.125 mg) tablet 125 mcg PO 3XWK #90 tabs 05/16/22 08/03/22 Rx metoprolol succinate 50 mg capsule 50 mg PO BID #60 ea 06/13/22 08/03/22 Rx sprinkle, ext. release 24 hr potassium chloride 20 mEq oral 20 meq PO BID hypokalemia #60 ea 06/13/22 08/03/22 Rx packet Novolog U-100 Insulin aspart 100 See Rx Instructions subcut 06/17/22 08/03/22 Rx unit/mL subcutaneous solution .COMPLEX #20 mL (insulin aspart U-100) coenzyme Q10 75 mg capsule (Ultra 100 mg PO 3XWK 06/25/22 08/03/22 History CoQ10) blood-glucose sensor (Dexcom G6 #3 ea 07/10/22 07/10/22 Rx Sensor device) metoprolol tartrate 25 mg tablet 25 mg PO DAILY PRN a fib 07/10/22 08/03/22 History lansoprazole 30 mg capsule,delayed 30 mg PO DAILYBB esophageal reflux 07/18/22 08/03/22 Rx release #30 caps triamterene 37.5 1 cap PO QAM #90 caps 07/18/22 08/03/22 Rx mg-hydrochlorothiazide 25 mg capsule clonidine HCl 0.1 mg tablet 0.1 mg PO BID 07/19/22 08/03/22 History clonazepam 0.5 mg tablet 0.25 - 0.5 mg PO HS PRN Sleep 07/25/22 08/03/22 Rx /Anxiety #30 tabs Past Med/Surg History Medical History Abdominal bruit Adenomatous polyp of colon Anemia Anxiety Arthritis CAD (coronary artery disease) Carpal tunnel syndrome Celiac artery stenosis Cervical cancer screening Chest pain Chronic obstructive pulmonary disease Claustrophobia Coronary arteriosclerosis Diabetes Diabetic retinopathy, nonproliferative Fatigue Gluten intolerance Hepatitis C History of hepatitis C virus infection Hypertrophy of nasal turbinates Internal hemorrhoids Iron deficiency anemia 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 Beliefs That Will Affect Care: None marital status: / Current Living Situation: Alone current occupational status: retired Other Information That Helps Us Care for You: No Feels Safe at Home: Yes Safety Concerns: Feels Safe At This Time Seatbelt Use: always Sunscreen Use: Yes Assistive Devices: Glasses Review of Systems Constitutional: + chills, + body aches, + fatigue and + weakness; no fever Eyes: no blind spots Ear, Nose, Mouth, Throat: no ear pain and no tinnitus Respiratory: no cough Cardiovascular: + palpitations and + lightheadedness; no chest pain Gastrointestinal: + early satiety; no abdominal pain Genitourinary: no dysuria Musculoskeletal: no back pain Integumentary: no acne Neurologic: no gait abnormality and no localized weakness Psychiatric: no behavioral changes Hematologic / Lymphatic: no easy bleeding Allergy / Immunological: no dyspnea Physical Exam Constitutional: WD/WN, vitals as above Eyes: PERRL, conjunctivae normal, anicteric sclerae ENMT: external ear and nose normal, oropharynx normal Neck: trachea midline, no thyromegaly Respiratory: normal respiratory effort, lungs clear to auscultation Cardiovascular: Rate/Rhythm: regular rate and regular rhythm Gastrointestinal (Abdomen): normal bowel sounds, soft, nontender, no hepatosplenomegaly Musculoskeletal: no cyanosis or clubbing, extremities motor strength 5/5 Skin: no rashes, warm and dry Neurologic: PERRL, EOMI, accommodation nl, no face palsy, no dysarthria Psychiatric: A+Ox3, euthymic affect Lymphatic: no cervical or axillary lymphadenopathy Results & Data Results & Data ([facility]) Vital Signs (Past 12 Hours) Vital Signs Temp Pulse Pulse Resp BP BP Pulse Ox 08/03/22 14:00 61 18 125/59 L 97 08/03/22 12:35 64 18 123/62 08/03/22 11:47 62 18 117/68 08/03/22 11:16 96 08/03/22 10:41 62 16 105/58 L 96 08/03/22 10:11 160 H 18 126/65 94 08/03/22 09:32 73 16 117/63 94 08/03/22 09:11 73 16 98/65 L 95 08/03/22 08:43 76 16 142/75 H 95 08/03/22 08:36 157 H 18 142/75 H 98 08/03/22 08:25 96 08/03/22 08:25 75 18 154/82 H 95 08/03/22 08:16 37.1 C 78 18 138/68 96 O2 Del Method 08/03/22 14:00 Room Air 08/03/22 12:35 08/03/22 11:47 08/03/22 11:16 Room Air 08/03/22 10:41 Room Air 08/03/22 10:11 Room Air 08/03/22 09:32 Room Air 08/03/22 09:11 Room Air 08/03/22 08:43 Room Air 08/03/22 08:36 Room Air 08/03/22 08:25 Room Air 08/03/22 08:25 Room Air 08/03/22 08:16 Room Air PG Care Time/CCT Total # of Minutes Spent Total Time Spent with Patient: Total time spent is greater than 50% in coordination of care (as documented) at patient's floor/unit and/or counseling patient: Coding Level of Care Code 12354 Initial Inpt Care Lvl 3 Diagnoses Nonsustained paroxysmal supraventricular tachycardia I47.1 Elevated troponin R77.8 Hypokalemia E87.6 Anxiety F41.9 Hypertension I10 Hyperlipidemia E78.5 S/P right coronary artery (RCA) stent placement Z95.5
[2022-08-03] MEDS ORDERED: INSULIN ASPART 100 UNITS/ML VIAL SC PRN (16:45)
[2022-08-03] MEDS ORDERED: GLUCOSE 10 TAB/TUBE PO PRN (16:45)
[2022-08-03] MEDS ORDERED: GLUCOSE 40% GEL 15 GM TUBE PO PRN (16:45)
[2022-08-03] MEDS ORDERED: CARBOHYDRATES FOR HYPOGLYCEMIA PO PRN (16:45)
[2022-08-03] MEDS ORDERED: GLUCAGON FOR INJ 1 MG VIAL SQ PRN (16:45)
[2022-08-03] MEDS ORDERED: DEXTROSE 50% 50 ML SYRINGE IV PRN (16:45)
[2022-08-03 17:12] LABS: C Reactive Protein 2.26 mg/dl (0-0.5)
[2022-08-03 17:18] LABS: Troponin I High Sensitivity 14.2 pg/ml (0-14)
[2022-08-03] MEDS: NovoLOG INSULIN PUMP SCH ×2 (17:57→20:09)
[2022-08-03] MEDS: AMIODARONE / D5W 360 MG/200 ML BAG IV SCH (18:23)
--- NOTE | 2022-08-03 18:51 | Cardiology Consultation ---
Date of Consultation August 03, 2022 Assessment & Plan (1) Nonsustained paroxysmal supraventricular tachycardia: (2) Paroxysmal atrial fibrillation with RVR: (3) Elevated troponin: (4) Coronary arteriosclerosis: Plan 1. 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 It is likely been present for many years. She is scheduled for ablation in the near future. At this point however given her coronary disease, rapid rate with hypotension and frequent recurrences we do need to get better control of her arrhythmia. She did respond transiently to beta-blockade, however she is on a fairly high dose of beta-blockade as an outpatient (100 mg daily of metoprolol) so going up on it probably would not eliminate all the episodes although it may help. Amiodarone appears he working so perhaps for the short-term that is the best option. That would minimize the atrial activity which is triggering these arrhythmias and may treat the SVT as well. 2. Atrial fibrillation: She has had a recent diagnosis of atrial fibrillation but I do not know details, and it sounds like it was not identified locally. It is possible this was a mistaken diagnosis although atrial activity and SVT can trigger atrial fibrillation. My approach would probably be to treat the SVT (with ablation) and see whether controls her atrial fibrillation, unless we have clear documentation of primary atrial fibrillation. I do not know what is planned however. 3. Elevated troponin: Her troponin is very minimally elevated, certainly consistent with her SVT and I would not pursue further evaluation. 4. Coronary disease: She has coronary disease and is treated with aspirin and atorvastatin, I would continue these although a platelet inhibitor in addition to Eliquis does increase bleeding risk substantially. Without an elevated troponin (despite the rapid heart rate) I would not pursue further evaluation. History of Present Illness Reason for Consultation: SVT Attending Physician: Pee Clark History of Present Illness This is a 72-year-old woman with a history of diabetes mellitus, hypertension, hyperlipidemia, atherosclerosis including peripheral arterial disease and coronary artery disease. She had a right coronary artery stent placed in December 2011 and does have continued stable angina. He presented to the emergency room on the morning of August 03, 2022 with symptoms of intermittent lightheadedness and racing heartbeat. This was intermittent but recurrent. She was brought in by EMS who noted that her heart rate was of 260 bpm and she was hypotensive during 1 episode where they reported a blood pressure 70 systolic. She evidently presented to an urgent care center in [facility] in the summer 2021 for lightheadedness and hypertension, but has had multiple emergency room visits and hospitalizations since February of this year. Her atrial fibrillation appears to have been diagnosed on March 08, 2022 in the emergency room at [facility], their evaluation notes that atrial fibrillation was identified by EMS in the ambulance but by the time she got to the hospital she had converted to sinus rhythm and is near as I can tell from the discharge summary she had no recurrence. Her digoxin was discontinued and she is discharged with instructions to take "metoprolol tartrate 25 mg for tachycardic episodes refractory to vagal massage". This would be unusual treatment for primary atrial fibrillation. I do not see any electrogram showing atrial fibrillation from that hospitalization. She tells me that she has had apple watch recording showing atrial fibrillation but she was unable to pull those up for me to review. Although she is reported to have atrial fibrillation she has a longstanding history of supraventricular tachycardia and I believe is scheduled for ablation at [facility]. I am unable to find documentation of atrial fibrillation in her chart subsequently, although she is maintained on anticoagulation. She is also maintained on metoprolol succinate 50 mg twice daily and digoxin 0.125 mg 3 times a week (although in [place] that was discontinued for reasons which are unclear to me). She also has as needed metoprolol heart rate 25 mg available for tachycardia. In the emergency room she had episodes of her typical SVT which appears to be typical AV ramesh reentry on twelve-lead electrocardiography. She was initially treated with intravenous metoprolol however with recurrence amiodarone was instituted. She is very symptomatic when she has these arrhythmias and they are clearly more frequent recently than they have been in the past. At the time my evaluation she was comfortable in bed but was in sinus rhythm. Allergies Allergy/AdvReac Type Severity Reaction Status Date / Time levofloxacin Allergy U FOGGY Verified 08/03/22 09:30 FEELING Penicillins Allergy U UPPER BODY Verified 08/03/22 09:30 RASH acetaminophen AdvReac Unknown not to Verified 08/03/22 09:30 take due to hep C gluten AdvReac U GI SYMPTOMS Verified 08/03/22 09:30 Home Medications Medication Instructions Recorded Confirmed Type lancets 28 gauge (FreeStyle #25 ea 06/02/19 07/10/22 History Lancets) aspirin 81 mg tablet,delayed 81 mg PO 3XWK 07/05/19 08/03/22 History release nitroglycerin 0.4 mg sublingual 0.4 mg sublingual Q5M PRN chest 10/23/20 08/03/22 Rx tablet pain #25 tabs blood sugar diagnostic (FreeStyle #10 ea 08/20/21 07/10/22 History Lite Strips) doxazosin 2 mg tablet 2 mg PO HS #90 tabs 03/27/22 08/03/22 Rx fenofibrate nanocrystallized 145 145 mg PO HS 03/27/22 08/03/22 History mg tablet multivitamin 1 tab PO HS 03/27/22 08/03/22 History atorvastatin 40 mg tablet 40 mg PO DAILY #90 tabs 03/31/22 08/03/22 Rx Omnipod Dash Pods (Gen 4) (insulin #30 ea 04/03/22 07/10/22 Rx pump cart,cont inf,BT) sertraline 50 mg tablet 50 mg PO HS 04/03/22 08/03/22 History apixaban 5 mg tablet 5 mg PO BID #180 tabs 05/08/22 08/03/22 Rx digoxin 125 mcg (0.125 mg) tablet 125 mcg PO 3XWK #90 tabs 05/16/22 08/03/22 Rx metoprolol succinate 50 mg capsule 50 mg PO BID #60 ea 06/13/22 08/03/22 Rx sprinkle, ext. release 24 hr potassium chloride 20 mEq oral 20 meq PO BID hypokalemia #60 ea 06/13/22 08/03/22 Rx packet Novolog U-100 Insulin aspart 100 See Rx Instructions subcut 06/17/22 08/03/22 Rx unit/mL subcutaneous solution .COMPLEX #20 mL (insulin aspart U-100) coenzyme Q10 75 mg capsule (Ultra 100 mg PO 3XWK 06/25/22 08/03/22 History CoQ10) blood-glucose sensor (Dexcom G6 #3 ea 07/10/22 07/10/22 Rx Sensor device) metoprolol tartrate 25 mg tablet 25 mg PO DAILY PRN a fib 07/10/22 08/03/22 History lansoprazole 30 mg capsule,delayed 30 mg PO DAILYBB esophageal reflux 07/18/22 08/03/22 Rx release #30 caps triamterene 37.5 1 cap PO QAM #90 caps 07/18/22 08/03/22 Rx mg-hydrochlorothiazide 25 mg capsule clonidine HCl 0.1 mg tablet 0.1 mg PO BID 07/19/22 08/03/22 History clonazepam 0.5 mg tablet 0.25 - 0.5 mg PO HS PRN Sleep 07/25/22 08/03/22 Rx /Anxiety #30 tabs Patient History Medical History Abdominal bruit Adenomatous polyp of colon Anemia Anxiety Arthritis CAD (coronary artery disease) Carpal tunnel syndrome Celiac artery stenosis Cervical cancer screening Chest pain Chronic obstructive pulmonary disease Claustrophobia Coronary arteriosclerosis Diabetes Diabetic retinopathy, nonproliferative Fatigue Gluten intolerance Hepatitis C History of hepatitis C virus infection Hypertrophy of nasal turbinates Internal hemorrhoids Iron deficiency anemia 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 HEENT: Unremarkable Neck: No jugular venous distention, carotid pulses are normal and equal bilaterally without bruits. Pulmonary: Clear to auscultation bilaterally. Cardiac: Regular rhythm with no murmur, gallop or rub. Abdomen: Soft, nontender with normal bowel sounds. Extremities: No edema. Distal pulses intact. Neurologic: No focal findings. Gait was not tested. Skin: No rash, ecchymoses or petechiae. Results & Data ([facility]) Vital Signs (Past 12 Hours) Vital Signs Temp Pulse Pulse Resp BP BP Pulse Ox 08/03/22 15:37 37.6 C H 59 L 18 129/76 99 08/03/22 14:00 61 18 125/59 L 97 08/03/22 12:35 64 18 123/62 08/03/22 11:47 62 18 117/68 08/03/22 11:16 96 08/03/22 10:41 62 16 105/58 L 96 08/03/22 10:11 160 H 18 126/65 94 08/03/22 09:32 73 16 117/63 94 08/03/22 09:11 73 16 98/65 L 95 08/03/22 08:43 76 16 142/75 H 95 08/03/22 08:36 157 H 18 142/75 H 98 08/03/22 08:25 96 08/03/22 08:25 75 18 154/82 H 95 08/03/22 08:16 37.1 C 78 18 138/68 96 O2 Del Method 08/03/22 15:37 Room Air 08/03/22 14:00 Room Air 08/03/22 12:35 08/03/22 11:47 08/03/22 11:16 Room Air 08/03/22 10:41 Room Air 08/03/22 10:11 Room Air 08/03/22 09:32 Room Air 08/03/22 09:11 Room Air 08/03/22 08:43 Room Air 08/03/22 08:36 Room Air 08/03/22 08:25 Room Air 08/03/22 08:25 Room Air 08/03/22 08:16 Room Air Laboratory Results Cardiac Enzymes 08/03/22 08/03/22 Range/Units 08:20 16:31 AST 28 (13-39) U/L Troponin I High Sens 14.7 H D 14.2 H (0-14) pg/ml CBC 08/03/22 Range/Units 08:20 WBC 7.46 (4.8-10.8) K/ul RBC 3.99 (3.93-5.22) M/uL Hgb 11.3 L (12.0-16.0) g/dl Hct 34.0 L (34.1-44.9) % Plt Count 210 (130-400) K/uL Neut # (Auto) 6.00 (1.4-6.5) K/uL Lymph # (Auto) 0.85 L (1.2-3.4) K/uL Scott # (Auto) 0.56 (0.24-0.82) K/uL Eos # (Auto) 0.01 (0-0.50) K/uL Baso # (Auto) 0.02 (0-0.2) K/uL Comprehensive Metabolic Panel 08/03/22 Range/Units 08:20 Sodium 133 L (136-145) mmol/L Potassium 3.0 L (3.5-5.1) mmol/L Chloride 100 (98-107) mmol/L Carbon Dioxide 25 (21-32) mmol/L BUN 21 (6-23) mg/dl Creatinine 1.08 (0.6-1.2) mg/dl Glucose 171 H (70-99(Fasting)) mg/dl Calcium 8.5 (8.5-10.1) mg/dl AST 28 (13-39) U/L ALT 17 (7-52) U/L Alkaline Phosphatase 29 L (34-104) U/L Total Protein 7.1 (6.0-8.3) gm/dl Albumin 3.8 (3.4-5.0) gm/dl Intake and Output 08/03/22 08/03/22 08/03/22 06:59 14:59 22:59 Intake Total 1425 / 1425 Balance 1425 / 1425 Intake: IV 1425 / 1425 Amiodarone / D5w 150 mg In 100 100 / 100 ml @ 600 mls/hr IV NOW STA Rx#: [id number] Azithromycin 500 mg In Dextrose 255 / 255 5% 250 ml @ 127.5 mls/hr IV NOW STA Rx#:[id number] Sodium Chloride 0.9% 500 ml @ 500 / 500 999 mls/hr IV .Q31M ONE Rx#: [id number] cefTRIAXone SODIUM 2,000 mg In 70 / 70 70 ml @ 140 mls/hr IV NOW STA Rx#:[id number] Left Antecubital 500 / 500 Other: Weight 57.9 kg 52.7 kg Weight Measurement [facility] Patient Weight 08/04/22 06:59 Weight 52.7 kg Diagnostic Findings Electrocardiogram: Several are reviewed, they show sinus rhythm with intermittent episodes of what appears to be an atrial tachycardia and a well recorded episode of SVT at a rate of 161 bpm with atrial activity following QRS suggestive of typical AV ramesh reentry. PG Care Time/CCT Total # of Minutes Spent Total Time Spent with Patient: Total time spent is greater than 50% in coordination of care (as documented) at patient's floor/unit and/or counseling patient: Coding Level of Care Code 16635 Inpt Consult Level 5 Diagnoses Nonsustained paroxysmal supraventricular tachycardia I47.1 Paroxysmal atrial fibrillation with RVR I48.0 Elevated troponin R77.8 Coronary arteriosclerosis I25.10 Time Spent (min) 110 Comment Multiple discussions with family, obtaining and reviewing outpatient records
[2022-08-03] MEDS: APIXABAN 5 MG TABLET PO SCH (20:00)
[2022-08-03] MEDS: DOXAZosin MESYLATE TAB 2 MG TAB PO SCH (20:04)
[2022-08-03] MEDS: FENOFIBRATE NANOCRYSTALLIZED 145 MG TABLET PO SCH (20:05)
[2022-08-03] MEDS: SERTRALINE HCL 50 MG TABLET PO SCH (20:05)
[2022-08-03] MEDS: MULTIVITAMIN TAB PO SCH (20:07)
[2022-08-03] MEDS: METOPROLOL SUCC 50MG EXT REL TAB PO SCH (20:07)
[2022-08-03] MEDS ORDERED: MELATONIN 3 MG TAB PO PRN (20:43)
--- NOTE | 2022-08-03 21:10 | Electrocardiogram Report ---
Test Reason : Blood Pressure : / mmHG Vent. Rate : 083 BPM Atrial Rate : 083 BPM P-R Int : 156 ms QRS Dur : 084 ms QT Int : 382 ms P-R-T Axes : 030 -10 068 degrees QTc Int : 448 ms Poor data quality, interpretation may be adversely affected Sinus rhythm with Premature supraventricular complexes Anterior infarct (cited on or before 03-AUG-2022) Abnormal ECG When compared with ECG of 18-JUL-2022 23:58, Premature supraventricular complexes are now Present Questionable change in initial forces of Anterior leads Confirmed by Cyril Presley ([id number]) on 08/03/2022 9:10:29 PM Referred By: REFERRED SELF Confirmed By:Cyril Presley
--- NOTE | 2022-08-03 21:13 | Electrocardiogram Report ---
Test Reason : Blood Pressure : / mmHG Vent. Rate : 109 BPM Atrial Rate : 077 BPM P-R Int : 000 ms QRS Dur : 092 ms QT Int : 344 ms P-R-T Axes : 000 014 054 degrees QTc Int : 463 ms Poor data quality, interpretation may be adversely affected Paroxysmal atrial tachycardia Possible Anterior infarct (cited on or before 03-AUG-2022) Abnormal ECG When compared with ECG of 03-AUG-2022 08:16, (unconfirmed) Paroxysmal atrial tachycardia is now present Nonspecific T wave abnormality now evident in Inferior leads Confirmed by Cyril Presley ([id number]) on 08/03/2022 9:13:19 PM Referred By: REFERRED SELF Confirmed By:Cyril Presley
--- NOTE | 2022-08-03 21:14 | Electrocardiogram Report ---
Test Reason : Blood Pressure : / mmHG Vent. Rate : 161 BPM Atrial Rate : 156 BPM P-R Int : 000 ms QRS Dur : 080 ms QT Int : 300 ms P-R-T Axes : 000 020 212 degrees QTc Int : 491 ms Poor data quality, interpretation may be adversely affected Supraventricular tachycardia Possible Anterior infarct (cited on or before 03-AUG-2022) Marked ST abnormality, possible inferolateral subendocardial injury Abnormal ECG When compared with ECG of 03-AUG-2022 08:17, (unconfirmed) Supraventricular tachycardia is now Present Confirmed by Cyril Presley ([id number] on 08/03/2022 9:14:36 PM Referred By: REFERRED SELF Confirmed By:Cyril Presley
[2022-08-03] MEDS ORDERED: ACETAMINOPHEN 500 MG TAB PO STA (21:48)
[2022-08-04] MEDS: AMIODARONE / D5W 360 MG/200 ML BAG IV SCH (06:31)
[2022-08-04] MEDS: PANTOprazole 40 MG TAB PO SCH (06:35)
[2022-08-04 06:55] LABS: Appearance Urine Clear (Clear); Bacteria Urine Automated Negative (Negative); Bilirubin Urine Negative (Negative); Blood Urine Negative (Negative); Cast Urine Automated 0 /lpf (0-5); Color Urine Yellow; Glucose Urine UA Negative (Negative); Ketones Urine Negative (Negative); Leukocyte Esterase Urine Trace (Negative); Nitrite Urine Negative (Negative); Protein Urine Negative (Negative); RBC Urine Automated 0-4 /hpf (0-4); Specific Gravity Urine 1.014 (1.000-1.030); Urobilinogen Urine Negative (Negative)
[2022-08-04] MEDS: METOPROLOL SUCC 50MG EXT REL TAB PO SCH ×2 (08:55→20:29)
[2022-08-04] MEDS: NovoLOG INSULIN PUMP SCH ×4 (08:55→20:38)
[2022-08-04] MEDS: APIXABAN 5 MG TABLET PO SCH (08:55)
[2022-08-04] MEDS: TRIAMTERENE/HCTZ 37.5/25MG CAP PO SCH (08:56)
[2022-08-04] MEDS: ATORVASTATIN 40 MG TAB PO SCH (08:56)
[2022-08-04] MEDS: ASPIRIN 81 MG ECTAB PO SCH (08:56)
[2022-08-04] MEDS: POTASSIUM CHLORIDE CRTAB 20 MEQ TABCR PO SCH ×2 (12:58→20:27)
[2022-08-04 13:12] LABS: Hematocrit (blood only) 31.8 % (34.1-44.9); Hemoglobin 10.8 g/dl (12.0-16.0); Mean Corpuscular Hemoglobin 28.3 pg (25.0-34.0); Mean Corpuscular Volume 83.5 fL (80.0-100.0); Mean Platelet Volume 10.8 fL (9.4-12.3); Platelet Count 182 K/uL (130-400); RDW Standard Deviation 39.3 fL (36.4-46.3); Red Blood Count 3.81 M/uL (3.93-5.22); White Blood Count 4.88 K/ul (4.8-10.8)
[2022-08-04 13:49] LABS: BUN Creatinine Ratio 13.5 (10-20); Calcium 8.9 mg/dl (8.5-10.1); Creatinine Clr Calc Pharmacy 43.5 ml/min; Est GFR (Non-African American) 54.4 ml/min; Potassium 3.8 mmol/L (3.5-5.1)
[2022-08-04] MEDS ORDERED: DIGOXIN 0.125 MG TAB PO SCH (16:00)
[2022-08-04 18:53] LABS: A calco-baum cmplx NotReported Not Detected (NotDetected); Bact fragilis Not Reported Not Detected (NotDetected); C auris Not Reported Not Detected (NotDetected); Calbicans Not Reported Not Detected (NotDetected); Candida glabrata Not Reported Not Detected (NotDetected); Candida krusei Not Reported Not Detected (NotDetected); Cneoformans/gatti Not Reported Not Detected (NotDetected); Cparapsilosis Not Reported Not Detected (NotDetected); Ctropicalis Not Reported Not Detected (NotDetected); E cloacae compx Not Reported Not Detected (NotDetected); Efaecalis Not Reported Not Detected (NotDetected); Efaecium Not Reported Not Detected (NotDetected); Enterobacterales Not Reported Not Detected (NotDetected); Escherichia coli Not Reported Not Detected (NotDetected); H influenzae Not Reported Not Detected (NotDetected); K aerogenes Not Reported Not Detected (NotDetected); Koxytoca Not Reported Not Detected (NotDetected); Kpneumoniae grp Not Reported Not Detected (NotDetected); Lmonocyt Not Reported Not Detected (NotDetected); N meningitidis Not Reported Not Detected (NotDetected); P aeruginosa Not Reported Not Detected (NotDetected); Proteus spp Not Reported Not Detected (NotDetected); Salmonella spp Not Reported Not Detected (NotDetected); Smarcescens Not Reported Not Detected (NotDetected); Staph lugdunensis Not Reported Not Detected (NotDetected); Staph spp. Not Reported Not Detected (NotDetected); Staphaureus Not Reported Not Detected (NotDetected); Staphepi Not Reported Not Detected (NotDetected); Stenmaltophilia Not Reported Not Detected (NotDetected); Strep agal(GrpB) Not Reported Not Detected (NotDetected); Strep pneum Not Reported Not Detected (NotDetected); Strep pyog (GrpA) Not Reported Not Detected (NotDetected); Strep spp Not Reported DETECTED (NotDetected)
[2022-08-04 19:17] LABS: Streptococcus spp DETECTED (NotDetected)
--- NOTE | 2022-08-04 20:05 | Communication Note ---
Date of Service: August 04, 2022 Notified by patient's RN that / BCx returned positive for GPCs in chains. Noted that patient's [employer] results from 08/03 did demonstrate Streptococcus spp Patient's chart reviewed - noted that they got CFTX 2g in the ED x 1 Has since been afebrile, without leukocytosis, negative procalcitonin Though H&P did reveal she had been having constitutional symptoms for the few days [employer] No updates available yet from today CXR reviewed - consolidation noted Plan: Possible that this is a contaminant Will recheck BCX now Will add procalcitonin and CRP to AM labs Give single CFTX 1g dose tonight given two tests suggesting Strep spp - defer to day team on scheduling further doses Resident Activity Tracking Resident Involvement: Resident Care Provided Care Provided: Adult Hospital Medicine
[2022-08-04] MEDS ORDERED: cefTRIAXone SODIUM 1,000 MG in DEXTROSE 5% 50 ML IV STA (20:06)
[2022-08-04] MEDS: DOXAZosin MESYLATE TAB 2 MG TAB PO SCH (20:27)
[2022-08-04] MEDS: FENOFIBRATE NANOCRYSTALLIZED 145 MG TABLET PO SCH (20:28)
[2022-08-04] MEDS: MULTIVITAMIN TAB PO SCH (20:29)
[2022-08-04] MEDS: SERTRALINE HCL 50 MG TABLET PO SCH (20:30)
--- NOTE | 2022-08-04 21:28 | Hospitalist Progress Note ---
Date of Service August 04, 2022 Assessment & Plan (1) Nonsustained paroxysmal supraventricular tachycardia: Plan: Nonsustained SVT in a 72 yo female with possible history of atrial fibrillation. Responded to amiodarone. Patient currently in sinus. consult cardio. continue anticoagulation. Plan for ablation on 08/05 Patient had a sick contact with coco 19. recevied antibiotics for possible pneumonia. will hold and monitor. zan check inflammatory markers and check UA (2) Elevated troponin: Plan: likely from demand ischemia (3) Hypokalemia: Plan: will replenish (4) Anxiety: Plan: resume home meds (5) Hypertension: Plan: resume home meds (6) Hyperlipidemia: Plan: resume home meds (7) S/P right coronary artery (RCA) stent placement: Plan: chronic Admission and Anticipated Discharge Date Admission Date: August 03, 2022 Subjective 72 yo female reports no new symptoms. She coplains of generalized muscular pain. Review of Systems Review of Systems: All systems reviewed & are unremarkable except as noted in HPI & below Physical Exam Constitutional: WD/WN, vitals as above Eyes: PERRL, conjunctivae normal, anicteric sclerae ENMT: external ear and nose normal, oropharynx normal Neck: trachea midline, no thyromegaly Respiratory: normal respiratory effort, lungs clear to auscultation Cardiovascular: Rate/Rhythm: regular rate and regular rhythm Gastrointestinal (Abdomen): normal bowel sounds, soft, nontender, no hepatosplenomegaly Musculoskeletal: no cyanosis or clubbing, extremities motor strength 5/5 Skin: no rashes, warm and dry Neurologic: PERRL, EOMI, accommodation nl, no face palsy, no dysarthria Psychiatric: A+Ox3, euthymic affect Lymphatic: no cervical or axillary lymphadenopathy Results & Data Results & Data ([facility]) Vital Signs (Past 12 Hours) Vital Signs Temp Pulse Pulse Resp BP BP Pulse Ox 08/04/22 19:29 39.2 C H 72 20 184/86 H 96 08/04/22 17:36 71 08/04/22 15:20 36.7 C 67 16 175/71 H 97 O2 Del Method 08/04/22 19:29 Room Air 08/04/22 17:36 08/04/22 15:20 Room Air PG Care Time/CCT Total # of Minutes Spent Total Time Spent with Patient: Total time spent is greater than 50% in coordination of care (as documented) at patient's floor/unit and/or counseling patient: Coding Level of Care Code 42514 Subseq Hosp Care Lvl 2 Diagnoses Nonsustained paroxysmal supraventricular tachycardia I47.1 Elevated troponin R77.8 Hypokalemia E87.6 Anxiety F41.9 Hypertension I10 Hyperlipidemia E78.5 S/P right coronary artery (RCA) stent placement Z95.5 Time Spent (min) 25
[2022-08-05] MEDS: PANTOprazole 40 MG TAB PO SCH (06:20)
[2022-08-05 06:51] LABS: Basophils # (auto) 0.02 K/uL (0-0.2); Basophils % (auto) 0.5 %; Eosinophils # (auto) 0.12 K/uL (0-0.50); Eosinophils % (auto) 2.7 %; Hematocrit (blood only) 33.8 % (34.1-44.9); Hemoglobin 11.5 g/dl (12.0-16.0); Immature Granulocytes # (auto) 0.01 K/uL (0.00-0.02); Immature Granulocytes % (auto) 0.2 %; Lymphocytes % (auto) 20.3 %; Mean Corpuscular Hemoglobin 28.3 pg (25.0-34.0); Mean Corpuscular Volume 83.3 fL (80.0-100.0); Mean Platelet Volume 11.1 fL (9.4-12.3); Monocytes # (auto) 0.64 K/uL (0.24-0.82); Monocytes % (auto) 14.4 %; Neutrophils # (auto) 2.75 K/uL (1.4-6.5); Neutrophils % (auto) 61.9 %; Platelet Count 203 K/uL (130-400); RDW Coefficient of Variation 12.7 % (11.5-14.5); RDW Standard Deviation 38.7 fL (36.4-46.3); Red Blood Count 4.06 M/uL (3.93-5.22); White Blood Count 4.44 K/ul (4.8-10.8)
[2022-08-05 07:14] LABS: Albumin Globulin Ratio 1.1 (0.9-2); Albumin Level 3.9 gm/dl (3.4-5.0); BUN Creatinine Ratio 14.1 (10-20); Bilirubin,Total 0.4 mg/dl (0.2-1.0); C Reactive Protein 2.83 mg/dl (0-0.5); Calcium 9.2 mg/dl (8.5-10.1); Creatinine Clr Calc Pharmacy 58.4 ml/min; Est GFR (African American) 89.3 ml/min; Globulin 3.5 gm/dl (2.5-4.0); Potassium 3.8 mmol/L (3.5-5.1); Total Protein 7.4 gm/dl (6.0-8.3)
[2022-08-05] MEDS: NovoLOG INSULIN PUMP SCH ×4 (08:10→21:45)
--- NOTE | 2022-08-05 08:50 | Cardiology Progress Note ---
Date of Service August 05, 2022 Assessment & Plan (1) Nonsustained paroxysmal supraventricular tachycardia: (2) Paroxysmal atrial fibrillation with RVR: (3) Elevated troponin: (4) Coronary arteriosclerosis: Plan 1. 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 It is likely been present for many years. She is scheduled for atrial fibrillation ablation at [facility] August 12, 2022. At this point however given her coronary disease, rapid rate with hypotension and frequent recurrences we do need to get better control of her arrhythmia. She did respond transiently to beta-blockade, however she is on a fairly high dose of beta-blockade as an outpatient (100 mg daily of metoprolol) so going up on it probably would not eliminate all the episodes although it may help. Amiodarone appeared to be working so perhaps other antiarrhythmics could be used if needed. Although atrial fibrillation may be present SVT may be part of the mechanism of these arr hythmias. I would recommend proceeding with electrophysiologic study and possible ablation of SVT if it is found to be operative. 2. Atrial fibrillation: She has had a recent diagnosis of atrial fibrillation but I do not know details, and it sounds like it was not identified locally. It is possible this was a mistaken diagnosis although atrial activity and SVT can trigger atrial fibrillation. This morning some of her arrhythmias may be SVT although I cannot exclude these being runs of PAT or PAT triggering atrial fibrillation (which is a common initiation) or brief runs of SVT triggering atrial fibrillation. My approach would probably be to treat the SVT (with ablation) and see whether controls her atrial fibrillation, unless we have clear documentation of primary atrial fibrillation. 3. Elevated troponin: Her troponin is very minimally elevated, certainly consistent with her SVT and I would not pursue further evaluation. 4. Coronary disease: She has coronary disease and is treated with aspirin and atorvastatin, I would continue these although a platelet inhibitor in addition to Eliquis does increase bleeding risk substantially. Without an elevated troponin (despite the rapid heart rate) I would not pursue further evaluation. Admission and Anticipated Discharge Date Admission Date: August 03, 2022 Subjective This morning she has had an increase in her episodes of palpitations which corresponded to atrial arrhythmias on monitoring. At the time my evaluation she was comfortable, however several hours she had intermittent palpitations. Otherwise she has no complaints. Physical Exam Physical Exam: Constitutional: Alert, cooperative and in no distress. HEENT: Unremarkable Neck: No jugular venous distention, carotid pulses are normal and equal bilaterally without bruits. Pulmonary: Clear to auscultation bilaterally. Cardiac: Regular rhythm with no murmur, gallop or rub. Abdomen: Soft, nontender with normal bowel sounds. Extremities: No edema. Distal pulses intact. Neurologic: No focal findings. Gait was not tested. Skin: No rash, ecchymoses or petechiae. Results & Data ([facility]) Vital Signs (Past 12 Hours) Vital Signs Temp Pulse Pulse Resp BP BP Pulse Ox 08/05/22 07:54 36.6 C 61 19 136/73 98 08/05/22 03:07 37.6 C H 63 20 181/86 H 97 08/05/22 00:42 75 08/05/22 00:42 08/04/22 22:41 36.6 C 73 20 185/84 H 96 O2 Del Method 08/05/22 07:54 Room Air 08/05/22 03:07 Room Air 08/05/22 00:42 08/05/22 00:42 Room Air 08/04/22 22:41 Laboratory Results Cardiac Enzymes 08/05/22 Range/Units 06:29 AST 36 (13-39) U/L CBC 08/04/22 08/05/22 Range/Units 12:55 06:29 WBC 4.88 4.44 L (4.8-10.8) K/ul RBC 3.81 L 4.06 (3.93-5.22) M/uL Hgb 10.8 L 11.5 L (12.0-16.0) g/dl Hct 31.8 L 33.8 L (34.1-44.9) % Plt Count 182 203 (130-400) K/uL Neut # (Auto) 2.75 (1.4-6.5) K/uL Lymph # (Auto) 0.90 L (1.2-3.4) K/uL [place] # (Auto) 0.64 (0.24-0.82) K/uL Eos # (Auto) 0.12 (0-0.50) K/uL Baso # (Auto) 0.02 (0-0.2) K/uL Comprehensive Metabolic Panel 08/04/22 08/05/22 Range/Units 12:55 06:29 Sodium 134 L 135 L (136-145) mmol/L Potassium 3.8 D 3.8 (3.5-5.1) mmol/L Chloride 101 103 (98-107) mmol/L Carbon Dioxide 27 25 (21-32) mmol/L BUN 14 11 (6-23) mg/dl Creatinine 1.04 0.78 (0.6-1.2) mg/dl Glucose 209 H 142 H (70-99(Fasting)) mg/dl Calcium 8.9 9.2 (8.5-10.1) mg/dl AST 36 (13-39) U/L ALT 24 (7-52) U/L Alkaline Phosphatase 30 L (34-104) U/L Total Protein 7.4 (6.0-8.3) gm/dl Albumin 3.9 (3.4-5.0) gm/dl Intake and Output 08/04/22 08/05/22 08/05/22 22:59 06:59 14:59 Intake Total 260 / 510 Output Total 0 / 0 Balance 260 / 510 Intake: IV 260 / 260 Amiodarone / D5w 360 mg In 200 200 / 200 ml @ 0.5 MG/MIN 16.667 mls/hr IV .Q12H DEVEN Rx#:[id number] cefTRIAXone SODIUM 1,000 mg In 60 / 60 Dextrose 5% 50 ml @ 100 mls/hr IV NOW STA Rx#:[id number] Output: # Bowel Movements 0 / 0 Other: Other Intake Source ice chips # Unmeasured Voids 3 Weight 55.1 kg Diagnostic Findings Telemetry: Her rhythm was stable overnight in sinus rhythm, however this morning starting at around 6:00 and continued for several hours in a paroxysmal manner. Some of the episodes do appear to be atrial fibrillation although with frequent initiation and termination it may be more consistent with PAT or SVT, there was at least one more prolonged run but even during that run the arrhythmia stopped and started. . PG Care Time/CCT Total # of Minutes Spent Total Time Spent with Patient: Total time spent is greater than 50% in coordination of care (as documented) at patient's floor/unit and/or counseling patient: Coding Level of Care Code 94000 Subseq Hosp Care Lvl 3 Diagnoses Nonsustained paroxysmal supraventricular tachycardia I47.1 Paroxysmal atrial fibrillation with RVR I48.0 Elevated troponin R77.8 Coronary arteriosclerosis I25.10
[2022-08-05] MEDS: ATORVASTATIN 40 MG TAB PO SCH (11:48)
[2022-08-05] MEDS: TRIAMTERENE/HCTZ 37.5/25MG CAP PO SCH (11:49)
[2022-08-05] MEDS: POTASSIUM CHLORIDE CRTAB 20 MEQ TABCR PO SCH ×2 (11:49→21:51)
[2022-08-05] MEDS: METOPROLOL SUCC 50MG EXT REL TAB PO SCH ×2 (11:49→21:50)
[2022-08-05] MEDS ORDERED: LIDOCAINE 1% LOCAL 20 ML VIAL ONE (14:17)
[2022-08-05] MEDS ORDERED: MIDAZOLAM HCL 5 MG/ML 1 ML VIAL ONE (14:21)
[2022-08-05] MEDS ORDERED: fentaNYL citrate 100 MCG/2 ML VIAL ONE (14:21)
--- NOTE | 2022-08-05 14:25 | Pre Anesthesia Assessment ---
Date of Service August 05, 2022 Pre Sedation Assessment Vital Signs Temp Pulse Pulse Resp BP BP Pulse Ox 08/05/22 14:05 49 L 16 128/65 98 08/05/22 11:39 36.5 C 62 20 157/69 H 99 08/05/22 07:54 36.6 C 61 19 136/73 98 08/05/22 03:07 37.6 C H 63 20 181/86 H 97 08/05/22 00:42 75 08/05/22 00:42 08/04/22 22:41 36.6 C 73 20 185/84 H 96 08/04/22 19:29 39.2 C H 72 20 184/86 H 96 08/04/22 17:36 71 08/04/22 15:20 36.7 C 67 16 175/71 H 97 O2 Del Method 08/05/22 14:05 Room Air 08/05/22 11:39 Room Air 08/05/22 07:54 Room Air 08/05/22 03:07 Room Air 08/05/22 00:42 08/05/22 00:42 Room Air 08/04/22 22:41 08/04/22 19:29 Room Air 08/04/22 17:36 08/04/22 15:20 Room Air Cardiovascular + irregularly irregular Respiratory + respiratory effort normal Pre-Sedation Airway Assessment Smoking Status: Current every day smoker Hx Sleep Apnea: No Hx Difficult Intubation: No Short, Thick Neck: No Thyromental Distance: > or= 3.5 Finger Breadths Oral Cavity: + WNL Mallampati Class: III ASA: ASA3 NPO Status Date of Last Intake of Fluids: 08/05/22 Time of Last Intake of Fluids: 08:00 Last Oral Intake of Fluids Comment: sip with meds Date of Last Intake of Solid Food: 08/04/22 Time of Last Intake of Solid Foods: 20:00 Procedure Planning Contraindications for Sedation: none Current Medications Reviewed: Yes Notes The planned sedation has been discussed with the patient. Informed Consent was obtained. I have identified the patient, determined the appropriateness of sedation and have assessed the patient immediately prior to the procedure. All medicine(s) and interventions are by my order.
[2022-08-05] MEDS ORDERED: ISOPROTERENOL HCL 0.2 MG/ML 5 ML AMP IV ONE (15:43)
--- NOTE | 2022-08-05 16:14 | Post Anesthesia Assessment ---
Date of Service August 05, 2022 Post Sedation Assessment Vital Signs Temp Pulse Pulse Resp BP BP Pulse Ox 08/05/22 14:05 49 L 16 128/65 98 08/05/22 11:39 36.5 C 62 20 157/69 H 99 08/05/22 07:54 36.6 C 61 19 136/73 98 08/05/22 03:07 37.6 C H 63 20 181/86 H 97 08/05/22 00:42 75 08/05/22 00:42 08/04/22 22:41 36.6 C 73 20 185/84 H 96 08/04/22 19:29 39.2 C H 72 20 184/86 H 96 08/04/22 17:36 71 O2 Del Method 08/05/22 14:05 Room Air 08/05/22 11:39 Room Air 08/05/22 07:54 Room Air 08/05/22 03:07 Room Air 08/05/22 00:42 08/05/22 00:42 Room Air 08/04/22 22:41 08/04/22 19:29 Room Air 08/04/22 17:36 Recovery Score Activity: Moves 4 extremities Respiration: Deep Breath/Cough Circulation: +/-20% PreAnes Value Consciousness: Fully Awake Oxygen Saturation: > 92% On Room Air Discharge Sedation Level of Care: Fast Track Phase II Post Sedation Plan On clinical assessment, the patient appears to have tolerated the sedation without complications. Patient is recovering as anticipated. Patient will continue to be monitored by nursing and may be discharged when sedation discharge criteria are met per below protocol. Upon Completions of procedure up to 15 minutes continue every 5 minute vital signs and the P.A.R. score; then discharge to a Phase I or Fast Track to Phase II per the following guidelines: * Discharge Patient to appropriate Phase II area if PAR is 8 or greater or return to pre- procedure baseline. The post - procedure orders will be as directed. * If PAR score is less than 8 or not return to pre-procedure baseline then patient will follow Phase I monitoring till PAR is reached for Phase II. The Phase I may be done in procedure room or may call to secure a Phase I area. * If naloxone or flumazenil are used for reversal, hold in Phase I for continued monitoring from when last reversal dose was given for a minimum of 60 minutes or longer pending the nurse and/or physician discretion of patient condition before discharge to Phase II. Please call the Sedation Physician to re-evaluate and complete post-note for discharge to Phase II area. Do NOT discharge from procedure sedation or Phase 1 until post- sedation evaluation note is complete by procedure /sedation MD Sedation Discharge Instructions to be given to the patient at discharge to home.
--- NOTE | 2022-08-05 16:14 | Electrophysiology Report ---
Date of Service August 05, 2022 Electrophysiology Procedure Electrophysiology Procedure Report Procedure performed: Ablation of SVT, complete electrophysiologic testing including pacing from left atrium via the coronary sinus, arrhythmia induction using programmed stimulation, isoproterenol infusion, ultrasound-guided vascular access staff gsa coordinator: Trip Maurice MD indication: The patient is a 72-year-old woman with a history tachycardia who presented emergency room with recurrent episodes of what appears to be in SVT. She has also suspected of having some episodes of atrial fibrillation. Electrophysiologic study was recommended to better characterize her arrhythmias and possibly treat what appears to be reentrant SVT. Procedure detail: The patient was informed of the risks benefits and alternatives to the intended procedure. She understood which proceed. She was taken to the electrophysiology suite in a fasting state. Conscious sedation was administered per protocol the patient was monitored electrocardiographically throughout today's procedure. The right internal jugular area and right femoral areas were prepped and draped in usual sterile fashion. These areas were anesthetized using subcutaneous menstruation lidocaine solution. The right internal jugular vein was subsequently accessed using modified Seldinger technique under ultrasound guidance and a venous sheath was placed at the site over guidewire. The right femoral vein was subsequently accessed using modified Seldinger technique and sheath were placed over guidewires at this site. The sheath was used facilitate passage of the EP catheters to the respective chambers under fluoroscopic guidance. This included right ventricular, coronary sinus and his bundle catheters. The patient baseline conduction system was characterize. Subsequently a tachycardia was induced the elements of the tachycardia within characterize and once known radiofrequency ablation catheter was advanced to the area of interest in ablation was performed to the tachycardia was no longer ind ucible subsequent to ablation repeat electrophysiologic testing including attempts at arrhythmia induction on and off isoproterenol were again performed. At the conclusion of the procedure the catheters and sheath were removed. Hemostasis was achieved at the access site using manual pressure. The patient tolerated procedure well. There were no immediate complications. Findings: Baseline intracardiac intervals cycle length in the atrium 883 milliseconds cycle length in the ventricle 883 milliseconds PA interval 159 milliseconds QRS duration 75 milliseconds QT interval 446 milliseconds AH interval 90 milliseconds HV interval 35 milliseconds av Wenckebach occurred at 340 milliseconds VA Wenckebach occurred at 380 milliseconds. it should be noted that retrograde conduction was concentric and decremental There appeared to be dual AV ramesh physiology in the baseline state. The effective refractory period of the fast pathway was 300 milliseconds. Effective refractory period of the slow pathway could not reliably be determined as the patient continually developed SVT. Tachycardia patient developed spontaneous tachycardia. Tachycardia could also be induced with programmed stimulation. Tachycardia cycle length was 400 milliseconds. The VA time was 35 milliseconds. Ventricular entrainment of the SVT resulted in a long post pacing interval. 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 Patient had nearly incessant AVNRT prior to ablation. A 4 mm 7 [place] radiofrequency ablation catheter was advanced to the area of the slow pathway and multiple lesions were placed with good power and temperature. It was difficult to gauge retrograde atrial conduction with application of radiofrequency due to the patient's frequent ectopy. However, there were multiple accelerated junctional runs. Post ablation intervals the patient was in an atrial bigeminy and had frequent atrial ectopy subsequent to ablation. p.r.n. of 160 milliseconds QRS duration 63 milliseconds QT interval 382 milliseconds AH interval 90 milliseconds HV interval 35 milliseconds av Wenckebach occurred at 350 milliseconds av node effective refractory period was 280 milliseconds while was no discrete jump in the AH interval, there did appear to be some residual slow pathway conduction. However, there were no echo beats seen even with aggressive programmed stimulation on isoproterenol. despite being nearly incessant prior to ablation no AVNRT could be induced post ablation impression: Successful slow pathway modification rendering typical slow fast AVNRT noninducible no echo beats subsequent to ablation no evidence accessory pathway conduction normal baseline conduction intervals frequent atrial ectopy throughout the study and post ablation [facility] Electrophysiology codes EP Procedure 1: Electrophysiology: 89369 EPS and Ablation SVT Procedure 2: Electrophysiology: 36668 Catheter mapping Procedure 3: Electrophysiology: 21766 Arrhythmia induction Procedure 4: Electrophysiology: 58783-51 Comp EPS w/LA pacing Procedure 5: Electrophysiology: 20409 Drug Stimulation PG Moderate Sedation Codes Moderate Sedation Codes Procedure 1: Sedation/Anesthesia: 15185 Mod Sedation by the same physician;Init15 Min Child Age 5 & Up Procedure 2: Sedation/Anesthesia: 18801 Mod Sedation by the same physician; Ea [id number] Minutes
[2022-08-05] MEDS ORDERED: cefTRIAXone SODIUM 1,000 MG in DEXTROSE 5% 50 ML IV SCH (20:00)
--- NOTE | 2022-08-05 21:30 | Hospitalist Progress Note ---
Date of Service August 05, 2022 Assessment & Plan (1) Nonsustained paroxysmal supraventricular tachycardia: Plan: Nonsustained SVT in a 72 yo female with possible history of atrial fibrillation. Responded to amiodarone. Patient currently in sinus. consult cardio. continue anticoagulation. s/p ablation on 08/05 Patient had a sick contact with covid 19. received antibiotics for possible pneumonia. will hold and monitor. will check inflammatory markers and check UA (2) Elevated troponin: Plan: likely from demand ischemia (3) Hypokalemia: Plan: will recheck in am (4) Anxiety: Plan: resume home meds (5) Hypertension: Plan: resume home meds (6) Hyperlipidemia: Plan: resume home meds (7) S/P right coronary artery (RCA) stent placement: Plan: chronic (8) Right lower lobe pneumonia: Plan: continue ceftriaxone and doxycycline. will recheck x ray in AM Admission and Anticipated Discharge Date Admission Date: August 03, 2022 Subjective 72 yo female reports feeling well. Patient no longer has a headache. Review of Systems Review of Systems: All systems reviewed & are unremarkable except as noted in HPI & below Physical Exam Constitutional: WD/WN, vitals as above Eyes: PERRL, conjunctivae normal, anicteric sclerae ENMT: external ear and nose normal, oropharynx normal Neck: trachea midline, no thyromegaly Respiratory: normal respiratory effort, lungs clear to auscultation Cardiovascular: Rate/Rhythm: regular rate and regular rhythm Gastrointestinal (Abdomen): normal bowel sounds, soft, nontender, no hepatosplenomegaly Musculoskeletal: no cyanosis or clubbing, extremities motor strength 5/5 Skin: no rashes, warm and dry Neurologic: PERRL, EOMI, accommodation nl, no face palsy, no dysarthria Psychiatric: A+Ox3, euthymic affect Lymphatic: no cervical or axillary lymphadenopathy Results & Data Results & Data ([facility]) Vital Signs (Past 12 Hours) Vital Signs Temp Pulse Resp BP BP Pulse Ox O2 Del Method 08/05/22 18:59 36.8 C 85 18 126/63 97 Room Air 08/05/22 18:29 98 H 16 126/65 97 08/05/22 17:59 62 18 157/70 H 99 08/05/22 17:29 64 152/72 H 99 08/05/22 17:29 63 18 127/79 98 09/27/22 16:59 56 L 18 157/78 H 97 Room Air 08/05/22 16:39 36.7 C 77 18 137/56 L 94 Room Air 08/05/22 14:05 49 L 16 128/65 98 Room Air 08/05/22 11:39 36.5 C 62 20 157/69 H 99 Room Air PG Care Time/CCT Total # of Minutes Spent Total Time Spent with Patient: Total time spent is greater than 50% in coordination of care (as documented) at patient's floor/unit and/or counseling patient: Coding Level of Care Code 19172 Subseq Hosp Care Lvl 2 Diagnoses Nonsustained paroxysmal supraventricular tachycardia I47.1 Elevated troponin R77.8 Hypokalemia E87.6 Anxiety F41.9 Hypertension I10 Hyperlipidemia E78.5 S/P right coronary artery (RCA) stent placement Z95.5 Right lower lobe pneumonia J18.9
[2022-08-05] MEDS: oxyCODONE HCL IR 5 MG TAB (IMMEDIATE RELEASE) PO PRN (21:44)
[2022-08-05] MEDS: DOXYCYCLINE HYCLATE 100 MG CAP PO SCH (21:46)
[2022-08-05] MEDS: DOXAZosin MESYLATE TAB 2 MG TAB PO SCH (21:48)
[2022-08-05] MEDS: DRONEDARONE HCL 400 MG TAB PO SCH (21:49)
[2022-08-05] MEDS: FENOFIBRATE NANOCRYSTALLIZED 145 MG TABLET PO SCH (21:49)
[2022-08-05] MEDS: MULTIVITAMIN TAB PO SCH (21:50)
[2022-08-05] MEDS: SERTRALINE HCL 50 MG TABLET PO SCH (22:12)
[2022-08-06] MEDS: PANTOprazole 40 MG TAB PO SCH (06:04)
[2022-08-06 06:59] LABS: Hematocrit (blood only) 33.3 % (34.1-44.9); Hemoglobin 11.1 g/dl (12.0-16.0); Mean Corpuscular Hemoglobin 28.4 pg (25.0-34.0); Mean Corpuscular Hgb Conc 33.3 g/dL (32.0-36.0); Mean Corpuscular Volume 85.2 fL (80.0-100.0); Mean Platelet Volume 11.7 fL (9.4-12.3); Platelet Count 191 K/uL (130-400); RDW Coefficient of Variation 12.9 % (11.5-14.5); RDW Standard Deviation 39.5 fL (36.4-46.3); Red Blood Count 3.91 M/uL (3.93-5.22); White Blood Count 4.78 K/ul (4.8-10.8)
[2022-08-06] MEDS: TRIAMTERENE/HCTZ 37.5/25MG CAP PO SCH (08:03)
[2022-08-06] MEDS: ATORVASTATIN 40 MG TAB PO SCH (08:03)
[2022-08-06] MEDS: POTASSIUM CHLORIDE CRTAB 20 MEQ TABCR PO SCH (08:03)
[2022-08-06] MEDS: METOPROLOL SUCC 50MG EXT REL TAB PO SCH (08:03)
[2022-08-06] MEDS: DRONEDARONE HCL 400 MG TAB PO SCH (08:03)
[2022-08-06] MEDS: DOXYCYCLINE HYCLATE 100 MG CAP PO SCH (08:03)
[2022-08-06] MEDS: ASPIRIN 81 MG ECTAB PO SCH (08:03)
[2022-08-06 08:10] LABS: BUN Creatinine Ratio 15.1 (10-20); Calcium 9.3 mg/dl (8.5-10.1); Creatinine Clr Calc Pharmacy 47.5 ml/min; Est GFR (African American) 72.2 ml/min; Est GFR (Non-African American) 62.3 ml/min; Potassium 4.1 mmol/L (3.5-5.1)
[2022-08-06] MEDS: NovoLOG INSULIN PUMP SCH ×3 (08:34→17:24)
--- NOTE | 2022-08-06 12:37 | XRay Report ---
XR chest 2V PA/lateral CLINICAL HISTORY: pneumonia TECHNIQUE: 2 views of the chest were obtained. Comparison: Comparison is made to chest radiograph 08/03/2022 FINDINGS: No lines and tubes are seen. Cardiomegaly is noted. Calcification of the aorta is seen. Right lung ba se opacities are significantly improved from prior exam. No evidence of pleural effusion or pneumotho rax. IMPRESSION: Interval near resolution of previously noted right airspace opacities. Stable cardiomegaly. ACT 112: Negative or not required by law. Electronically signed by: Suraj Valles M.D. 08/06/2022 12:36 PM
[2022-08-06] MEDS: oxyCODONE HCL IR 5 MG TAB (IMMEDIATE RELEASE) PO PRN (14:46)
--- NOTE | 2022-08-06 22:33 | Electrocardiogram Report ---
Test Reason : Blood Pressure : / mmHG Vent. Rate : 091 BPM Atrial Rate : 091 BPM P-R Int : 138 ms QRS Dur : 080 ms QT Int : 436 ms P-R-T Axes : 079 -25 057 degrees QTc Int : 536 ms Sinus rhythm with frequent Premature supraventricular complexes Minimal voltage criteria for LVH, may be normal variant Poor R wave progression, consider anterior MT vs. lead placement vs. LVH Prolonged QT Abnormal ECG When compared with ECG of 03-AUG-2022 08:18, Sinus rhythm has replaced Supraventricular tachycardia ST no longer depressed in Inferolateral leads Vent. rate has decreased by 70 bpm Confirmed by Reynaldo August ([id number]) on 08/06/2022 10:32:47 PM Referred By: REFERRED SELF Confirmed By:Reynaldo August
--- NOTE | 2022-08-08 23:03 | Discharge Summary ---
Date of Service August 06, 2022 Admission HPI Per Admitting Provider 72 yo female presents to the ED with PMH of SVT, questionable Atrial fibrillation, with planned ablation in August. Patient reports that yesterday she had generalized malaise, with generalized weakness, lack of appetite, aches and felt cold. Patient today was found to be lightheaded and dizzy. Her apple watch was noted to have shown atrial fibrillation and elevated heart rate over 100. Patient reports having a heart monitor at home that broke 2 weeks ago. EMS was called and patient was found to be hypotensive and in SVT with rates above 160 Patient required fluid boluses, rhtym would spontaneously convert. Once in the ER, patient was placed on amiodarone. Cardiology was consulted as well as Hospitalist team. Principal Diagnosis nonsustained paroxysmal supraventricular tachycardia Discharge Exam Constitutional WD/WN, vitals as above Eyes PERRL, conjunctivae normal, anicteric sclerae ENMT external ear and nose normal, oropharynx normal Neck trachea midline, no thyromegaly Respiratory normal respiratory effort, lungs clear to auscultation Cardiovascular Rate/Rhythm: regular rate and regular rhythm Gastrointestinal (Abdomen) normal bowel sounds, soft, nontender, no hepatosplenomegaly Musculoskeletal no cyanosis or clubbing, extremities motor strength 5/5 Skin no rashes, warm and dry Neurologic PERRL, EOMI, accommodation nl, no face palsy, no dysarthria Psychiatric A+Ox3, euthymic affect Lymphatic no cervical or axillary lymphadenopathy Discharge Data Allergies Allergy/AdvReac Type Severity Reaction Status Date / Time levofloxacin Allergy U FOGGY Verified 08/03/22 09:30 FEELING Penicillins Allergy U UPPER BODY Verified 08/03/22 09:30 RASH acetaminophen AdvReac Unknown not to Verified 08/03/22 09:30 take due to hep C gluten AdvReac U GI SYMPTOMS Verified 08/03/22 09:30 Consultations 08/03/22 10:40 ED Decision to Admit Stat 08/03/22 11:32 Consult Cardiology Routine Procedures Performed Operation Date: 08/05/22 14:00 Actual Procedures p EPS + Ablation for SVT Flutter - Trip Maurice MD s Drug Stimulation - MD art Perez Ultrasound Vascular Access - MD art Perez [place] Pacing (Add-On) - Christopher W. Kaylene, MD s Bundle of his Recording - Trip Maurice MD Ordered Studies 08/05/22 06:45 EP Lab Images for PACS ONCE Hospital Course (1) Nonsustained paroxysmal supraventricular tachycardia: Nonsustained SVT in a 72 yo female with possible history of atrial fibrillation. Responded to amiodarone. Patient currently in sinus. consult cardio. continue anticoagulation. s/p ablation on 08/05 received multaq Patient had a sick contact with covid 19. Possible Pneumonia received antibiotics for possible pneumonia. will continue antibiotics will check inflammatory markers and check UA (2) Elevated troponin: likely from demand ischemia (3) Hypokalemia: will recheck in am (4) Anxiety: resume home meds (5) Hypertension: resume home meds (6) Hyperlipidemia: resume home meds (7) S/P right coronary artery (RCA) stent placement: chronic (8) Right lower lobe pneumonia: continue ceftriaxone and doxycycline. repeat xray was normal. Total Time Total Time Spent Total Time Spent (In Minutes): 35 Discharge Plan Discharge Items Patient Disposition: Home - Self-Care Reason For Visit: SVT Discharge Diagnosis: SVT Activity: Resume your previous activity Non-emergency contact: Primary Care Provider Call non-emergency contact if: you have any medication questions Follow-up/Referrals: Rodger Johnson PA-C [Physician Ink Blender] - 08/12/22 11:30 am ([facility]) Saba Hinkle MD [Primary Care Provider] - Diet: Heart Healthy Addtl Attending Provider Instructions: You were treated for a SVT and had this ablated. You improved after ablation. Will recommend followup with Cardiology. In regard to pneumonia, your x ray appears to be better. will recommend to continue antibiotics for 4 more days. Pending Studies at Discharge: No Stand-Alone Forms: My [employer], Smoking Cessation Medications and DC Order Prescriptions: New cefuroxime axetil 500 mg tablet 500 mg PO BID Qty: 8 0RF Rx Instructions: take first dose tonight 08/06 doxycycline hyclate 100 mg Capsule 100 mg PO BID Qty: 8 0RF Multaq 400 mg Tablet 400 mg PO BID Qty: 60 0RF oxycodone 5 mg tablet 5 mg PO BID PRN (Reason: pain) Qty: 7 0RF Continued doxazosin 2 mg tablet 2 mg PO HS Qty: 90 3RF Novolog U-100 Insulin aspart 100 unit/mL solution See Rx Instructions SQ .COMPLEX Qty: 20 5RF Rx Instructions: 45-50 UNITS DAILY VIA INSULIN PUMP; Ultra CoQ10 75 mg capsule 100 mg PO 3XWK Rx Instructions: 100 mg orally 3 times a week; Mon, Wed, Fri lansoprazole 30 mg capsule,delayed release(DR/EC) 30 mg PO DAILYBB Qty: 30 11RF triamterene-hydrochlorothiazid 37.5-25 mg capsule 1 cap PO QAM Qty: 90 3RF clonazepam 0.5 mg tablet 0.25 - 0.5 mg PO HS PRN (Reason: Sleep /Anxiety ) Qty: 30 1RF sertraline 50 mg tablet 50 mg PO HS atorvastatin 40 mg tablet 40 mg PO DAILY Qty: 90 3RF nitroglycerin 0.4 mg tablet, sublingual 0.4 mg SL Q5M PRN (Reason: chest pain) Qty: 25 3RF Rx Instructions: do not exceed 3 doses per episode apixaban 5 mg tablet 5 mg PO BID Qty: 180 3RF (DME) Dexcom G6 Sensor Device See Rx Instructions .ROUTE Qty: 3 0RF Rx Instructions: change every 10 days (DME) lancets [FreeStyle Lancets] 28 gauge misc See Dose Instructions .ROUTE .MEDSUPPLY Qty: 25 Rx Instructions: FOR USE 4 TIMES DAILY (DME) FreeStyle Lite Strips Strip See Rx Instructions .ROUTE .MEDSUPPLY Qty: 10 Rx Instructions: TEST 1 TIMES DAILY (DME) Omnipod Dash Pods (Gen 4) Cartridge See Rx Instructions .Route Qty: 30 3RF Rx Instructions: Change pod every 72 hours aspirin 81 mg tablet,delayed release (DR/EC) 81 mg PO 3XWK Rx Instructions: Mon, Wed, Fri potassium chloride 20 mEq packet 20 meq PO BID Qty: 60 0RF metoprolol succinate 50 mg capsule,sprinkle,ER 24hr 50 mg PO BID Qty: 60 3RF multivitamin Tablet 1 tab PO HS fenofibrate nanocrystallized 145 mg tablet 145 mg PO HS metoprolol tartrate 25 mg tablet 25 mg PO DAILY PRN (Reason: a fib) Rx Instructions: Take one tablet for increased heart rate more than 120. clonidine HCl 0.1 mg tablet 0.1 mg PO BID Rx Instructions: TAKE 1 TABLET BY MOUTH TWICE DAILY Discontinued digoxin 125 mcg (0.125 mg) tablet 125 mcg PO 3XWK Qty: 90 3RF Rx Instructions: Mon, Wed, Fri Discharge Orders: Discharge Order (Routine); Ordered 08/06/22 Ordered By: Pee Clark Admission Data Admit Date/Time: 08/03/22 11:10 Attending Provider: Pee Clark Admit Provider: Pee lCark Primary Care Provider: Saba Hinkle V. Other Providers: Pee Clark ; Cyril Presley Other Interventions: Discharge Summary Assessment (RN) Last Done: 08/06/22 16:40 Coding Level of Care Code D/C DAY MANAGEMENT >30 MINS Diagnoses Nonsustained paroxysmal supraventricular tachycardia I47.1 Elevated troponin R77.8 Hypokalemia E87.6 Anxiety F41.9 Hypertension I10 Hyperlipidemia E78.5 S/P right coronary artery (RCA) stent placement Z95.5 Right lower lobe pneumonia J18.9
== END 2022-08-06 17:48 | disposition home or self-care (01) | DRG 273 ==
LOC: ED 08:08 → 2S 11:10

== ENCOUNTER 2022-12-30 14:25 | Inpatient (IN) ==
--- NOTE | 2022-12-30 14:57 | Emergency Department Note ---
Impression & Plan Symptomatic anemia, Back pain, Chronic anticoagulation ED Provider Note NAME: SAM PENA AGE: 72 SEX: F : 1950 ARRIVES VIA: Walk-In INFORMANT: Patient, ED PROVIDER(S): Nikko Leyva MD CHIEF COMPLAINT: Anemia, outpatient referral, abnormal blood work MEDICAL DECISION MAKING: Patient presents due to concern for symptomatic anemia. Patient did have blood work completed and IV was established and the patient was ordered [address] abdomen pelvis was ordered as the patient had complained of some persistent right lower back pain in order to rule out the possibility of retroperitoneal hemorrhage. Patient had a three-point drop in her hemoglobin since her last hemoglobin and compared to today. Last was greater than 9 today was less than 6. Blood work does show the anemia. The patient was consented and ordered 2 units PRBCs. Patient's rectal exam was negative. Patient CT does not show any evidence of retroperitoneal hemorrhage. Upon further discussion the patient would like to be admitted with general things unreasonable given the patient's anemia. I did speak the on-call hospitalist service Dr. Gillespie and the patient was admitted to the medicine service. Critical Care: I have personally spent 47 minutes of critical care time in direct management of this patient. This includes bedside care, interpretation of diagnostic studies, and testing, discussion with consultants, patient, and family members, and other require inpatient management activities. This 47 minutes is in excess of all separately billable procedures. Prior /Outside records reviewed: Patient did have a primary care visit yesterday with Dr. Seymour. Patient does have a prior history of anemia. The patient did have an EGD and colonoscopy in May 2017 which showed no evidence of active bleeding. The patient has had low hemoglobins as low as 8. The patient's blood work that was completed today did show a hemoglobin of 5.9. Normal white count. Kidney function with creatinine 1.2. No elevated BUN to creatinine ratio. Patient is on Eliquis and aspirin. Differential diagnosis: Infection, dehydration, metabolic abnormality, hypo/hyperglycemia, electrolyte disturbance, anemia, hypoxia, cardiac sources, intracerebral event, toxicologic, neurologic, as well as other pathologies. Diagnostics, as interpreted by me: ECG: Sinus, rate of 64 normal intervals normal axis no ST elevations T wave version V2. Cardiac monitoring: An order was placed for continuous cardiac monitoring. The monitor shows a rate of 67 with sinus rhythm. Patient was placed on pulse oximetry Medical decision rules: None Imaging studies: See below HPI: Patient presents to the behest of her primary care doctor after being seen today did have some outpatient blood work completed which showed that her hemoglobin was less than 6. The patient does take Eliquis and aspirin. Patient does take the Eliquis for known history of prior cardiac arrhythmia and has had an ablation. Patient denies any chest pains or shortness of breath but does complain of weakness. No bright red blood per rectum or dark tarry stools. The patient denies any recent falls or trauma. The patient reports that she has had some chronic right lower back discomfort which been ongoing since December 12 as she had lifted something and strained her back. The patient has been participating with PT. The patient also does have a prior history of 2 separate thoracic back fractures which were diagnosed prior. Patient denies any nausea vomiting or diarrhea. PAST MEDICAL HISTORY: See Below PAST SURGICAL HISTORY: See Below SOCIAL HISTORY: See Below HOME MEDICATIONS: See Below ALLERGIES: See Below VITALS: See Below PHYSICAL EXAMINATION: GENERAL: NAD, wearing a mask, non-toxic. Pale in appearance, wearing glasses. EYE EXAM: Normal conjunctiva. PERRL, no anisocoria and EOM's grossly intact w/o pain. NECK: Supple, no nuchal rigidity, no adenopathy, non-tender. No signs of meningismus. FROM of the neck with good chin to chest and neck extension. No stridor. LUNGS: Clear to auscultation. Normal chest wall mechanics. HEART: NSR, no MRG. ABDOMEN: Abdomen soft, non-tender, insulin pump noted to the right abdomen Normo-active bowel sounds, no masses, no rebound or guarding. BACK: No CVA TTP. No reproducible back pain. No overlying skin changes SKIN: No rashes and no bruising. Rectal: No bright red blood or melenic stool, heme-negative. UPPER EXTREMITIES: Upper extremities are grossly normal. Dexcom noted on the posterior aspect of the left upper extremity LOWER EXTREMITIES: Grossly normal, no edema. NEURO EXAM: A&O x3, cranial nerves II-XII grossly intact, normal speech, moves all 4 extremities. 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), managed as type 1 Liver hemangioma Mitral valve disorder Myofascial pain Numbness Osteopenia Palpitations Paroxysmal supraventricular tachycardia Peripheral vascular disease Presence of stent in artery Radicular pain of thoracic region Right renal artery stenosis Skin sensitivity Sleep disturbances Superior mesenteric artery stenosis Thoracic compression fracture Thoracic kyphosis Tobacco abuse Vitamin D deficiency Surgical History History of hysterectomy History of right coronary artery stent placement S/P right coronary artery (RCA) stent placement Family History Mother Diabetes Heart disease Myocardial infarction Sister Breast cancer Grandmother (Maternal) Myocardial infarction Father No problems noted. 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 Beliefs That Will Affect Care: None marital status: / Current Living Situation: Alone Current Living Situation Comment: lives alone in a 2 story home current occupational status: retired Feels Safe at Home: Yes Seatbelt Use: always Sunscreen Use: Yes Assistive Devices: None Allergies Allergies Allergy/AdvReac Type Severity Reaction Status Date / Time levofloxacin Allergy Intermediate FOGGY Verified 12/30/22 10:35 FEELING Penicillins Allergy Intermediate UPPER BODY Verified 12/30/22 10:35 RASH gluten AdvReac Intermediate GI SYMPTOMS Verified 12/30/22 10:35 Home Meds Home Medications Medication Instructions Recorded Confirmed lancets 28 gauge (DorotheaStyle #25 ea 06/02/19 12/30/22 Lancets) aspirin 81 mg tablet,delayed 81 mg PO 3XWK 07/05/19 12/30/22 release blood sugar diagnostic (FreeStyle #10 ea 08/20/21 12/30/22 Lite Strips) multivitamin 1 tab PO QAM 03/27/22 12/30/22 sertraline 50 mg tablet 50 mg PO HS 04/03/22 12/30/22 metoprolol tartrate 25 mg tablet 25 mg PO DAILY PRN a fib 07/10/22 12/30/22 insulin aspart U-100 100 unit/mL 0 sliding scale dose continuous 08/13/22 12/30/22 subcutaneous solution (Novolog subcutaneous infusion USEASDIRECTD U-100 Insulin aspart) 45-50 UNITS DAILY coenzyme Q10 100 mg capsule 100 mg PO DAILY 11/21/22 12/30/22 (CoQ-10) cetirizine 10 mg tablet 10 mg PO DAILY PRN allergies 12/30/22 12/30/22 clonidine HCl 0.1 mg tablet 0.1 mg PO BID 12/30/22 12/30/22 metoprolol succinate 50 mg 50 mg PO BID 12/30/22 12/30/22 tablet,extended release 24 hr Previous Rx's Medication Instructions Recorded nitroglycerin 0.4 mg sublingual 0.4 mg sublingual Q5M PRN chest 10/23/20 tablet pain #25 tabs atorvastatin 40 mg tablet 40 mg PO DAILY #90 tabs 03/31/22 Omnipod Dash Pods (Gen 4) (insulin #30 ea 04/03/22 pump cart,cont inf,BT) potassium chloride 20 mEq oral 20 meq PO BID hypokalemia #60 ea 06/13/22 packet blood-glucose sensor (Dexcom G6 #3 ea 07/10/22 Sensor device) lansoprazole 30 mg capsule,delayed 30 mg PO DAILYBB esophageal reflux 07/18/22 release #30 caps triamterene 37.5 1 cap PO QAM #90 caps 07/18/22 mg-hydrochlorothiazide 25 mg capsule dronedarone 400 mg tablet (Multaq) 400 mg PO BID #180 tabs 08/12/22 fenofibrate nanocrystallized 145 145 mg PO HS #90 tabs 10/13/22 mg tablet insulin syr/ndl U100 half elton 0.3 #50 ea 10/24/22 mL 31 gauge x 5/16" (BD Insulin Syringe Ultra-Fine (half unit)) clonazepam 0.5 mg tablet 0.25 - 0.5 mg PO HS PRN Sleep 12/30/22 /Anxiety #30 tabs doxazosin 2 mg tablet 1 mg PO HS #14 tabs 12/30/22 duloxetine 20 mg capsule,delayed 20 mg PO DAILY #30 caps 12/30/22 release (Cymbalta) ferrous sulfate 325 mg (65 mg 325 mg PO BID #60 tabs 01/01/23 iron) tablet oxycodone 5 mg tablet 5 mg PO Q6H PRN #0 tabs 01/01/23 Results & Data (ED) Vital Signs Vital Signs - 24 hr 12/30/22 14:43 12/30/22 15:17 Temperature 36.9 C Temperature Source Temporal Artery Scan Pulse Rate 66 66 Pulse Rhythm Regular Pulse Strength Normal Respiratory Rate 18 Respiratory Effort / Characteristics Non-Labored Respiratory Depth Normal Respiratory Pattern Regular Blood Pressure 114/49 L Blood Pressure Mean 70 Blood Pressure Position Sitting Pulse Oximetry 99 Oxygen Delivery Method Room Air Sepsis Recent Fever Within 48 Hours No Sepsis New/Unexplained Change in Mental Status No Sepsis Action Taken by Nursing No Action Required Home Medications Current Medication List: was personally reviewed by me Laboratory Data Attestation: I reviewed the patient's lab results. 12/30/22 15:07 12/30/22 15:07 Lab Results 12/30/22 12/30/22 12/30/22 Range/Units 15:07 15:07 15:07 WBC 5.90 (4.8-10.8) K/ul RBC 3.56 L (4.20-5.40) M/uL Hgb 6.1 L* (12.0-16.0) g/dl Hct 22.1 L (37.0-47.0) % MCV 62.1 L (80.0-100.0) fL MCH 17.1 L (25.0-34.0) pg MCHC 27.6 L (32.0-36.0) g/dL RDW Std Deviation 43.9 (36.4-46.3) fL RDW Coeff of Mercedes 20.7 H (11.5-14.5) % Plt Count 314 (130-400) K/uL Immature Gran % (Auto) 0.3 % Neut % (Auto) 73.3 % Lymph % (Auto) 15.9 % Liberty % (Auto) 7.8 % Eos % (Auto) 2.0 % Baso % (Auto) 0.7 % Reticulocyte % (Auto) (0.5-2.0) % Neut # (Auto) 4.32 (1.40-6.50) K/uL Lymph # (Auto) 0.94 L (1.2-3.4) K/uL Liberty # (Auto) 0.46 (0.11-0.59) K/uL Eos # (Auto) 0.12 (0-0.50) K/uL Baso # (Auto) 0.04 (0-0.2) K/uL Reticulocyte # (0.02-0.10) 10^6/uL Immature Gran # (Auto) 0.02 (0.01-0.20) K/uL Giant Platelets 2+ Polychromasia 1+ Hypochromasia Present Anisocytosis Present Microcytosis Present Peripher Smr Path Cons PT 14.3 H (9.0-12.0) Seconds INR 1.4 H (0.9-1.1) APTT 23.4 (21.0-31.0) Seconds PTT Ratio 0.9 Sodium (136-145) mmol/L Potassium (3.5-5.1) mmol/L Chloride (98-107) mmol/L Carbon Dioxide (21-32) mmol/L Anion Gap (3-11) BUN (6-23) mg/dl Creatinine (0.6-1.2) mg/dl Est Cr Clr Drug Dosing ml/min Est GFR ( Amer) ml/min Est GFR (Non-Af Amer) ml/min BUN/Creatinine Ratio (10-20) Glucose (70-99(Fasting)) mg/dl Calcium (8.5-10.1) mg/dl Iron (35-150) mcg/dl TIBC (250-450) mcg/dl Unsaturated IBC (155-355) mcg/dl Transferrin % Sat (15-50) % Ferritin (8-388) ng/ml Total Bilirubin (0.2-1.0) mg/dl AST (13-39) U/L ALT (7-52) U/L Alkaline Phosphatase (34-104) U/L Total Protein (6.0-8.3) gm/dl Albumin (3.4-5.0) gm/dl Globulin (2.5-4.0) gm/dl Albumin/Globulin Ratio (0.9-2) POC Stool Occult Blood (Negative) SARS-CoV-2, RNA, NAAT (NEGATIVE) Blood Type B Positive Antibody Screen NEGATIVE Crossmatch See Detail 12/30/22 12/30/22 12/30/22 Range/Units 15:07 15:07 15:25 WBC (4.8-10.8) K/ul RBC (4.20-5.40) M/uL Hgb (12.0-16.0) g/dl Hct (37.0-47.0) % MCV (80.0-100.0) fL MCH (25.0-34.0) pg MCHC (32.0-36.0) g/dL RDW Std Deviation (36.4-46.3) fL RDW Coeff of Mercedes (11.5-14.5) % Plt Count (130-400) K/uL Immature Gran % (Auto) % Neut % (Auto) % Lymph % (Auto) % Liberty % (Auto) % Eos % (Auto) % Baso % (Auto) % Reticulocyte % (Auto) 2.3 H (0.5-2.0) % Neut # (Auto) (1.40-6.50) K/uL Lymph # (Auto) (1.2-3.4) K/uL Liberty # (Auto) (0.11-0.59) K/uL Eos # (Auto) (0-0.50) K/uL Baso # (Auto) (0-0.2) K/uL Reticulocyte # 0.08 (0.02-0.10) 10^6/uL Immature Gran # (Auto) (0.01-0.20) K/uL Giant Platelets Polychromasia Hypochromasia Anisocytosis Microcytosis Peripher Smr Path Cons PT (9.0-12.0) Seconds INR (0.9-1.1) APTT (21.0-31.0) Seconds PTT Ratio Sodium 135 L (136-145) mmol/L Potassium 3.6 (3.5-5.1) mmol/L Chloride 104 (98-107) mmol/L Carbon Dioxide 25 (21-32) mmol/L Anion Gap 6 (3-11) BUN 24 H (6-23) mg/dl Creatinine 1.18 (0.6-1.2) mg/dl Est Cr Clr Drug Dosing 36.7 ml/min Est GFR ( Amer) 54.1 ml/min Est GFR (Non-Af Amer) 46.7 ml/min BUN/Creatinine Ratio 20.3 H (10-20) Glucose 197 H (70-99(Fasting)) mg/dl Calcium 9.3 (8.5-10.1) mg/dl Iron 18 L (35-150) mcg/dl TIBC 711 H (250-450) mcg/dl Unsaturated IBC 693 H (155-355) mcg/dl Transferrin % Sat 3 L (15-50) % Ferritin 4.3 L (8-388) ng/ml Total Bilirubin 0.8 (0.2-1.0) mg/dl AST 25 (13-39) U/L ALT 14 (7-52) U/L Alkaline Phosphatase 40 (34-104) U/L Total Protein 7.2 (6.0-8.3) gm/dl Albumin 4.1 (3.4-5.0) gm/dl Globulin 3.1 (2.5-4.0) gm/dl Albumin/Globulin Ratio 1.3 (0.9-2) POC Stool Occult Blood (Negative) SARS-CoV-2, RNA, NAAT NEGATIVE (NEGATIVE) Blood Type Antibody Screen Crossmatch 12/30/22 Range/Units 15:26 WBC (4.8-10.8) K/ul RBC (4.20-5.40) M/uL Hgb (12.0-16.0) g/dl Hct (37.0-47.0) % MCV (80.0-100.0) fL MCH (25.0-34.0) pg MCHC (32.0-36.0) g/dL RDW Std Deviation (36.4-46.3) fL RDW Coeff of Mercedes (11.5-14.5) % Plt Count (130-400) K/uL Immature Gran % (Auto) % Neut % (Auto) % Lymph % (Auto) % Liberty % (Auto) % Eos % (Auto) % Baso % (Auto) % Reticulocyte % (Auto) (0.5-2.0) % Neut # (Auto) (1.40-6.50) K/uL Lymph # (Auto) (1.2-3.4) K/uL Liberty # (Auto) (0.11-0.59) K/uL Eos # (Auto) (0-0.50) K/uL Baso # (Auto) (0-0.2) K/uL Reticulocyte # (0.02-0.10) 10^6/uL Immature Gran # (Auto) (0.01-0.20) K/uL Giant Platelets Polychromasia Hypochromasia Anisocytosis Microcytosis Peripher Smr Path Cons PT (9.0-12.0) Seconds INR (0.9-1.1) APTT (21.0-31.0) Seconds PTT Ratio Sodium (136-145) mmol/L Potassium (3.5-5.1) mmol/L Chloride (98-107) mmol/L Carbon Dioxide (21-32) mmol/L Anion Gap (3-11) BUN (6-23) mg/dl Creatinine (0.6-1.2) mg/dl Est Cr Clr Drug Dosing ml/min Est GFR ( Amer) ml/min Est GFR (Non-Af Amer) ml/min BUN/Creatinine Ratio (10-20) Glucose (70-99(Fasting)) mg/dl Calcium (8.5-10.1) mg/dl Iron (35-150) mcg/dl TIBC (250-450) mcg/dl Unsaturated IBC (155-355) mcg/dl Transferrin % Sat (15-50) % Ferritin (8-388) ng/ml Total Bilirubin (0.2-1.0) mg/dl AST (13-39) U/L ALT (7-52) U/L Alkaline Phosphatase (34-104) U/L Total Protein (6.0-8.3) gm/dl Albumin (3.4-5.0) gm/dl Globulin (2.5-4.0) gm/dl Albumin/Globulin Ratio (0.9-2) POC Stool Occult Blood Negative (Negative) SARS-CoV-2, RNA, NAAT (NEGATIVE) Blood Type Antibody Screen Crossmatch Administered Medications Discontinued Medications Apixaban (Apixaban 5 Mg Tablet) 5 mg PO BID DEVEN Stop: 01/29/23 23:44 Last Admin: 12/31/22 08:04 Dose: 5 mg Documented By: Admin: 12/31/22 00:25 Dose: 5 mg Documented By: SALUD Aspirin (Aspirin 81 Mg Ectab) 81 mg PO MoWeFr@0900 DEVEN Stop: 01/30/23 08:59 Last Admin: 12/31/22 08:03 Dose: 81 mg Documented By: MONTANA Atorvastatin Calcium (Atorvastatin 40 Mg Tab) 40 mg PO DAILY DEVEN Stop: 01/30/23 08:59 Last Admin: 12/31/22 14:24 Dose: Not Given Documented By: MONTANA Atorvastatin Calcium (Atorvastatin 40 Mg Tab) 40 mg PO DEVEN Stop: 01/30/23 20:59 Last Admin: 12/31/22 20:24 Dose: 40 mg Documented By: SUNNY Clonidine HCl (Clonidine Hcl 0.1 Mg Tab) 0.1 mg PO BID DEVEN Stop: 01/29/23 23:44 Last Admin: 01/01/23 09:54 Dose: 0.1 mg Documented By: Admin: 12/31/22 20:22 Dose: 0.1 mg Documented By: Admin: 12/31/22 08:05 Dose: 0.1 mg Documented By: Admin: 12/31/22 00:25 Dose: 0.1 mg Documented By: SALUD Doxazosin Mesylate (Doxazosin Mesylate 1 Mg Tab) 1 mg PO HS DEVEN Stop: 01/29/23 23:44 Last Admin: 12/31/22 20:23 Dose: 1 mg Documented By: Admin: 12/31/22 00:25 Dose: 1 mg Documented By: SALUD Dronedarone (Dronedarone Hcl 400 Mg Tab) 400 mg PO BID DEVEN Stop: 01/29/23 23:44 Last Admin: 01/01/23 09:54 Dose: 400 mg Documented By: Admin: 12/31/22 20:23 Dose: 400 mg Documented By: Admin: 12/31/22 08:05 Dose: 400 mg Documented By: Admin: 12/31/22 00:25 Dose: 400 mg Documented By: SALUD Duloxetine HCl (Duloxetine Hcl 20 Mg Cap) 20 mg PO DAILY DEVEN Stop: 01/30/23 08:59 Last Admin: 01/01/23 09:55 Dose: 20 mg Documented By: Admin: 12/31/22 14:08 Dose: Not Given Documented By: MONTANA Fenofibrate (Fenofibrate Nanocrystallized 145 Mg Tablet) 145 mg PO HS [facility] [place] Stop: 01/29/23 23:44 Last Admin: 12/31/22 20:22 Dose: 145 mg Documented By: Admin: 12/31/22 00:25 Dose: 145 mg Documented By: SALUD Sodium Chloride (Nss) 500 mls @ 999 mls/hr IV .Q31M DEVEN Stop: 12/30/22 15:45 Last Infusion: 12/30/22 16:22 Dose: 0 mls/hr Documented By: Admin: 12/30/22 15:56 Dose: 999 mls/hr Documented By: VARSHA Iron Sucrose 200 mg/ Sodium (Chloride) 110 mls @ 220 mls/hr IV TODAY ONE Stop: 12/31/22 08:56 Last Infusion: 12/31/22 11:53 Dose: 0 mls/hr Documented By: Admin: 12/31/22 10:42 Dose: 220 mls/hr Documented By: MONTANA Iron Sucrose 200 mg/ Sodium (Chloride) 110 mls @ 220 mls/hr IV TODAY@1000 ONE Stop: 01/01/23 10:29 Last Infusion: 01/01/23 11:32 Dose: 0 mls/hr Documented By: Admin: 01/01/23 10:40 Dose: 220 mls/hr Documented By: MONTANA Ioversol (Optiray 350 100ml) 81 ml IV ONCE ONE Stop: 12/30/22 16:17 Last Admin: 12/30/22 16:16 Dose: 81 ml Documented By: REBECCA Lidocaine (Lidocaine 5% 1 Patch) 1 patch TD QAM [facility] [place] Stop: 01/30/23 08:59 Last Admin: 01/01/23 09:56 Dose: 1 patch Documented By: Admin: 12/31/22 08:07 Dose: 1 patch Documented By: MONTANA Metoprolol Succinate (Metoprolol Succ 50mg Ext Rel Tab) 50 mg PO BID [facility] [place] Stop: 01/29/23 23:44 Last Admin: 01/01/23 13:38 Dose: 50 mg Documented By: Admin: 12/31/22 20:23 Dose: 50 mg Documented By: Admin: 12/31/22 08:06 Dose: 50 mg Documented By: Admin: 12/31/22 00:25 Dose: 50 mg Documented By: SALUD Patiño (Remove Nicoderm Patch) 1 each N/A DAILY@0859 [facility] [place] Stop: 01/30/23 08:58 Last Admin: 01/01/23 09:53 Dose: 1 each Documented By: Admin: 12/31/22 08:02 Dose: Not Given Documented By: MONTANA Patiño (Remove Lidoderm Patch) 1 each N/A DAILY@2100 DEVEN Stop: 01/30/23 20:59 Last Admin: 12/31/22 20:33 Dose: 1 each Documented By: SUNNY Morphine Sulfate (Morphine Sulfate 4 Mg/Ml 1 Ml Carp\\Vial) 4 mg IV NOW STA Stop: 12/30/22 18:57 Last Admin: 12/30/22 19:33 Dose: 4 mg Documented By: VARSHA Morphine Sulfate (Morphine Sulfate 2 Mg/Ml Carp) 2 mg IV NOW STA Stop: 12/31/22 11:10 Last Admin: 12/31/22 11:41 Dose: 2 mg Documented By: MONTANA Morphine Sulfate (Morphine Sulfate 2 Mg/Ml Carp) 2 mg IV Q3H PRN PRN Reason: Pain Stop: 01/14/23 11:09 Last Admin: 12/31/22 18:35 Dose: 2 mg Documented By: MONTANA Nicotine (Nicotine 14 Mg/24 Hr Patch) 14 mg TD QAM [facility] [place] Stop: 01/30/23 08:59 Last Admin: 01/01/23 09:52 Dose: 14 mg Documented By: Admin: 12/31/22 08:01 Dose: 14 mg Documented By: MONTANA Oxycodone HCl (Oxycodone Hcl Ir 5 Mg Tab (Immediate Release)) 5 mg PO Q6H PRN PRN Reason: Pain Stop: 01/13/23 23:12 Last Admin: 12/31/22 07:51 Dose: 5 mg Documented By: Admin: 12/30/22 23:54 Dose: 5 mg Documented By: SALUD Polyethylene Glycol (Polyethylene (Miralax) 17 Gm Pack) 17 gm PO DAILY DEVEN Stop: 01/30/23 11:14 Last Admin: 01/01/23 09:59 Dose: 17 gm Documented By: Admin: 12/31/22 11:41 Dose: 17 gm Documented By: MONTANA Sertraline HCl (Sertraline Hcl 50 Mg Tablet) 50 mg PO HS DEVEN Stop: 01/29/23 23:44 Last Admin: 12/31/22 20:23 Dose: 50 mg Documented By: Admin: 12/31/22 00:25 Dose: 50 mg Documented By: SALUD Triamterene/Hydrochlorothiazide (Triamterene/Hctz 37.5/25mg Cap) 1 cap PO QAM DEVEN Stop: 01/30/23 08:59 Last Admin: 01/01/23 09:58 Dose: 1 cap Documented By: Admin: 12/31/22 08:06 Dose: 1 cap Documented By: MONTANA Imaging Data Radiologist's Impression: Abdomen/Pelvis CT 12/30/22 15:21 CT abd pelvis IV con only CLINICAL HISTORY: R sided low back pain; r/o retro bleed, hgb down 3 TECHNIQUE: Helical axial images of the abdomen and pelvis were obtained and displayed. Automated dose lowering techniques and/or adjustment according to patient size were utilized for this exam. This exam was performed with intravenous contrast. CT DOSE: 290.85 mGycm COMPARISON: Comparison is made to CT abdomen pelvis 08/31/2022 FINDINGS: Lower chest: Bibasilar atelectasis versus scarring is seen. Liver: Unremarkable. No focal lesions are seen. Gallbladder and biliary tree: No calcified gallstones. Normal caliber wall. No intra- or extrahepatic biliary ductal dilation. Pancreas: Unremarkable, no focal lesions. Spleen: Unremarkable. Adrenals: Unremarkable. Kidneys and ureters: Unremarkable. Bladder: Unremarkable. Reproductive organs: Unremarkable. Bowel: Unremarkable. Lymph nodes Retroperitoneal: Unremarkable. Pelvic: Subcentimeter lymph nodes are noted. Mesenteric: Unremarkable. Peritoneum: Unremarkable, in particular no evidence of retroperitoneal hemorrhage. Vessels: Atherosclerotic calcifications are seen. Infrarenal aortic aneurysm measures up to 30 mm in diameter. 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 Abdominal wall: Unremarkable. Bones: Degenerative changes in the visualized spine. L2 compression deformity is seen. IMPRESSION: 1. No acute abnormalities and in particular no evidence of retroperitoneal hemorrhage. 2. Cholelithiasis without cholecystitis. 3. Extensive atherosclerosis with a 30 mm infrarenal aortic aneurysm. ACT 112: Negative or not required by law. Electronically signed by: Suraj Valles M.D. 12/30/2022 4:37 PM Discharge Plan Visit Data Chief Complaint: Illness Stated Complaint: TRANSFUSION, REF BY DOC ED Provider: Nikko Leyva Discharge Problem: Symptomatic anemia, Back pain, Chronic anticoagulation Patient Disposition: Admitted As Inpatient Condition: Good Discharge Instructions Interventions: ED Discharge Assessment Last Done: 12/30/22 22:49
[2022-12-30] MEDS ORDERED: SODIUM CHLORIDE 0.9% 250 ML IV PRN (15:01)
[2022-12-30] MEDS ORDERED: SODIUM CHLORIDE 0.9% 500 ML IV SCH (15:15)
[2022-12-30 15:48] LABS: Albumin Globulin Ratio 1.3 (0.9-2); Albumin Level 4.1 gm/dl (3.4-5.0); BUN Creatinine Ratio 20.3 (10-20); Bilirubin,Total 0.8 mg/dl (0.2-1.0); Calcium 9.3 mg/dl (8.5-10.1); Creatinine Clr Calc Pharmacy 36.7 ml/min; Est GFR (African American) 54.1 ml/min; Est GFR (Non-African American) 46.7 ml/min; Globulin 3.1 gm/dl (2.5-4.0); Hematocrit (blood only) 22.1 % (37.0-47.0); Hemoglobin 6.1 g/dl (12.0-16.0); Mean Corpuscular Hemoglobin 17.1 pg (25.0-34.0); Mean Corpuscular Hgb Conc 27.6 g/dL (32.0-36.0); Mean Corpuscular Volume 62.1 fL (80.0-100.0); Platelet Count 314 K/uL (130-400); Potassium 3.6 mmol/L (3.5-5.1); RDW Coefficient of Variation 20.7 % (11.5-14.5); RDW Standard Deviation 43.9 fL (36.4-46.3); Red Blood Count 3.56 M/uL (4.20-5.40); Total Protein 7.2 gm/dl (6.0-8.3)
[2022-12-30 15:54] LABS: Anisocytosis Present; Basophils # (auto) 0.04 K/uL (0-0.2); Basophils % (auto) 0.7 %; Eosinophils # (auto) 0.12 K/uL (0-0.50); Giant Platelets 2+; Hypochromasia Present; Immature Granulocytes # (auto) 0.02 K/uL (0.01-0.20); Immature Granulocytes % (auto) 0.3 %; Lymphocytes # (auto) 0.94 K/uL (1.2-3.4); Lymphocytes % (auto) 15.9 %; Microcytosis Present; Monocytes # (auto) 0.46 K/uL (0.11-0.59); Monocytes % (auto) 7.8 %; Neutrophils # (auto) 4.32 K/uL (1.40-6.50); Neutrophils % (auto) 73.3 %; Polychromasia 1+
[2022-12-30 15:56] LABS: INR 1.4 (0.9-1.1); Partial Thromboplastin Ratio 0.9; Partial Thromboplastin Time 23.4 Seconds (21.0-31.0); Prothrombin Time 14.3 Seconds (9.0-12.0)
[2022-12-30] MEDS ORDERED: OPTIRAY 350 100ml IV ONE (16:16)
--- NOTE | 2022-12-30 16:38 | CT Scan Report ---
CT abd pelvis IV con only CLINICAL HISTORY: R sided low back pain; r/o retro bleed, hgb down 3 TECHNIQUE: Helical axial images of the abdomen and pelvis were obtained and displayed. Automated dose lowering techniques and/or adjustment according to patient size were utilized for this exam. This e xam was performed with intravenous contrast. CT DOSE: 290.85 mGycm COMPARISON: Comparison is made to CT abdomen pelvis 08/31/2022 FINDINGS: Lower chest: Bibasilar atelectasis versus scarring is seen. Liver: Unremarkable. No focal lesions are seen. Gallbladder and biliary tree: No calcified gallstones. Normal caliber wall. No intra- or extrahepatic biliary ductal dilation. Pancreas: Unremarkable, no focal lesions. Spleen: Unremarkable. Adrenals: Unremarkable. Kidneys and ureters: Unremarkable. Bladder: Unremarkable. Reproductive organs: Unremarkable. Bowel: Unremarkable. Lymph nodes Retroperitoneal: Unremarkable. Pelvic: Subcentimeter lymph nodes are noted. Mesenteric: Unremarkable. Peritoneum: Unremarkable, in particular no evidence of retroperitoneal hemorrhage. Vessels: Atherosclerotic calcifications are seen. Infrarenal aortic aneurysm measures up to 30 mm in diameter. 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 Abdominal wall: Unremarkable. Bones: Degenerative changes in the visualized spine. L2 compression deformity is seen. IMPRESSION: 1. No acute abnormalities and in particular no evidence of retroperitoneal hemorrhage. 2. Cholelithiasis without cholecystitis. 3. Extensive atherosclerosis with a 30 mm infrarenal aortic aneurysm. ACT 112: Negative or not required by law. Electronically signed by: Suraj Valles M.D. 12/30/2022 4:37 PM
--- NOTE | 2022-12-30 17:14 | Electrocardiogram Report ---
Test Reason : Blood Pressure : / mmHG Vent. Rate : 064 BPM Atrial Rate : 064 BPM P-R Int : 182 ms QRS Dur : 090 ms QT Int : 456 ms P-R-T Axes : 046 -04 060 degrees QTc Int : 470 ms Sinus rhythm with Premature supraventricular complexes Poor R wave progression, consider anterior NM vs. lead placement vs. LVH Abnormal ECG When compared with ECG of 30-AUG-2022 23:47, Premature supraventricular complexes are now Present Confirmed by Trip Maurice ([id number]) on 12/30/2022 5:14:13 PM Referred By: Saba Hsieh Confirmed By:Paddy Maurice
[2022-12-30] MEDS ORDERED: MoRPHine SULFATE 4 MG/ML 1 ML CARP\\VIAL IV STA (18:56)
--- NOTE | 2022-12-30 20:39 | History & Physical Report ---
Date of Service December 30, 2022 Assessment & Plan (1) Symptomatic anemia: Plan: 72-year-old female with history of coronary artery disease status post drug- eluting stent placed in 2011 on aspirin, paroxysmal atrial fibrillation on apixaban, hypertension, hyperlipidemia, COPD and diabetes presenting at the request of her primary care physician after being found with severe microcytic anemia on routine wellness labshemoglobin of 5.9. Patient endorses symptoms of dyspnea on exertion as well as fatigue and generalized weakness. Denies blood lossmelena, hematochezia, hematuria, bleeding/bruising or vaginal bleeding. Repeat labs in the ER revealed Hgb = 6.1, HCT = 22.1, MCV = 62.1, MCH = 17.1 Patient had a [id number] fecal occult blood test which was negative. CT of the abdomen and pelvis was negative for retroperitoneal bleed. Total bilirubin is normal at 0.8 Patient has been ordered 2 units of PRBCs. Presently receiving the second. Admit to medical Iron studiesiron, TIBC, unsaturated IBC, transferrin percent saturation and ferritin have been added to patient's blood specimen which was drawn prior to transfusion Reticulocyte count and peripheral blood smear have been added to patient's blood specimen which was drawn prior to transfusion Complete second unit PRBCs Repeat CBC in the morning Pending results of above, patient may benefit from IV iron transfusion and discharged on oral iron Pending results above, consider hematology consultation (2) Low Back Pain: Plan: Patient complaining of severe low back pain which interferes with her ambulation. She had an x-ray of the lumbar spine performed today which revealed interval development of a mild superior endplate compression fracture at L2 which is likely subacute when compared to thoracic spine MRI from October 2022. No associated retropulsion. Also noted a 3.7 cm infrarenal abdominal aortic aneurysm. Lidoderm patch Tylenol as needed Oxycodone 5 mg p.o. every 6 hours as needed for pain PT/OT evaluation appreciated (3) CAD (coronary artery disease): Plan: Patient with CAD status post stent placement in 2011. Presently denies chest pain. No acute ischemic EKG changes. Troponin unremarkable Continue aspirin 81 mg p.o. daily Continue metoprolol 50 mg p.o. twice daily Continue atorvastatin 40 mg p.o. daily (4) Chronic obstructive pulmonary disease: Plan: Patient with shortness of breath as above. Most likely secondary to anemia. She denies cough, wheeze, sputum production Albuterol as needed (5) Diabetes: Plan: Patient with insulin-dependent diabetes. Manages with insulin pump. Overall well controlled with last hemoglobin A1c on 11/21/2022 = 6.8. Blood sugar presently mildly elevated at 197 Patient may use own insulin pump Continue to monitor (6) Hypertension: Plan: Blood pressure presently elevated at 153/84. Continue clonidine 0.1 mg p.o. twice daily Continue metoprolol 50 mg p.o. twice daily Continue triamterene/hydrochlorothiazide Continue to monitor (7) Hyperlipidemia: Plan: Chronic. Stable. Continue atorvastatin 40 mg p.o. daily Continue fenofibrate 145 mg p.o. 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 Noted previously on CT of the chest from August 2022 (infrarenal aortic aneurysm measured up to 3.3 cm and right renal artery aneurysm measured to be 9 mm on that particular study). No concern for dissection or rupture. Routine outpatient monitoring (9) Anxiety: Plan: Chronic. Patient reports some episodes of anxiety but overall well controlled Continue sertraline 50 mg p.o. nightly Continue clonazepam 0.5 mg p.o. nightly as needed for sleep or anxiety Continue Cymbalta 20 mg p.o. daily (10) Paroxysmal atrial fibrillation with RVR: Plan: Status post ablation. Patient presently normal sinus rhythm Continue metoprolol 50 mg p.o. twice daily Continue apixaban 5 mg p.o. twice daily Continued Dronedarone 400 mg p.o. twice daily (11) Lung nodule: Plan: Routine chest x-ray obtained today revealed a 7 mm nodular density over the right upper lobe. Indeterminate but not clearly seen on prior examination. A nonemergent CT of the chest is recommended for follow-up Will order nonemergent noncontrast CT of the chest for further evaluation (12) Tobacco abuse: Plan: Patient continues to smoke approximately 1/2 pack of cigarettes per day Smoking cessation counseling Nicotine patch ordered F/E/NHep-Lock, monitor electrolytes and replete as needed, carb count/diabetes 1/gluten-free diet as tolerated Prophylaxispatient on apixaban anticoagulationwe will continue Codefull Dispositionadmit to medical History of Present Illness Chief Complaint: Anemia Primary Care Provider: Saba Hinkle MD Loren Chavez is a 72-year-old female with history of coronary artery disease status post drug-eluting stent in 2011, COPD, diabetes, hypertension, hyperlipidemia, hepatitis C status post curative treatment presenting with symptomatic anemia. Patient was seen by her PCP this afternoon for a well visit. She had routine blood work performed and was found to have a low hemoglobin at 5.9. Patient does report generalized weakness, fatigue as well as dyspnea on exertion and some shortness of breath. She denies melena, hematochezia, hematuria, vaginal bleeding. Denies easy bleeding or bruising. She does have chronic ongoing back pain. No falls or trauma. Patient eats a regular diet. Was previously on oral iron supplementation Patient has longstanding history of anemia. Previously determined to be secondary to iron deficiency from poor absorption. She has had EGDs and colonoscopies in the past which were largely unremarkablesome gastritis noted on EGD, nonbleeding diverticula and internal hemorrhoids on colonoscopy. Patient did receive iron transfusions x6 in 2016. She was evaluated by hematology for this issue in August 2019. In the ER she is afebrile, hemodynamically stable, no acute distress. Resting comfortably. No complaints at this time ER course: Morphine 4 mg IV Normal saline x500 mL 2 units PRBCs Allergies Allergy/AdvReac Type Severity Reaction Status Date / Time levofloxacin Allergy Intermediate FOGGY Verified 12/30/22 10:35 FEELING Penicillins Allergy Intermediate UPPER BODY Verified 12/30/22 10:35 RASH gluten AdvReac Intermediate GI SYMPTOMS Verified 12/30/22 10:35 Home Medications Medication Instructions Recorded Confirmed Type lancets 28 gauge (FreeStyle #25 ea 06/02/19 12/30/22 History Lancets) aspirin 81 mg tablet,delayed 81 mg PO 3XWK 07/05/19 12/30/22 History release nitroglycerin 0.4 mg sublingual 0.4 mg sublingual Q5M PRN chest 10/23/20 12/30/22 Rx tablet pain #25 tabs blood sugar diagnostic (FreeStyle #10 ea 08/20/21 12/30/22 History Lite Strips) multivitamin 1 tab PO QAM 03/27/22 12/30/22 History atorvastatin 40 mg tablet 40 mg PO DAILY #90 tabs 03/31/22 12/30/22 Rx Omnipod Dash Pods (Gen 4) (insulin #30 ea 04/03/22 12/30/22 Rx pump cart,cont inf,BT) sertraline 50 mg tablet 50 mg PO HS 04/03/22 12/30/22 History apixaban 5 mg tablet 5 mg PO BID #180 tabs 05/08/22 12/30/22 Rx potassium chloride 20 mEq oral 20 meq PO BID hypokalemia #60 ea 06/13/22 12/30/22 Rx packet blood-glucose sensor (Dexcom G6 #3 ea 07/10/22 12/30/22 Rx Sensor device) metoprolol tartrate 25 mg tablet 25 mg PO DAILY PRN a fib 07/10/22 12/30/22 History lansoprazole 30 mg capsule,delayed 30 mg PO DAILYBB esophageal reflux 07/18/22 12/30/22 Rx release #30 caps triamterene 37.5 1 cap PO QAM #90 caps 07/18/22 12/30/22 Rx mg-hydrochlorothiazide 25 mg capsule dronedarone 400 mg tablet (Multaq) 400 mg PO BID #180 tabs 08/12/22 12/30/22 Rx insulin aspart U-100 100 unit/mL 0 sliding scale dose continuous 08/13/22 12/30/22 History subcutaneous solution (Novolog subcutaneous infusion USEASDIRECTD U-100 Insulin aspart) 45-50 UNITS DAILY fenofibrate nanocrystallized 145 145 mg PO HS #90 tabs 10/13/22 12/30/22 Rx mg tablet insulin syr/ndl U100 half elton 0.3 #50 ea 10/24/22 12/30/22 Rx mL 31 gauge x 5/16" (BD Insulin Syringe Ultra-Fine (half unit)) coenzyme Q10 100 mg capsule 100 mg PO DAILY 11/21/22 12/30/22 History (CoQ-10) cetirizine 10 mg tablet 10 mg PO DAILY PRN allergies 12/30/22 12/30/22 History clonazepam 0.5 mg tablet 0.25 - 0.5 mg PO HS PRN Sleep 12/30/22 12/30/22 Rx /Anxiety #30 tabs clonidine HCl 0.1 mg tablet 0.1 mg PO BID 12/30/22 12/30/22 History doxazosin 2 mg tablet 1 mg PO HS #14 tabs 12/30/22 12/30/22 Rx duloxetine 20 mg capsule,delayed 20 mg PO DAILY #30 caps 12/30/22 12/30/22 Rx release (Cymbalta) metoprolol succinate 50 mg 50 mg PO BID 12/30/22 12/30/22 History tablet,extended release 24 hr 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), managed as type 1 Liver hemangioma Mitral valve disorder Myofascial pain Numbness Osteopenia Palpitations Paroxysmal supraventricular tachycardia Peripheral vascular disease Presence of stent in artery Radicular pain of thoracic region Right renal artery stenosis Skin sensitivity Sleep disturbances Superior mesenteric artery stenosis Thoracic compression fracture Thoracic kyphosis Tobacco abuse Vitamin D deficiency Surgical History History of hysterectomy History of right coronary artery stent placement S/P right coronary artery (RCA) stent placement Family History Mother Diabetes Heart disease Myocardial infarction Sister Breast cancer Grandmother (Maternal) Myocardial infarction Father No problems noted. Denies family history of Colon cancer Ovarian cancer Prostate cancer Crohn's disease Colorectal cancer Social History Smoking Status: Current every day smoker Tobacco Type: E-cigarettes / Vaping Cigarettes Per Day: 10 a day; Hx Alcohol Use: Yes Alcohol type: wine Hx Substance Use: No Preferred Language: Urdu Communication Ability: Effective Visual Impairment: No Limitations Hearing Ability: Normal Gallery Or Museum Curator Required: No Beliefs That Will Affect Care: None marital status: / Current Living Situation: Alone current occupational status: retired Feels Safe at Home: Yes Seatbelt Use: always Sunscreen Use: Yes Assistive Devices: None Review of Systems Review of Systems: All systems reviewed & are unremarkable except as noted in HPI & below Physical Exam Physical Exam: General: patient resting comfortably, NAD, non-toxic in appearance, AA&O x 4 Skin: warm, dry, intact, no rashes or lesions, + pallor of skin, conjunctiva and oral mucosa HEENT: NC/AT, PERRL, EOMI, anicteric sclera, conjunctiva with pallor, external ear normal to inspection and nontender, nares patent, moist mucus membranes, dentition intact, no oropharyngeal lesions, neck supple, trachea midline, no LAD, no thyromegaly, no JVD Heart: +S1/S2, regular, 2 out of 6 systolic ejection murmur left upper sternal border Lungs: equal air entry bilaterally, no rales/rhonchi/wheezes Abd: +BS, soft, NT/ND, no masses/organomegaly/ascites, mild epigastric tenderness, no rebound/guarding/peritonitis Ext: warm, 2+ pulses in UE/LE bilaterally, no clubbing/cyanosis or edema Neuro: nonfocal, patient AA&O x 4, speech intact, no facial droop, moving all extremities on command with equal strength 5/5 Results & Data Results & Data ([facility]) Vital Signs (Past 12 Hours) Vital Signs Temp Pulse Pulse Resp BP Pulse Ox O2 Del Method 12/30/22 20:11 37.2 C 66 20 157/69 H 96 12/30/22 17:17 94 12/30/22 19:38 37.2 C 72 17 153/84 H 95 12/30/22 19:15 68 12/30/22 18:15 37.2 C 73 16 141/63 H 96 12/30/22 17:17 37.1 C 62 19 142/63 H 63 L 12/30/22 17:03 37.1 C 65 17 151/68 H 99 12/30/22 15:26 99 12/30/22 15:26 63 17 99 Room Air 12/30/22 15:17 66 12/30/22 14:43 36.9 C 66 18 114/49 L 99 Room Air Laboratory Results Laboratory Results WBC 5.90 K/ul (4.8-10.8) 12/30/22 15:07 RBC 3.56 M/uL (4.20-5.40) L 12/30/22 15:07 Hgb 6.1 g/dl (12.0-16.0) L* 12/30/22 15:07 Hct 22.1 % (37.0-47.0) L 12/30/22 15:07 MCV 62.1 fL (80.0-100.0) L 12/30/22 15:07 MCH 17.1 pg (25.0-34.0) L 12/30/22 15:07 MCHC 27.6 g/dL (32.0-36.0) L 12/30/22 15:07 RDW Std Deviation 43.9 fL (36.4-46.3) 12/30/22 15:07 RDW Coeff of Mercedes 20.7 % (11.5-14.5) H 12/30/22 15:07 Plt Count 314 K/uL (130-400) 12/30/22 15:07 Immature Gran % (Auto) 0.3 % 12/30/22 15:07 Neut % (Auto) 73.3 % 12/30/22 15:07 Lymph % (Auto) 15.9 % 12/30/22 15:07 Winn % (Auto) 7.8 % 12/30/22 15:07 Eos % (Auto) 2.0 % 12/30/22 15:07 Baso % (Auto) 0.7 % 12/30/22 15:07 Neut # (Auto) 4.32 K/uL (1.40-6.50) 12/30/22 15:07 Lymph # (Auto) 0.94 K/uL (1.2-3.4) L 12/30/22 15:07 Winn # (Auto) 0.46 K/uL (0.11-0.59) 12/30/22 15:07 Eos # (Auto) 0.12 K/uL (0-0.50) 12/30/22 15:07 Baso # (Auto) 0.04 K/uL (0-0.2) 12/30/22 15:07 Immature Gran # (Auto) 0.02 K/uL (0.01-0.20) 12/30/22 15:07 Giant Platelets 2+ 12/30/22 15:07 Polychromasia 1+ 12/30/22 15:07 Hypochromasia Present 12/30/22 15:07 Anisocytosis Present 12/30/22 15:07 Microcytosis Present 12/30/22 15:07 PT 14.3 Seconds (9.0-12.0) H 12/30/22 15:07 INR 1.4 (0.9-1.1) H 12/30/22 15:07 APTT 23.4 Seconds (21.0-31.0) 12/30/22 15:07 PTT Ratio 0.9 12/30/22 15:07 Sodium 135 mmol/L (136-145) L 12/30/22 15:07 Potassium 3.6 mmol/L (3.5-5.1) 12/30/22 15:07 Chloride 104 mmol/L (98-107) 12/30/22 15:07 Carbon Dioxide 25 mmol/L (21-32) 12/30/22 15:07 Anion Gap 6 (3-11) 12/30/22 15:07 BUN 24 mg/dl (6-23) H 12/30/22 15:07 Creatinine 1.18 mg/dl (0.6-1.2) 12/30/22 15:07 Est Cr Clr Drug Dosing 36.7 ml/min 12/30/22 15:07 Est GFR ( Amer) 54.1 ml/min 12/30/22 15:07 Est GFR (Non-Af Amer) 46.7 ml/min 12/30/22 15:07 BUN/Creatinine Ratio 20.3 (10-20) H 12/30/22 15:07 Glucose 197 mg/dl (70-99(Fasting)) H 12/30/22 15:07 Calcium 9.3 mg/dl (8.5-10.1) 12/30/22 15:07 Total Bilirubin 0.8 mg/dl (0.2-1.0) 12/30/22 15:07 AST 25 U/L (13-39) 12/30/22 15:07 ALT 14 U/L (7-52) 12/30/22 15:07 Alkaline Phosphatase 40 U/L (34-104) 12/30/22 15:07 Total Protein 7.2 gm/dl (6.0-8.3) 12/30/22 15:07 Albumin 4.1 gm/dl (3.4-5.0) 12/30/22 15:07 Globulin 3.1 gm/dl (2.5-4.0) 12/30/22 15:07 Albumin/Globulin Ratio 1.3 (0.9-2) 12/30/22 15:07 POC Stool Occult Blood Negative (Negative) 12/30/22 15:26 SARS-CoV-2, RNA, NAAT NEGATIVE (NEGATIVE) 12/30/22 15:25 Blood Type B Positive 12/30/22 15:07 Antibody Screen NEGATIVE 12/30/22 15:07 Crossmatch See Detail 12/30/22 15:07 Impressions Abdomen/Pelvis CT 12/30/22 15:21 CT abd pelvis IV con only CLINICAL HISTORY: R sided low back pain; r/o retro bleed, hgb down 3 TECHNIQUE: Helical axial images of the abdomen and pelvis were obtained and displayed. Automated dose lowering techniques and/or adjustment according to patient size were utilized for this exam. This exam was performed with intravenous contrast. CT DOSE: 290.85 mGycm COMPARISON: Comparison is made to CT abdomen pelvis 08/31/2022 FINDINGS: Lower chest: Bibasilar atelectasis versus scarring is seen. Liver: Unremarkable. No focal lesions are seen. Gallbladder and biliary tree: No calcified gallstones. Normal caliber wall. No i ntra- or extrahepatic biliary ductal dilation. Pancreas: Unremarkable, no focal lesions. Spleen: Unremarkable. Adrenals: Unremarkable. Kidneys and ureters: Unremarkable. Bladder: Unremarkable. Reproductive organs: Unremarkable. Bowel: Unremarkable. Lymph nodes Retroperitoneal: Unremarkable. Pelvic: Subcentimeter lymph nodes are noted. Mesenteric: Unremarkable. Peritoneum: Unremarkable, in particular no evidence of retroperitoneal hemorrhage. Vessels: Atherosclerotic calcifications are seen. Infrarenal aortic aneurysm measures up to 30 mm in diameter. 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 Abdominal wall: Unremarkable. Bones: Degenerative changes in the visualized spine. L2 compression deformity is seen. IMPRESSION: 1. No acute abnormalities and in particular no evidence of retroperitoneal hemorrhage. 2. Cholelithiasis without cholecystitis. 3. Extensive atherosclerosis with a 30 mm infrarenal aortic aneurysm. ACT 112: Negative or not required by law. Electronically signed by: Suraj Valles M.D. 12/30/2022 4:37 PM ECG Additional Comments: DICTATED BY:Trip Maurice MD Test Reason : Blood Pressure : / mmHG Vent. Rate : 064 BPM Atrial Rate : 064 BPM P-R Int : 182 ms QRS Dur : 090 ms QT Int : 456 ms P-R-T Axes : 046 -04 060 degrees QTc Int : 470 ms Sinus rhythm with Premature supraventricular complexes Poor R wave progression, consider anterior SD vs. lead placement vs. LVH Abnormal ECG When compared with ECG of 30-AUG-2022 23:47, Premature supraventricular complexes are now Present Confirmed by Trip Maurice ([id number]) on 12/30/2022 5:14:13 PM Referred By: Saba Hsieh Confirmed By:Paddy Maurice PG Care Time/CCT Total # of Minutes Spent Total Time Spent with Patient: Total time spent is greater than 50% in coordination of care (as documented) at patient's floor/unit and/or counseling patient: Coding Level of Care Code 12781 INT INP/OBS CARE 3/75MIN Diagnoses Symptomatic anemia D64.9 Low Back Pain M54.50 CAD (coronary artery disease) I25.10 Chronic obstructive pulmonary disease J44.9 Diabetes E11.9 Hypertension I10 Hyperlipidemia E78.5 Abdominal aneurysm I71.4 Anxiety F41.9 Paroxysmal atrial fibrillation with RVR I48.0 Lung nodule R91.1 Tobacco abuse Z72.0
[2022-12-30 21:26] LABS: Ferritin 4.3 ng/ml (8-388)
[2022-12-30 22:22] LABS: Reticulocyte % 2.3 % (0.5-2.0); Reticulocytes # 0.08 10^6/uL (0.02-0.10)
[2022-12-30] MEDS ORDERED: ACETAMINOPHEN 325 MG TAB PO PRN (23:13)
[2022-12-30] MEDS ORDERED: ONDANSETRON INJ 2 MG/ML 2 ML VIAL IV PRN (23:13)
[2022-12-30] MEDS ORDERED: GLUCOSE 10 TAB/TUBE PO PRN (23:13)
[2022-12-30] MEDS ORDERED: DEXTROSE 50% 50 ML SYRINGE IV PRN (23:13)
[2022-12-30] MEDS ORDERED: GLUCOSE 40% GEL 15 GM TUBE PO PRN (23:13)
[2022-12-30] MEDS ORDERED: ALBUTEROL HFA 8 GM INHALER INH PRN (23:13)
[2022-12-30] MEDS ORDERED: clonazePAM 0.5 MG TAB PO PRN (23:13)
[2022-12-30] MEDS ORDERED: GLUCAGON FOR INJ 1 MG VIAL SQ PRN (23:13)
[2022-12-30] MEDS ORDERED: CARBOHYDRATES FOR HYPOGLYCEMIA PO PRN (23:13)
[2022-12-30] MEDS: oxyCODONE HCL IR 5 MG TAB (IMMEDIATE RELEASE) PO PRN (23:54)
[2022-12-31] MEDS: APIXABAN 5 MG TABLET PO SCH ×2 (00:25→08:04)
[2022-12-31] MEDS: DOXAZOSIN MESYLATE 1 MG TAB PO SCH ×2 (00:25→20:23)
[2022-12-31] MEDS: DRONEDARONE HCL 400 MG TAB PO SCH ×3 (00:25→20:23)
[2022-12-31] MEDS: SERTRALINE HCL 50 MG TABLET PO SCH ×2 (00:25→20:23)
[2022-12-31] MEDS: FENOFIBRATE NANOCRYSTALLIZED 145 MG TABLET PO SCH ×2 (00:25→20:22)
[2022-12-31] MEDS: cloNIDine HCL 0.1 MG TAB PO SCH ×3 (00:25→20:22)
[2022-12-31] MEDS: METOPROLOL SUCC 50MG EXT REL TAB PO SCH ×3 (00:25→20:23)
[2022-12-31] MEDS: oxyCODONE HCL IR 5 MG TAB (IMMEDIATE RELEASE) PO PRN (07:51)
[2022-12-31] MEDS: NICOTINE 14 MG/24 HR PATCH TD SCH (08:01)
[2022-12-31] MEDS: TRIAMTERENE/HCTZ 37.5/25MG CAP PO SCH (08:06)
[2022-12-31] MEDS: LIDOCAINE 5% 1 PATCH TD SCH (08:07)
--- NOTE | 2022-12-31 08:16 | CT Scan Report ---
CT OF THE CHEST WITHOUT IV CONTRAST CLINICAL HISTORY: Assess 7 mm nodule in RUL noted on CXE 12/30/22 COMPARISON STUDY: Chest CT August 31, 2022 and chest radiograph December 30, 2022. CT DOSE: 189.64 mGy.cm TECHNIQUE: Axial images of the chest were obtained without IV contrast. Images were reviewed in the axial, sagittal, and coronal planes. IV contrast was not administered for this examination. Automat ed exposure control was utilized for the study. A dose lowering technique was utilized adhering to t he principles of ALARA. FINDINGS: The possible right upper lobe nodule on chest radiograph of December 30, 2022 was artifact ual. There is mild cardiomegaly with a trace pericardial effusion. Moderate coronary artery calcifica tion is present. There are trace bilateral pleural effusions. Lower lobe opacities favor atelectasis. Mild interlobular septal thickening is present. Bronchial atresia within the right lower lobe is aga in noted. Several tiny solid and groundglass left upper lobe nodules remain unchanged from earlier ex ams. A 6 mm right lower lobe nodular density on image 177 of 301 is new since prior chest CT. This is indeterminate but not highly suspicious. There is no thoracic lymphadenopathy. Loss of height of the inferior endplate of T8 with endplate irregularity is noted. There is also endplate irregularity and Schmorl's node within the superior endplate of T9. Findings were also shown on prior chest CT. Findi ngs favor an inferior endplate compression fracture of T8 with associated degenerative changes. Excre jasvir contrast within the collecting systems from recent abdominal CT is noted. IMPRESSION: 1. The possible right upper lobe nodule on chest radiograph was artifactual. 2. 6 mm right lower lobe nodular density which is new since prior chest CT. This is not highly suspic ious but remains indeterminate. A chest CT in 6 months is recommended. 3. Findings suggestive of mild interstitial pulmonary edema with trace bilateral pleural effusions. 4. Old inferior endplate compression fracture of T8 with associated degenerative changes at the T8-T9 level. An infectious process such as discitis/osteomyelitis is considered less likely. ACT 112: Negative or not required by law. Electronically signed by: Froylan Jacobs M.D. 12/31/2022 8:13 AM
[2022-12-31] MEDS ORDERED: IRON SUCROSE 200 MG in 0.9 % SODIUM CHLORIDE 100 ML IV ONE (08:27)
[2022-12-31 08:53] LABS: Hematocrit (blood only) 27.9 % (37.0-47.0); Hemoglobin 8.6 g/dl (12.0-16.0); Mean Corpuscular Hemoglobin 20.3 pg (25.0-34.0); Mean Corpuscular Hgb Conc 30.8 g/dL (32.0-36.0); Mean Corpuscular Volume 65.8 fL (80.0-100.0); Nucleated RBC # (auto) 0.02 K/uL (0-0.12); Nucleated RBC % (auto) 0.4 %; Platelet Count 250 K/uL (130-400); RDW Coefficient of Variation 24.2 % (11.5-14.5); RDW Standard Deviation 54.7 fL (36.4-46.3); Red Blood Count 4.24 M/uL (4.20-5.40); White Blood Count 5.63 K/ul (4.8-10.8)
[2022-12-31 08:56] LABS: Albumin Level 3.8 gm/dl (3.4-5.0); BUN Creatinine Ratio 16.5 (10-20); Bilirubin Direct 0.3 mg/dl (0-0.2); Creatinine Clr Calc Pharmacy 39.7 ml/min; Est GFR (African American) 59.6 ml/min; Est GFR (Non-African American) 51.4 ml/min; Potassium 3.4 mmol/L (3.5-5.1); Total Protein 6.7 gm/dl (6.0-8.3)
[2022-12-31] MEDS ORDERED: ATORVASTATIN 40 MG TAB PO SCH ×2 (09:00→21:00)
[2022-12-31] MEDS ORDERED: ASPIRIN 81 MG ECTAB PO SCH (09:00)
[2022-12-31] MEDS ORDERED: MoRPHine SULFATE 2 MG/ML CARP IV STA (11:09)
[2022-12-31] MEDS ORDERED: MoRPHine SULFATE 2 MG/ML CARP IV PRN (11:10)
[2022-12-31] MEDS: POLYETHYLENE (MIRALAX) 17 GM PACK PO SCH (11:41)
[2022-12-31] MEDS: DULoxetine HCL 20 MG CAP PO SCH (14:08)
--- NOTE | 2022-12-31 14:48 | Hospitalist Progress Note ---
Date of Service December 31, 2022 Assessment & Plan (1) Symptomatic anemia: Plan: Hemoglobin improved to 8.6 with blood transfusion. She is iron deficient. Parenteral iron replacement started. Eliquis discontinued. Fecal occult blood ordered. Denies blood lossmelena, hematochezia, hematuria, bleeding/bruising or vaginal bleeding. CT of the abdomen and pelvis was negative for retroperitoneal bleed. (2) Low Back Pain: Plan: Acute lumbar compression fracture noted on imaging. Oxycodone is not controlling her symptoms. Intravenous morphine as needed started. MiraLAX also started to prevent constipation. PT/OT consults requested (3) CAD (coronary artery disease): Plan: status post stent placement in 2011. Presently denies chest pain. No acute ischemic EKG changes. Troponin unremarkable. Continue current medical management (4) Chronic obstructive pulmonary disease: Plan: No exacerbation. Current dyspnea on exertion is due to anemia. (5) Diabetes: Plan: Type II. Insulin-dependent. Manages with insulin pump. Overall well controlled, with last hemoglobin A1c on 11/21/2022 = 6.8. (6) Hypertension: Plan: Treated with clonidine, metoprolol, triamterene/hydrochlorothiazide (7) Hyperlipidemia: Plan: Chronic. Stable. Continue atorvastatin and fenofibrate (8) Abdominal aneurysm: Plan: Seen on CT scan. No intervention necessary at this time. (9) Anxiety: Plan: Chronic. Treated with sertraline, clonazepam, Cymbalta (10) Paroxysmal atrial fibrillation with RVR: Plan: Status post ablation. Currently in normal sinus rhythm. Continue metoprolol, apixaban, Dronedarone (11) Lung nodule: Plan: Seen on routine chest x-ray. A nonemergent CT of the chest is recommended for follow-up (12) Tobacco abuse: Plan: Patient continues to smoke approximately 1/2 pack of cigarettes per day. Counseled to stop smoking. Nicotine patch ordered Plan Anticipate eventual discharge to home if able to control back pain. Otherwise she will need SNF placement Admission and Anticipated Discharge Date Admission Date: December 30, 2022 Subjective Back pain is major complaint from the L2 compression fracture. Oxycodone does not seem to be controlling her symptoms at this point. We will use intravenous morphine as needed. MiraLAX started to prevent constipation. She has received 2 units packed red blood cells. Hemoglobin improved to 8.6. Eliquis is placed on hold. She is iron deficient and parenteral iron replacement started. Fecal occult blood pending. Review of Systems Review of Systems: Constitutional-no fever or chills ENT-no blurred vision, no double vision, no epistaxis, no sore throat Respiratory-no cough, no wheezing, no shortness of breath Cardiac-no palpitations, no chest pain, no syncope GI-no nausea, vomiting, diarrhea, melena, hematochezia -no urinary retention, no urinary incontinence, no dysuria, no hematuria Musculoskeletal-severe low back pain from underlying compression fracture Skin-no bruising, no rashes, no pruritus Neuro-no isolated weakness, no paresthesia, no weakness Psych-no depression, no anxiety Physical Exam Physical Exam: General-alert and oriented x3, no fevers, no chills HEENT-head atraumatic and normocephalic, pupils equal and reactive to light, extraocular muscles intact Neck-no lymphadenopathy or thyromegaly, trachea midline Chest-clear to auscultation percussion. No rales wheezing or rhonchi Cardiac-regular rate and rhythm, normal S1 and S2 Abdomen-normal bowel sounds, nontender, no hepatosplenomegaly Extremities-severe lumbar discomfort from underlying acute compression fracture. Limited range of motion as expected Neuro-cranial nerves II through XII intact, motor and sensory function within normal limits, strength symmetrical, no focal deficits Psych-normal affect, normal mood Results & Data Results & Data ([facility]) Vital Signs (Past 12 Hours) Vital Signs Temp Pulse Resp BP Pulse Ox O2 Del Method 12/31/22 07:55 37.9 C H 80 16 119/64 94 Room Air 12/31/22 07:53 Room Air Laboratory Results 12/31/22 08:05 12/31/22 08:05 PG Care Time/CCT Total # of Minutes Spent Total Time Spent with Patient: Total time spent is greater than 50% in coordination of care (as documented) at patient's floor/unit and/or counseling patient: Coding Level of Care Code 81948 SUB INP/OBS CARE 3/50MIN Diagnoses Symptomatic anemia D64.9 Low Back Pain M54.50 CAD (coronary artery disease) I25.10 Chronic obstructive pulmonary disease J44.9 Diabetes E11.9 Hypertension I10 Hyperlipidemia E78.5 Abdominal aneurysm I71.4 Anxiety F41.9 Paroxysmal atrial fibrillation with RVR I48.0 Lung nodule R91.1 Tobacco abuse Z72.0
[2023-01-01 06:26] LABS: BUN Creatinine Ratio 14.6 (10-20); Calcium 8.7 mg/dl (8.5-10.1); Est GFR (African American) 63.8 ml/min
[2023-01-01 06:56] LABS: Anisocytosis Present; Basophils # (auto) 0.03 K/uL (0-0.2); Basophils % (auto) 0.7 %; Eosinophils # (auto) 0.07 K/uL (0-0.50); Eosinophils % (auto) 1.5 %; Giant Platelets 1+; Hematocrit (blood only) 28.1 % (37.0-47.0); Hemoglobin 8.6 g/dl (12.0-16.0); Hypochromasia Present; Immature Granulocytes # (auto) 0.03 K/uL (0.01-0.20); Immature Granulocytes % (auto) 0.7 %; Lymphocytes # (auto) 1.06 K/uL (1.2-3.4); Lymphocytes % (auto) 23.3 %; Mean Corpuscular Hemoglobin 20.4 pg (25.0-34.0); Mean Corpuscular Hgb Conc 30.6 g/dL (32.0-36.0); Mean Corpuscular Volume 66.7 fL (80.0-100.0); Microcytosis Present; Monocytes # (auto) 0.59 K/uL (0.11-0.59); Neutrophils # (auto) 2.77 K/uL (1.40-6.50); Neutrophils % (auto) 60.8 %; Platelet Count 238 K/uL (130-400); Polychromasia 1+; RDW Coefficient of Variation 24.3 % (11.5-14.5); Red Blood Count 4.21 M/uL (4.20-5.40); White Blood Count 4.55 K/ul (4.8-10.8)
[2023-01-01] MEDS: NICOTINE 14 MG/24 HR PATCH TD SCH (09:52)
[2023-01-01] MEDS: cloNIDine HCL 0.1 MG TAB PO SCH (09:54)
[2023-01-01] MEDS: DRONEDARONE HCL 400 MG TAB PO SCH (09:54)
[2023-01-01] MEDS: DULoxetine HCL 20 MG CAP PO SCH (09:55)
[2023-01-01] MEDS: LIDOCAINE 5% 1 PATCH TD SCH (09:56)
[2023-01-01] MEDS: TRIAMTERENE/HCTZ 37.5/25MG CAP PO SCH (09:58)
[2023-01-01] MEDS: POLYETHYLENE (MIRALAX) 17 GM PACK PO SCH (09:59)
[2023-01-01] MEDS ORDERED: IRON SUCROSE 200 MG in 0.9 % SODIUM CHLORIDE 100 ML IV ONE (10:00)
--- NOTE | 2023-01-01 12:25 | Discharge Summary ---
Date of Service January 01, 2023 Admission HPI Per Admitting Provider Loren Chavez is a 72-year-old female with history of coronary artery disease status post drug-eluting stent in 2011, COPD, diabetes, hypertension, hyperlipidemia, hepatitis C status post curative treatment presenting with symptomatic anemia. Patient was seen by her PCP this afternoon for a well visit. She had routine blood work performed and was found to have a low hemoglobin at 5.9. Patient does report generalized weakness, fatigue as well as dyspnea on exertion and some shortness of breath. She denies melena, hematochezia, hematuria, vaginal bleeding. Denies easy bleeding or bruising. She does have chronic ongoing back pain. No falls or trauma. Patient eats a regular diet. Was previously on oral iron supplementation Patient has longstanding history of anemia. Previously determined to be se condary to iron deficiency from poor absorption. She has had EGDs and colonoscopies in the past which were largely unremarkablesome gastritis noted on EGD, nonbleeding diverticula and internal hemorrhoids on colonoscopy. Patient did receive iron transfusions x6 in 2016. She was evaluated by hematology for this issue in August 2019. In the ER she is afebrile, hemodynamically stable, no acute distress. Resting comfortably. No complaints at this time ER course: Morphine 4 mg IV Normal saline x500 mL 2 units PRBCs Principal Diagnosis Symptomatic iron deficiency anemia, acute L2 compression fracture with exacerbation of back pain Discharge Exam General-alert and oriented x3, no fevers, no chills HEENT-head atraumatic and normocephalic, pupils equal and reactive to light, extraocular muscles intact Neck-no lymphadenopathy or thyromegaly, trachea midline Chest-clear to auscultation percussion. No rales wheezing or rhonchi Cardiac-regular rate and rhythm, normal S1 and S2 Abdomen-normal bowel sounds, nontender, no hepatosplenomegaly Extremities-severe lumbar discomfort from underlying acute compression fracture. Limited range of motion as expected Neuro-cranial nerves II through XII intact, motor and sensory function within normal limits, strength symmetrical, no focal deficits Psych-normal affect, normal mood Discharge Data Allergies Allergy/AdvReac Type Severity Reaction Status Date / Time levofloxacin Allergy Intermediate FOGGY Verified 12/30/22 10:35 FEELING Penicillins Allergy Intermediate UPPER BODY Verified 12/30/22 10:35 RASH gluten AdvReac Intermediate GI SYMPTOMS Verified 12/30/22 10:35 Consultations 12/30/22 19:56 ED Decision to Admit Stat Ordered Studies 12/30/22 15:21 CT abd pelvis IV con only Stat 12/30/22 21:30 CT chest diagnostic wo con Routine Hospital Course (1) Symptomatic anemia: Hemoglobin improved to 8.6 with blood transfusion and remained stable. She is iron deficient. Parenteral iron replacement has been started. Eliquis has been discontinued. Fecal occult blood negative Denies blood loss, melena, hematochezia, hematuria, bleeding/bruising or vaginal bleeding. CT of the abdomen and pelvis was negative for retroperitoneal bleed. (2) Low Back Pain: Acute lumbar compression fracture noted on imaging. Much improved with intravenous morphine as needed started. MiraLAX also started to prevent constipation. Appreciate PT/OT evaluations. She is able to ambulate to and from the bathroom without assistance. She has narcotic pain medication at home to use as needed. She follows up with outpatient pain management. (3) CAD (coronary artery disease): status post stent placement in 2011. Presently denies chest pain. No acute ischemic EKG changes. Troponin unremarkable. Continue current medical management (4) Chronic obstructive pulmonary disease: No exacerbation. Admission dyspnea on exertion is due to anemia. Now resolved (5) Diabetes: Type II. Insulin-dependent. Manages with insulin pump. Overall well controlled, with last hemoglobin A1c on 11/21/2022 = 6.8. (6) Hypertension: Treated with clonidine, metoprolol, triamterene/hydrochlorothiazide (7) Hyperlipidemia: Chronic. Stable. Continue atorvastatin and fenofibrate (8) Abdominal aneurysm: Seen on CT scan. No intervention necessary at this time. (9) Anxiety: Chronic. Treated with sertraline, clonazepam, Cymbalta (10) Paroxysmal atrial fibrillation with RVR: Status post ablation. Currently in normal sinus rhythm. Continue metoprolol, apixaban, Dronedarone (11) Lung nodule: Seen on routine chest x-ray. A nonemergent CT of the chest is recommended for follow-up (12) Tobacco abuse: Patient continues to smoke approximately 1/2 pack of cigarettes per day. Counseled to stop smoking. Nicotine patch ordered Plan Home today, January 01, with iron supplement recommended. She will need follow-up with her usual pain management provider within 1 week. She has narcotic pain medication at home that she takes for back pain. Total Time Total Time Spent Total Time Spent (In Minutes): 40 minutes Discharge Plan Discharge Items Patient Disposition: Home - Home Health Services Reason For Visit: SYMPTOMATIC ANEMIA Discharge Diagnosis: Symptomatic iron deficiency anemia, acute exacerbation low back pain due to L2 compression fracture Condition on Discharge: Good Activity: Resume your previous activity Non-emergency contact: Primary Care Provider Call non-emergency contact if: you have any medication questions and your symptoms worsen Follow-up/Referrals: Saba Hinkle MD [Primary Care Provider] - Diet: Carb Consistent or DM2 and Heart Healthy Addtl Attending Provider Instructions: Continue iron supplementation indefinitely. Follow-up with pain management as soon as possible. Eliquis has been discontinued Pending Studies at Discharge: No Stand-Alone Forms: My [employer], Smoking Cessation Medications and DC Order Prescriptions: New ferrous sulfate 325 mg (65 mg iron) tablet 325 mg PO BID Qty: 60 0RF oxycodone 5 mg Tablet 5 mg PO Q6H PRNQty: 0 0RF Continued lansoprazole 30 mg capsule,delayed release(DR/EC) 30 mg PO DAILYBB Qty: 30 11RF triamterene-hydrochlorothiazid 37.5-25 mg capsule 1 cap PO QAM Qty: 90 3RF fenofibrate nanocrystallized 145 mg tablet 145 mg PO HS Qty: 90 1RF sertraline 50 mg tablet 50 mg PO HS atorvastatin 40 mg tablet 40 mg PO DAILY Qty: 90 3RF insulin glargine [Basaglar KwikPen U-100 Insulin] 100 unit/mL (3 mL) insulin pen 10 unit subcut DIRECTED 0RF Rx Instructions: 10 units every 24 hr pump failure. (DME) BD Insulin Syringe (half unit) 0.3 mL 31 gauge x 5/16" syringe See Rx Instructions .Route Qty: 50 3RF Rx Instructions: As directed to use in case of pump failure with Novolog vial nitroglycerin 0.4 mg tablet, sublingual 0.4 mg SL Q5M PRN (Reason: chest pain) Qty: 25 3RF Rx Instructions: do not exceed 3 doses per episode (DME) Dexcom G6 Sensor Device See Rx Instructions .Route Qty: 3 0RF Rx Instructions: change every 10 days duloxetine [Cymbalta] 20 mg capsule,delayed release(DR/EC) 20 mg PO DAILY Qty: 30 1RF doxazosin 2 mg tablet 1 mg PO HS Qty: 14 0RF clonazepam 0.5 mg tablet 0.25 - 0.5 mg PO HS PRN (Reason: Sleep /Anxiety ) Qty: 30 1RF Multaq 400 mg tablet 400 mg PO BID Qty: 180 3RF (DME) lancets [FreeStyle Lancets] 28 gauge misc See Dose Instructions .ROUTE .MEDSUPPLY Qty: 25 Rx Instructions: FOR USE 4 TIMES DAILY (DME) FreeStyle Lite Strips Strip See Rx Instructions .ROUTE .MEDSUPPLY Qty: 10 Rx Instructions: TEST 1 TIMES DAILY (DME) Omnipod Dash Pods (Gen 4) Cartridge See Rx Instructions .Route Qty: 30 3RF Hold Instructions: Insurance coverage Rx Instructions: Change pod every 72 hours aspirin 81 mg tablet,delayed release (DR/EC) 81 mg PO 3XWK Rx Instructions: Mon, Wed, Fri potassium chloride 20 mEq packet 20 meq PO BID Qty: 60 0RF insulin aspart U-100 [Novolog U-100 Insulin aspart] 100 unit/mL Solution 0 sliding scale dose continuous subcutaneous infusion USEASDIRECTD clonidine HCl 0.1 mg tablet 0.1 mg PO BID Rx Instructions: TAKE 1 TABLET BY MOUTH TWICE DAILY metoprolol succinate 50 mg tablet extended release 24 hr 50 mg PO BID Rx Instructions: TAKE 1 TABLET BY MOUTH TWICE DAILY cetirizine 10 mg tablet 10 mg PO DAILY PRN (Reason: allergies) multivitamin Tablet 1 tab PO QAM metoprolol tartrate 25 mg tablet 25 mg PO DAILY PRN (Reason: a fib) Rx Instructions: Take one tablet for increased heart rate more than 120. coenzyme Q10 [CoQ-10] 100 mg capsule 100 mg PO DAILY Discontinued apixaban 5 mg tablet 5 mg PO BID Qty: 180 3RF Discharge Orders: Discharge Order (Routine); Ordered 01/01/23 Ordered By: Fidencio Heart Admission Data Admit Date/Time: 12/30/22 20:36 Attending Provider: Fidencio Heart Admit Provider: Diane Gillespie Primary Care Provider: Saba Hinkle V. Other Providers: Diane Gillespie Coding Level of Care Code HOSP INP/OBS DISCH >30 MIN Diagnoses Symptomatic anemia D64.9 Low Back Pain M54.50 CAD (coronary artery disease) I25.10 Chronic obstructive pulmonary disease J44.9 Diabetes E11.9 Hypertension I10 Hyperlipidemia E78.5 Abdominal aneurysm I71.4 Anxiety F41.9 Paroxysmal atrial fibrillation with RVR I48.0 Lung nodule R91.1 Tobacco abuse Z72.0
[2023-01-01] MEDS: METOPROLOL SUCC 50MG EXT REL TAB PO SCH (13:38)
== END 2023-01-01 15:00 | disposition home health service (06) | DRG 812 ==
LOC: ED 14:25 → SUATTDRO 20:36 → 3N 20:36

== ENCOUNTER 2025-09-04 13:35 | Inpatient (IN) ==
--- NOTE | 2025-09-04 14:05 | Emergency Department Note ---
Impression & Plan Shortness of breath, Anemia, Bilateral pleural effusion ED Provider Note NAME: SAM PENA AGE: 75 SEX: F : 1950 ARRIVES VIA: Walk-In INFORMANT: Patient, ED PROVIDER(S): Nikko Leyva MD CHIEF COMPLAINT: MEDICAL DECISION MAKING: Patient presents due to concern for shortness of breath. Patient is anticoagulated and has reassuring vitals believe PE to be less likely. Patient still did have IV blood work and DuoNeb treatment and IV methylprednisolone along with a chest x-ray EKG and troponin. Patient was noted to have leukopenia with white count of 3.6. The patient's hemoglobin was lower than prior at 9.2. Prior was 12.7 back in July. Platelet count unremarkable. Patient's kidney function unremarkable. Troponin negative. Urinalysis does not show evidence of obvious blood or infection. BioFire negative. The patient's chest x-ray shows bilateral pleural effusions and possible lung base consolidation. Antibiotics deferred at this time. Did discuss the patient's symptoms likely multifactorial with associated pleural effusion and possible developing pneumonia or consolidation and anemia. There also may be a component of deconditioning given the patient's recent procedure. I did speak the on-call hospitalist service after discussing this with the patient the patient's family member. I did director counseling bureau the patient on smoking cessation. I did speak with Dr. Hummel and the patient was admitted to the medicine service. I counseled patient on smoking cessation for 3 minutes. Treatment options discussed and resources provided. Patient was receptive. Discussion w/ other healthcare providers: Dr. Hummel inpatient medicine service Prior /Outside records reviewed: I reviewed part of a discharge summary from September 01, 2025. The patient did have a left TCAR. Patient currently on Eliquis Differential diagnosis: Reactive airway disease, pneumonia, pneumothorax, COPD, CHF, ACS, pulmonary embolism, musculoskeletal, GERD as well as other pathologies were considered. Diagnostics, as interpreted by me: ECG: Sinus bradycardia, rate 56, normal [place] and QRS, prolonged QT C, normal axis no ST elevations. Cardiac monitoring: An order was placed for continuous cardiac monitoring. The monitor shows a rate of 62 with sinus rhythm. Patient was placed on pulse oximetry Medical decision rules: None Imaging studies: I informally interpreted the patient's chest x-ray with bilateral pleural effusions with formal report to follow. HPI: Patient presents due to concern for shortness of breath. She feels as though she cannot take a big deep breath and has had some dyspnea on exertion. The patient did have a recent TCAR a procedure on the right side completed by Dr. Anton on the . Patient states that she has had these symptoms since last evening. She denies any cough or fever. Remote history of COPD and does smoke. Patient denies any chest pains. Patient has resumed her Eliquis and is taking it. Tje patient does admit that her recovery seems a bit more slow compared to when she had the procedure done on the left ICA about a month before this 1. Patient denies any falls or trauma. No known sick contacts. Patient denies any leg swelling or calf pain. No history of DVT or PE. PAST MEDICAL HISTORY: See Below PAST SURGICAL HISTORY: See Below SOCIAL HISTORY: See Below HOME MEDICATIONS: See Below ALLERGIES: See Below VITALS: See Below PHYSICAL EXAMINATION: GENERAL: NAD, non-toxic. EYE EXAM: Normal conjunctiva. PERRL, no anisocoria and EOM's grossly intact w/o pain. OROPHARYNX: Moist mucus membranes, grossly normal dentition. NECK: Trachea midline, no stridor. Well-healing incisional site at the base of the right anterior neck, Dermabond in place. No surrounding erythema, aged bruising noted. LUNGS: Clear to auscultation. Normal chest wall mechanics. HEART: NSR, no MRG. ABDOMEN: Abdomen soft, non-tender, no masses, no rebound or guarding. BACK: No CVA TTP. SKIN: Bruising as noted above. UPPER EXTREMITIES: Upper extremities are grossly normal. LOWER EXTREMITIES: Grossly normal, no edema. NEURO EXAM: Awake and alert, follows commands, negative Homans' sign bilaterally. No obvious facial asymmetry, normal speech, moves all 4 extremities. Past Med/Surg History Problem List (Updated 09/04/25 @ 23:43 by Nikko Leyva MD) Bilateral pleural effusion (Acute) Anemia (Acute) Shortness of breath (Acute) S/P vascular surgery Paroxysmal atrial fibrillation Carotid stenosis, bilateral Dizziness Current smoker Multiple nodules of lung Solid nodule of lung 6 mm to 8 mm in diameter Lymphocytic colitis History of compression fracture of spine (~12/30/22) mild superior endplate compression fracture at L2 History of compression fracture of spine (~10/14/22) Subacute mild inferior endplate compression fracture at T8 and a subacute nondisplaced superior endplate compression fracture at T9. Anxiety and depression HLD (hyperlipidemia) HTN (hypertension) Osteopenia Mild non proliferative diabetic retinopathy Chronic anticoagulation (Acute) Back pain (Acute) Thoracic kyphosis Thoracic degenerative disc disease PAC (premature atrial contraction) S/P catheter ablation of slow pathway 08/05/22 at [facility] with Dr. 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), managed as type 1 (Acute) Internal hemorrhoids (Acute) Hypertrophy of nasal turbinates (Acute) Gluten intolerance (Acute) Fatigue (Acute) Coronary arteriosclerosis (Acute) Claustrophobia (Acute) Celiac artery stenosis (Acute) Carpal tunnel syndrome (Acute) Arthritis (Acute) Adenomatous polyp of colon (Acute) Abdominal bruit (Acute) Anemia CAD (coronary artery disease) Medical History Acute blood loss anemia Voice hoarseness as of phone interview 08/23/25, pt with hoarse voice s/p intubation for 07/31/25 TCAR; pt denies sore throat Pulmonary hypertension mild pulmonary hypertension noted on 2021 echo History of blood transfusion AVNRT (AV ramesh re-entry tachycardia) Paroxysmal atrial fibrillation [facility] [place]. Hassan Chronic anticoagulation Hyperlipidemia Dizziness Carotid stenosis, bilateral s/p L TCAR 07/31/25; upcoming R TCAR Osteopenia Adjustment reaction with anxiety and depression Tobacco use disorder pt weaning off of cigarettes; she is smoking 'every now and then' and using vape; PCP Rx chantix but she is waiting to start until after 08/30/25 surgery Hypotension hctz currently on hold; pt currently following closely with PCP for BP fluctuations Nonsustained paroxysmal supraventricular tachycardia [facility] [place] Hassan Supraventricular tachycardia hx - [facility] [place] Hassan Arthritis Coronary arteriosclerosis [facility] [place]. 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 Hassan Thoracic degenerative disc disease Lymphocytic colitis Mild nonproliferative diabetic retinopathy PVD (peripheral vascular disease) Hx of compression fracture of spine ~12/30/22 mild superior endplate compression fracture at L2 ~11/03/22 Subacute mild inferior endplate compression fracture at T8 and a subacute nondisplaced superior endplate compression fracture at T9. Lactose intolerance Hx of sinus tachycardia History of COVID-19 04/05/23. [place] [facility]. states only symptom was diarrhea - resolved History of non-ST elevation myocardial infarction (NSTEMI) per cardiac note, Patient was hospitalized at the [facility] from 03/08/22 through 03/12/22 with Paroxysmal Atrial Fibrillation with RVR in setting of Hypomagnesemia and Hypokalemia and a NSTEMI - pt denies heart attack Abdominal aneurysm 30mm infrarenal aneurysm per 12/2022 abd/pelvis CT Osteoporosis History of hepatitis C related to blood transfusion - treated/resolved History of cervical cancer dx'd 1984. treated surgically. MVP (mitral valve prolapse) [facility] [place] Hassan CAD (coronary artery disease) x1 stents - [facility] [place] Hassan Gluten intolerance GERD (gastroesophageal reflux disease) Lung nodule Weakness of both legs Low Back Pain Skin sensitivity Radicular pain of thoracic region Serum digoxin level above therapeutic range Iron deficiency anemia emr - pt denies Surgical History History of transcarotid artery revascularization (TCAR) L 07/31/25: [place]: MAC#3, ETT#7.0, Gr View 1, atraumatic x 1 (*pt still with hoarse voice on 08/23/22; she denies any sore throat) History of left cataract extraction Hx of right cataract extraction S/P catheter ablation of slow pathway 08/05/22 at [facility] with Dr. Maurice Family history of reaction to anesthesia mother>nausea History of colonoscopy History of tooth extraction History of tonsillectomy History of hysterectomy with unilateral oophorectomy H/O heart artery stent x 1 (2011) - [facility] [place] Hassan History of cardiac catheterization per cardiac note, cath done 03/2022 [facility] -- "Given the anatomical location of the ostial LCx disease and occluded OM1 -- medical management was recommended." 2011 - stent History of esophagogastroduodenoscopy (EGD) S/P ablation of atrial fibrillation 08/05/2022- [facility] - [facility] [place]. Hassan Family History Mother Diabetes Heart disease Myocardial infarction PONV (postoperative nausea and vomiting) Sister Breast cancer Grandmother (Maternal) Myocardial infarction Father No problems noted. Denies family history of Colon cancer Ovarian cancer Prostate cancer Crohn's disease Colorectal cancer Social History Smoking Status: Current every day smoker Tobacco Type: Cigarettes and E-cigarettes / Vaping Age Started Using Tobacco: 22; packs per day: 0.5; Cigarettes Per Day: 0-1; Second Hand Exposure: No; Do You Dip or Chew Tobacco: No; Hx Alcohol Use: Yes Alcohol type: wine Hx Substance Use: No Preferred Language: Romansh Communication Ability: Effective Visual Impairment: No Limitations Hearing Ability: Normal Manual Winder Required: No Beliefs That Will Affect Care: None marital status: / Current Living Situation: Alone current occupational status: retired Feels Safe at Home: Yes Seatbelt Use: always Sunscreen Use: Yes Assistive Devices: Other Allergies Allergies Allergy/AdvReac Type Severity Reaction Status Date / Time Penicillins Allergy Intermediate Upper Body Verified 09/04/25 17:13 Rash gluten AdvReac Intermediate Gastrointestinal Verified 09/04/25 17:13 Upset lactose AdvReac Intermediate Diarrhea Verified 09/04/25 17:13 levofloxacin AdvReac Intermediate Foggy Verified 09/04/25 17:13 Feeling clindamycin AdvReac Unknown Unknown Verified 09/04/25 17:13 Home Meds Home Medications Medication Instructions Recorded Confirmed lancets 28 gauge (FreeStyle #25 ea 06/02/19 08/29/25 Lancets) blood sugar diagnostic (FreeStyle #10 ea 08/20/21 08/29/25 Lite Strips) multivitamin 1 tab PO QAM 03/27/22 09/04/25 coenzyme Q10 100 mg capsule 100 mg PO 3XWK 11/21/22 09/04/25 (CoQ-10) acetaminophen 500 mg capsule 500 mg PO Q6H PRN Pain 01/21/23 09/04/25 blood-glucose sensor (Dexcom G7 08/23/24 08/29/25 Sensor device) cholecalciferol (vitamin D3) 50 4,000 unit PO DAILY 08/23/24 09/04/25 mcg (2,000 unit) capsule lactobacillus combination no.9 4 4,000 mmu cells PO DAILY 07/17/25 09/04/25 billion cell capsule (Adult 50 Plus Probiotic) clopidogrel 75 mg tablet 75 mg PO DAILY 07/21/25 09/04/25 clonazepam 0.5 mg tablet (Klonopin) 0.25 - 0.5 mg PO HS PRN Sleep 07/31/25 09/04/25 /Anxiety doxazosin 2 mg tablet (Cardura) 2 mg PO HS 07/31/25 09/04/25 lansoprazole 30 mg capsule,delayed 30 mg PO DAILYBB esophageal reflux 07/31/25 09/04/25 release (Prevacid) aspirin 81 mg tablet,delayed 81 mg PO DAILY 08/03/25 09/04/25 release olmesartan 20 mg tablet (Benicar) 20 mg PO HS 08/23/25 09/04/25 atorvastatin 40 mg tablet (Lipitor) 40 mg PO QPM 08/30/25 09/04/25 Previous Rx's Medication Instructions Recorded dronedarone 400 mg tablet (Multaq) 400 mg PO BID #180 tabs 09/27/24 clonidine HCl 0.2 mg tablet 0.2 mg PO BID #180 tabs 10/22/24 calcitonin (salmon) 200 1 spray intranasal (ALT) DAILY 01/02/25 unit/actuation nasal spray #3.7 mL metoprolol succinate 50 mg 50 mg PO BID #60 tabs 03/15/25 tablet,extended release 24 hr fenofibrate nanocrystallized 145 145 mg PO HS #90 tabs 04/10/25 mg tablet apixaban 5 mg tablet (Eliquis) 5 mg PO BID #180 tabs 07/21/25 nitroglycerin 0.4 mg sublingual 0.4 mg sublingual Q5M PRN chest 07/21/25 tablet pain #25 tabs buspirone 5 mg tablet 5 - 10 mg (1 - 2 x 5 mg) PO BID 07/24/25 #180 tabs varenicline tartrate 0.5 mg (11)-1 See Rx Instructions .Route 08/07/25 mg (42) tablets in a dose pack .COMPLEX #53 ea (Chantix Starting Month Box) ondansetron HCl 4 mg tablet 4 mg PO Q8H PRN nausea and 09/01/25 vomiting 4 days #10 tabs oxycodone 5 mg tablet 10 mg (2 x 5 mg) PO Q4H PRN pain 09/01/25 #30 tabs Results & Data (ED) Vital Signs Vital Signs - 24 hr 09/04/25 13:38 09/04/25 14:05 09/04/25 14:13 Temperature 36.6 C Temperature Source Oral Pulse Rate 60 57 L Pulse Rate [Apical] 63 Pulse Rhythm Regular Pulse Strength Normal Respiratory Rate 20 18 Respiratory Effort / Characteristics Non-Labored Spontaneous Non-Labored Spontaneous Respiratory Depth Normal Normal Respiratory Pattern Regular Blood Pressure 118/64 Blood Pressure [Right Arm] 169/89 H Blood Pressure Mean 82 Blood Pressure Mean [Right Arm] 115 Blood Pressure Position Sitting Pulse Oximetry 100 99 Oxygen Delivery Method Room Air Room Air Sepsis New/Unexplained Change in Mental Status N/A Sepsis Action Taken by Nursing No Action Required 09/04/25 14:27 09/04/25 14:28 09/04/25 15:00 Temperature Temperature Source Pulse Rate Pulse Rate [Apical] 55 L Pulse Rhythm Pulse Strength Respiratory Rate 16 Respiratory Effort / Characteristics Non-Labored Spontaneous Short of Breath Non-Labored Spontaneous Respiratory Depth Shallow Normal Respiratory Pattern Regular Regular Blood Pressure Blood Pressure [Right Arm] 181/90 H Blood Pressure Mean Blood Pressure Mean [Right Arm] 120 Blood Pressure Position Pulse Oximetry 98 100 Oxygen Delivery Method Room Air Room Air Sepsis New/Unexplained Change in Mental Status Sepsis Action Taken by Nursing 09/04/25 16:00 Temperature Temperature Source Pulse Rate Pulse Rate [Apical] 74 Pulse Rhythm Pulse Strength Respiratory Rate 15 Respiratory Effort / Characteristics Non-Labored Spontaneous Short of Breath Respiratory Depth Normal Respiratory Pattern Regular Blood Pressure Blood Pressure [Right Arm] 204/103 H Blood Pressure Mean Blood Pressure Mean [Right Arm] 136 Blood Pressure Position Pulse Oximetry 98 Oxygen Delivery Method Room Air Sepsis New/Unexplained Change in Mental Status Sepsis Action Taken by [facility] Medications Current Medication List: was personally reviewed by me Laboratory Data Attestation: I reviewed the patient's lab results. 09/04/25 19:38 09/04/25 13:55 Lab Results 09/04/25 09/04/25 09/04/25 Range/Units 13:55 14:53 16:20 WBC 3.63 L (4.8-10.8) K/ul RBC 3.03 L (4.20-5.40) M/uL Hgb 9.2 L (12.0-16.0) g/dl Hct 28.4 L (37.0-47.0) % MCV 93.7 (80.0-100.0) fL MCH 30.4 (25.0-34.0) pg MCHC 32.4 (32.0-36.0) g/dL RDW Std Deviation 47.4 H (36.4-46.3) fL RDW Coeff of Mercedes 13.7 (11.5-14.5) % Plt Count 213 (130-400) K/uL MPV 10.8 (9.4-12.4) fL Immature Gran % (Auto) 0.3 % Neut % (Auto) 68.3 % Lymph % (Auto) 20.1 % [place] % (Auto) 9.1 % Eos % (Auto) 1.9 % Baso % (Auto) 0.3 % Neut # (Auto) 2.48 (1.40-6.50) K/uL Lymph # (Auto) 0.73 L (1.20-3.40) K/uL [place] # (Auto) 0.33 (0.11-0.59) K/uL Eos # (Auto) 0.07 (0.00-0.50) K/uL Baso # (Auto) 0.01 (0.00-0.20) K/uL Immature Gran # (Auto) 0.01 (0.01-0.20) K/uL PT 13.8 H (9.0-12.0) Seconds INR 1.3 H (0.9-1.1) APTT 26 (21-31) Seconds PTT Ratio 1.0 Sodium 138 (136-145) mmol/L Potassium 3.7 (3.5-5.1) mmol/L Chloride 106 (98-107) mmol/L Carbon Dioxide 26 (21-32) mmol/L Anion Gap 6 (3-11) BUN 13 (6-23) mg/dl Creatinine 0.85 (0.6-1.2) mg/dl Est Cr Clr Drug Dosing 46.0 ml/min eGFR 72.30 BUN/Creatinine Ratio 15.3 (10-20) Glucose 169 H (70-99(Fasting)) mg/dl Calcium 8.8 (8.6-10.3) mg/dl Magnesium 1.7 (1.7-2.4) mg/dl Total Bilirubin 0.7 (0.2-1.0) mg/dl AST 18 (13-39) U/L ALT 10 (7-52) U/L Alkaline Phosphatase 28 L (34-104) U/L Troponin I High Sens 6.2 (0-14) pg/ml Total Protein 6.5 (6.0-8.3) gm/dl Albumin 3.2 L (3.4-5.0) gm/dl Globulin 3.3 (2.5-4.0) gm/dl Albumin/Globulin Ratio 1.0 (0.9-2) Procalcitonin < 0.02 (0-0.5) ng/ml Urine Color Yellow Urine Appearance Clear (Clear) Urine pH 8.5 H (4.5-7.5) Ur Specific Elaine 1.007 (1.000-1.030) Urine Protein Negative (Negative) Urine Glucose (UA) Negative (Negative) Urine Ketones Negative (Negative) Urine Blood Negative (Negative) Urine Nitrite Negative (Negative) Urine Bilirubin Negative (Negative) Urine Urobilinogen Negative (Negative) Ur Leukocyte Esterase Trace H (Negative) Urine WBC (Auto) 0-5 (0-5) /hpf Urine RBC (Auto) 0-2 (0-2) /hpf U Hyaline Cast (Auto) 0-2 (0-2) /lpf U Epithel Cells (Auto) 0-2 (0-2) /hpf Urine Bacteria (Auto) None Seen (None Seen) Urine Comment Adenovirus (PCR) Not Detected (NotDetected) B. pertussis DNA (PCR) Not Detected (NotDetected) B.parapertussis DNA PCR Not Detected (NotDetected) C. pneumoniae DNA (PCR) Not Detected (NotDetected) Coronavirus OC43 (PCR) Not Detected (NotDetected) Coronavirus HKU1 (PCR) Not Detected (NotDetected) Coronavirus 229E (PCR) Not Detected (NotDetected) SARS-CoV-2 (PCR) Not Detected (NotDetected) Coronavirus NL63 (PCR) Not Detected (NotDetected) Human Metapneumovir PCR Not Detected (NotDetected) Influenza Type A (PCR) Not Detected (NotDetected) Influenza Type B (PCR) Not Detected (NotDetected) M. pneumoniae (PCR) Not Detected (NotDetected) Parainfluenza 1 (PCR) Not Detected (NotDetected) Parainfluenza 2 (PCR) Not Detected (NotDetected) Parainfluenza 3 (PCR) Not Detected (NotDetected) Parainfluenza 4 (PCR) Not Detected (NotDetected) RSV (PCR) Not Detected (NotDetected) Entero/Rhino (PCR) Not Detected (NotDetected) Administered Medications Albuterol (Albuterol 0.083% Nebu Soln 3 Ml Vial) 2.5 mg NEB Q2H PRN; Protocol PRN Reason: Shortness Of Breath Or Wheezing Stop: 10/04/25 19:20 Last Admin: 09/04/25 21:36 Dose: 2.5 mg Documented By: ALISA Albuterol (Albut/Ipratrop 3mg/0.5mg Neb 3 Ml Vial) 3 ml NEB Q4HWA DEVEN Stop: 10/04/25 19:20 Last Admin: 09/04/25 21:41 Dose: 3 ml Documented By: ALISA Methylprednisolone 40 mg/ (Syringe) 0.64 mls @ 1.5 mls/min IV Q12H DEVEN Stop: 10/04/25 19:29 Last Admin: 09/04/25 21:36 Dose: 1.5 mls/min Documented By: ALISA Insulin Aspart (Insulin Aspart Per Unit Charge) 0 units SC ACHS DEVEN Stop: 10/04/25 20:59 Last Admin: 09/04/25 22:02 Dose: 3 units Documented By: ALISA Co-signed By: FATMATA Potassium Chloride (Potassium Chloride Crtab 20 Meq Tabcr) 20 meq PO QAM [facility] Stop: 09/06/25 19:59 Last Admin: 09/04/25 21:35 Dose: 20 meq Documented By: ALISA Discontinued Medications Albuterol (Albut/Ipratrop 3mg/0.5mg Neb 3 Ml Vial) 3 ml INH NOW STA Stop: 09/04/25 14:23 Last Admin: 09/04/25 14:48 Dose: 3 ml Documented By: DENITA Furosemide (Furosemide Inj 20 Mg/2 Ml Vial) 20 mg IV ONE ONE Stop: 09/04/25 18:24 Last Admin: 09/04/25 19:31 Dose: 20 mg Documented By: ALISA Sodium Chloride (Nss) 500 mls @ 999 mls/hr IV .Q31M STA Stop: 09/04/25 14:52 Last Infusion: 09/04/25 15:19 Dose: Infused Documented By: Admin: 09/04/25 14:44 Dose: 999 mls/hr Documented By: DENITA Ioversol (Optiray 320 125ml) 118 ml IV ONCE ONE Stop: 09/04/25 16:27 Last Admin: 09/04/25 16:27 Dose: 118 ml Documented By: ANGELICA Methylprednisolone (Methylprednisolone 125 Mg/2 Ml Vial) 60 mg IV NOW STA Stop: 09/04/25 14:23 Last Admin: 09/04/25 14:46 Dose: 60 mg Documented By: DENITA Imaging Data Radiologist's Impression: Chest X-Ray 09/04/25 14:22 XR chest 1V portable CLINICAL HISTORY: Dyspnea COMPARISON STUDY: 06/15/2025 FINDINGS: There is mild cardiomegaly without pulmonary vascular congestion. Stable hyperexpanded lungs. There are interval small bilateral pleural effusions and mild consolidation at the lung bases, right greater than left. No pneumothorax. IMPRESSION: Interval small bilateral pleural effusions and mild adjacent lung base consolidation, right greater than left. ACT 112: Negative or not required by law. Electronically signed by: Ricardo Garces M.D. 09/04/2025 2:41 PM Chest CTA 09/04/25 16:10 Clinical history: Rule out pulmonary embolism Technique: Axial computed tomography images were obtained of the chest after the administration of intravenous contrast according to the CT angiogram protocol Comparison is made to the prior CTA dated 06/15/2025 Findings: There is no definite sign of pulmonary embolism. There is a new 8 mm peripheral nodular opacity in the right lower lobe. There are 2 unchanged small left upper lobe nodules, measuring 2-3 mm in size. There is an unchanged 2-3 mm right upper lobe nodule. There is subsegmental atelectasis in both lower lobes, the right middle lobe, and lingula. There is no pneumothorax. There are new small bilateral pleural effusions. There is emphysema. There is an unchanged suspected bronchocele in the superior segment of the right lower lobe There is no mediastinal, hilar, or axillary adenopathy. The thoracic aorta appears unremarkable with no sign of aneurysm or dissection. There is no pericardial effusion The visualized upper abdomen appears unremarkable. No fracture is seen. No focal osseous lesion is evident Impression: 1. No definite sign of pulmonary embolism 2. New small bilateral pleural effusions and bilateral lung base atelectasis 3. New nodular opacity in the right lower lobe that could be due to focal atelectasis or an inflammatory nodule. A follow-up chest CT could be obtained in 3-6 months 4. Unchanged additional small pulmonary nodules, likely benign 5. 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 Emphysema ACT 112: Positive. There are findings on this exam that require communication between the performing entity and the patient following Patient Test Result Information Act ([place] ACT 112) guidelines. Electronically signed by Primitivo Jauregui 09-04-2025 6:12 PM Discharge Plan Visit Data Chief Complaint: Shortness of Breath/Dyspnea Stated Complaint: SOB ED Provider: Nikko Leyva Discharge Problem: Shortness of breath, Anemia, Bilateral pleural effusion Patient Disposition: Admitted As Inpatient Condition: Good Discharge Instructions Interventions: ED Discharge Assessment Last Done: 09/04/25 19:21 Discharge Problem: Anemia Qualifiers: Anemia type: unspecified type Qualified Code(s): D64.9 - Anemia, unspecified
[2025-09-04 14:36] LABS: Hematocrit (blood only) 28.4 % (37.0-47.0); Hemoglobin 9.2 g/dl (12.0-16.0); Immature Granulocytes # (auto) 0.01 K/uL (0.01-0.20); Immature Granulocytes % (auto) 0.3 %; Mean Corpuscular Hemoglobin 30.4 pg (25.0-34.0); Mean Corpuscular Volume 93.7 fL (80.0-100.0); Platelet Count 213 K/uL (130-400); RDW Standard Deviation 47.4 fL (36.4-46.3); Red Blood Count 3.03 M/uL (4.20-5.40); White Blood Count 3.63 K/ul (4.8-10.8)
--- NOTE | 2025-09-04 14:43 | XRay Report ---
XR chest 1V portable CLINICAL HISTORY: Dyspnea COMPARISON STUDY: 06/15/2025 FINDINGS: There is mild cardiomegaly without pulmonary vascular congestion. Stable hyperexpanded lung s. There are interval small bilateral pleural effusions and mild consolidation at the lung bases, rig ht greater than left. No pneumothorax. IMPRESSION: Interval small bilateral pleural effusions and mild adjacent lung base consolidation, ri ght greater than left. ACT 112: Negative or not required by law. Electronically signed by: Ricardo Garces M.D. 09/04/2025 2:41 PM
[2025-09-04] MEDS: SODIUM CHLORIDE 0.9% 500 ML IV STA (14:44)
[2025-09-04] MEDS: ALBUT/IPRATROP 3MG/0.5MG NEB 3 ML VIAL INH STA (14:48)
[2025-09-04 14:54] LABS: Alanine Aminotransferase 10.0 U/L (7-52); Albumin Globulin Ratio 1.0 (0.9-2); Albumin Level 3.2 gm/dl (3.4-5.0); Alkaline Phosphatase 28.0 U/L (34-104); Anion Gap 6.0 (3-11); Bilirubin,Total 0.7 mg/dl (0.2-1.0); Blood Urea Nitrogen 13.0 mg/dl (6-23); Calcium 8.8 mg/dl (8.6-10.3); Carbon Dioxide 26.0 mmol/L (21-32); Chloride 106.0 mmol/L (98-107); Creatinine Clr Calc Pharmacy 46.0 ml/min; Globulin 3.3 gm/dl (2.5-4.0); Glucose 169.0 mg/dl (70-99(Fasting)); Magnesium 1.7 mg/dl (1.7-2.4); Potassium 3.7 mmol/L (3.5-5.1); Sodium 138.0 mmol/L (136-145); Total Protein 6.5 gm/dl (6.0-8.3)
[2025-09-04 15:08] LABS: INR 1.3 (0.9-1.1); Partial Thromboplastin Time 26 Seconds (21-31); Prothrombin Time 13.8 Seconds (9.0-12.0)
[2025-09-04 15:54] LABS: Chlamydia pneumoniae PCR Not Detected (NotDetected); Coronavirus 229E PCR Not Detected (NotDetected); Coronavirus CoV-2 (COVID19)PCR Not Detected (NotDetected); Coronavirus HKU1 PCR Not Detected (NotDetected); Coronavirus NL63 PCR Not Detected (NotDetected); Coronavirus OC43PCR Not Detected (NotDetected); Human Metapneumovirus PCR Not Detected (NotDetected); Parainfluenza Virus 1 PCR Not Detected (NotDetected); Parainfluenza Virus 2 PCR Not Detected (NotDetected); Parainfluenza Virus 3 PCR Not Detected (NotDetected); Parainfluenza Virus 4 PCR Not Detected (NotDetected); Respiratory Syncytial VirusPCR Not Detected (NotDetected); Rhinovirus/Enterovirus PCR Not Detected (NotDetected)
[2025-09-04] MEDS: OPTIRAY 320 125ml IV ONE (16:27)
--- NOTE | 2025-09-04 16:29 | History & Physical Report ---
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), managed as type 1: (15) Coronary arteriosclerosis: (16) CAD (coronary artery disease): (17) Voice hoarseness: (18) Pulmonary hypertension: (19) AVNRT (AV ramesh re-entry tachycardia): (20) Chronic anticoagulation: (21) Hyperlipidemia: (22) Carotid stenosis, bilateral: (23) Tobacco use disorder: (24) SABINE (latent autoimmune diabetes in adults), managed as type 1: (25) GERD (gastroesophageal reflux disease): Plan #Shortness of breath #Malaise - Undifferentiated, no evident hypoxemia, ongoing tobacco dependence raises the likelihood of an underlying mild emphysema, feeling better after nebs and steroids. - Observation, telemetry, IV Solu-Medrol, respiratory therapy consult with Rip and albuterol on scheduled -X-ray shows possible signs of early overload, given the fact she has had the recent procedure and fairly abrupt onset of symptoms we will obtain a CT/PE neuron to rule out any additional LVEF unlikely pulmonary sources - If CT negative will give Lasix, likely some degree of volume overload given the amount of fluid she was given during the recent TCAR procedure Continuous pulse ox- - findings negative for PE, consistent with volume overload. IV lasix x 1 then BIDD starting tomorrow. - Echo in AM late onset diabetes (managed as type I) -No preprocedure hemoglobin on file, currently 9.7, last check normal was around 12 -There is to some degree of pancytopenia raising concern that blood draws after the fluids were given it had not yet redistributed -Recheck in the ER, hemoglobin level tonight at 2200 Telemetry monitoring, no source of bleed, no hematuria, no-hematochezia or hematemesis #Hypertension #Markedly elevated blood pressure readings - In the setting of TCAR as above, blood pressure management to maintain systolic below 160, avoid hypotension - Hydralazine 5 mg every 3 hours as needed for systolic greater than 130, labetalol and/or Vasotec if needed #widespread atherosclerotic vascular disease at several sites #status post TCAR procedure left 4 weeks ago right 1 week ago #known CAD #Renal Artery Stenosis #Superior mesenteric Stenosis Continue aspirin,-nitroglycerin, telemetry monitoring #late onset diabetes (managed as type I) - Consult to pharmacy for glycemic management, I do not see any insulin on her med list at this time #AVNRT, paroxysmal atrial fibrillation - Continue eliquis, tele monitoring #hypertension - As above, continue home losartan, metoprolol, clonidine - Blood pressure targets as above #hyperlipidemia - Continue statin and fenofibrate #tobacco dependence - ongoing, improving still sporadic cigarrettes #osteopenia - Calcium and D3 vitamin D deficiency - Continue supplement, calcitriol #history of recent flux of esophagitis - Prevacid #anxiety and depression - Continue buspirone, clonazepam as needed #FEN - Diabetic/cardiac diet #CODE STATUS -Modified code, does not want chest compressions, okay with intubation, shocks, ACLS medication at least briefly. Very clear that she did not want sustained interventions if it was not to have a good outcome History of Present Illness Chief Complaint: unable to breathe deeply Primary Care Provider: Saba Hinkle MD 75-year-old female history of widespread atherosclerotic vascular disease at several sites status post TCAR procedure left 4 weeks ago right 1 week ago known CAD, AVNRT, paroxysmal atrial fibrillation, hypertension, hyperlipidemia, late onset diabetes (managed as type I) ongoing tobacco dependence,, history of lymphocytic colitis, osteopenia, vitamin D deficiency, history of recent flux of esophagitis, thoracic kyphosis, anxiety and depression presents to the emergency department 3 days after having discharge from a right TCAR procedure. With inability to catch her breath or take a deep breath and dyspnea on exertion/malaise. Patient reports that after this last procedure it was a much "rougher road" than the previous one. Reports a lot more bruising and slight swelling. Had discharged home had restarted her Eliquis yesterday. This morning seemingly abruptly she felt a lot more short of breath, unable to take a deep breath. Denies any chest pain or palpitations. Her daughter felt she looked generally ill they brought her here to the emergency department for evaluation. Thus far in the ER x-ray shows bilateral infiltrates, no other obvious pulmonary pathology. Labs thus far largely unremarkable. She was given an albuterol nebulizer and Medrol loading dose. Patient reports feeling a little bit better and actually started with cough since being given the albuterol. Blood pressures have been labile in the 180s and 200 range initially. She was referred to the hospitalist service for admission for ongoing respiratory support, blood pressure management and further evaluation of her difficulty breathing. Allergies Allergy/AdvReac Type Severity Reaction Status Date / Time Penicillins Allergy Intermediate Upper Body Verified 09/04/25 17:13 Rash gluten AdvReac Intermediate Gastrointestinal Verified 09/04/25 17:13 Upset lactose AdvReac Intermediate Diarrhea Verified 09/04/25 17:13 levofloxacin AdvReac Intermediate Foggy Verified 09/04/25 17:13 Feeling clindamycin AdvReac Unknown Unknown Verified 09/04/25 17:13 Home Medications Medication Instructions Recorded Confirmed Type lancets 28 gauge (FreeStyle #25 ea 06/02/19 08/29/25 History Lancets) blood sugar diagnostic (FreeStyle #10 ea 08/20/21 08/29/25 History Lite Strips) multivitamin 1 tab PO QAM 03/27/22 09/04/25 History coenzyme Q10 100 mg capsule 100 mg PO 3XWK 11/21/22 09/04/25 History (CoQ-10) acetaminophen 500 mg capsule 500 mg PO Q6H PRN Pain 01/21/23 09/04/25 History blood-glucose sensor (Dexcom G7 08/23/24 08/29/25 History Sensor device) cholecalciferol (vitamin D3) 50 4,000 unit PO DAILY 08/23/24 09/04/25 History mcg (2,000 unit) capsule dronedarone 400 mg tablet (Multaq) 400 mg PO BID #180 tabs 09/27/24 09/04/25 Rx clonidine HCl 0.2 mg tablet 0.2 mg PO BID #180 tabs 10/22/24 09/04/25 Rx calcitonin (salmon) 200 1 spray intranasal (ALT) DAILY 01/02/25 09/04/25 Rx unit/actuation nasal spray #3.7 mL metoprolol succinate 50 mg 50 mg PO BID #60 tabs 03/15/25 09/04/25 Rx tablet,extended release 24 hr fenofibrate nanocrystallized 145 145 mg PO HS #90 tabs 04/10/25 09/04/25 Rx mg tablet lactobacillus combination no.9 4 4,000 mmu cells PO DAILY 07/17/25 09/04/25 History billion cell capsule (Adult 50 Plus Probiotic) apixaban 5 mg tablet (Eliquis) 5 mg PO BID #180 tabs 07/21/25 09/04/25 Rx clopidogrel 75 mg tablet 75 mg PO DAILY 07/21/25 09/04/25 History nitroglycerin 0.4 mg sublingual 0.4 mg sublingual Q5M PRN chest 07/21/25 09/04/25 Rx tablet pain #25 tabs buspirone 5 mg tablet 5 - 10 mg (1 - 2 x 5 mg) PO BID 07/24/25 09/04/25 Rx #180 tabs clonazepam 0.5 mg tablet (Klonopin) 0.25 - 0.5 mg PO HS PRN Sleep 07/31/25 09/04/25 History /Anxiety doxazosin 2 mg tablet (Cardura) 2 mg PO HS 07/31/25 09/04/25 History lansoprazole 30 mg capsule,delayed 30 mg PO DAILYBB esophageal reflux 07/31/25 09/04/25 History release (Prevacid) aspirin 81 mg tablet,delayed 81 mg PO DAILY 08/03/25 09/04/25 History release varenicline tartrate 0.5 mg (11)-1 See Rx Instructions .Route 08/07/25 09/04/25 Rx mg (42) tablets in a dose pack .COMPLEX #53 ea (Chantix Starting Month Box) olmesartan 20 mg tablet (Benicar) 20 mg PO HS 08/23/25 09/04/25 History atorvastatin 40 mg tablet (Lipitor) 40 mg PO QPM 08/30/25 09/04/25 History ondansetron HCl 4 mg tablet 4 mg PO Q8H PRN nausea and 09/01/25 09/04/25 Rx vomiting 4 days #10 tabs oxycodone 5 mg tablet 10 mg (2 x 5 mg) PO Q4H PRN pain 09/01/25 09/04/25 Rx #30 tabs Past Med/Surg History Problem List S/P vascular surgery Paroxysmal atrial fibrillation Carotid stenosis, bilateral Dizziness Current smoker Multiple nodules of lung Solid nodule of lung 6 mm to 8 mm in diameter Lymphocytic colitis History of compression fracture of spine (~12/30/22) mild superior endplate compression fracture at L2 History of compression fracture of spine (~10/14/22) Subacute mild inferior endplate compression fracture at T8 and a subacute nondisplaced superior endplate compression fracture at T9. Anxiety and depression HLD (hyperlipidemia) HTN (hypertension) Osteopenia Mild non proliferative diabetic retinopathy Chronic anticoagulation (Acute) Back pain (Acute) Thoracic kyphosis Thoracic degenerative disc disease PAC (premature atrial contraction) S/P catheter ablation of slow pathway 08/05/22 at [facility] with Dr. 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), managed as type 1 (Acute) Internal hemorrhoids (Acute) Hypertrophy of nasal turbinates (Acute) Gluten intolerance (Acute) Fatigue (Acute) Coronary arteriosclerosis (Acute) Claustrophobia (Acute) Celiac artery stenosis (Acute) Carpal tunnel syndrome (Acute) Arthritis (Acute) Adenomatous polyp of colon (Acute) Abdominal bruit (Acute) Anemia CAD (coronary artery disease) Medical History Acute blood loss anemia Voice hoarseness as of phone interview 08/23/25, pt with hoarse voice s/p intubation for 07/31/25 TCAR; pt denies sore throat Pulmonary hypertension mild pulmonary hypertension noted on 2021 echo History of blood transfusion AVNRT (AV ramesh re-entry tachycardia) Paroxysmal atrial fibrillation [facility] [place] Chronic anticoagulation Hyperlipidemia Dizziness Carotid stenosis, bilateral s/p L TCAR 07/31/25; upcoming R TCAR Osteopenia Adjustment reaction with anxiety and depression Tobacco use disorder pt weaning off of cigarettes; she is smoking 'every now and then' and using vape; PCP Rx chantix but she is waiting to start until after 08/30/25 surgery Hypotension hctz currently on hold; pt currently following closely with PCP for BP fl uctuations Nonsustained paroxysmal supraventricular tachycardia [facility] [place] Supraventricular tachycardia hx - [facility] [place] [place] Arthritis Coronary arteriosclerosis [facility] [place] Hassan Celiac artery stenosis Claustrophobia SABINE (latent autoimmune diabetes in adults), managed as type 1 previously on insulin; per endocrine, pt is 'in remission'; wears dexcom Liver hemangioma Superior mesenteric artery stenosis Left renal artery stenosis PAC (premature atrial contraction) [facility] [place] [place] Thoracic degenerative disc disease Lymphocytic colitis Mild nonproliferative diabetic retinopathy PVD (peripheral vascular disease) Hx of compression fracture of spine ~12/30/22 mild superior endplate compression fracture at L2 ~11/03/22 Subacute mild inferior endplate compression fracture at T8 and a subacute nondisplaced superior endplate compression fracture at T9. Lactose intolerance Hx of sinus tachycardia History of COVID-19 04/05/23. [place] [facility]. states only symptom was diarrhea - resolved History of non-ST elevation myocardial infarction (NSTEMI) per cardiac note, Patient was hospitalized at the [facility] from 03/08/22 through 03/12/22 with Paroxysmal Atrial Fibrillation with RVR in setting of Hypomagnesemia and Hypokalemia and a NSTEMI - pt denies heart attack Abdominal aneurysm 30mm infrarenal aneurysm per 12/2022 abd/pelvis CT Osteoporosis History of hepatitis C related to blood transfusion - treated/resolved History of cervical cancer dx'd 1984. treated surgically. MVP (mitral valve prolapse) [facility] [place] CAD (coronary artery disease) x1 stents - [facility] [place] Hassan Gluten intolerance GERD (gastroesophageal reflux disease) Lung nodule Weakness of both legs Low Back Pain Skin sensitivity Radicular pain of thoracic region Serum digoxin level above therapeutic range Iron deficiency anemia emr - pt denies Surgical History History of transcarotid artery revascularization (TCAR) L 07/31/25: [place]: MAC#3, ETT#7.0, Gr View 1, atraumatic x 1 (*pt still with hoarse voice on 08/23/22; she denies any sore throat) History of left cataract extraction Hx of right cataract extraction S/P catheter ablation of slow pathway 08/05/22 at [facility] with Dr. Maurice Family history of reaction to anesthesia mother>nausea History of colonoscopy History of tooth extraction History of tonsillectomy History of hysterectomy with unilateral oophorectomy H/O heart artery stent x 1 (2011) - [facility] [place] Hassan History of cardiac catheterization per cardiac note, cath done 03/2022 [facility] -- "Given the anatomical location of the ostial LCx disease and occluded OM1 -- medical management was recommended." 2011 - stent History of esophagogastroduodenoscopy (EGD) S/P ablation of atrial fibrillation 08/05/2022- [facility] - [facility] [place] Hassan Family History Mother Diabetes Heart disease Myocardial infarction PONV (postoperative nausea and vomiting) Sister Breast cancer Grandmother (Maternal) Myocardial infarction Father No problems noted. Denies family history of Colon cancer Ovarian cancer Prostate cancer Crohn's disease Colorectal cancer Social History Smoking Status: Current every day smoker Tobacco Type: Cigarettes and E-cigarettes / Vaping Age Started Using Tobacco: 22; packs per day: 0.5; Cigarettes Per Day: 0-1; Second Hand Exposure: No; Do You Dip or Chew Tobacco: No; Hx Alcohol Use: Yes Alcohol type: wine Hx Substance Use: No Preferred Language: Japanese Communication Ability: Effective Visual Impairment: No Limitations Hearing Ability: Normal Dairy Scientist Required: No Beliefs That Will Affect Care: None marital status: / Current Living Situation: Alone current occupational status: retired Feels Safe at Home: Yes Seatbelt Use: always Sunscreen Use: Yes Assistive Devices: Other Review of Systems Constitutional: + malaise; no fever, no chills, no sweat s, no body aches, no fatigue, no weakness and no daytime sleepiness Eyes: no problem reported Ear, Nose, Mouth, Throat: Reports raspy voice since her first TCAR procedure that has been stable Respiratory: See HPI Cardiovascular: + dyspnea on exertion; no chest pain at rest, no chest pain with activity, no orthopnea, no paroxysmal nocturnal dyspnea, no lightheadedness, no syncope and no edema Gastrointestinal: no abdominal pain, no nausea and no vomiting Musculoskeletal: no muscle weakness and no body aches Integumentary: no rash and no change in skin color Physical Exam Physical Exam: General: A&Ox3. NAD. Cooperative. HEENT: Atraumatic, normocephalic. Vision and hearing grossly intact. Pupils equal and reactive to light, sclera clear and anicteric Pulm: Fine crackles at the bases right greater than left, overall good air movement without. -wheezes, -rhonchi. Mildly increased work of breathing. No respiratory distress. Cardiac: RRR. -mrg. Radial pulses intact and symmetrical. Abdominal: Nontender, nondistended, soft. BS present. Ext: No Edema, Moves all extremities equally NEURO: A&O as above, no focal deficits Skin: warm, no pallor, moist. Results & Data Results & Data Vital Signs (Past 12 Hours) Vital Signs Temp Pulse Pulse Resp BP BP Pulse Ox 09/04/25 14:27 98 09/04/25 14:13 63 18 169/89 H 99 09/04/25 14:05 57 L 09/04/25 13:38 36.6 C 60 20 118/64 100 O2 Del Method 09/04/25 14:27 Room Air 09/04/25 14:13 Room Air 09/04/25 14:05 09/04/25 13:38 Room Air Laboratory Results 09/04/25 09/04/25 14:53 13:55 WBC 3.63 L RBC 3.03 L Hgb 9.2 L Hct 28.4 L MCV 93.7 MCH 30.4 MCHC 32.4 RDW Std Deviation 47.4 H RDW Coeff of Mercedes 13.7 Plt Count 213 MPV 10.8 Immature Gran % (Auto) 0.3 Neut % (Auto) 68.3 Lymph % (Auto) 20.1 [place] % (Auto) 9.1 Eos % (Auto) 1.9 Baso % (Auto) 0.3 Neut # (Auto) 2.48 Lymph # (Auto) 0.73 L [place] # (Auto) 0.33 Eos # (Auto) 0.07 Baso # (Auto) 0.01 Immature Gran # (Auto) 0.01 PT 13.8 H INR 1.3 H APTT 26 PTT Ratio 1.0 Sodium 138 Potassium 3.7 Chloride 106 Carbon Dioxide 26 Anion Gap 6 BUN 13 Creatinine 0.85 Est Cr Clr Drug Dosing 46.0 eGFR 72.30 BUN/Creatinine Ratio 15.3 Glucose 169 H Calcium 8.8 Magnesium 1.7 Total Bilirubin 0.7 AST 18 ALT 10 Alkaline Phosphatase 28 L Troponin I High Sens 6.2 Total Protein 6.5 Albumin 3.2 L Globulin 3.3 Albumin/Globulin Ratio 1.0 Adenovirus (PCR) Not Detected B. pertussis DNA (PCR) Not Detected B.parapertussis DNA PCR Not Detected C. pneumoniae DNA (PCR) Not Detected Coronavirus OC43 (PCR) Not Detected Coronavirus HKU1 (PCR) Not Detected Coronavirus 229E (PCR) Not Detected SARS-CoV-2 (PCR) Not Detected Coronavirus NL63 (PCR) Not Detected Human Metapneumovir PCR Not Detected Influenza Type A (PCR) Not Detected Influenza Type B (PCR) Not Detected M. pneumoniae (PCR) Not Detected Parainfluenza 1 (PCR) Not Detected Parainfluenza 2 (PCR) Not Detected Parainfluenza 3 (PCR) Not Detected Parainfluenza 4 (PCR) Not Detected RSV (PCR) Not Detected Entero/Rhino (PCR) Not Detected Diagnostic Findings Chest X-Ray 09/04/25 14:22 XR chest 1V portable CLINICAL HISTORY: Dyspnea COMPARISON STUDY: 06/15/2025 FINDINGS: There is mild cardiomegaly without pulmonary vascular congestion. Stable hyperexpanded lungs. There are interval small bilateral pleural effusions and mild consolidation at the lung bases, right greater than left. No pneumothorax. IMPRESSION: Interval small bilateral pleural effusions and mild adjacent lung base consolidation, right greater than left. ACT 112: Negative or not required by law. Electronically signed by: Ricardo Garces M.D. 09/04/2025 2:41 PM Code Status & VTE Plan VTE Prophylaxis Plan VTE Prophylaxis will be ordered: Yes PG Care Time/CCT Total # of Minutes Spent Total Time Spent with Patient: Total time spent is greater than 50% in coordination of care (as documented) at patient's floor/unit and/or counseling patient: Coding Level of Care Code 70067 INT INP/OBS CARE 3/75MIN Diagnoses S/P vascular surgery Z98.890 Carotid stenosis, bilateral I65.23 Hyperlipidemia, unspecified hyperlipidemia type E78.5 Hyperlipidemia type: unspecified Primary hypertension I10 Hypertension type: primary hypertension Anxiety and depression F41.9; F32.A Osteopenia M85.80 Chronic anticoagulation Z79.01 Thoracic kyphosis M40.204 S/P catheter ablation of slow pathway Z98.890; Z86.79 Hypomagnesemia E83.42 Left renal artery stenosis I70.1 Vitamin D deficiency E55.9 Superior mesenteric artery stenosis I77.1 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 transplanted heart: [place] heart Voice hoarseness R49.0 Pulmonary hypertension I27.20 AVNRT (AV ramesh re-entry tachycardia) I47.19 Tobacco use disorder F17.200 SABINE (latent autoimmune diabetes in adults), managed as type 1 E13.9 GERD (gastroesophageal reflux disease) K21.9 (3) HLD (hyperlipidemia) Hyperlipidemia type: unspecified Qualified Code(s): E78.5 - Hyperlipidemia, unspecified (4) HTN (hypertension) Hypertension type: primary hypertension Qualified Code(s): I10 - Essential (primary) hypertension (16) CAD (coronary artery disease) Associated angina: without angina Coronary Disease-Associated Artery/Lesion type: [place] artery [place] vs. transplanted heart: [place] heart Qualified Code(s): I25.10 - Atherosclerotic heart disease of [place] coronary artery without angina pectoris
--- NOTE | 2025-09-04 17:09 | Electrocardiogram Report ---
Test Reason : Blood Pressure : */* mmHG Vent. Rate : 56 BPM Atrial Rate : 56 BPM P-R Int : 174 ms QRS Dur : 78 ms QT Int : 500 ms P-R-T Axes : 49 -27 47 degrees QTcB Int : 482 ms Sinus bradycardia Abnormal ECG When compared with ECG of 31-Jul-2025 11:36, Minimal criteria for Inferior infarct are no longer Present Nonspecific T wave abnormality, improved in Inferior leads Nonspecific T wave abnormality, improved in Anterolateral leads QT has lengthened Confirmed by Trip Maurice ([id number]) on 09/04/2025 5:09:25 PM Referred By: Confirmed By: Trip Maurice
[2025-09-04 17:44] LABS: Appearance Urine Clear (Clear); Bacteria Urine Automated None Seen (None Seen); Cast Urine Automated 0-2 /lpf (0-2); Epithelial Cell Urine Auto 0-2 /hpf (0-2); Glucose Urine UA Negative (Negative); RBC Urine Automated 0-2 /hpf (0-2); WBC Urine Automated 0-5 /hpf (0-5)
--- NOTE | 2025-09-04 18:13 | CT Scan Report ---
Clinical history: Rule out pulmonary embolism Technique: Axial computed tomography images were obtained of the chest after the administration of intravenous contrast according to the CT angiogram protocol Comparison is made to the prior CTA dated 06/15/2025 Findings: There is no definite sign of pulmonary embolism. There is a new 8 mm peripheral nodular opacity in the right lower lobe. There are 2 unchanged small left upper lobe nodules, measuring 2-3 mm in size. There is an unchanged 2-3 mm right upper lobe nodule. There is subsegmental atelectasis in both lower lobes, the right middle lobe, and lingula. There is no pneumothorax. There are new small bilateral pleural effusions. There is emphysema. There is an unchanged suspected bronchocele in the superior segment of the right lower lobe There is no mediastinal, hilar, or axillary adenopathy. The thoracic aorta appears unremarkable with no sign of aneurysm or dissection. There is no pericardial effusion The visualized upper abdomen appears unremarkable. No fracture is seen. No focal osseous lesion is evident Impression: 1. No definite sign of pulmonary embolism 2. New small bilateral pleural effusions and bilateral lung base atelectasis 3. New nodular opacity in the right lower lobe that could be due to focal atelectasis or an inflammatory nodule. A follow-up chest CT could be obtained in 3-6 months 4. Unchanged additional small pulmonary nodules, likely benign 5. 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 Emphysema ACT 112: Positive. There are findings on this exam that require communication between the performing entity and the patient following Patient Test Result Information Act ([place] ACT 112) guidelines. Electronically signed by Primitivo Jauregui 09-04-2025 6:12 PM
[2025-09-04] MEDS ORDERED: PHARMACY GLYCEMIC MGMT CONSULT PRN (19:21)
[2025-09-04] MEDS ORDERED: POLYETHYLENE (MIRALAX) 17 GM PACK PO PRN (19:21)
[2025-09-04] MEDS ORDERED: ONDANSETRON INJ 2 MG/ML 2 ML VIAL IV PRN (19:21)
[2025-09-04] MEDS ORDERED: ALBUT/IPRATROP 3MG/0.5MG NEB 3 ML VIAL NEB PRN (19:21)
[2025-09-04] MEDS: FUROSEMIDE INJ 20 MG/2 ML VIAL IV ONE (19:31)
--- NOTE | 2025-09-04 19:50 | Pharmacy Report ---
Pharmacy Glycemic Short Note 2 - Date of Service September 04, 2025 - Glycemic Short BSG Results (Last 24 hours): 09/04/25 13:55 Glucose 169 H OUTPATIENT ANTIDIABETIC REGIMEN: * None - previously on 5 units Tresiba SC daily (July 2025) * HbA1c: 6.4% (06/09/2025) ASSESSMENT: * Loren is a 75 year old female with late onset diabetes (managed as type 1) who presents to the hospital with inability to catch her breath * Recent TCAR procedure a few days ago * Glucose on arrival was 169 * T1DM diet * Stressors: methylprednisolone 60mg then 40mg Q12H, recent TCAR procedure * Will initiate Novolog around stress level of 2 given glucose within range and no longer on insulin outpatient * Adjust as needed based on glucose values with steroids PLAN FOR INPATIENT GLYCEMIC CONTROL: * Basal insulin * Lantus - none * Bolus insulin * NovoLog per scale ACHS or Q6hrs while NPO * Goal Range: Low 110 mg/dL - High 140 mg/dL * Correction Factor: 40 mg/dL/unit * Nutritional / Prandial insulin per carb ratio of 1 unit per 15 grams CHO consumed
[2025-09-04 19:52] LABS: Hematocrit (blood only) 29.1 % (37.0-47.0); Hemoglobin 9.5 g/dl (12.0-16.0); Mean Corpuscular Hemoglobin 30.3 pg (25.0-34.0); Mean Corpuscular Volume 92.7 fL (80.0-100.0); Platelet Count 205 K/uL (130-400); RDW Standard Deviation 46.4 fL (36.4-46.3); Red Blood Count 3.14 M/uL (4.20-5.40); White Blood Count 2.91 K/ul (4.8-10.8)
[2025-09-04 19:54] LABS: Hematocrit (blood only) 28.6 % (37.0-47.0); Hemoglobin 9.5 g/dl (12.0-16.0)
[2025-09-04] MEDS ORDERED: DEXTROSE 50% 50 ML SYRINGE IV PRN (20:00)
[2025-09-04] MEDS ORDERED: CARBOHYDRATES FOR HYPOGLYCEMIA PO PRN (20:00)
[2025-09-04] MEDS ORDERED: GLUCOSE 40% GEL 15 GM TUBE PO PRN (20:00)
[2025-09-04] MEDS ORDERED: GLUCOSE 10 TAB/TUBE PO PRN (20:00)
[2025-09-04] MEDS ORDERED: GLUCAGON FOR INJ 1 MG VIAL SQ PRN (20:00)
[2025-09-04 20:15] LABS: Immature Granulocytes # (auto) 0.01 K/uL (0.01-0.20); Immature Granulocytes % (auto) 0.3 %; Polychromasia 1+
[2025-09-04] MEDS: POTASSIUM CHLORIDE CRTAB 20 MEQ TABCR PO SCH (21:35)
[2025-09-04] MEDS: ALBUTEROL 0.083% NEBU SOLN 3 ML VIAL NEB PRN (21:36)
[2025-09-04] MEDS: ALBUT/IPRATROP 3MG/0.5MG NEB 3 ML VIAL NEB SCH (21:41)
[2025-09-04] MEDS: INSULIN ASPART PER UNIT CHARGE SC SCH (22:02)
[2025-09-05] MEDS ORDERED: INFLUENZA VACC TS2025-26(65y+)/PF (IIV3) 0.5mL Syr IM ONE (00:19)
[2025-09-05] MEDS: guaiFENesin 600 MG TABCR PO SCH (00:24)
[2025-09-05 07:53] LABS: Hematocrit (blood only) 27.6 % (37.0-47.0); Hemoglobin 9.1 g/dl (12.0-16.0); Immature Granulocytes # (auto) 0.03 K/uL (0.01-0.20); Immature Granulocytes % (auto) 0.6 %; Mean Corpuscular Hemoglobin 30.0 pg (25.0-34.0); Mean Corpuscular Volume 91.1 fL (80.0-100.0); Platelet Count 249 K/uL (130-400); RDW Standard Deviation 45.5 fL (36.4-46.3); Red Blood Count 3.03 M/uL (4.20-5.40); White Blood Count 5.23 K/ul (4.8-10.8)
[2025-09-05 08:10] LABS: Alanine Aminotransferase 9.0 U/L (7-52); Albumin Globulin Ratio 0.9 (0.9-2); Albumin Level 3.1 gm/dl (3.4-5.0); Alkaline Phosphatase 26.0 U/L (34-104); Anion Gap 7.0 (3-11); Bilirubin,Total 0.5 mg/dl (0.2-1.0); Blood Urea Nitrogen 16.0 mg/dl (6-23); Calcium 8.7 mg/dl (8.6-10.3); Carbon Dioxide 26.0 mmol/L (21-32); Chloride 106.0 mmol/L (98-107); Creatinine Clr Calc Pharmacy 50.6 ml/min; Globulin 3.6 gm/dl (2.5-4.0); Glucose 130.0 mg/dl (70-99(Fasting)); Magnesium 1.7 mg/dl (1.7-2.4); Potassium 3.6 mmol/L (3.5-5.1); Sodium 139.0 mmol/L (136-145); Total Protein 6.7 gm/dl (6.0-8.3)
[2025-09-05] MEDS: FUROSEMIDE INJ 20 MG/2 ML VIAL IV SCH (08:47)
[2025-09-05] MEDS: ACETAMINOPHEN 325 MG TAB PO PRN (08:52)
[2025-09-05] MEDS ORDERED: LANTUS PER UNIT CHARGE SC ONE (11:45)
[2025-09-05] MEDS: LANTUS PER UNIT CHARGE SC ONE ×2 (12:46→20:50)
--- NOTE | 2025-09-05 13:05 | Hospitalist Progress Note ---
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 - Observation, telemetry, IV Solu-Medrol, respiratory therapy consult with Rip and albuterol on scheduled -X-ray shows possible signs of early overload, given the fact she has had the recent procedure and fairly abrupt onset of symptoms we will obtain a CT/PE neuron to rule out any additional LVEF unlikely pulmonary sources - If CT negative will give Lasix, likely some degree of volume overload given the amount of fluid she was given during the recent TCAR procedure - Continuous pulse ox - findings negative for PE, consistent with volume overload. - continue Lasix BID17 doseing, goal diuresis 2-4kg and reassess, currently ab out 1L out this far. - Daily weighta - Echo tomorrow after additional diuresis #Anemia -No preprocedure hemoglobin on file, currently 9.7, last check normal was around 12 - Hgb stable, AM check tomorrow, no evidence of bleed or blood loss - Telemetry monitoring, no source of bleed, no hematuria, no-hematochezia or hematemesis - no indicationn to hold anticoagulants #Hypertension #Markedly elevated blood pressure readings - In the setting of TCAR as above, blood pressure management to maintain systolic below 160, avoid hypotension - Hydralazine 5 mg every 3 hours as needed for systolic greater than 180, labetalol and/or Vasotec if needed #widespread atherosclerotic vascular disease at several sites #status post TCAR procedure left 4 weeks ago right 1 week ago #known CAD #Renal Artery Stenosis #Superior mesenteric Stenosis Continue aspirin,-nitroglycerin, telemetry monitoring #late onset diabetes (managed as type I) - Consult to pharmacy for glycemic management, I do not see any insulin on her med list at this time - Above goal this AM, continue monitoring and SS #AVNRT, paroxysmal atrial fibrillation - Continue eliquis, tele monitoring #hypertension - As above, continue home losartan, metoprolol, clonidine - Blood pressure targets as above #hyperlipidemia - Continue statin and fenofibrate #tobacco dependence - ongoing, improving still sporadic cigarrettes #osteopenia - Calcium and D3 vitamin D deficiency - Continue supplement, calcitriol #history of recent flux of esophagitis - Prevacid #anxiety and depression - Continue buspirone, clonazepam as needed #FEN - Diabetic/cardiac diet #CODE STATUS -Modified code, does not want chest compressions, okay with intubation, shocks, ACLS medication at least briefly. Very clear that she did not want sustained interventions if it was not to have a good outcome Admission and Anticipated Discharge Date Admission Date: September 04, 2025 Subjective Doing okay this morning. Feels as though her breathing is somewhat improved but still not back to baseline. Coughing less than yesterday. Less productive. Reviewed patient that is to be expected. Denies any chest pain. No lower extremity edema. No dizziness or orthostasis. No new events or concerns per patient or nursing staff. Physical Exam Physical Exam: General: A&Ox3. NAD. Cooperative. HEENT: Atraumatic, normocephalic. Vision and hearing grossly intact. Pupils equal and reactive to light, sclera clear and anicteric Pulm: interval decrease in fine crackles at the bases right greater than left, overall good air movement without. -wheezes, -rhonchi. Mildly increased work of breathing. No respiratory distress. Cardiac: RRR. -mrg. Radial pulses intact and symmetrical. Abdominal: Nontender, nondistended, soft. BS present. Ext: No Edema, Moves all extremities equally NEURO: A&O as above, no focal deficits Skin: warm, no pallor, moist. Results & Data Results & Data Vital Signs (Past 12 Hours) Vital Signs Temp Pulse Pulse Resp BP Pulse Ox O2 Del Method 09/05/25 11:14 47 L 16 97 Room Air 09/05/25 11:08 36.7 C 90 16 170/80 H 99 Room Air 09/05/25 10:24 80 09/05/25 10:00 Room Air 09/05/25 07:37 53 L 16 98 Room Air 09/05/25 07:15 37.0 C 51 L 18 127/70 98 Room Air 09/05/25 03:13 36.4 C L 65 18 127/69 95 Room Air Laboratory Results 09/05/25 09/05/25 09/05/25 11:33 07:20 07:13 WBC 5.23 RBC 3.03 L Hgb 9.1 L Hct 27.6 L MCV 91.1 MCH 30.0 MCHC 33.0 RDW Std Deviation 45.5 RDW Coeff of [place] 13.5 Plt Count 249 MPV 10.9 Immature Gran % (Auto) 0.6 Neut % (Auto) 80.3 Lymph % (Auto) 11.3 [place] % (Auto) 7.8 Eos % (Auto) 0.0 Baso % (Auto) 0.0 Neut # (Auto) 4.20 Lymph # (Auto) 0.59 L [place] # (Auto) 0.41 Eos # (Auto) 0.00 Baso # (Auto) 0.00 Immature Gran # (Auto) 0.03 Polychromasia PT INR APTT PTT Ratio Sodium 139 Potassium 3.6 Chloride 106 Carbon Dioxide 26 Anion Gap 7 BUN 16 Creatinine 0.75 Est Cr Clr Drug Dosing 50.6 eGFR 84.01 BUN/Creatinine Ratio 21.3 H Glucose 130 H POC Glucose 260 H 133 H Calcium 8.7 Magnesium 1.7 Total Bilirubin 0.5 AST 16 ALT 9 Alkaline Phosphatase 26 L Troponin I High Sens Total Protein 6.7 Albumin 3.1 L Globulin 3.6 Albumin/Globulin Ratio 0.9 Procalcitonin < 0.02 Urine Color Urine Appearance Urine pH Ur Specific [place] Urine Protein Urine Glucose (UA) Urine Ketones Urine Blood Urine Nitrite Urine Bilirubin Urine Urobilinogen Ur Leukocyte Esterase Urine WBC (Auto) Urine RBC (Auto) U Hyaline Cast (Auto) U Epithel Cells (Auto) Urine Bacteria (Auto) Urine Comment Adenovirus (PCR) B. pertussis DNA (PCR) B.parapertussis DNA PCR C. pneumoniae DNA (PCR) Coronavirus OC43 (PCR) Coronavirus HKU1 (PCR) Coronavirus 229E (PCR) SARS-CoV-2 (PCR) Coronavirus NL63 (PCR) Human Metapneumovir PCR Influenza Type A (PCR) Influenza Type B (PCR) M. pneumoniae (PCR) Parainfluenza 1 (PCR) Parainfluenza 2 (PCR) Parainfluenza 3 (PCR) Parainfluenza 4 (PCR) RSV (PCR) Entero/Rhino (PCR) 09/04/25 09/04/25 09/04/25 21:47 19:38 19:38 WBC RBC Hgb 9.5 L Hct 28.6 L 29.1 L MCV 92.7 MCH 30.3 MCHC 32.6 RDW Std Deviation 46.4 H RDW Coeff of [place] 13.7 Plt Count 205 MPV 10.8 Immature Gran % (Auto) 0.3 Neut % (Auto) 91.5 Lymph % (Auto) 6.2 [place] % (Auto) 1.7 Eos % (Auto) 0.0 Baso % (Auto) 0.3 Neut # (Auto) 2.66 Lymph # (Auto) 0.18 L [place] # (Auto) 0.05 L Eos # (Auto) 0.00 Baso # (Auto) 0.01 Immature Gran # (Auto) 0.01 Polychromasia 1+ PT INR APTT PTT Ratio Sodium Potassium Chloride Carbon Dioxide Anion Gap BUN Creatinine Est Cr Clr Drug Dosing eGFR BUN/Creatinine Ratio Glucose POC Glucose 243 H Calcium Magnesium Total Bilirubin AST ALT Alkaline Phosphatase Troponin I High Sens Total Protein Albumin Globulin Albumin/Globulin Ratio Procalcitonin Urine Color Urine Appearance Urine pH Ur Specific [place] Urine Protein Urine Glucose (UA) Urine Ketones Urine Blood Urine Nitrite Urine Bilirubin Urine Urobilinogen Ur Leukocyte Esterase Urine WBC (Auto) Urine RBC (Auto) U Hyaline Cast (Auto) U Epithel Cells (Auto) Urine Bacteria (Auto) Urine Comment Adenovirus (PCR) B. pertussis DNA (PCR) B.parapertussis DNA PCR C. pneumoniae DNA (PCR) Coronavirus OC43 (PCR) Coronavirus HKU1 (PCR) Coronavirus 229E (PCR) SARS-CoV-2 (PCR) Coronavirus NL63 (PCR) Human Metapneumovir PCR Influenza Type A (PCR) Influenza Type B (PCR) M. pneumoniae (PCR) Parainfluenza 1 (PCR) Parainfluenza 2 (PCR) Parainfluenza 3 (PCR) Parainfluenza 4 (PCR) RSV (PCR) Entero/Rhino (PCR) 09/04/25 09/04/25 09/04/25 19:38 16:20 14:53 WBC 2.91 L RBC 3.14 L Hgb 9.5 L Hct MCV MCH MCHC RDW Std Deviation RDW Coeff of [place] Plt Count MPV Immature Gran % (Auto) Neut % (Auto) Lymph % (Auto) [place] % (Auto) Eos % (Auto) Baso % (Auto) Neut # (Auto) Lymph # (Auto) [place] # (Auto) Eos # (Auto) Baso # (Auto) Immature Gran # (Auto) Polychromasia PT INR APTT PTT Ratio Sodium Potassium Chloride Carbon Dioxide Anion Gap BUN Creatinine Est Cr Clr Drug Dosing eGFR BUN/Creatinine Ratio Glucose POC Glucose Calcium Magnesium Total Bilirubin AST ALT Alkaline Phosphatase Troponin I High Sens Total Protein Albumin Globulin Albumin/Globulin Ratio Procalcitonin Urine Color Yellow Urine Appearance Clear Urine pH 8.5 H Ur Specific [place] 1.007 Urine Protein Negative Urine Glucose (UA) Negative Urine Ketones Negative Urine Blood Negative Urine Nitrite Negative Urine Bilirubin Negative Urine Urobilinogen Negative Ur Leukocyte Esterase Trace H Urine WBC (Auto) 0-5 Urine RBC (Auto) 0-2 U Hyaline Cast (Auto) 0-2 U Epithel Cells (Auto) 0-2 Urine Bacteria (Auto) None Seen Urine Comment Adenovirus (PCR) Not Detected B. pertussis DNA (PCR) Not Detected B.parapertussis DNA PCR Not Detected C. pneumoniae DNA (PCR) Not Detected Coronavirus OC43 (PCR) Not Detected Coronavirus HKU1 (PCR) Not Detected Coronavirus 229E (PCR) Not Detected SARS-CoV-2 (PCR) Not Detected Coronavirus NL63 (PCR) Not Detected Human Metapneumovir PCR Not Detected Influenza Type A (PCR) Not Detected Influenza Type B (PCR) Not Detected M. pneumoniae (PCR) Not Detected Parainfluenza 1 (PCR) Not Detected Parainfluenza 2 (PCR) Not Detected Parainfluenza 3 (PCR) Not Detected Parainfluenza 4 (PCR) Not Detected RSV (PCR) Not Detected Entero/Rhino (PCR) Not Detected 09/04/25 13:55 WBC 3.63 L RBC 3.03 L Hgb 9.2 L Hct 28.4 L MCV 93.7 MCH 30.4 MCHC 32.4 RDW Std Deviation 47.4 H RDW Coeff of [place] 13.7 Plt Count 213 MPV 10.8 Immature Gran % (Auto) 0.3 Neut % (Auto) 68.3 Lymph % (Auto) 20.1 [place] % (Auto) 9.1 Eos % (Auto) 1.9 Baso % (Auto) 0.3 Neut # (Auto) 2.48 Lymph # (Auto) 0.73 L [place] # (Auto) 0.33 Eos # (Auto) 0.07 Baso # (Auto) 0.01 Immature Gran # (Auto) 0.01 Polychromasia PT 13.8 H INR 1.3 H APTT 26 PTT Ratio 1.0 Sodium 138 Potassium 3.7 Chloride 106 Carbon Dioxide 26 Anion Gap 6 BUN 13 Creatinine 0.85 Est Cr Clr Drug Dosing 46.0 eGFR 72.30 BUN/Creatinine Ratio 15.3 Glucose 169 H POC Glucose Calcium 8.8 Magnesium 1.7 Total Bilirubin 0.7 AST 18 ALT 10 Alkaline Phosphatase 28 L Troponin I High Sens 6.2 Total Protein 6.5 Albumin 3.2 L Globulin 3.3 Albumin/Globulin Ratio 1.0 Procalcitonin < 0.02 Urine Color Urine Appearance Urine pH Ur Specific [place] Urine Protein Urine Glucose (UA) Urine Ketones Urine Blood Urine Nitrite Urine Bilirubin Urine Urobilinogen Ur Leukocyte Esterase Urine WBC (Auto) Urine RBC (Auto) U Hyaline Cast (Auto) U Epithel Cells (Auto) Urine Bacteria (Auto) Urine Comment Adenovirus (PCR) B. pertussis DNA (PCR) B.parapertussis DNA PCR C. pneumoniae DNA (PCR) Coronavirus OC43 (PCR) Coronavirus HKU1 (PCR) Coronavirus 229E (PCR) SARS-CoV-2 (PCR) Coronavirus NL63 (PCR) Human Metapneumovir PCR Influenza Type A (PCR) Influenza Type B (PCR) M. pneumoniae (PCR) Parainfluenza 1 (PCR) Parainfluenza 2 (PCR) Parainfluenza 3 (PCR) Parainfluenza 4 (PCR) RSV (PCR) Entero/Rhino (PCR) Diagnostic Findings Chest X-Ray 09/04/25 14:22 XR chest 1V portable CLINICAL HISTORY: Dyspnea COMPARISON STUDY: 06/15/2025 FINDINGS: There is mild cardiomegaly without pulmonary vascular congestion. Stable hyperexpanded lungs. There are interval small bilateral pleural effusions and mild consolidation at the lung bases, right greater than left. No pneumothorax. IMPRESSION: Interval small bilateral pleural effusions and mild adjacent lung base consolidation, right greater than left. ACT 112: Negative or not required by law. Electronically signed by: Ricardo Garces M.D. 09/04/2025 2:41 PM Chest CTA 09/04/25 16:10 Clinical history: Rule out pulmonary embolism Technique: Axial computed tomography images were obtained of the chest after the administration of intravenous contrast according to the CT angiogram protocol Comparison is made to the prior CTA dated 06/15/2025 Findings: There is no definite sign of pulmonary embolism. There is a new 8 mm peripheral nodular opacity in the right lower lobe. There are 2 unchanged small left upper lobe nodules, measuring 2-3 mm in size. There is an unchanged 2-3 mm right upper lobe nodule. There is subsegmental atelectasis in both lower lobes, the right middle lobe, and lingula. There is no pneumothorax. There are new small bilateral pleural effusions. There is emphysema. There is an unchanged suspected bronchocele in the superior segment of the right lower lobe There is no mediastinal, hilar, or axillary adenopathy. The thoracic aorta appears unremarkable with no sign of aneurysm or dissection. There is no pericardial effusion The visualized upper abdomen appears unremarkable. No fracture is seen. No focal osseous lesion is evident Impression: 1. No definite sign of pulmonary embolism 2. New small bilateral pleural effusions and bilateral lung base atelectasis 3. New nodular opacity in the right lower lobe that could be due to focal atelectasis or an inflammatory nodule. A follow-up chest CT could be obtained in 3-6 months 4. Unchanged additional small pulmonary nodules, likely benign 5. 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 Emphysema ACT 112: Positive. There are findings on this exam that require communication between the performing entity and the patient following Patient Test Result Information Act ([place] ACT 112) guidelines. Electronically signed by Primitivo Jauregui 09-04-2025 6:12 PM PG Care Time/CCT Total # of Minutes Spent Total Time Spent with Patient: Total time spent is greater than 50% in coordination of care (as documented) at patient's floor/unit and/or counseling patient: Coding Level of Care Code 58816 SUB INP/OBS CARE 2/35MIN Diagnoses S/P vascular surgery Z98.890 Carotid stenosis, bilateral I65.23 Hyperlipidemia, unspecified hyperlipidemia type E78.5 Hyperlipidemia type: unspecified Primary hypertension I10 Hypertension type: primary hypertension Anxiety and depression F41.9; F32.A Osteopenia M85.80 Chronic anticoagulation Z79.01 Thoracic kyphosis M40.204 S/P catheter ablation of slow pathway Z98.890; Z86.79 Hypomagnesemia E83.42 Left renal artery stenosis I70.1 Vitamin D deficiency E55.9 Superior mesenteric artery stenosis I77.1 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 transplanted heart: [place] heart Associated angina: without angina Voice hoarseness R49.0 Pulmonary hypertension I27.20 AVNRT (AV ramesh re-entry tachycardia) I47.19 Tobacco use disorder F17.200 SABINE (latent autoimmune diabetes in adults), managed as type 1 E13.9 GERD (gastroesophageal reflux disease) K21.9 (3) HLD (hyperlipidemia) Hyperlipidemia type: unspecified Qualified Code(s): E78.5 - Hyperlipidemia, unspecified (4) HTN (hypertension) Hypertension type: primary hypertension Qualified Code(s): I10 - Essential (primary) hypertension (16) CAD (coronary artery disease) Coronary Disease-Associated Artery/Lesion type: [place] artery [place] vs. transplanted heart: [place] heart Associated angina: without angina Qualified Code(s): I25.10 - Atherosclerotic heart disease of [place] coronary artery without angina pectoris
[2025-09-05] MEDS: ASPIRIN 81 MG ECTAB PO SCH (19:04)
[2025-09-05] MEDS: CLOPIDOGREL BISULFATE 75 MG TAB PO SCH (19:04)
[2025-09-05] MEDS: DOXAZosin MESYLATE TAB 2 MG TAB PO SCH (20:00)
[2025-09-05] MEDS: ATORVASTATIN 40 MG TAB PO SCH (20:01)
[2025-09-05] MEDS: APIXABAN 5 MG TABLET PO SCH (20:01)
[2025-09-05] MEDS: FENOFIBRATE NANOCRYSTALLIZED 145 MG TABLET PO SCH (20:01)
[2025-09-05] MEDS: METOPROLOL SUCC 50MG EXT REL TAB PO SCH (20:01)
[2025-09-06] MEDS: LANSOPRAZOLE 30 MG SOLTAB PO SCH (06:14)
[2025-09-06 09:03] LABS: Hematocrit (blood only) 27.5 % (37.0-47.0); Hemoglobin 9.3 g/dl (12.0-16.0); Immature Granulocytes # (auto) 0.03 K/uL (0.01-0.20); Immature Granulocytes % (auto) 0.4 %; Mean Corpuscular Hemoglobin 31.1 pg (25.0-34.0); Mean Corpuscular Volume 92.0 fL (80.0-100.0); Platelet Count 273 K/uL (130-400); RDW Standard Deviation 46.2 fL (36.4-46.3); Red Blood Count 2.99 M/uL (4.20-5.40); White Blood Count 8.54 K/ul (4.8-10.8)
[2025-09-06 09:20] LABS: Anion Gap 8 (3-11); Blood Urea Nitrogen 25 mg/dl (6-23); Calcium 9.1 mg/dl (8.6-10.3); Carbon Dioxide 29 mmol/L (21-32); Chloride 101 mmol/L (98-107); Creatinine Clr Calc Pharmacy 48.2 ml/min; Glucose 122 mg/dl (70-99(Fasting)); Magnesium 1.8 mg/dl (1.7-2.4); Potassium 3.4 mmol/L (3.5-5.1); Sodium 138 mmol/L (136-145)
[2025-09-06] MEDS: LANTUS PER UNIT CHARGE SC SCH ×2 (10:15→20:47)
[2025-09-06] MEDS: MULTIVITAMIN TAB PO SCH (10:45)
[2025-09-06] MEDS: CALCITONIN SALMON NA 200 IU/AC 3.7 ML BTL SCH (10:51)
--- NOTE | 2025-09-06 11:47 | Electrocardiogram Report ---
Test Reason : Blood Pressure : */* mmHG Vent. Rate : 98 BPM Atrial Rate : 98 BPM P-R Int : 168 ms QRS Dur : 76 ms QT Int : 378 ms P-R-T Axes : 88 -16 73 degrees QTcB Int : 482 ms Sinus rhythm with Premature atrial complexes with Aberrant conduction Poor R wave progression, consider anterior [place] vs. lead placement vs. LVH Abnormal ECG When compared with ECG of 04-Sep-2025 14:23, Aberrant conduction is now Present Vent. rate has increased by 42 bpm Nonspecific T wave abnormality, worse in Inferior leads Confirmed by Trip Maurice ([id number]) on 09/06/2025 11:47:16 AM Referred By: REFERRED SELF Confirmed By: Trip Maurice
--- NOTE | 2025-09-06 12:41 | Pharmacy Report ---
Pharmacy Glycemic Short Note 2 - Date of Service September 06, 2025 - Glycemic Short BSG Results (Last 24 hours): 09/05/25 09/05/25 09/06/25 16:31 20:39 07:07 Glucose POC Glucose 162 H 141 H 166 H 09/06/25 09/06/25 09/06/25 07:39 10:55 11:27 Glucose 122 H POC Glucose 158 H 117 H OUTPATIENT ANTIDIABETIC REGIMEN: * None - previously on 5 units Tresiba SC daily (July 2025) * HbA1c: 6.4% (06/09/2025) ASSESSMENT: 09/06/25: * Blood sugars reasonably controlled over past 48 hours w/ one high blood sugar yesterday at lunchtime * Received 22 units of insulin (10 units of bolus, 12 units of basal) * Remains on methylprednisolone 40 mg IV q12h 09/04/25: * Loren is a 75 year old female with late onset diabetes (managed as type 1) who presents to the hospital with inability to catch her breath * Recent TCAR procedure a few days ago * Glucose on arrival was 169 * T1DM diet * Stressors: methylprednisolone 60mg then 40mg Q12H, recent TCAR procedure * Will initiate Novolog around stress level of 2 given glucose within range and no longer on insulin outpatient * Adjust as needed based on glucose values with steroids PLAN FOR INPATIENT GLYCEMIC CONTROL: * Basal insulin * Lantus 8 units SC daily * Lantus 0-4-8 units SC HS (see EHR for details) * Bolus insulin * NovoLog per scale ACHS or Q6hrs while NPO * Goal Range: Low 120 mg/dL - High 160 mg/dL * Correction Factor: 40 mg/dL/unit * Nutritional / Prandial insulin per carb ratio of 1 unit per 15 grams CHO consumed
--- NOTE | 2025-09-06 14:23 | XCELERA ---
[id number] \\[id number]
--- NOTE | 2025-09-06 14:31 | Hospitalist Progress Note ---
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 - Observation, telemetry, IV Solu-Medrol, respiratory therapy consult with DuoNeasher and albuterol on scheduled -X-ray shows possible signs of early overload, given the fact she has had the recent procedure and fairly abrupt onset of symptoms we will obtain a CT/PE neuron to rule out any additional LVEF unlikely pulmonary sources - If CT negative will give Lasix, likely some degree of volume overload given the amount of fluid she was given during the recent TCAR procedure - Continuous pulse ox - findings negative for PE, consistent with volume overload. - continue Lasix BID17 doseing, goal diuresis 2-4kg and reassess, currently ab out 4-5L out thus far. - Daily weight, stable, clinically diuresing well - Echo ordered this a.m., read pending- -based on clinical examination today and response to nebulizers I expect no significant underlying obstructive airway disease. Discussed pulmonary function testing with the patient likely in the outpatient setting after diuresis #Anemia -No preprocedure hemoglobin on file, currently 9.7, last check normal was around 12 - Hgb stable, AM check tomorrow, no evidence of bleed or blood loss - Telemetry monitoring, no source of bleed, no hematuria, no-hematochezia or hematemesis - stable 9.2 -> 9.1 -> 9.3 #Hypertension #Markedly elevated blood pressure readings - In the setting of TCAR as above, blood pressure management to maintain systolic below 160, avoid hypotension - Hydralazine 5 mg every 3 hours as needed for systolic greater than 180, labetalol and/or Vasotec if needed - Was also on olmesartan at home, on lisinopril here and tolerating #widespread atherosclerotic vascular disease at several sites #status post TCAR procedure left 4 weeks ago right 1 week ago #known CAD #Renal Artery Stenosis #Superior mesenteric Stenosis Continue aspirin,-nitroglycerin, telemetry monitoring #late onset diabetes (managed as type I) - Consult to pharmacy for glycemic management, I do not see any insulin on her med list at this time - Above goal this AM, continue monitoring and SS #AVNRT, paroxysmal atrial fibrillation - Continue eliquis, tele monitoring #hypertension - As above, continue home losartan, metoprolol, clonidine - Blood pressure targets as above #hyperlipidemia - Continue statin and fenofibrate #tobacco dependence - ongoing, improving still sporadic cigarettes #osteopenia - Calcium and D3 vitamin D deficiency - Continue supplement, calcitriol #history of recent flux of esophagitis - Prevacid #anxiety and depression - Continue buspirone, clonazepam as needed #FEN - Diabetic/cardiac diet #CODE STATUS -Modified code, does not want chest compressions, okay with intubation, shocks, ACLS medication at least briefly. Very clear that she did not want sustained interventions if it was not to have a good outcome Admission and Anticipated Discharge Date Admission Date: September 05, 2025 Subjective Doing better this morning. Thinks her breathing is improved moderately. Still not back to her baseline. She has not been up and walking much as of yet. No problems with oral intake. No problems with bowel or bladder function. We discussed doing an echocardiogram this morning. We also discussed ongoing diuresis until reach baseline. She has not had no dizziness or orthostasis up and up and about much. Denies any new or different symptoms. No new acute conc erns per nursing staff Physical Exam Physical Exam: General: A&Ox3. NAD. Cooperative. HEENT: Atraumatic, normocephalic. Vision and hearing grossly intact. Pupils equal and reactive to light, sclera clear and anicteric Pulm: Crackles resolved, mild prolongation of expiratory phase with no wheezing, Mildly increased work of breathing. No respiratory distress. Cardiac: RRR. -mrg. Radial pulses intact and symmetrical. Abdominal: Nontender, nondistended, soft. BS present. Ext: No Edema, Moves all extremities equally NEURO: A&O as above, no focal deficits Skin: warm, no pallor, moist. Results & Data Results & Data Vital Signs (Past 12 Hours) Vital Signs Temp Pulse Resp BP Pulse Ox O2 Del Method 09/06/25 11:44 36.6 C 80 18 178/80 H 99 Room Air 09/06/25 11:34 Room Air 09/06/25 11:08 70 18 99 Room Air 09/06/25 07:24 66 18 99 Room Air 09/06/25 07:08 36.3 C L 60 18 156/68 H 99 Room Air 09/06/25 02:59 36.3 C L 69 18 122/69 98 Room Air Laboratory Results 09/06/25 09/06/25 09/06/25 11:27 10:55 07:39 WBC 8.54 RBC 2.99 L Hgb 9.3 L Hct 27.5 L MCV 92.0 MCH 31.1 MCHC 33.8 RDW Std Deviation 46.2 RDW Coeff of Mercedes 13.6 Plt Count 273 MPV 11.0 Immature Gran % (Auto) 0.4 Neut % (Auto) 78.1 Lymph % (Auto) 14.2 [place] % (Auto) 7.1 Eos % (Auto) 0.1 Baso % (Auto) 0.1 Neut # (Auto) 6.67 H Lymph # (Auto) 1.21 [place] # (Auto) 0.61 H Eos # (Auto) 0.01 Baso # (Auto) 0.01 Immature Gran # (Auto) 0.03 Sodium 138 Potassium 3.4 L Chloride 101 Carbon Dioxide 29 Anion Gap 8 BUN 25 H Creatinine 0.80 Est Cr Clr Drug Dosing 48.2 eGFR 77.75 BUN/Creatinine Ratio 31.3 H Glucose 122 H POC Glucose 117 H 158 H Calcium 9.1 Magnesium 1.8 C-Reactive Protein < 0.50 09/06/25 09/05/25 09/05/25 07:07 20:39 16:31 WBC RBC Hgb Hct MCV MCH MCHC RDW Std Deviation RDW Coeff of Mercedes Plt Count MPV Immature Gran % (Auto) Neut % (Auto) Lymph % (Auto) [place] % (Auto) Eos % (Auto) Baso % (Auto) Neut # (Auto) Lymph # (Auto) [place] # (Auto) Eos # (Auto) Baso # (Auto) Immature Gran # (Auto) Sodium Potassium Chloride Carbon Dioxide Anion Gap BUN Creatinine Est Cr Clr Drug Dosing eGFR BUN/Creatinine Ratio Glucose POC Glucose 166 H 141 H 162 H Calcium Magnesium C-Reactive Protein PG Care Time/CCT Total # of Minutes Spent Total Time Spent with Patient: Total time spent is greater than 50% in coordination of care (as documented) at patient's floor/unit and/or counseling patient: Coding Level of Care Code 92437 SUB INP/OBS CARE 2/35MIN Diagnoses S/P vascular surgery Z98.890 Carotid stenosis, bilateral I65.23 Hyperlipidemia, unspecified hyperlipidemia type E78.5 Hyperlipidemia type: unspecified Primary hypertension I10 Hypertension type: primary hypertension Anxiety and depression F41.9; F32.A Osteopenia M85.80 Chronic anticoagulation Z79.01 Thoracic kyphosis M40.204 S/P catheter ablation of slow pathway Z98.890; Z86.79 Hypomagnesemia E83.42 Left renal artery stenosis I70.1 Vitamin D deficiency E55.9 Superior mesenteric artery stenosis I77.1 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 transplanted heart: [place] heart Associated angina: without angina Voice hoarseness R49.0 Pulmonary hypertension I27.20 AVNRT (AV ramesh re-entry tachycardia) I47.19 Tobacco use disorder F17.200 SABINE (latent autoimmune diabetes in adults), managed as type 1 E13.9 GERD (gastroesophageal reflux disease) K21.9 (3) HLD (hyperlipidemia) Hyperlipidemia type: unspecified Qualified Code(s): E78.5 - Hyperlipidemia, unspecified (4) HTN (hypertension) Hypertension type: primary hypertension Qualified Code(s): I10 - Essential (primary) hypertension (16) CAD (coronary artery disease) Coronary Disease-Associated Artery/Lesion type: [place] artery [place] vs. transplanted heart: [place] heart Associated angina: without angina Qualified Code(s): I25.10 - Atherosclerotic heart disease of [place] coronary artery without angina pectoris
[2025-09-06] MEDS: ALBUT/IPRATROP 3MG/0.5MG NEB 3 ML VIAL NEB SCH (19:55)
[2025-09-06] MEDS: DRONEDARONE HCL 400 MG TAB PO SCH (20:18)
[2025-09-07 09:33] LABS: Hematocrit (blood only) 27.0 % (37.0-47.0); Hemoglobin 8.9 g/dl (12.0-16.0); Immature Granulocytes # (auto) 0.03 K/uL (0.01-0.20); Immature Granulocytes % (auto) 0.4 %; Mean Corpuscular Hemoglobin 30.1 pg (25.0-34.0); Mean Corpuscular Volume 91.2 fL (80.0-100.0); Platelet Count 273 K/uL (130-400); RDW Standard Deviation 46.0 fL (36.4-46.3); Red Blood Count 2.96 M/uL (4.20-5.40); White Blood Count 7.84 K/ul (4.8-10.8)
[2025-09-07 09:51] LABS: Anion Gap 10 (3-11); Blood Urea Nitrogen 29 mg/dl (6-23); Calcium 9.0 mg/dl (8.6-10.3); Carbon Dioxide 26 mmol/L (21-32); Chloride 99 mmol/L (98-107); Creatinine Clr Calc Pharmacy 43.3 ml/min; Glucose 209 mg/dl (70-99(Fasting)); Magnesium 1.7 mg/dl (1.7-2.4); Potassium 3.7 mmol/L (3.5-5.1); Sodium 135 mmol/L (136-145)
[2025-09-07] MEDS: SODIUM CHLORIDE 0.65% NA SOLN 45 ML (OCEAN) ONE (15:37)
--- NOTE | 2025-09-07 15:44 | Hospitalist Progress Note ---
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 - Observation, telemetry, IV Solu-Medrol, respiratory therapy consult with Rip and albuterol on scheduled -X-ray shows possible signs of early overload, given the fact she has had the recent procedure and fairly abrupt onset of symptoms we will obtain a CT/PE neuron to rule out any additional LVEF unlikely pulmonary sources - If CT negative will give Lasix, likely some degree of volume overload given the amount of fluid she was given during the recent TCAR procedure - Continuous pulse ox - findings negative for PE, consistent with volume overload. - Modest hypotension last night, positive orthostasis this morning, fluid bolus given. She is at dry weight, Lasix stopped - Daily weight, stable, at dry weight - Echocardiogram demonstrates expected diastolic and pulmonary pattern with mild concentric LVH #Globus sensation in the throat - Persistent, present since first procedure/intubation discussed ENT referral on discharge, for laryngoscopy #Physical deconditioning #Orthostasis -Consulted PT and OT, briefly discussed the possibility of entertaining rehab for short time given it is been about 6 weeks since she has been at a normal active self and has quite significant decline in functional status since then. - Normal saline bolus given, will monitor orthostatic vital signs. - Clinically euvolemic. Will be ready for discharge once vital signs normalized #Anemia -No preprocedure hemoglobin on file, currently 9.7, last check normal was around 12 - Hgb stable, AM check tomorrow, no evidence of bleed or blood loss - Telemetry monitoring, no source of bleed, no hematuria, no-hematochezia or hematemesis - stable 9.2 -> 9.1 -> 9.3 #Hypertension #Markedly elevated blood pressure readings - In the setting of TCAR as above, blood pressure management to maintain systolic below 160, avoid hypotension - Hydralazine 5 mg every 3 hours as needed for systolic greater than 180, labetalol and/or Vasotec if needed - Was also on olmesartan at home, on lisinopril here and tolerating #widespread atherosclerotic vascular disease at several sites #status post TCAR procedure left 4 weeks ago right 1 week ago #known CAD #Renal Artery Stenosis #Superior mesenteric Stenosis Continue aspirin,-nitroglycerin, telemetry monitoring #late onset diabetes (managed as type I) - Consult to pharmacy for glycemic management, I do not see any insulin on her med list at this time - Above goal this AM, continue monitoring and SS #AVNRT, paroxysmal atrial fibrillation - Continue eliquis, tele monitoring #hypertension - As above, continue home losartan, metoprolol, clonidine - Blood pressure targets as above #hyperlipidemia - Continue statin and fenofibrate #tobacco dependence - ongoing, improving still sporadic cigarettes #osteopenia - Calcium and D3 vitamin D deficiency - Continue supplement, calcitriol #history of recent flux of esophagitis - Prevacid #anxiety and depression - Continue buspirone, clonazepam as needed #FEN - Diabetic/cardiac diet #CODE STATUS -Modified code, does not want chest compressions, okay with intubation, shocks, ACLS medication at least briefly. Very clear that she did not want sustained interventions if it was not to have a good outcome Admission and Anticipated Discharge Date Admission Date: September 05, 2025 Subjective Doing okay this morning. Has not been up walking around walking very much. Does feel times when she is quite winded but overall feels her breathing is much much better. Blood pressures were a little bit low last night, she was largely asymptomatic. Eating well, no problems with bowel or bladder function. Denies any chest pain or palpitations. She still has the globus sensation in her throat. No difficulty swallowing or eating. We discussed the possibility of ENT referral in the outpatient setting upon discharge for laryngoscopic evaluation. Physical Exam 2 Physical Exam: General: A&Ox3. NAD. Cooperative. HEENT: Atraumatic, normocephalic. Vision and hearing grossly intact. Pupils equal and reactive to light, sclera clear and anicteric Pulm: Crackles resolved, mild prolongation of expiratory phase with no wheezing, Mildly increased work of breathing. No respiratory distress. Cardiac: RRR. -mrg. Radial pulses intact and symmetrical. Abdominal: Nontender, nondistended, soft. BS present. Ext: No Edema, Moves all extremities equally NEURO: A&O as above, no focal deficits Skin: warm, no pallor, moist. Results & Data Results & Data Vital Signs (Past 12 Hours) Vital Signs Temp Pulse Pulse Pulse Resp Resp Resp 09/07/25 15:34 36.7 C 64 18 09/07/25 13:52 78 75 18 18 09/07/25 11:43 36.6 C 62 18 09/07/25 07:52 36.8 C 58 L 20 09/07/25 07:26 70 16 BP Pulse Ox Pulse Ox Pulse Ox O2 Del Method 09/07/25 15:34 135/66 98 Room Air 09/07/25 13:52 100 98 09/07/25 11:43 107/58 L 96 Room Air 09/07/25 07:52 152/76 H 98 Room Air 09/07/25 07:26 97 Room Air Laboratory Results 09/07/25 09/07/25 09/07/25 11:07 09:16 07:08 WBC 7.84 RBC 2.96 L Hgb 8.9 L Hct 27.0 L MCV 91.2 MCH 30.1 MCHC 33.0 RDW Std Deviation 46.0 RDW Coeff of Mercedes 13.8 Plt Count 273 MPV 10.6 Immature Gran % (Auto) 0.4 Neut % (Auto) 83.3 Lymph % (Auto) 11.0 [place] % (Auto) 5.1 Eos % (Auto) 0.1 Baso % (Auto) 0.1 Neut # (Auto) 6.53 H Lymph # (Auto) 0.86 L [place] # (Auto) 0.40 Eos # (Auto) 0.01 Baso # (Auto) 0.01 Immature Gran # (Auto) 0.03 Sodium 135 L Potassium 3.7 Chloride 99 Carbon Dioxide 26 Anion Gap 10 BUN 29 H Creatinine 0.89 Est Cr Clr Drug Dosing 43.3 eGFR 68.41 BUN/Creatinine Ratio 32.6 H Glucose 209 H POC Glucose 212 H 144 H Calcium 9.0 Magnesium 1.7 C-Reactive Protein < 0.50 09/06/25 09/06/25 20:16 16:30 WBC RBC Hgb Hct MCV MCH MCHC RDW Std Deviation RDW Coeff of Mercedes Plt Count MPV Immature Gran % (Auto) Neut % (Auto) Lymph % (Auto) [place] % (Auto) Eos % (Auto) Baso % (Auto) Neut # (Auto) Lymph # (Auto) [place] # (Auto) Eos # (Auto) Baso # (Auto) Immature Gran # (Auto) Sodium Potassium Chloride Carbon Dioxide Anion Gap BUN Creatinine Est Cr Clr Drug Dosing eGFR BUN/Creatinine Ratio Glucose POC Glucose 147 H 272 H Calcium Magnesium C-Reactive Protein Diagnostic Findings See echocardiogram results see echocardiogram results, mild concentric LVH, mild diastolic dysfunction, mild increase in RV SP PG Care Time/CCT Total # of Minutes Spent Total Time Spent with Patient: Total time spent is greater than 50% in coordination of care (as documented) at patient's floor/unit and/or counseling patient: Coding Level of Care Code 45146 SUB INP/OBS CARE 2/35MIN Diagnoses S/P vascular surgery Z98.890 Carotid stenosis, bilateral I65.23 Hyperlipidemia, unspecified hyperlipidemia type E78.5 Hyperlipidemia type: unspecified Primary hypertension I10 Hypertension type: primary hypertension Anxiety and depression F41.9; F32.A Osteopenia M85.80 Chronic anticoagulation Z79.01 Thoracic kyphosis M40.204 S/P catheter ablation of slow pathway Z98.890; Z86.79 Hypomagnesemia E83.42 Left renal artery stenosis I70.1 Vitamin D deficiency E55.9 Superior mesenteric artery stenosis I77.1 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 transplanted heart: [place] heart Associated angina: without angina Voice hoarseness R49.0 Pulmonary hypertension I27.20 AVNRT (AV ramesh re-entry tachycardia) I47.19 Tobacco use disorder F17.200 SABINE (latent autoimmune diabetes in adults), managed as type 1 E13.9 GERD (gastroesophageal reflux disease) K21.9 (3) HLD (hyperlipidemia) Hyperlipidemia type: unspecified Qualified Code(s): E78.5 - Hyperlipidemia, unspecified (4) HTN (hypertension) Hypertension type: primary hypertension Qualified Code(s): I10 - Essential (primary) hypertension (16) CAD (coronary artery disease) Coronary Disease-Associated Artery/Lesion type: [place] artery [place] vs. transplanted heart: [place] heart Associated angina: without angina Qualified Code(s): I25.10 - Atherosclerotic heart disease of [place] coronary artery without angina pectoris
[2025-09-08 08:19] LABS: Hematocrit (blood only) 26.1 % (37.0-47.0); Hemoglobin 8.5 g/dl (12.0-16.0); Immature Granulocytes # (auto) 0.02 K/uL (0.01-0.20); Immature Granulocytes % (auto) 0.3 %; Mean Corpuscular Hemoglobin 29.7 pg (25.0-34.0); Mean Corpuscular Volume 91.3 fL (80.0-100.0); Platelet Count 254 K/uL (130-400); RDW Standard Deviation 45.6 fL (36.4-46.3); Red Blood Count 2.86 M/uL (4.20-5.40); White Blood Count 7.37 K/ul (4.8-10.8)
[2025-09-08 08:36] LABS: Alanine Aminotransferase 13.0 U/L (7-52); Albumin Globulin Ratio 1.1 (0.9-2); Albumin Level 3.4 gm/dl (3.4-5.0); Alkaline Phosphatase 25.0 U/L (34-104); Anion Gap 5.0 (3-11); Bilirubin,Total 0.7 mg/dl (0.2-1.0); Blood Urea Nitrogen 24.0 mg/dl (6-23); Calcium 8.6 mg/dl (8.6-10.3); Carbon Dioxide 27.0 mmol/L (21-32); Chloride 105.0 mmol/L (98-107); Creatinine Clr Calc Pharmacy 45.9 ml/min; Globulin 3.0 gm/dl (2.5-4.0); Glucose 117.0 mg/dl (70-99(Fasting)); Magnesium 1.8 mg/dl (1.7-2.4); Potassium 3.8 mmol/L (3.5-5.1); Sodium 137.0 mmol/L (136-145); Total Protein 6.4 gm/dl (6.0-8.3)
--- NOTE | 2025-09-08 11:26 | Pharmacy Report ---
Pharmacy Glycemic Short Note 2 - Date of Service September 08, 2025 - Glycemic Short BSG Results (Last 24 hours): 09/07/25 09/07/25 09/08/25 16:27 20:01 07:02 Glucose 117 H POC Glucose 162 H 102 H 09/08/25 09/08/25 07:13 11:09 Glucose POC Glucose 127 H 186 H OUTPATIENT ANTIDIABETIC REGIMEN: * None - previously on 5 units Tresiba SC daily (July 2025) * HbA1c: 6.4% (06/09/2025) ASSESSMENT: 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) who presents to the hospital with inability to catch her breath * Recent TCAR procedure a few days ago * Glucose on arrival was 169 * T1DM diet * Stressors: methylprednisolone 60mg then 40mg Q12H, recent TCAR procedure * Will initiate Novolog around stress level of 2 given glucose within range and no longer on insulin outpatient * Adjust as needed based on glucose values with steroids PLAN FOR INPATIENT GLYCEMIC CONTROL: * Basal insulin * Lantus 8 units SC daily * Lantus 0-4-8 units SC HS (see EHR for details) * Bolus insulin * NovoLog per scale ACHS or Q6hrs while NPO * Goal Range: Low 120 mg/dL - High 160 mg/dL * Correction Factor: 40 mg/dL/unit * Nutritional / Prandial insulin per carb ratio of 1 unit per 15 grams CHO consumed
--- NOTE | 2025-09-08 16:50 | Hospitalist Progress Note ---
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 - Observation, telemetry, IV Solu-Medrol, respiratory therapy consult with Rip and albuterol on scheduled -X-ray shows possible signs of early overload, given the fact she has had the recent procedure and fairly abrupt onset of symptoms we will obtain a CT/PE neuron to rule out any additional LVEF unlikely pulmonary sources - If CT negative will give Lasix, likely some degree of volume overload given the amount of fluid she was given during the recent TCAR procedure - Continuous pulse ox - findings negative for PE, consistent with volume overload. - Modest hypotension last night, positive orthostasis this morning, fluid bolus given. She is at dry weight, Lasix stopped - Daily weight, stable, at dry weight - Echocardiogram demonstrates expected diastolic and pulmonary pattern with mild concentric LVH - She is optimized from a cardiopulmonary standpoint, see discussion in case management notes and HPI in regards to rehab versus home with home health. #Globus sensation in the throat - Persistent, present since first procedure/intubation discussed ENT referral on discharge, for laryngoscopy #Physical deconditioning #Orthostasis -Consulted PT and OT, briefly discussed the possibility of entertaining rehab for short time given it is been about 6 weeks since she has been at a normal active self and has quite significant decline in functional status since then. - Normal saline bolus given, will monitor orthostatic vital signs. - Clinically euvolemic. Optimize from a cardiopulmonary standpoint with deconditioning rehab would certainly be beneficial. [facility] at [facility] time #Anemia -No preprocedure hemoglobin on file, currently 9.7, last check normal was around 12 - Hgb stable, AM check tomorrow, no evidence of bleed or blood loss - Telemetry monitoring, no source of bleed, no hematuria, no-hematochezia or hematemesis - stable 9.3 -> 8.9 -> 8.5 likely delusional, will continue to monitor tomorrow morning. No evidence of bleeding #Hypertension #Markedly elevated blood pressure readings - In the setting of TCAR as above, blood pressure management to maintain systolic below 160, avoid hypotension - Hydralazine 5 mg every 3 hours as needed for systolic greater than 180, labetalol and/or Vasotec if needed - Was also on olmesartan at home, on lisinopril here and tolerating #widespread atherosclerotic vascular disease at several sites #status post TCAR procedure left 4 weeks ago right 1 week ago #known CAD #Renal Artery Stenosis #Superior mesenteric Stenosis Continue aspirin,-nitroglycerin, telemetry monitoring #late onset diabetes (managed as type I) - Consult to pharmacy for glycemic management, I do not see any insulin on her med list at this time - Above goal this AM, continue monitoring and SS #AVNRT, paroxysmal atrial fibrillation - Continue eliquis, tele monitoring #hypertension - As above, continue home losartan, metoprolol, clonidine - Blood pressure targets as above #hyperlipidemia - Continue statin and fenofibrate #tobacco dependence - ongoing, improving still sporadic cigarettes #osteopenia - Calcium and D3 vitamin D deficiency - Continue supplement, calcitriol #history of recent flux of esophagitis - Prevacid #anxiety and depression - Continue buspirone, clonazepam as needed #FEN - Diabetic/cardiac diet #CODE STATUS -Modified code, does not want chest compressions, okay with intubation, shocks, ACLS medication at least briefly. Very clear that she did not want sustained interventions if it was not to have a good outcome Admission and Anticipated Discharge Date Admission Date: September 05, 2025 Subjective Doing okay this morning. Breathing has been very stable. She has been able to get up and do a couple of laps at least around with physical therapy. Recovering adequately after efforts. Not requiring any additional oxygen. Appetite has been low for quite some time but slowly improving. No other concerns with bowel or bladder function. We discussed at length rehab versus assisted living. Patient and family still have some preference for rehab but I do think it would be beneficial given her degree of deconditioning secondary to 6 to 8 weeks of significant decrease activity and medical comorbidities. Otherwise no new complaints or concerns per patient. Nursing staff had no additional events or issues to relay Physical Exam Physical Exam: General: A&Ox3. NAD. Cooperative. HEENT: Atraumatic, normocephalic. Vision and hearing grossly intact. Pupils equal and reactive to light, sclera clear and anicteric Pulm: Crackles resolved, mild prolongation of expiratory phase with no wheezing, no increased work of breathing no respiratory distress. Cardiac: RRR. -mrg. Radial pulses intact and symmetrical. Abdominal: Nontender, nondistended, soft. BS present. Ext: No Edema, Moves all extremities equally NEURO: A&O as above, no focal deficits Skin: warm, no pallor, moist. Results & Data Results & Data Vital Signs (Past 12 Hours) Vital Signs Temp Pulse Pulse Resp BP Pulse Ox Pulse Ox 09/08/25 15:04 36.5 C 57 L 19 127/65 99 09/08/25 14:37 53 L 09/08/25 11:27 100 09/08/25 11:10 36.8 C 57 L 19 122/59 L 97 09/08/25 07:30 52 L 09/08/25 07:14 36.4 C L 52 L 18 160/64 H 98 Pulse Ox O2 Del Method O2 Flow Rate O2 Flow Rate 09/08/25 15:04 Room Air 09/08/25 14:37 09/08/25 11:27 97 0 0 09/08/25 11:10 Room Air 09/08/25 07:30 09/08/25 07:14 Room Air Laboratory Results 09/08/25 09/08/25 09/08/25 16:11 11:09 07:13 WBC RBC Hgb Hct MCV MCH MCHC RDW Std Deviation RDW Coeff of Mercedes Plt Count MPV Immature Gran % (Auto) Neut % (Auto) Lymph % (Auto) [place] % (Auto) Eos % (Auto) Baso % (Auto) Neut # (Auto) Lymph # (Auto) [place] # (Auto) Eos # (Auto) Baso # (Auto) Immature Gran # (Auto) Sodium Potassium Chloride Carbon Dioxide Anion Gap BUN Creatinine Est Cr Clr Drug Dosing eGFR BUN/Creatinine Ratio Glucose POC Glucose 238 H 186 H 127 H Calcium Magnesium Total Bilirubin AST ALT Alkaline Phosphatase Total Protein Albumin Globulin Albumin/Globulin Ratio 09/08/25 09/07/25 07:02 20:01 WBC 7.37 RBC 2.86 L Hgb 8.5 L Hct 26.1 L MCV 91.3 MCH 29.7 MCHC 32.6 RDW Std Deviation 45.6 RDW Coeff of Mercedes 13.5 Plt Count 254 MPV 10.8 Immature Gran % (Auto) 0.3 Neut % (Auto) 75.7 Lymph % (Auto) 17.2 [place] % (Auto) 6.8 Eos % (Auto) 0.0 Baso % (Auto) 0.0 Neut # (Auto) 5.58 Lymph # (Auto) 1.27 [place] # (Auto) 0.50 Eos # (Auto) 0.00 Baso # (Auto) 0.00 Immature Gran # (Auto) 0.02 Sodium 137 Potassium 3.8 Chloride 105 Carbon Dioxide 27 Anion Gap 5 BUN 24 H Creatinine 0.82 Est Cr Clr Drug Dosing 45.9 eGFR 75.48 BUN/Creatinine Ratio 29.3 H Glucose 117 H POC Glucose 102 H Calcium 8.6 Magnesium 1.8 Total Bilirubin 0.7 AST 16 ALT 13 Alkaline Phosphatase 25 L Total Protein 6.4 Albumin 3.4 Globulin 3.0 Albumin/Globulin Ratio 1.1 PG Care Time/CCT Total # of Minutes Spent Total Time Spent with Patient: Total time spent is greater than 50% in coordination of care (as documented) at patient's floor/unit and/or counseling patient: Coding Level of Care Code 32518 SUB INP/OBS CARE 2/35MIN Diagnoses S/P vascular surgery Z98.890 Carotid stenosis, bilateral I65.23 Hyperlipidemia, unspecified hyperlipidemia type E78.5 Hyperlipidemia type: unspecified Primary hypertension I10 Hypertension type: primary hypertension Anxiety and depression F41.9; F32.A Osteopenia M85.80 Chronic anticoagulation Z79.01 Thoracic kyphosis M40.204 S/P catheter ablation of slow pathway Z98.890; Z86.79 Hypomagnesemia E83.42 Left renal artery stenosis I70.1 Vitamin D deficiency E55.9 Superior mesenteric artery stenosis I77.1 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 transplanted heart: koi heart Associated angina: without angina Voice hoarseness R49.0 Pulmonary hypertension I27.20 AVNRT (AV ramesh re-entry tachycardia) I47.19 Tobacco use disorder F17.200 SABINE (latent autoimmune diabetes in adults), managed as type 1 E13.9 GERD (gastroesophageal reflux disease) K21.9 (3) HLD (hyperlipidemia) Hyperlipidemia type: unspecified Qualified Code(s): E78.5 - Hyperlipidemia, unspecified (4) HTN (hypertension) Hypertension type: primary hypertension Qualified Code(s): I10 - Essential (primary) hypertension (16) CAD (coronary artery disease) Coronary Disease-Associated Artery/Lesion type: [place] artery [place] vs. transplanted heart: koi heart Associated angina: without angina Qualified Code(s): I25.10 - Atherosclerotic heart disease of k[place] coronary artery without angina pectoris
[2025-09-09] MEDS: clonazePAM 0.5 MG TAB PO ONE (00:04)
[2025-09-09 06:48] LABS: Hematocrit (blood only) 26.2 % (37.0-47.0); Hemoglobin 8.9 g/dl (12.0-16.0); Immature Granulocytes # (auto) 0.02 K/uL (0.01-0.20); Immature Granulocytes % (auto) 0.3 %; Mean Corpuscular Hemoglobin 30.7 pg (25.0-34.0); Mean Corpuscular Volume 90.3 fL (80.0-100.0); Platelet Count 259 K/uL (130-400); RDW Standard Deviation 43.8 fL (36.4-46.3); Red Blood Count 2.90 M/uL (4.20-5.40); White Blood Count 6.20 K/ul (4.8-10.8)
[2025-09-09 07:29] LABS: Anion Gap 5.0 (3-11); Blood Urea Nitrogen 21.0 mg/dl (6-23); Calcium 8.8 mg/dl (8.6-10.3); Carbon Dioxide 27.0 mmol/L (21-32); Chloride 106.0 mmol/L (98-107); Creatinine Clr Calc Pharmacy 52.2 ml/min; Glucose 116.0 mg/dl (70-99(Fasting)); Magnesium 1.8 mg/dl (1.7-2.4); Potassium 4.1 mmol/L (3.5-5.1); Sodium 138.0 mmol/L (136-145)
[2025-09-09] MEDS: ALBUT/IPRATROP 3MG/0.5MG NEB 3 ML VIAL NEB PRN (12:18)
--- NOTE | 2025-09-09 14:03 | Hospitalist Progress Note ---
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 - Echocardiogram demonstrated expected diastolic and pulmonary pattern with mild concentric LVH - She is optimized from a cardiopulmonary standpoint, at dry weight, see discussion in case management notes and HPI in regards to rehab versus home with home health. - Will continue to taper Solu-Medrol. Start with 20 mg oral twice daily for 5 days and 20 mg daily for 7 days #AVNRT, paroxysmal atrial fibrillation IDALIA eval #sinus pauses - Noted on telemetry, Multaq had been on hold during diuresis, started couple days ago. She has been borderline bradycardic in the 50s last night noted to have a couple of pauses. Held the metoprolol this morning, no recurrence - Patient has reached out to cardiology prior to this hospitalization and would like an additional clearance regards to his medications. Consult to cardiology placed #Globus sensation in the throat - Persistent, present since first procedure/intubation discussed ENT referral on discharge, for laryngoscopy #Physical deconditioning #Orthostasis -Consulted PT and OT, briefly discussed the possibility of entertaining rehab for short time given it is been about 6 weeks since she has been at a normal active self and has quite significant decline in functional status since then. - Normal saline bolus given, will monitor orthostatic vital signs. - Clinically euvolemic. Optimize from a cardiopulmonary standpoint with deconditioning rehab would certainly be beneficial. [facility] at [facility] time , awaitng bed availablility remainder of beds at #Anemia -No preprocedure hemoglobin on file, currently 9.7, last check normal was around 12 - Hgb stable, AM check tomorrow, no evidence of bleed or blood loss - Telemetry monitoring, no source of bleed, no hematuria, no-hematochezia or hematemesis - stable 9.3 -> 8.9 -> 8.5 - > 8.9 history of PE, likely delusional, will continue to monitor tomorrow morning. No evidence of bleeding #Hypertension #Markedly elevated blood pressure readings - In the setting of TCAR as above, blood pressure management to maintain systolic below 160, avoid hypotension - Hydralazine 5 mg every 3 hours as needed for systolic greater than 180, labetalol and/or Vasotec if needed - Was also on olmesartan at home, on lisinopril here and tolerating #widespread atherosclerotic vascular disease at several sites #status post TCAR procedure left 4 weeks ago right 1 week ago #known CAD #Renal Artery Stenosis #Superior mesenteric Stenosis Continue aspirin,-nitroglycerin, telemetry monitoring #late onset diabetes (managed as type I) - Consult to pharmacy for glycemic management, I do not see any insulin on her med list at this time - Above goal this AM, continue monitoring and SS #hypertension - As above, continue home losartan, metoprolol, clonidine - Blood pressure targets as above #hyperlipidemia - Continue statin and fenofibrate #tobacco dependence - ongoing, improving still sporadic cigarettes #osteopenia - Calcium and D3 vitamin D deficiency - Continue supplement, calcitriol #history of recent flux of esophagitis - Prevacid #anxiety and depression - Continue buspirone, clonazepam as needed #FEN - Diabetic/cardiac diet #CODE STATUS -Modified code, does not want chest compressions, okay with intubation, shocks, ACLS medication at least briefly. Very clear that she did not want sustained interventions if it was not to have a good outcome Admission and Anticipated Discharge Date Admission Date: September 05, 2025 Subjective Doing okay. Patient notes some episodic shortness of breath intervals this morning which seems to be new for her. No cough or chills. Reports she has not been getting the breathing medications that she has been. We also discussed sleep better noted on her telemetry overnight. Patient reports she had 1 dose discussed her rate controlling medications prior to this hospitalization but has not had a callback from the clinic. We discussed having cardiology provide an update in regards to rate control medications especially in the setting of his pauses. Otherwise no new or different symptoms. Plans for [facility]. Awaiting to evaluate availability for them. Physical Exam Physical Exam: General: A&Ox3. NAD. Cooperative. HEENT: Atraumatic, normocephalic. Vision and hearing grossly intact. Pupils equal and reactive to light, sclera clear and anicteric Pulm: Crackles resolved, mild prolongation of expiratory phase with no wheezing, no increased work of breathing no respiratory distress. Cardiac: RRR. -mrg. Radial pulses intact and symmetrical. Abdominal: Nontender, nondistended, soft. BS present. Ext: No Edema, Moves all extremities equally NEURO: A&O as above, no focal deficits Skin: warm, no pallor, moist. Results & Data Results & Data Vital Signs (Past 12 Hours) Vital Signs Temp Pulse Resp BP Pulse Ox O2 Del Method 09/09/25 12:18 74 16 96 Room Air 09/09/25 11:34 36.4 C L 54 L 19 113/55 L 99 Room Air 09/09/25 08:00 Room Air 09/09/25 07:04 36.7 C 51 L 19 121/64 100 Room Air 09/09/25 02:58 36.6 C 52 L 18 123/58 L 100 Room Air Laboratory Results 09/09/25 09/09/25 09/09/25 11:31 07:02 06:20 WBC 6.20 RBC 2.90 L Hgb 8.9 L Hct 26.2 L MCV 90.3 MCH 30.7 MCHC 34.0 RDW Std Deviation 43.8 RDW Coeff of Mercedes 13.1 Plt Count 259 MPV 10.7 Immature Gran % (Auto) 0.3 Neut % (Auto) 73.4 Lymph % (Auto) 19.0 [place] % (Auto) 7.1 Eos % (Auto) 0.0 Baso % (Auto) 0.2 Neut # (Auto) 4.55 Lymph # (Auto) 1.18 L [place] # (Auto) 0.44 Eos # (Auto) 0.00 Baso # (Auto) 0.01 Immature Gran # (Auto) 0.02 Sodium 138 Potassium 4.1 Chloride 106 Carbon Dioxide 27 Anion Gap 5 BUN 21 Creatinine 0.74 Est Cr Clr Drug Dosing 52.2 eGFR 85.38 BUN/Creatinine Ratio 28.4 H Glucose 116 H POC Glucose 273 H 115 H Calcium 8.8 Magnesium 1.8 09/08/25 09/08/25 20:05 16:11 WBC RBC Hgb Hct MCV MCH MCHC RDW Std Deviation RDW Coeff of Mercedes Plt Count MPV Immature Gran % (Auto) Neut % (Auto) Lymph % (Auto) [place] % (Auto) Eos % (Auto) Baso % (Auto) Neut # (Auto) Lymph # (Auto) [place] # (Auto) Eos # (Auto) Baso # (Auto) Immature Gran # (Auto) Sodium Potassium Chloride Carbon Dioxide Anion Gap BUN Creatinine Est Cr Clr Drug Dosing eGFR BUN/Creatinine Ratio Glucose POC Glucose 155 H 238 H Calcium Magnesium PG Care Time/CCT Total # of Minutes Spent Total Time Spent with Patient: Total time spent is greater than 50% in coordination of care (as documented) at patient's floor/unit and/or counseling patient: Coding Level of Care Code 58290 SUB INP/OBS CARE 2/35MIN Diagnoses S/P vascular surgery Z98.890 Carotid stenosis, bilateral I65.23 Hyperlipidemia, unspecified hyperlipidemia type E78.5 Hyperlipidemia type: unspecified Primary hypertension I10 Hypertension type: primary hypertension Anxiety and depression F41.9; F32.A Osteopenia M85.80 Chronic anticoagulation Z79.01 Thoracic kyphosis M40.204 S/P catheter ablation of slow pathway Z98.890; Z86.79 Hypomagnesemia E83.42 Left renal artery stenosis I70.1 Vitamin D deficiency E55.9 Superior mesenteric artery stenosis I77.1 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 transplanted heart: [place] heart Associated angina: without angina Voice hoarseness R49.0 Pulmonary hypertension I27.20 AVNRT (AV ramesh re-entry tachycardia) I47.19 Tobacco use disorder F17.200 SABINE (latent autoimmune diabetes in adults), managed as type 1 E13.9 GERD (gastroesophageal reflux disease) K21.9 (3) HLD (hyperlipidemia) Hyperlipidemia type: unspecified Qualified Code(s): E78.5 - Hyperlipidemia, unspecified (4) HTN (hypertension) Hypertension type: primary hypertension Qualified Code(s): I10 - Essential (primary) hypertension (16) CAD (coronary artery disease) Coronary Disease-Associated Artery/Lesion type: [place] artery [place] vs. transplanted heart: [place] heart Associated angina: without angina Qualified Code(s): I25.10 - Atherosclerotic heart disease of [place] coronary artery without angina pectoris
[2025-09-09] MEDS: predniSONE 20 MG TAB PO SCH (21:26)
--- NOTE | 2025-09-10 05:48 | Electrocardiogram Report ---
Test Reason : Blood Pressure : */* mmHG Vent. Rate : 55 BPM Atrial Rate : 55 BPM P-R Int : 150 ms QRS Dur : 92 ms QT Int : 496 ms P-R-T Axes : 51 -13 50 degrees QTcB Int : 474 ms Sinus bradycardia Otherwise normal ECG When compared with ECG of 05-Sep-2025 18:03, Aberrant conduction is no longer Present Vent. rate has decreased by 43 bpm Non-specific change in ST segment in Inferior leads Premature atrial complexes are no longer Present Confirmed by Reynaldo August ([id number]) on 09/10/2025 5:48:44 AM Referred By: REFERRED SELF Confirmed By: Reynaldo August
--- NOTE | 2025-09-10 10:10 | Cardiology Consultation ---
Date of Consultation September 10, 2025 Assessment & Plan (1) Bradycardia: (2) Junctional bradycardia: (3) Paroxysmal atrial fibrillation: (4) HTN (hypertension): (5) AVNRT (AV ramesh re-entry tachycardia): (6) S/P catheter ablation of slow pathway: (7) Lightheadedness: (8) Anemia: (9) CAD (coronary artery disease): (10) S/P right coronary artery (RCA) stent placement: Plan ASSESSMENT/PLAN: 1. Symptomatic bradycardia: An episode of lightheadedness occurred while familia ding with transient junctional bradycardia and heart rate in the 30s. Agree with discontinuation of dronedarone and holding beta-sara given baseline sinus bradycardia and known orthostatic symptoms. Clonidine can also contribute to bradycardia but if reduced or discontinued, would have to be weaned. Reassess without Trinate around or beta-sara for now. 2. Junctional bradycardia: Has been transient. Recent carotid procedures may also be contributing. No urgent indication for pacemaker. Holding medications that can further slow heart rate as above and can reassess. 3. SVT s/p ablation: Had been symptomatic in the past and has not had any further symptoms. There was concern that perhaps SVT was precipitating atrial fibrillation. Discontinue dronedarone and reassess for arrhythmia.. 4. Paroxysmal atrial fibrillation: Atrial fibrillation was felt to be due to SVT according to patient. Was symptomatic in the past. No documented or recalled symptomatic episodes since undergoing SVT ablation. Continue anticoagulation therapy for now for stroke risk reduction if no contraindication. Discontinuing dronedarone. Discussed that if dronedarone was suppressing her arrhythmia, it may return at some point. 5. Hypertension: Has history of orthostatic hypotension per her report. Her blood pressure has been normotensive to hypertensive. In absence of her metoprolol, she may require further adjustment of her antihypertensive regimen, with caution to avoid worsening orthostatic symptoms. 6. Orthostatic hypotension: Change positions slowly. Avoid hypovolemia. Cons ider compression stockings. 7. Dyspnea: She appears euvolemic. Her fluid balance is net negative. Unclear if she has appropriate chronotropic response but rate controlling medications are being held as above. 8. Anemia: Her family is concerned about her anemia which has worsened since most recent TCAR. Will defer to primary hospitalist service. 9. CAD s/p prior RCA PCI: No angina. Continue antiplatelet therapy given prior PCI. Single antiplatelet therapy such as aspirin 81 mg daily sufficient from a cardiac standpoint. She is likely on dual antiplatelet therapy given recent TCAR. Continue high intensity statin therapy. 10. Disposition: She would like Dr. Hassan, her primary gas meter reader, to continue to follow. Dr. Hassan will be rounding tomorrow. Patient care communicated with primary hospitalist, Dr. Hummel. Today's visit was 75 minutes in duration, which includes [id number] time, counseling patient, cording care, reviewing multiple records, and completing documentation. Thank you for allowing me to participate in the care of your patient. Please call for any other questions or concerns. Sincerely, Mohan August M.D. History of Present Illness Reason for Consultation: Sinus pause Requesting Physician: Asher Hummel MD Attending Physician: Asher Hummel MD History of Present Illness Ms. 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 Her primary gas meter reader is Dr. Hassan. She was admitted on 09/04/2025 due to inability to take a deep breath or catch her breath/dyspnea. She had undergone TCAR in July and again in August for bilateral carotid artery stenosis. She states that she recovered quickly from the first 1 but recovery has been much more difficult following discharge on 09/01/2025. Transient bradycardia has been noted on telemetry. She states that she has a history of orthostatic hypotension. This morning at approximately 540, she got up out of bed and walked to the nursing station. She had the worst episode of lightheadedness that she has ever had. On telemetry, she had transient junctional bradycardia lasting less than 1 minute. Her orthostatic hypotension predates her first TCAR but admits that she had issues with hypotension following her first surgery. She states that her weight has decreased with her recent hospitalizations. She has been on Multaq following SVT ablation in the past. She followed with electrophysiology and reports that there was thoughts that atrial fibrillation occurred due to the SVT. She was placed on Multaq after the SVT ablation and has not had any further symptomatic episodes of arrhythmia. She states that she had been symptomatic in the past with her arrhythmia. While here, due to bradycardia, Multaq has been held and she admits that she felt better with Multaq on hold. She also takes metoprolol and clonidine. Metoprolol was also held by the primary hospitalist service, with last dose 09/09/2020 5 in the evening. She denies chest pain, syncope, palpitations, edema, melena, hematochezia, hematuria. She has occasional shortness of breath in bed but feels better while laying on the left side with some elevation. She also reports that she is now on angiotensin receptor sara which is new within the past few weeks after discontinuation of HCTZ. Review of systems: As above. Family history: Mother had carotid artery stenosis and underwent CABG for CAD. Sister had CABG in her 40s. Social history: Smokes 0.5 pack/day. Approximately 1 glass of wine per day. Denies drug abuse. Has a daughter and a son in [place]. Her daughter (Brianda) was present at the bedside, as well as a friend. Her niece, Charlotte, is a nurse and participated via speaker phone. Allergies Allergy/AdvReac Type Severity Reaction Status Date / Time Penicillins Allergy Intermediate Upper Body Verified 09/04/25 17:13 Rash gluten AdvReac Intermediate Gastrointestinal Verified 09/04/25 17:13 Upset lactose AdvReac Intermediate Diarrhea Verified 09/04/25 17:13 levofloxacin AdvReac Intermediate Foggy Verified 09/04/25 17:13 Feeling clindamycin AdvReac Unknown Unknown Verified 09/04/25 17:13 Home Medications Medication Instructions Recorded Confirmed Type lancets 28 gauge (FreeStyle #25 ea 06/02/19 08/29/25 History Lancets) blood sugar diagnostic (FreeStyle #10 ea 08/20/21 08/29/25 History Lite Strips) multivitamin 1 tab PO QAM 03/27/22 09/04/25 History coenzyme Q10 100 mg capsule 100 mg PO 3XWK 11/21/22 09/04/25 History (CoQ-10) acetaminophen 500 mg capsule 500 mg PO Q6H PRN Pain 01/21/23 09/04/25 History blood-glucose sensor (Dexcom G7 08/23/24 08/29/25 History Sensor device) cholecalciferol (vitamin D3) 50 4,000 unit PO DAILY 08/23/24 09/04/25 History mcg (2,000 unit) capsule dronedarone 400 mg tablet (Multaq) 400 mg PO BID #180 tabs 09/27/24 09/04/25 Rx clonidine HCl 0.2 mg tablet 0.2 mg PO BID #180 tabs 10/22/24 09/04/25 Rx calcitonin (salmon) 200 1 spray intranasal (ALT) DAILY 01/02/25 09/04/25 Rx unit/actuation nasal spray #3.7 mL metoprolol succinate 50 mg 50 mg PO BID #60 tabs 03/15/25 09/04/25 Rx tablet,extended release 24 hr fenofibrate nanocrystallized 145 145 mg PO HS #90 tabs 04/10/25 09/04/25 Rx mg tablet lactobacillus combination no.9 4 4,000 mmu cells PO DAILY 07/17/25 09/04/25 History billion cell capsule (Adult 50 Plus Probiotic) apixaban 5 mg tablet (Eliquis) 5 mg PO BID #180 tabs 07/21/25 09/04/25 Rx clopidogrel 75 mg tablet 75 mg PO DAILY 07/21/25 09/04/25 History nitroglycerin 0.4 mg sublingual 0.4 mg sublingual Q5M PRN chest 07/21/25 09/04/25 Rx tablet pain #25 tabs buspirone 5 mg tablet 5 - 10 mg (1 - 2 x 5 mg) PO BID 07/24/25 09/04/25 Rx #180 tabs clonazepam 0.5 mg tablet (Klonopin) 0.25 - 0.5 mg PO HS PRN Sleep 07/31/25 09/04/25 History /Anxiety doxazosin 2 mg tablet (Cardura) 2 mg PO HS 07/31/25 09/04/25 History lansoprazole 30 mg capsule,delayed 30 mg PO DAILYBB esophageal reflux 07/31/25 09/04/25 History release (Prevacid) aspirin 81 mg tablet,delayed 81 mg PO DAILY 08/03/25 09/04/25 History release varenicline tartrate 0.5 mg (11)-1 See Rx Instructions .Route 08/07/25 09/04/25 Rx mg (42) tablets in a dose pack .COMPLEX #53 ea (Chantix Starting Month Box) oldamianartan 20 mg tablet (Benicar) 20 mg PO HS 08/23/25 09/04/25 History atorvastatin 40 mg tablet (Lipitor) 40 mg PO QPM 08/30/25 09/04/25 History ondansetron HCl 4 mg tablet 4 mg PO Q8H PRN nausea and 09/01/25 09/04/25 Rx vomiting 4 days #10 tabs oxycodone 5 mg tablet 10 mg (2 x 5 mg) PO Q4H PRN pain 09/01/25 09/04/25 Rx #30 tabs Patient History Medical History Acute blood loss anemia Voice hoarseness as of phone interview 08/23/25, pt with hoarse voice s/p intubation for 07/11 01/03 TCAR; pt denies sore throat Pulmonary hypertension mild pulmonary hypertension noted on 2021 echo History of blood transfusion AVNRT (AV ramesh re-entry tachycardia) Paroxysmal atrial fibrillation [facility] [place] [place]. Hassan Chronic anticoagulation Hyperlipidemia Dizziness Carotid stenosis, bilateral s/p L TCAR 07/31/25; upcoming R TCAR Osteopenia Adjustment reaction with anxiety and depression Tobacco use disorder pt weaning off of cigarettes; she is smoking 'every now and then' and using vape; PCP Rx chantix but she is waiting to start until after 08/30/25 surgery Hypotension hctz currently on hold; pt currently following closely with PCP for BP fluctuations Nonsustained paroxysmal supraventricular tachycardia [facility] [place] [place]. Hassan Supraventricular tachycardia hx - [facility]. Hassan Arthritis Coronary arteriosclerosis [facility] Dr. 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 Hassan Thoracic degenerative disc disease Lymphocytic colitis Mild nonproliferative diabetic retinopathy PVD (peripheral vascular disease) Hx of compression fracture of spine ~12/30/22 mild superior endplate compression fracture at L2 ~11/03/22 Subacute mild inferior endplate compression fracture at T8 and a subacute nondisplaced superior endplate compression fracture at T9. Lactose intolerance Hx of sinus tachycardia History of COVID-19 04/05/23. [place] ER. states only symptom was diarrhea - resolved History of non-ST elevation myocardial infarction (NSTEMI) per cardiac note, Patient was hospitalized at the [facility] from 03/08/22 through 03/12/22 with Paroxysmal Atrial Fibrillation with RVR in setting of Hypomagnesemia and Hypokalemia and a NSTEMI - pt denies heart attack Abdominal aneurysm 30mm infrarenal aneurysm per 12/2022 abd/pelvis CT Osteoporosis History of hepatitis C related to blood transfusion - treated/resolved History of cervical cancer dx'd 1984. treated surgically. MVP (mitral valve prolapse) [facility] [place] [address]. Hassan CAD (coronary artery disease) x1 stents - [facility] [address]. Hassan Gluten intolerance GERD (gastroesophageal reflux disease) Lung nodule Weakness of both legs Low Back Pain Skin sensitivity Radicular pain of thoracic region Serum digoxin level above therapeutic range Iron deficiency anemia emr - pt denies Surgical History History of transcarotid artery revascularization (TCAR) L 07/31/25: [place]: MAC#3, ETT#7.0, Gr View 1, atraumatic x 1 (*pt still with hoarse voice on 08/23/22; she denies any sore throat) History of left cataract extraction Hx of right cataract extraction S/P catheter ablation of slow pathway 08/05/22 at [facility] with Dr. Maurice Family history of reaction to anesthesia mother>nausea History of colonoscopy History of tooth extraction History of tonsillectomy History of hysterectomy with unilateral oophorectomy H/O heart artery stent x 1 (2011) - [facility]. Hassan History of cardiac catheterization per cardiac note, cath done 03/2022 [facility] -- "Given the anatomical location of the ostial LCx disease and occluded OM1 -- medical management was recommended." 2011 - stent History of esophagogastroduodenoscopy (EGD) S/P ablation of atrial fibrillation 08/05/2022- [facility] - [facility] Dr. Hassan Family History Mother Diabetes Heart disease Myocardial infarction PONV (postoperative nausea and vomiting) Sister Breast cancer Grandmother (Maternal) Myocardial infarction Father No problems noted. Denies family history of Colon cancer Ovarian cancer Prostate cancer Crohn's disease Colorectal cancer Social History Smoking Status: Current every day smoker Tobacco Type: Cigarettes and E-cigarettes / Vaping Age Started Using Tobacco: 22; packs per day: 0.5; Cigarettes Per Day: 1; Second Hand Exposure: No; Do You Dip or Chew Tobacco: No; Hx Alcohol Use: Yes Alcohol type: wine Hx Substance Use: No Preferred Language: Yi Communication Ability: Effective Visual Impairment: No Limitations Hearing Ability: Normal Dinkey Mechanic Required: No Beliefs That Will Affect Care: None marital status: / Current Living Situation: Alone current occupational status: retired Feels Safe at Home: Yes Seatbelt Use: always Sunscreen Use: Yes Assistive Devices: None Physical Exam Physical Exam: Gen.: No acute distress. Alert and oriented. HEENT: Anicteric sclera. Neck: No JVD. Cardiac: Regular and bradycardic in the 50s. Normal S1-S2. No murmurs, rubs, or gallops. Pulmonary: Clear to auscultation bilaterally without wheezes, rales, or rhonchi. Abdomen: Soft, nontender, nondistended, with normoactive bowel sounds. No bruits noted. Extremities: 2+ radial pulses bilaterally. 2+ posterior tibialis pulses bilaterally. No edema or cyanosis. Results & Data Vital Signs (Past 12 Hours) Vital Signs Temp Pulse Pulse Resp BP Pulse Ox O2 Del Method 09/10/25 07:20 36.6 C 53 L 18 147/72 H 100 Room Air 09/10/25 07:00 59 L 09/10/25 03:59 36.7 C 54 L 16 132/61 100 Room Air 09/10/25 03:11 22 L 09/10/25 00:05 36.4 C L 58 L 18 137/68 100 Room Air Intake & Output 09/08/25 09/09/25 09/10/25 09/11/25 07:59 07:59 06:59 06:59 Intake Total Output Total Balance Weight Cumulative I's and O's for the hospital stay -3.63 L. Laboratory Results Laboratory Results - last 24 hr 09/09/25 09/09/2525 11:31 16:19 20:02 POC Glucose 273 H 196 H 135 H 09/10/25 08:00 POC Glucose 213 H Diagnostic Findings ECGs personally reviewed: ECG 09/04/2025 1423: Sinus bradycardia 56 bpm. ECG 09/05/2025 at 1803: Sinus rhythm with frequent PACs. 98 bpm. ECG 09/09/2025: Sinus bradycardia 55 bpm. Echo report reviewed 09/06/2025: Normal LV systolic function. EF 60 to 65%. Normal wall motion. No significant valvular abnormalities. Labs reviewed and notable for normal high-sensitivity troponin x 1, stable renal function, normal magnesium, normal transaminase levels, stable anemia since presentation. CTA chest 09/04/2025: No definite pulmonary embolism per radiology. New small bilateral pleural effusions and bilateral lung base atelectasis. Pulmonary nodules. Suspected mucous impacted bronchiectasis right lower lobe (unchanged per radiology). Emphysema. History and physical report reviewed. Hospitalist note reviewed from 09/09/2025. Discharge summary report reviewed from 09/01/2025 (underwent left TCAR) Cardiology outpatient note reviewed from 07/21/2025. Outpatient cardiology note reviewed from 04/04/2025. Cardiac cath report reviewed from 03/10/2022 Amisha: Mild LAD CAD. Ostial circumflex 70%. Small OM1 occluded. Dominant RCA. Mid RCA stent patent with mild in-stent restenosis. Electrophysiology ablation report reviewed from 08/05/2022: SVT ablation performed by Dr. Maurice. Telemetry personally reviewed: Has had transient episodes of bradycardia or junctional beats, mostly during the overnight hours however she was awake for the episode on 09/10/2025 at 5:37 AM which correlated with significant lightheadedness while ambulating. Predominant rhythm is sinus. Medications Administered Current Inpatient Medications Acetaminophen (Acetaminophen 325 Mg Tab) 650 mg PO Q4H PRN PRN Reason: Pain or Fever Stop: 10/04/25 19:20 Last Admin: 09/06/25 03:05 Dose: 650 mg Albuterol (Albuterol 0.083% Nebu Soln 3 Ml Vial) 2.5 mg NEB Q2H PRN; Protocol PRN Reason: Shortness Of Breath Or Wheezing Stop: 10/04/25 19:20 Last Admin: 09/04/25 21:36 Dose: 2.5 mg Albuterol (Albut/Ipratrop 3mg/0.5mg Neb 3 Ml Vial) 3 ml NEB BIDR PRN PRN Reason: Wheezing Stop: 10/06/25 18:59 Last Admin: 09/09/25 21:07 Dose: 3 ml Apixaban (Apixaban 5 Mg Tablet) 5 mg PO BID DEVEN Stop: 10/05/25 20:59 Last Admin: 09/10/25 08:04 Dose: 5 mg Aspirin (Aspirin 81 Mg Ectab) 81 mg PO DAILY DEVEN Stop: 10/05/25 18:29 Last Admin: 09/10/25 08:05 Dose: 81 mg Atorvastatin Calcium (Atorvastatin 40 Mg Tab) 40 mg PO QPM DEVEN Stop: 10/05/25 20:59 Last Admin: 09/09/25 21:26 Dose: 40 mg Calcitonin Fletcher (Calcitonin Fletcher Na 200 Iu/Ac 3.7 Ml Btl) 1 sprays NA DAILY DEVEN Stop: 10/06/25 08:59 Last Admin: 09/10/25 08:07 Dose: 1 sprays Clonidine HCl (Clonidine Hcl 0.1 Mg Tab) 0.2 mg PO BID DEVEN Stop: 10/05/25 20:59 Last Admin: 09/10/25 08:15 Dose: 0.2 mg Clopidogrel Bisulfate (Clopidogrel Bisulfate 75 Mg Tab) 75 mg PO DAILY DEVEN Stop: 10/05/25 18:44 Last Admin: 09/10/25 08:05 Dose: 75 mg Dextrose (Dextrose 50% 50 Ml Syringe) 25 - 50 ml IV UD PRN; Protocol PRN Reason: Hypoglycemia Protocol Stop: 10/04/25 19:59 Doxazosin Mesylate (Doxazosin Mesylate Tab 2 Mg Tab) 2 mg PO HS DEVEN Stop: 10/05/25 20:59 Last Admin: 09/09/25 21:26 Dose: 2 mg Dronedarone (Dronedarone Hcl 400 Mg Tab) 400 mg PO BID DEVEN Stop: 10/06/25 20:59 Last Admin: 09/10/25 08:06 Dose: Not Given Fenofibrate (Fenofibrate Nanocrystallized 145 Mg Tablet) 145 mg PO HS DEVEN Stop: 10/05/25 20:59 Last Admin: 09/09/25 21:26 Dose: 145 mg Glucagon (Glucagon For Inj 1 Mg Vial) 1 mg SQ UD PRN; Protocol PRN Reason: Hypoglycemia Protocol Stop: 10/04/25 19:59 Glucose (Glucose 40% Gel 15 Gm Tube) 15 - 30 gm PO UD PRN; Protocol PRN Reason: Hypoglycemia Protocol Stop: 10/04/25 19:59 Glucose (Glucose 10 Tab/Tube) 4 - 8 tab PO UD PRN; Protocol PRN Reason: Hypoglycemia Protocol Stop: 10/04/25 19:59 Insulin Aspart (Insulin Aspart Per Unit Charge) 0 units SC ACHS [facility] Stop: 10/04/25 20:59 Last Admin: 09/10/25 08:04 Dose: 4 units Insulin Glargine (Lantus Per Unit Charge) 8 units SC DAILY [facility] Stop: 10/06/25 08:59 Last Admin: 09/10/25 08:10 Dose: 8 units Insulin Glargine (Lantus Per Unit Charge) 0 units SC HS [facility]; Protocol Stop: 10/06/25 20:59 Last Admin: 09/09/25 21:27 Dose: 4 units Lansoprazole (Lansoprazole 30 Mg Soltab) [facility] Protocol Stop: 10/06/25 06:29 Last Admin: 09/10/25 06:22 Dose: 30 mg Lisinopril (Lisinopril 10 Mg Tab) 10 mg PO [facility] Stop: 10/05/25 11:44 Last Admin: 09/10/25 08:04 Dose: 10 mg Metoprolol Succinate (Metoprolol Succ 50mg Ext Rel Tab) 50 mg PO BID [facility] Stop: 10/05/25 20:59 Last Admin: 09/10/25 09:06 Dose: Not Given Miscellaneous (Carbohydrates For Hypoglycemia ) 15 - 30 gm PO UD PRN PRN Reason: Hypoglycemia Treatment Stop: 10/04/25 19:59 Miscellaneous Information (Pharmacy Glycemic Mgmt Consult) 1 each N/A UD PRN; Protocol PRN Reason: Consult Stop: 10/04/25 19:20 Multivitamins ([facility]ivitamin Tab) [facility] Protocol Stop: 10/06/25 08:59 Last Admin: 09/10/25 08:05 Dose: 1 tab Ondansetron HCl (Ondansetron Inj 2 Mg/Ml 2 Ml Vial) 4 mg IV Q6H PRN PRN Reason: Nausea Stop: 10/04/25 19:20 Oxycodone HCl (Oxycodone Hcl Ir 5 Mg Tab (Immediate Release)) 10 mg PO Q4H PRN PRN Reason: pain Stop: 09/19/25 18:28 Last Admin: 09/06/25 03:04 Dose: 10 mg Polyethylene Glycol (Polyethylene (Miralax) 17 Gm Pack) 17 gm PO DAILY PRN PRN Reason: Constipation Stop: 10/04/25 19:20 Prednisone (Prednisone 20 Mg Tab) 20 mg PO BID DEVEN Stop: 10/13/25 20:59 Last Admin: 09/10/25 08:06 Dose: 20 mg PG Care Time/CCT Total # of Minutes Spent Total Time Spent: 75 Total Time Spent with Patient: Total time spent is greater than 50% in coordination of care (as documented) at patient's floor/unit and/or counseling patient: Coding Level of Care Code 08473 INT INP/OBS CARE 3/75MIN Diagnoses Bradycardia R00.1 Junctional bradycardia R00.1 Paroxysmal atrial fibrillation I48.0 Primary hypertension I10 Hypertension type: primary hypertension AVNRT (AV ramesh re-entry tachycardia) I47.1 S/P catheter ablation of slow pathway Z98.890; Z86.79 Lightheadedness R42 Anemia D64.9 Coronary artery disease involving [place] coronary artery of [place] heart without angina pectoris I25.10 Coronary Disease-Associated Artery/Lesion type: [place] artery [place] vs. transplanted heart: [place] heart Associated angina: without angina S/P right coronary artery (RCA) stent placement Z95.5 (4) HTN (hypertension) Hypertension type: primary hypertension Qualified Code(s): I10 - Essential (primary) hypertension (9) CAD (coronary artery disease) Coronary Disease-Associated Artery/Lesion type: [place] artery [place] vs. transplanted heart: [place] heart Associated angina: without angina Qualified Code(s): I25.10 - Atherosclerotic heart disease of [place] coronary artery without angina pectoris
[2025-09-10 11:26] LABS: Hematocrit (blood only) 27.4 % (37.0-47.0); Hemoglobin 8.8 g/dl (12.0-16.0); Immature Granulocytes # (auto) 0.03 K/uL (0.01-0.20); Immature Granulocytes % (auto) 0.5 %; Mean Corpuscular Hemoglobin 29.1 pg (25.0-34.0); Mean Corpuscular Volume 90.7 fL (80.0-100.0); Platelet Count 316 K/uL (130-400); RDW Standard Deviation 44.2 fL (36.4-46.3); Red Blood Count 3.02 M/uL (4.20-5.40); White Blood Count 6.66 K/ul (4.8-10.8)
[2025-09-10 11:42] LABS: Anion Gap 4.0 (3-11); Blood Urea Nitrogen 21.0 mg/dl (6-23); Calcium 8.7 mg/dl (8.6-10.3); Carbon Dioxide 26.0 mmol/L (21-32); Chloride 104.0 mmol/L (98-107); Creatinine Clr Calc Pharmacy 56.4 ml/min; Glucose 127.0 mg/dl (70-99(Fasting)); Magnesium 1.8 mg/dl (1.7-2.4); Potassium 3.9 mmol/L (3.5-5.1); Sodium 134.0 mmol/L (136-145)
--- NOTE | 2025-09-10 12:55 | Hospitalist Progress Note ---
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 - Echocardiogram demonstrated expected diastolic and pulmonary pattern with mild concentric LVH - She is optimized from a cardiopulmonary standpoint, at dry weight, see discussion in case management notes and HPI in regards to rehab versus home with home health. - Will continue to taper Solu-Medrol. Start with 20 mg oral twice daily for 5 days and 20 mg daily for 7 days #AVNRT, paroxysmal atrial fibrillation IDALIA eval #sinus pauses - Noted on telemetry, Multaq had been on hold during diuresis, started couple days ago. She has been borderline bradycardic in the 50s last night noted to have a couple of pauses. Held the metoprolol this morning, no recurrence - Patient has reached out to cardiology prior to this hospitalization and would like an additional clearance regards to his medications. Consult to cardiology placed - Ongoing pauses, held Multaq and metoprolol this morning. Continue clonidine although that may need to be tapered. Patient #Globus sensation in the throat - Persistent, present since first procedure/intubation discussed ENT referral on discharge, for laryngoscopy #Physical deconditioning #Orthostasis -Consulted PT and OT, briefly discussed the possibility of entertaining rehab for short time given it is been about 6 weeks since she has been at a normal active self and has quite significant decline in functional status since then. - Normal saline bolus given, will monitor orthostatic vital signs. - Clinically euvolemic. Optimize from a cardiopulmonary standpoint with deconditioning rehab would certainly be beneficial. [facility] at this time , awaitng bed availablility remainder of beds at #Anemia -No preprocedure hemoglobin on file, currently 9.7, last check normal was around 12 - Hgb stable, AM check tomorrow, no evidence of bleed or blood loss - Telemetry monitoring, no source of bleed, no hematuria, no-hematochezia or hematemesis - stable 9.3 -> 8.9 -> 8.5 - > 8.9 history of PE, likely delusional, will continue to monitor tomorrow morning. No evidence of bleeding #Hypertension #Markedly elevated blood pressure readings - In the setting of TCAR as above, blood pressure management to maintain systolic below 160, avoid hypotension - Hydralazine 5 mg every 3 hours as needed for systolic greater than 180, labetalol and/or Vasotec if needed - Was also on olmesartan at home, on lisinopril here and tolerating #widespread atherosclerotic vascular disease at several sites #status post TCAR procedure left 4 weeks ago right 1 week ago #known CAD #Renal Artery Stenosis #Superior mesenteric Stenosis Continue aspirin,-nitroglycerin, telemetry monitoring #late onset diabetes (managed as type I) - Consult to pharmacy for glycemic management, I do not see any insulin on her med list at this time - Above goal this AM, continue monitoring and SS #hypertension - As above, continue home losartan, metoprolol, clonidine - Blood pressure targets as above #hyperlipidemia - Continue statin and fenofibrate #tobacco dependence - ongoing, improving still sporadic cigarettes #osteopenia - Calcium and D3 vitamin D deficiency - Continue supplement, calcitriol #history of recent flux of esophagitis - Prevacid #anxiety and depression - Continue buspirone, clonazepam as needed #FEN - Diabetic/cardiac diet #CODE STATUS -Modified code, does not want chest compressions, okay with intubation, shocks, ACLS medication at least briefly. Very clear that she did not want sustained interventions if it was not to have a good outcome Admission and Anticipated Discharge Date Admission Date: September 05, 2025 Subjective Did not sleep all that well, secondary to share room. She was moved through the night and slept well after that. Eating breakfast this morning without difficulty. Still having sporadic episodes where she feels short of breath and weak. She has several episodes where they look up to 3-second pauses on monito r. Junctional rhythm for some period of time thereafter. She does not feel any palpitations. Notes that nursing was commended that she has no specific symptoms associated with these pauses. She states at 1 point she felt quite dizzy as though she does not when she was trying to walk between rooms. Otherwise no new or different symptoms or concerns. Physical Exam Physical Exam: General: A&Ox3. NAD. Cooperative. HEENT: Atraumatic, normocephalic. Vision and hearing grossly intact. Pupils equal and reactive to light, sclera clear and anicteric Pulm: Crackles resolved, mild prolongation of expiratory phase with no wheezing, no increased work of breathing no respiratory distress. Cardiac: RRR. -mrg. Radial pulses intact and symmetrical. Abdominal: Nontender, nondistended, soft. BS present. Ext: No Edema, Moves all extremities equally NEURO: A&O as above, no focal deficits Skin: warm, no pallor, moist. Results & Data Results & Data Vital Signs (Past 12 Hours) Vital Signs Temp Pulse Pulse Resp BP Pulse Ox O2 Del Method 09/10/25 11:31 36.7 C 48 L 20 169/77 H 100 Room Air 09/10/25 07:20 36.6 C 53 L 18 147/72 H 100 Room Air 09/10/25 07:00 59 L 09/10/25 03:59 36.7 C 54 L 16 132/61 100 Room Air 09/10/25 03:11 22 L Laboratory Results 09/10/25 09/10/25 09/10/25 11:41 10:49 08:00 WBC 6.66 RBC 3.02 L Hgb 8.8 L Hct 27.4 L MCV 90.7 MCH 29.1 MCHC 32.1 RDW Std Deviation 44.2 RDW Coeff of Mercedes 13.4 Plt Count 316 MPV 10.9 Immature Gran % (Auto) 0.5 Neut % (Auto) 74.4 Lymph % (Auto) 16.1 [place] % (Auto) 8.6 Eos % (Auto) 0.2 Baso % (Auto) 0.2 Neut # (Auto) 4.97 Lymph # (Auto) 1.07 L [place] # (Auto) 0.57 Eos # (Auto) 0.01 Baso # (Auto) 0.01 Immature Gran # (Auto) 0.03 Sodium 134 L Potassium 3.9 Chloride 104 Carbon Dioxide 26 Anion Gap 4 BUN 21 Creatinine 0.70 Est Cr Clr Drug Dosing 56.4 eGFR 91.26 BUN/Creatinine Ratio 30.0 H Glucose 127 H POC Glucose 110 H 213 H Calcium 8.7 Magnesium 1.8 B-Natriuretic Peptide 212 H 09/09/25 09/09/25 20:02 16:19 WBC RBC Hgb Hct MCV MCH MCHC RDW Std Deviation RDW Coeff of Mercedes Plt Count MPV Immature Gran % (Auto) Neut % (Auto) Lymph % (Auto) [place] % (Auto) Eos % (Auto) Baso % (Auto) Neut # (Auto) Lymph # (Auto) [place] # (Auto) Eos # (Auto) Baso # (Auto) Immature Gran # (Auto) Sodium Potassium Chloride Carbon Dioxide Anion Gap BUN Creatinine Est Cr Clr Drug Dosing eGFR BUN/Creatinine Ratio Glucose POC Glucose 135 H 196 H Calcium Magnesium B-Natriuretic Peptide PG Care Time/CCT Total # of Minutes Spent Total Time Spent with Patient: Total time spent is greater than 50% in coordination of care (as documented) at patient's floor/unit and/or counseling patient: Coding Level of Care Code 17763 SUB INP/OBS CARE 2/35MIN Diagnoses S/P vascular surgery Z98.890 Carotid stenosis, bilateral I65.23 Hyperlipidemia, unspecified hyperlipidemia type E78.5 Hyperlipidemia type: unspecified Primary hypertension I10 Hypertension type: primary hypertension Anxiety and depression F41.9; F32.A Osteopenia M85.80 Chronic anticoagulation Z79.01 Thoracic kyphosis M40.204 S/P catheter ablation of slow pathway Z98.890; Z86.79 Hypomagnesemia E83.42 Left renal artery stenosis I70.1 Vitamin D deficiency E55.9 Superior mesenteric artery stenosis I77.1 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 transplanted heart: [place] heart Associated angina: without angina Voice hoarseness R49.0 Pulmonary hypertension I27.20 AVNRT (AV ramesh re-entry tachycardia) I47.19 Tobacco use disorder F17.200 SABINE (latent autoimmune diabetes in adults), managed as type 1 E13.9 GERD (gastroesophageal reflux disease) K21.9 (3) HLD (hyperlipidemia) Hyperlipidemia type: unspecified Qualified Code(s): E78.5 - Hyperlipidemia, unspecified (4) HTN (hypertension) Hypertension type: primary hypertension Qualified Code(s): I10 - Essential (primary) hypertension (16) CAD (coronary artery disease) Coronary Disease-Associated Artery/Lesion type: [place] artery [place] vs. transplanted heart: [place] heart Associated angina: without angina Qualified Code(s): I25.10 - Atherosclerotic heart disease of [place] coronary artery without angina pectoris
--- NOTE | 2025-09-11 05:49 | Electrocardiogram Report ---
Test Reason : Blood Pressure : */* mmHG Vent. Rate : 52 BPM Atrial Rate : 52 BPM P-R Int : 154 ms QRS Dur : 90 ms QT Int : 508 ms P-R-T Axes : 58 -16 47 degrees QTcB Int : 472 ms Sinus bradycardia Otherwise normal ECG When compared with ECG of 05-Sep-2025 18:03, Aberrant conduction is no longer Present Vent. rate has decreased by 46 bpm Non-specific change in ST segment in Inferior leads Premature atrial complexes are no longer Present Confirmed by Reynaldo August ([id number]) on 09/11/2025 5:49:17 AM Referred By: REFERRED SELF Confirmed By: Reynaldo August
--- NOTE | 2025-09-11 05:50 | Electrocardiogram Report ---
Test Reason : Blood Pressure : */* mmHG Vent. Rate : 52 BPM Atrial Rate : 52 BPM P-R Int : 166 ms QRS Dur : 80 ms QT Int : 486 ms P-R-T Axes : 62 -19 59 degrees QTcB Int : 451 ms Sinus bradycardia Anterior infarct , age undetermined Nonspecific T wave abnormality Abnormal ECG When compared with ECG of 09-Sep-2025 00:17, Nonspecific T wave abnormality is now Present Anterior infarct is now Present Confirmed by Reynaldo August ([id number] on 09/11/2025 5:49:59 AM Referred By: REFERRED SELF Confirmed By: Reynaldo August
[2025-09-11 08:07] LABS: Hematocrit (blood only) 27.6 % (37.0-47.0); Hemoglobin 9.0 g/dl (12.0-16.0); Immature Granulocytes # (auto) 0.03 K/uL (0.01-0.20); Immature Granulocytes % (auto) 0.5 %; Mean Corpuscular Hemoglobin 29.7 pg (25.0-34.0); Mean Corpuscular Volume 91.1 fL (80.0-100.0); Platelet Count 300 K/uL (130-400); RDW Standard Deviation 44.1 fL (36.4-46.3); Red Blood Count 3.03 M/uL (4.20-5.40); White Blood Count 6.53 K/ul (4.8-10.8)
[2025-09-11 08:19] LABS: Anion Gap 6.0 (3-11); Blood Urea Nitrogen 19.0 mg/dl (6-23); Calcium 8.7 mg/dl (8.6-10.3); Carbon Dioxide 25.0 mmol/L (21-32); Chloride 104.0 mmol/L (98-107); Creatinine Clr Calc Pharmacy 56.7 ml/min; Glucose 151.0 mg/dl (70-99(Fasting)); Magnesium 1.7 mg/dl (1.7-2.4); Potassium 3.8 mmol/L (3.5-5.1); Sodium 135.0 mmol/L (136-145)
--- NOTE | 2025-09-11 11:13 | Cardiology Progress Note ---
Date of Service September 11, 2025 Assessment & Plan (1) Bradycardia: Plan: -Symptomatic bradycardia has resolved since placing metoprolol and dronedarone on hold. -Continue to watch on school lunch monitor. (2) Paroxysmal atrial fibrillation: Plan: -Continue Eliquis. -Metoprolol succinate and dronedarone currently on hold. -Continue to watch on monitor. (3) HTN (hypertension): Plan: -Adequate control on current regimen. (4) AVNRT (AV ramesh re-entry tachycardia): Plan: -s/p catheter ablation of slow pathway (July 2021). (5) CAD (coronary artery disease): Plan: -s/p RCA ANITA, December 2011, patent March 2022). -Carries a history of chronic stable angina pectoris on medical management. Admission and Anticipated Discharge Date Admission Date: September 05, 2025 Subjective The patient is resting comfortably in bed without complaints of chest pain or dyspnea. She does not yet feel steady on her feet. Physical Exam Physical Exam: In general this is a thin white female in no acute distress. HEENT exam is negative. Neck is supple with full carotid upstrokes. No JVD. There is no thyromegaly. Cardiovascular exam reveals a regular rhythm with a normal S1 and S2. No S3, S4, or murmurs are noted. Lungs are clear without rales rhonchi, or recent. Abdomen is benign without bruits. Extremities reveal intact radial artery and posterior tibial pulses bilaterally. There is no peripheral edema. Results & Data Vital Signs (Past 12 Hours) Vital Signs Temp Pulse Pulse Resp BP BP Pulse Ox 09/11/25 07:46 51 L 09/11/25 07:23 36.5 C 58 L 16 138/66 100 09/11/25 03:00 36.6 C 60 17 154/72 H 100 09/11/25 00:11 36.5 C 61 16 133/67 96 09/10/25 23:46 63 O2 Del Method 09/11/25 07:46 09/11/25 07:23 Room Air 09/11/25 03:00 Room Air 09/11/25 00:11 Room Air 09/10/25 23:46 Diagnostic Findings security monitor notes sinus rhythm with a heart rate in the 50s and 60s. No atrial fibrillation or SVT. PG Care Time/CCT Total # of Minutes Spent Total Time Spent with Patient: Total time spent is greater than 50% in coordination of care (as documented) at patient's floor/unit and/or counseling patient: Coding Level of Care Code 30540 SUB INP/OBS CARE 350MIN Diagnoses Bradycardia R00.1 Paroxysmal atrial fibrillation I48.0 Primary hypertension I10 Hypertension type: primary hypertension AVNRT (AV ramesh re-entry tachycardia) I47.1 Coronary artery disease involving [place] coronary artery of [place] heart without angina pectoris I25.10 Coronary Disease-Associated Artery/Lesion type: [place] artery [place] vs. transplanted heart: [place] heart Associated angina: without angina (3) HTN (hypertension) Hypertension type: primary hypertension Qualified Code(s): I10 - Essential (primary) hypertension (5) CAD (coronary artery disease) Coronary Disease-Associated Artery/Lesion type: [place] artery [place] vs. transplanted heart: [place] heart Associated angina: without angina Qualified Code(s): I25.10 - Atherosclerotic heart disease of [place] coronary artery without angina pectoris
--- NOTE | 2025-09-11 11:44 | Electrocardiogram Report ---
Test Reason : Blood Pressure : */* mmHG Vent. Rate : 56 BPM Atrial Rate : 56 BPM P-R Int : 172 ms QRS Dur : 96 ms QT Int : 494 ms P-R-T Axes : 60 -11 60 degrees QTcB Int : 476 ms Sinus bradycardia with Premature atrial complexes Anterior infarct , age undetermined Abnormal ECG When compared with ECG of 09-Sep-2025 00:17, Premature atrial complexes are now Present Confirmed by Deacon Hassan ([id number]) on 09/11/2025 11:44:09 AM Referred By: REFERRED SELF Confirmed By: Deacon Hassan
--- NOTE | 2025-09-11 14:31 | Pharmacy Report ---
Pharmacy Glycemic Short Note 2 - Date of Service September 11, 2025 - Glycemic Short BSG Results (Last 24 hours): 09/10/25 09/10/25 09/11/25 16:33 20:30 07:10 Glucose 151 H POC Glucose 241 H 146 H 09/11/25 09/11/25 07:22 11:24 Glucose POC Glucose 168 H 150 H OUTPATIENT ANTIDIABETIC REGIMEN: * None - previously on 5 units Tresiba SC daily (July 2025) * HbA1c: 6.4% (06/09/2025) ASSESSMENT: 09/11: * Loren received a total of 22 units of insulin yesterday (12 units were basal and 10 were bolus). * Fasting BSG was 168mg/dL this morning. Will continue AM basal insulin and modified PM basal scale (0 or 6 units depending on BSG). * CR was loosened yesterday, will continue bolus insulin regimen without change. 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) who presents to the hospital with inability to catch her breath * Recent TCAR procedure a few days ago * Glucose on arrival was 169 * T1DM diet * Stressors: methylprednisolone 60mg then 40mg Q12H, recent TCAR procedure * Will initiate Novolog around stress level of 2 given glucose within range and no longer on insulin outpatient * Adjust as needed based on glucose values with steroids PLAN FOR INPATIENT GLYCEMIC CONTROL: * Basal insulin * Lantus 8 units SC daily * Lantus 0 or 6 units SC HS depending on BSG (see EHR for details) * Bolus insulin * NovoLog per scale ACHS or Q6hrs while NPO * Goal Range: Low 120 mg/dL - High 160 mg/dL * Correction Factor: 40 mg/dL/unit * Nutritional / Prandial insulin per carb ratio of 1 unit per 15 grams CHO consumed
--- NOTE | 2025-09-11 15:50 | Progress Note ---
Date of Service September 11, 2025 Assessment & Plan (1) S/P vascular surgery: (2) Carotid stenosis, bilateral: (3) HLD (hyperlipidemia): Hyperlipidemia type: unspecified Qualified Code(s): E78.5 - Hyperlipidemia, unspecified (4) HTN (hypertension): Hypertension type: primary hypertension Qualified Code(s): I10 - Essential (primary) hypertension (5) Anxiety and depression: (6) Osteopenia: (7) Chronic anticoagulation: (8) Thoracic kyphosis: (9) S/P catheter ablation of slow pathway: (10) Hypomagnesemia: (11) Left renal artery stenosis: (12) Vitamin D deficiency: (13) Superior mesenteric artery stenosis: (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 fib on Multaq and Eliquis, HTN, HLD, DM2, ongoing tobacco dependence - coming in with SOB #Shortness of breath #Malaise #Volume Overload - Undifferentiated, no evident hypoxemia, ongoing tobacco dependence raises the likelihood of an underlying mild emphysema, feeling better after nebs and steroids. - Echocardiogram demonstrated expected diastolic and pulmonary pattern with mild concentric LVH - She is optimized from a cardiopulmonary standpoint, at dry weight, see discussion in case management notes and HPI in regards to rehab versus home with home health. - Will continue to taper Solu-Medrol. Start with 20 mg oral twice daily for 5 days and 20 mg daily for 7 days 09/11 - spoke to patient and patient's niece about sinus pauses and if that's the cause of the SOB. spoke with Dr. Hassan who does not believe there is an indication for pacemaker. - patient does believe anxiety is contributing and I agree; will add PRN Klonopin. - cont prednisone, nebs #AVNRT, paroxysmal atrial fibrillation IDALIA eval #sinus pauses - Noted on telemetry, Multaq had been on hold during diuresis, started couple days ago. She has been borderline bradycardic in the 50s last night noted to have a couple of pauses. Held the metoprolol this morning, no recurrence - Patient has reached out to cardiology prior to this hospitalization and would like an additional clearance regards to his medications. Consult to cardiology placed - Ongoing pauses, held Multaq and metoprolol this morning. Continue clonidine although that may need to be tapered. Patient 09/11 - cardiology following; per cards no indication for pacemaker. #Globus sensation in the throat - Persistent, present since first procedure/intubation discussed ENT referral on discharge, for laryngoscopy #Physical deconditioning #Orthostasis -Consulted PT and OT, briefly discussed the possibility of entertaining rehab for short time given it is been about 6 weeks since she has been at a normal active self and has quite significant decline in functional status since then. - Normal saline bolus given, will monitor orthostatic vital signs. - Clinically euvolemic. Optimize from a cardiopulmonary standpoint with deconditioning rehab would certainly be beneficial. [facility]erral out [facility] at this time , awaitng bed availablility remainder of beds at #Anemia -No preprocedure hemoglobin on file, currently 9.7, last check normal was around 12 - Hgb stable, AM check tomorrow, no evidence of bleed or blood loss - Telemetry monitoring, no source of bleed, no hematuria, no-hematochezia or hematemesis - stable 9.3 -> 8.9 -> 8.5 - > 8.9 history of PE, likely delusional, will continue to monitor tomorrow morning. No evidence of bleeding #Hypertension #Markedly elevated blood pressure readings - In the setting of TCAR as above, blood pressure management to maintain systolic below 160, avoid hypotension - Hydralazine 5 mg every 3 hours as needed for systolic greater than 180, labetalol and/or Vasotec if needed - Was also on olmesartan at home, on lisinopril here and tolerating #widespread atherosclerotic vascular disease at several sites #status post TCAR procedure left 4 weeks ago right 1 week ago #known CAD #Renal Artery Stenosis #Superior mesenteric Stenosis Continue aspirin,-nitroglycerin, telemetry monitoring #late onset diabetes (managed as type I) - Consult to pharmacy for glycemic management, I do not see any insulin on her med list at this time - Above goal this AM, continue monitoring and SS #hypertension - As above, continue home losartan, metoprolol, clonidine - Blood pressure targets as above #hyperlipidemia - Continue statin and fenofibrate #tobacco dependence - ongoing, improving still sporadic cigarettes #osteopenia - Calcium and D3 vitamin D deficiency - Continue supplement, calcitriol #history of recent flux of esophagitis - Prevacid #anxiety and depression - Continue buspirone, clonazepam as needed #FEN - Diabetic/cardiac diet #CODE STATUS -Modified code, does not want chest compressions, okay with intubation, shocks, ACLS medication at least briefly. Very clear that she did not want sustained interventions if it was not to have a good outcome Admission and Anticipated Discharge Date Admission Date: September 05, 2025 Review of Systems Review of Systems: Constitutional: No Weight Change, No Fever, No Chills, No Night Sweats, No Fatigue, No Malaise ENT/Mouth: No Hearing Changes, No Ear Pain, No Nasal Congestion, No Sinus Pain, No Hoarseness, No sore throat, No Rhinorrhea, No Swallowing Difficulty Eyes: No Eye Pain, No Swelling, No Redness, No Foreign Body, No Discharge, No Vision Changes Cardiovascular: No Chest Pain, No SOB, No PND, No Dyspnea on Exertion, No Orthopnea, No Claudication, No Edema, No Palpitations Respiratory: No Cough, No Sputum, No Wheezing, No Smoke Exposure, No Dyspnea Gastrointestinal: No Nausea, No Vomiting, No Diarrhea, No Constipation, No Pain, No Heartburn, No Anorexia, No Dysphagia, No Hematochezia, No Melena, No Flatulence, No Jaundice Genitourinary: No Dysmenorrhea, No DUB, No Dyspareunia, No Dysuria, No Urinary Frequency, No Hematuria, No Urinary Incontinence, No Urgency, No Flank Pain, No Urinary Flow Changes, No Hesitancy Musculoskeletal: No Arthralgias, No Myalgias, No Joint Swelling, No Joint Stiffness, No Back Pain, No Neck Pain, No Injury History Skin: No Skin Lesions, No Pruritis, No Hair Changes, No Breast/Skin Changes, No Nipple Discharge Neuro: No Weakness, No Numbness, No Paresthesias, No Loss of Consciousness, No Syncope, No Dizziness, No Headache, No Coordination Changes, No Recent Falls Psych: No Anxiety/Panic, No Depression, No Insomnia, No Personality Changes, No Delusions, No Rumination, No SI/HI/AH/VH, No Social Issues, No Memory Changes, No Violence/Abuse Hx., No Eating Concerns Heme/Lymph: No Bruising, No Bleeding, No Transfusions History, No Lymphadenopathy Endocrine: No Polyuria, No Polydipsia, No Temperature Intolerance Physical Exam Physical Exam: VITALS: Reviewed. WEIGHT/BMI reviewed. GEN: Healthy appearing, well-developed, NAD. PSYCH: Good Judgment. AOx3. +anxious appearing HEENT -Head: NC/AT; -Eyes: PERRL, EOMI. No discharge or redn ess; -Ears: External ears are normal. Normal TMs. -Nose: Normal nares. -Mouth and throat: MMM. Normal gums, muc juan ramon, palate,. Good dentition. NECK: Supple, with no masses. CV: RRR, no m/r/g. LUNGS: CTAB, no w/r/c. ABD: Soft, NT/ND, NBS, no masses or organomegaly. : N/A SKIN: Warm, well perfused. No skin rashes or abnormal lesions. MSK: No deformities, Normal gait. EXT: No clubbing, cyanosis, or edema. NEURO: Ambulating with no limitations. Normal muscle strength and tone. No focal deficits. Results & Data Vital Signs (Past 12 Hours) Vital Signs Temp Pulse Pulse Resp BP Pulse Ox O2 Del Method 09/11/25 14:00 73 09/11/25: 36.8 C 58 L 18 169/79 H 100 Room Air 09/11/25 07:46 51 L 09/11/25 07:23 36.5 C 58 L 16 138/66 100 Room Air Laboratory Results Laboratory Results WBC 6.53 K/ul (4.8-10.8) 09/11/25 07:10 RBC 3.03 M/uL (4.20-5.40) L 09/11/25 07:10 Hgb 9.0 g/dl (12.0-16.0) L 09/11/25 07:10 Hct 27.6 % (37.0-47.0) L 09/11/25 07:10 MCV 91.1 fL (80.0-100.0) 09/11/25 07:10 MCH 29.7 pg (25.0-34.0) 09/11/25 07:10 MCHC 32.6 g/dL (32.0-36.0) 09/11/25 07:10 RDW Std Deviation 44.1 fL (36.4-46.3) 09/11/25 07:10 RDW Coeff of Mercedes 13.4 % (11.5-14.5) 09/11/25 07:10 Plt Count 300 K/uL (130-400) 09/11/25 07:10 MPV 11.0 fL (9.4-12.4) 09/11/25 07:10 Immature Gran % (Auto) 0.5 % 09/11/25 07:10 Neut % (Auto) 77.6 % 09/11/25 07:10 Lymph % (Auto) 15.8 % 09/11/25 07:10 Piatt % (Auto) 6.1 % 09/11/25 07:10 Eos % (Auto) 0.0 % 09/11/25 07:10 Baso % (Auto) 0.0 % 09/11/25 07:10 Neut # (Auto) 5.07 K/uL (1.40-6.50) 09/11/25 07:10 Lymph # (Auto) 1.03 K/uL (1.20-3.40) L 09/11/25 07:10 Piatt # (Auto) 0.40 K/uL (0.11-0.59) 09/11/25 07:10 Eos # (Auto) 0.00 K/uL (0.00-0.50) 09/11/25 07:10 Baso # (Auto) 0.00 K/uL (0.00-0.20) 09/11/25 07:10 Immature Gran # (Auto) 0.03 K/uL (0.01-0.20) 09/11/25 07:10 Polychromasia 1+ 09/04/25 19:38 PT 13.8 Seconds (9.0-12.0) H 09/04/25 13:55 INR 1.3 (0.9-1.1) H 09/04/25 13:55 APTT 26 Seconds (21-31) 09/04/25 13:55 PTT Ratio 1.0 09/04/25 13:55 Sodium 135 mmol/L (136-145) L 09/11/25 07:10 Potassium 3.8 mmol/L (3.5-5.1) 09/11/25 07:10 Chloride 104 mmol/L (98-107) 09/11/25 07:10 Carbon Dioxide 25 mmol/L (21-32) 09/11/25 07:10 Anion Gap 6 (3-11) 09/11/25 07:10 BUN 19 mg/dl (6-23) 09/11/25 07:10 Creatinine 0.67 mg/dl (0.6-1.2) 09/11/25 07:10 Est Cr Clr Drug Dosing 56.7 ml/min 09/11/25 07:10 eGFR 92.23 09/11/25 07:10 BUN/Creatinine Ratio 28.4 (10-20) H 09/11/25 07:10 Glucose 151 mg/dl (70-99(Fasting)) H 09/11/25 07:10 POC Glucose 150 mg/dl (70-99) H 09/11/25 11:24 Calcium 8.7 mg/dl (8.6-10.3) 09/11/25 07:10 Magnesium 1.7 mg/dl (1.7-2.4) 09/11/25 07:10 Total Bilirubin 0.7 mg/dl (0.2-1.0) 09/08/25 07:02 AST 16 U/L (13-39) 09/08/25 07:02 ALT 13 U/L (7-52) 09/08/25 07:02 Alkaline Phosphatase 25 U/L (34-104) L 09/08/25 07:02 Troponin I High Sens 6.2 pg/ml (0-14) 09/04/25 13:55 C-Reactive Protein < 0.50 mg/dl (0-0.5) 09/07/25 09:16 B-Natriuretic Peptide 212 pg/ml (0-100) H 09/10/25 10:49 Total Protein 6.4 gm/dl (6.0-8.3) 09/08/25 07:02 Albumin 3.4 gm/dl (3.4-5.0) 09/08/25 07:02 Globulin 3.0 gm/dl (2.5-4.0) 09/08/25 07:02 Albumin/Globulin Ratio 1.1 (0.9-2) 09/08/25 07:02 Procalcitonin < 0.02 ng/ml (0-0.5) 09/05/25 07:13 Urine Color Yellow 09/04/25 16:20 Urine Appearance Clear (Clear) 09/04/25 16:20 Urine pH 8.5 (4.5-7.5) H 09/04/25 16:20 Ur Specific [place] 1.007 (1.000-1.030) 09/04/25 16:20 Urine Protein Negative (Negative) 09/04/25 16:20 Urine Glucose (UA) Negative (Negative) 09/04/25 16:20 Urine Ketones Negative (Negative) 09/04/25 16:20 Urine Blood Negative (Negative) 09/04/25 16:20 Urine Nitrite Negative (Negative) 09/04/25 16:20 Urine Bilirubin Negative (Negative) 09/04/25 16:20 Urine Urobilinogen Negative (Negative) 09/04/25 16:20 Ur Leukocyte Esterase Trace (Negative) H 09/04/25 16:20 Urine WBC (Auto) 0-5 /hpf (0-5) 09/04/25 16:20 Urine RBC (Auto) 0-2 /hpf (0-2) 09/04/25 16:20 U Hyaline Cast (Auto) 0-2 /lpf (0-2) 09/04/25 16:20 U Epithel Cells (Auto) 0-2 /hpf (0-2) 09/04/25 16:20 Urine Bacteria (Auto) None Seen (None Seen) 09/04/25 16:20 Urine Comment 09/04/25 16:20 Adenovirus (PCR) Not Detected (NotDetected) 09/04/25 14:53 B. pertussis DNA (PCR) Not Detected (NotDetected) 09/04/25 14:53 B.parapertussis DNA PCR Not Detected (NotDetected) 09/04/25 14:53 C. pneumoniae DNA (PCR) Not Detected (NotDetected) 09/04/25 14:53 Coronavirus OC43 (PCR) Not Detected (NotDetected) 09/04/25 14:53 Coronavirus HKU1 (PCR) Not Detected (NotDetected) 09/04/25 14:53 Coronavirus 229E (PCR) Not Detected (NotDetected) 09/04/25 14:53 SARS-CoV-2 (PCR) Not Detected (NotDetected) 09/04/25 14:53 Coronavirus NL63 (PCR) Not Detected (NotDetected) 09/04/25 14:53 Human Metapneumovir PCR Not Detected (NotDetected) 09/04/25 14:53 Influenza Type A (PCR) Not Detected (NotDetected) 09/04/25 14:53 Influenza Type B (PCR) Not Detected (NotDetected) 09/04/25 14:53 M. pneumoniae (PCR) Not Detected (NotDetected) 09/04/25 14:53 Parainfluenza 1 (PCR) Not Detected (NotDetected) 09/04/25 14:53 Parainfluenza 2 (PCR) Not Detected (NotDetected) 09/04/25 14:53 Parainfluenza 3 (PCR) Not Detected (NotDetected) 09/04/25 14:53 Parainfluenza 4 (PCR) Not Detected (NotDetected) 09/04/25 14:53 RSV (PCR) Not Detected (NotDetected) 09/04/25 14:53 Entero/Rhino (PCR) Not Detected (NotDetected) 09/04/25 14:53 Impressions Chest X-Ray 09/04/25 14:22 XR chest 1V portable CLINICAL HISTORY: Dyspnea COMPARISON STUDY: 06/15/2025 FINDINGS: There is mild cardiomegaly without pulmonary vascular congestion. Stable hyperexpanded lungs. There are interval small bilateral pleural effusions and mild consolidation at the lung bases, right greater than left. No pneumothorax. IMPRESSION: Interval small bilateral pleural effusions and mild adjacent lung base consolidation, right greater than left. ACT 112: Negative or not required by law. Electronically signed by: Ricardo Garces M.D. 09/04/2025 2:41 PM Chest CTA 10/27/25 16:10 Clinical history: Rule out pulmonary embolism Technique: Axial computed tomography images were obtained of the chest after the administration of intravenous contrast according to the CT angiogram protocol Comparison is made to the prior CTA dated 06/15/2025 Findings: There is no definite sign of pulmonary embolism. There is a new 8 mm peripheral nodular opacity in the right lower lobe. There are 2 unchanged small left upper lobe nodules, measuring 2-3 mm in size. There is an unchanged 2-3 mm right upper lobe nodule. There is subsegmental atelectasis in both lower lobes, the right middle lobe, and lingula. There is no pneumothorax. There are new small bilateral pleural effusions. There is emphysema. There is an unchanged suspected bronchocele in the superior segment of the right lower lobe There is no mediastinal, hilar, or axillary adenopathy. The thoracic aorta appears unremarkable with no sign of aneurysm or dissection. There is no pericardial effusion The visualized upper abdomen appears unremarkable. No fracture is seen. No focal osseous lesion is evident Impression: 1. No definite sign of pulmonary embolism 2. New small bilateral pleural effusions and bilateral lung base atelectasis 3. New nodular opacity in the right lower lobe that could be due to focal atelectasis or an inflammatory nodule. A follow-up chest CT could be obtained in 3-6 months 4. Unchanged additional small pulmonary nodules, likely benign 5. 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 Emphysema ACT 112: Positive. There are findings on this exam that require communication between the performing entity and the patient following Patient Test Result Information Act ([place] ACT 112) guidelines. Electronically signed by Primitivo Jauregui 09-04-2025 6:12 PM PG Care Time/CCT Total # of Minutes Spent Total Time Spent with Patient: Total time spent is greater than 50% in coordination of care (as documented) at patient's floor/unit and/or counseling patient: Coding Level of Care Code 86220 SUB INP/OBS CARE 3/50MIN Diagnoses S/P vascular surgery Z98.890 Carotid stenosis, bilateral I65.23 Hyperlipidemia, unspecified hyperlipidemia type E78.5 Hyperlipidemia type: unspecified Primary hypertension I10 Hypertension type: primary hypertension Anxiety and depression F41.9; F32.A Osteopenia M85.80 Chronic anticoagulation Z79.01 Thoracic kyphosis M40.204 S/P catheter ablation of slow pathway Z98.890; Z86.79 Hypomagnesemia E83.42 Left renal artery stenosis I70.1 Vitamin D deficiency E55.9 Superior mesenteric artery stenosis I77.1 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 transplanted heart: [place] heart Voice hoarseness R49.0 Pulmonary hypertension I27.20 AVNRT (AV ramesh re-entry tachycardia) I47.19 Tobacco use disorder F17.200 SABINE (latent autoimmune diabetes in adults), managed as type 1 E13.9 GERD (gastroesophageal reflux disease) K21.9
[2025-09-11] MEDS: clonazePAM 0.5 MG TAB PO PRN (16:07)
--- NOTE | 2025-09-12 11:12 | Cardiology Progress Note ---
Date of Service September 12, 2025 Assessment & Plan (1) Bradycardia: Plan: -Bradycardia has improved since placing metoprolol succinate and dronedarone on hold. -Clonidine could be contributing to her sinus bradycardia. -Would reduce clonidine to 0.1 mg twice daily with a goal of weaning that medication off. -Can increase lisinopril as needed for elevated blood pressure. -Case discussed with Dr. Presley who agrees with the strategy of holding metoprolol, dronedarone, and weaning clonidine. -Dr. Presley does not feel that a pacemaker is indicated at this time. (2) Paroxysmal atrial fibrillation: Plan: -Continue Eliquis. -Metoprolol succinate and dronedarone on hold. -Continue to monitor. (3) HTN (hypertension): Plan: -Adequate control currently. -Clonidine and lisinopril as described above. (4) AVNRT (AV ramesh re-entry tachycardia): Plan: -s/p catheter ablation of slow pathway (July 2021). (5) CAD (coronary artery disease): Plan: -s/p RCA ANITA, December 2011, patent March 2022). -Carries a history of chronic stable angina pectoris on medical management. Admission and Anticipated Discharge Date Admission Date: September 05, 2025 Subjective The patient is resting comfortably in bed without complaints of chest pain or dyspnea. She had an excellent night of sleep after taking clonazepam. She is not experience any syncope or presyncope. Numerous family members are at the bedside. Physical Exam Physical Exam: In general this is a thin white female in no acute distress. HEENT exam is negative. Neck is supple with full carotid upstrokes. No JVD. There is no thyromegaly. Cardiovascular exam reveals a regular rhythm with a normal S1 and S2. No S3, S4, or murmurs are noted. Lungs are clear without rales rhonchi, or recent. Abdomen is benign without bruits. Extremities reveal intact radial artery and posterior tibial pulses bilaterally. There is no peripheral edema. Results & Data Vital Signs (Past 12 Hours) Vital Signs Temp Pulse Pulse Resp BP Pulse Ox O2 Del Method 09/12/25 07:30 36.5 C 51 L 18 110/65 100 Room Air 09/11/25 23:17 67 09/11/25 23:09 36.5 C 48 L 20 161/68 H 100 Room Air Diagnostic Findings groundwater monitoring technician notes sinus rhythm in the 50s and 60s. No significant pauses. No atrial fibrillation. No SVT. PG Care Time/CCT Total # of Minutes Spent Total Time Spent with Patient: Total time spent is greater than 50% in coordination of care (as documented) at patient's floor/unit and/or counseling patient: Coding Level of Care Code 09329 SUB INP/OBS CARE 3/50MIN Diagnoses Bradycardia R00.1 Paroxysmal atrial fibrillation I48.0 Primary hypertension I10 Hypertension type: primary hypertension AVNRT (AV ramesh re-entry tachycardia) I47.1 Coronary artery disease involving [place] coronary artery of [place] heart without angina pectoris I25.10 Coronary Disease-Associated Artery/Lesion type: [place] artery [place] vs. transplanted heart: [place] heart Associated angina: without angina (3) HTN (hypertension) Hypertension type: primary hypertension Qualified Code(s): I10 - Essential (primary) hypertension (5) CAD (coronary artery disease) Coronary Disease-Associated Artery/Lesion type: [place] artery [place] vs. transplanted heart: [place] heart Associated angina: without angina Qualified Code(s): I25.10 - Atherosclerotic heart disease of [place] coronary artery without angina pectoris
--- NOTE | 2025-09-12 20:36 | Progress Note ---
Date of Service September 12, 2025 Assessment & Plan (1) S/P vascular surgery: (2) Carotid stenosis, bilateral: (3) HLD (hyperlipidemia): Hyperlipidemia type: unspecified Qualified Code(s): E78.5 - Hyperlipidemia, unspecified (4) HTN (hypertension): Hypertension type: primary hypertension Qualified Code(s): I10 - Essential (primary) hypertension (5) Anxiety and depression: (6) Osteopenia: (7) Chronic anticoagulation: (8) Thoracic kyphosis: (9) S/P catheter ablation of slow pathway: (10) Hypomagnesemia: (11) Left renal artery stenosis: (12) Vitamin D deficiency: (13) Superior mesenteric artery stenosis: (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 transplanted heart: [place] heart Associated angina: without angina Qualified Code(s): I25.10 - Atherosclerotic heart disease of [place] coronary artery without angina pectoris (17) Voice hoarseness: (18) Pulmonary hypertension: (19) AVNRT (AV ramesh re-entry tachycardia): (20) Tobacco use disorder: (21) SABINE (latent autoimmune diabetes in adults), managed as type 1: (22) GERD (gastroesophageal reflux disease): Plan this is a 75 year old female with a PMH of recent TCAR (L weeks prior, R one week prior), paroxysmal A. fib on Multaq and Eliquis, HTN, HLD, DM2, ongoing tobacco dependence - coming in with SOB #Shortness of breath #Malaise #Volume Overload - Undifferentiated, no evident hypoxemia, ongoing tobacco dependence raises the likelihood of an underlying mild emphysema, feeling better after nebs and steroids. - Echocardiogram demonstrated expected diastolic and pulmonary pattern with mild concentric LVH - She is optimized from a cardiopulmonary standpoint, at dry weight, see discussion in case management notes and HPI in regards to rehab versus home with home health. - Will continue to taper Solu-Medrol. Start with 20 mg oral twice daily for 5 days and 20 mg daily for 7 days 09/11 - spoke to patient and patient's niece about sinus pauses and if that's the cause of the SOB. spoke with Dr. Hassan who does not believe there is an indication for pacemaker. - patient does believe anxiety is contributing and I agree; will add PRN Klonopin. - cont prednisone, nebs 09/12 - change clonidine to 0.1mg bid #AVNRT, paroxysmal atrial fibrillation IDALIA eval #sinus pauses - Noted on telemetry, Multaq had been on hold during diuresis, started couple days ago. She has been borderline bradycardic in the 50s last night noted to have a couple of pauses. Held the metoprolol this morning, no recurrence - Patient has reached out to cardiology prior to this hospitalization and would like an additional clearance regards to his medications. Consult to cardiology placed - Ongoing pauses, held Multaq and metoprolol this morning. Continue clonidine although that may need to be tapered. Patient 09/11 - cardiology following; per cards no indication for pacemaker. #Globus sensation in the throat - Persistent, present since first procedure/intubation discussed ENT referral on discharge, for laryngoscopy #Physical deconditioning #Orthostasis -Consulted PT and OT, briefly discussed the possibility of entertaining rehab for short time given it is been about 6 weeks since she has been at a normal active self and has quite significant decline in functional status since then. - Normal saline bolus given, will monitor orthostatic vital signs. - Clinically euvolemic. Optimize from a cardiopulmonary standpoint with deconditioning rehab would certainly be beneficial. Referral out to [facility] at this time , awaitng bed availablility remainder of beds at #Anemia -No preprocedure hemoglobin on file, currently 9.7, last check normal was around 12 - Hgb stable, AM check tomorrow, no evidence of bleed or blood loss - Telemetry monitoring, no source of bleed, no hematuria, no-hematochezia or hematemesis - stable 9.3 -> 8.9 -> 8.5 - > 8.9 history of PE, likely delusional, will continue to monitor tomorrow morning. No evidence of bleeding #Hypertension #Markedly elevated blood pressure readings - In the setting of TCAR as above, blood pressure management to maintain systolic below 160, avoid hypotension - Hydralazine 5 mg every 3 hours as needed for systolic greater than 180, labetalol and/or Vasotec if needed - Was also on olmesartan at home, on lisinopril here and tolerating #widespread atherosclerotic vascular disease at several sites #status post TCAR procedure left 4 weeks ago right 1 week ago #known CAD #Renal Artery Stenosis #Superior mesenteric Stenosis Continue aspirin,-nitroglycerin, telemetry monitoring #late onset diabetes (managed as type I) - Consult to pharmacy for glycemic management, I do not see any insulin on her med list at this time - Above goal this AM, continue monitoring and SS #hypertension - As above, continue home losartan, metoprolol, clonidine - Blood pressure targets as above #hyperlipidemia - Continue statin and fenofibrate #tobacco dependence - ongoing, improving still sporadic cigarettes #osteopenia - Calcium and D3 vitamin D deficiency - Continue supplement, calcitriol #history of recent flux of esophagitis - Prevacid #anxiety and depression - Continue buspirone, clonazepam as needed #FEN - Diabetic/cardiac diet #CODE STATUS -Modified code, does not want chest compressions, okay with intubation, shocks, ACLS medication at least briefly. Very clear that she did not want sustained interventions if it was not to have a good outcome Admission and Anticipated Discharge Date Admission Date: September 05, 2025 Subjective Patient doing better today still anxious; still feels short of breath at times Review of Systems Review of Systems: Constitutional: No Weight Change, No Fever, No Chills, No Night Sweats, No Fatigue, No Malaise ENT/Mouth: No Hearing Changes, No Ear Pain, No Nasal Congestion, No Sinus Pain, No Hoarseness, No sore throat, No Rhinorrhea, No Swallowing Difficulty Eyes: No Eye Pain, No Swelling, No Redness, No Foreign Body, No Discharge, No Vision Changes Cardiovascular: No Chest Pain, No SOB, No PND, No Dyspnea on Exertion, No Orthopnea, No Claudication, No Edema, No Palpitations Respiratory: No Cough, No Sputum, No Wheezing, No Smoke Exposure, No Dyspnea Gastrointestinal: No Nausea, No Vomiting, No Diarrhea, No Constipation, No Pain, No Heartburn, No Anorexia, No Dysphagia, No Hematochezia, No Melena, No Flatulence, No Jaundice Genitourinary: No Dysmenorrhea, No DUB, No Dyspareunia, No Dysuria, No Urinary Frequency, No Hematuria, No Urinary Incontinence, No Urgency, No Flank Pain, No Urinary Flow Changes, No Hesitancy Musculoskeletal: No Arthralgias, No Myalgias, No Joint Swelling, No Joint Stiffness, No Back Pain, No Neck Pain, No Injury History Skin: No Skin Lesions, No Pruritis, No Hair Changes, No Breast/Skin Changes, No Nipple Discharge Neuro: No Weakness, No Numbness, No Paresthesias, No Loss of Consciousness, No Syncope, No Dizziness, No Headache, No Coordination Changes, No Recent Falls Psych: No Anxiety/Panic, No Depression, No Insomnia, No Personality Changes, No Delusions, No Rumination, No SI/HI/AH/VH, No Social Issues, No Memory Changes, No Violence/Abuse Hx., No Eating Concerns Heme/Lymph: No Bruising, No Bleeding, No Transfusions History, No Lymphadenopathy Endocrine: No Polyuria, No Polydipsia, No Temperature Intolerance Constitutional: + malaise; no fever, no chills, no sweat s, no body aches, no fatigue, no weakness and no daytime sleepiness Eyes: no problem reported Ear, Nose, Mouth, Throat: Reports raspy voice since her first TCAR procedure that has been stable Respiratory: See HPI Cardiovascular: + dyspnea on exertion; no chest pain at rest, no chest pain with activity, no orthopnea, no paroxysmal nocturnal dyspnea, no lightheadedness, no syncope and no edema Gastrointestinal: no abdominal pain, no nausea and no vomiting Musculoskeletal: no muscle weakness and no body aches Integumentary: no rash and no change in skin color Physical Exam Physical Exam: VITALS: Reviewed. WEIGHT/BMI reviewed. GEN: Healthy appearing, well-developed, NAD. PSYCH: Good Judgment. AOx3. +anxious appearing HEENT -Head: NC/AT; -Eyes: PERRL, EOMI. No discharge or redn ess; -Ears: External ears are normal. Normal TMs. -Nose: Normal nares. -Mouth and throat: MMM. Normal gums, muc juan ramon, palate,. Good dentition. NECK: Supple, with no masses. CV: RRR, no m/r/g. LUNGS: CTAB, no w/r/c. ABD: Soft, NT/ND, NBS, no masses or organomegaly. : N/A SKIN: Warm, well perfused. No skin rashes or abnormal lesions. MSK: No deformities, Normal gait. EXT: No clubbing, cyanosis, or edema. NEURO: Ambulating with no limitations. Normal muscle strength and tone. No focal deficits. Results & Data Vital Signs (Past 12 Hours) Vital Signs Temp Pulse Pulse Resp BP Pulse Ox O2 Del Method 09/12/25 19:34 60 16 143/75 H 100 Room Air 09/12/25 16:09 36.6 C 71 17 144/74 H 100 Room Air 09/12/25 14:56 69 09/12/25 12:00 36.3 C L 58 L 18 108/64 100 Room Air PG Care Time/CCT Total # of Minutes Spent Total Time Spent with Patient: Total time spent is greater than 50% in coordination of care (as documented) at patient's floor/unit and/or counseling patient: Coding Level of Care Code 96768 SUB INP/OBS CARE 2/35MIN Diagnoses S/P vascular surgery Z98.890 Carotid stenosis, bilateral I65.23 Hyperlipidemia, unspecified hyperlipidemia type E78.5 Hyperlipidemia type: unspecified Primary hypertension I10 Hypertension type: primary hypertension Anxiety and depression F41.9; F32.A Osteopenia M85.80 Chronic anticoagulation Z79.01 Thoracic kyphosis M40.204 S/P catheter ablation of slow pathway Z98.890; Z86.79 Hypomagnesemia E83.42 Left renal artery stenosis I70.1 Vitamin D deficiency E55.9 Superior mesenteric artery stenosis I77.1 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 transplanted heart: [place] heart Associated angina: without angina Voice hoarseness R49.0 Pulmonary hypertension I27.20 AVNRT (AV ramesh re-entry tachycardia) I47.19 Tobacco use disorder F17.200 SABINE (latent autoimmune diabetes in adults), managed as type 1 E13.9 GERD (gastroesophageal reflux disease) K21.9
[2025-09-13] MEDS: LANTUS PER UNIT CHARGE SC SCH (10:00)
--- NOTE | 2025-09-13 11:25 | Cardiology Progress Note ---
Date of Service September 13, 2025 Assessment & Plan (1) Bradycardia: Plan: -Bradycardia has improved since placing metoprolol succinate and dronedarone on hold, and reducing clonidine dose. -Would reduce clonidine 0.1 mg daily starting tomorrow. -Case discussed with Dr. Presley who agrees with the strategy of holding metoprolol, dronedarone, and weaning clonidine. -Dr. Presley does not feel that a pacemaker is indicated at this time. (2) Paroxysmal atrial fibrillation: Plan: -Continue Eliquis. -Metoprolol succinate and dronedarone on hold. -Continue to monitor. (3) HTN (hypertension): Plan: -Adequate control currently. (4) AVNRT (AV ramesh re-entry tachycardia): Plan: -s/p catheter ablation of slow pathway (July 2021). (5) CAD (coronary artery disease): Plan: -s/p RCA ANITA, December 2011, patent March 2022). -Carries a history of chronic stable angina pectoris on medical management. Admission and Anticipated Discharge Date Admission Date: September 05, 2025 Subjective The patient is resting comfortably at the bedside without complaints of chest pain, dyspnea, syncope, or presyncope. She was able to ambulate in the hallways yesterday without difficulty. Her sister is present for our discussion. Physical Exam Physical Exam: In general this is a thin white female in no acute distress. HEENT exam is negative. Neck is supple with full carotid upstrokes. No JVD. There is no thyromegaly. Cardiovascular exam reveals a regular rhythm with a normal S1 and S2. No S3, S4, or murmurs are noted. Lungs are clear without rales rhonchi, or recent. Abdomen is benign without bruits. Extremities reveal intact radial artery and posterior tibial pulses bilaterally. There is no peripheral edema. Results & Data Vital Signs (Past 12 Hours) Vital Signs Temp Pulse Pulse Resp BP Pulse Ox O2 Del Method 09/13/25 08:20 36.5 C 74 18 120/70 100 Room Air 09/13/25 03:29 36.8 C 68 18 118/61 100 Room Air 09/12/25 23:26 61 Diagnostic Findings youth nutritional monitor notes sinus rhythm with heart rate in the 60s and 70s. No pauses. No A-fib. No SVT. PG Care Time/CCT Total # of Minutes Spent Total Time Spent with Patient: Total time spent is greater than 50% in coordination of care (as documented) at patient's floor/unit and/or counseling patient: Coding Level of Care Code 97346 SUB INP/OBS CARE 3/50MIN Diagnoses Bradycardia R00.1 Paroxysmal atrial fibrillation I48.0 Primary hypertension I10 Hypertension type: primary hypertension AVNRT (AV ramesh re-entry tachycardia) I47.1 Coronary artery disease involving [place] coronary artery of [place] heart without angina pectoris I25.10 Coronary Disease-Associated Artery/Lesion type: [place] artery [place] vs. transplanted heart: [place] heart Associated angina: without angina (3) HTN (hypertension) Hypertension type: primary hypertension Qualified Code(s): I10 - Essential (primary) hypertension (5) CAD (coronary artery disease) Coronary Disease-Associated Artery/Lesion type: [place] artery [place] vs. transplanted heart: [place] heart Associated angina: without angina Qualified Code(s): I25.10 - Atherosclerotic heart disease of [place] coronary artery wi thout angina pectoris
--- NOTE | 2025-09-13 12:04 | Progress Note ---
Date of Service September 13, 2025 Assessment & Plan (1) S/P vascular surgery: (2) Carotid stenosis, bilateral: (3) HLD (hyperlipidemia): Hyperlipidemia type: unspecified Qualified Code(s): E78.5 - Hyperlipidemia, unspecified (4) HTN (hypertension): Hypertension type: primary hypertension Qualified Code(s): I10 - Essential (primary) hypertension (5) Anxiety and depression: (6) Osteopenia: (7) Chronic anticoagulation: (8) Thoracic kyphosis: (9) S/P catheter ablation of slow pathway: (10) Hypomagnesemia: (11) Left renal artery stenosis: (12) Vitamin D deficiency: (13) Superior mesenteric artery stenosis: (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 fib on Multaq and Eliquis, HTN, HLD, DM2, ongoing tobacco dependence - coming in with SOB #Shortness of breath #Malaise #Volume Overload - Undifferentiated, no evident hypoxemia, ongoing tobacco dependence raises the likelihood of an underlying mild emphysema, feeling better after nebs and steroids. - Echocardiogram demonstrated expected diastolic and pulmonary pattern with mild concentric LVH - She is optimized from a cardiopulmonary standpoint, at dry weight, see discussion in case management notes and HPI in regards to rehab versus home with home health. - Will continue to taper Solu-Medrol. Start with 20 mg oral twice daily for 5 days and 20 mg daily for 7 days 09/11 - spoke to patient and patient's niece about sinus pauses and if that's the cause of the SOB. spoke with Dr. Hassan who does not believe there is an indication for pacemaker. - patient does believe anxiety is contributing and I agree; will add PRN Klonopin. - cont prednisone, nebs 09/12 - change clonidine to 0.1mg bid 09/13 - continue to hold the metoprolol and Multaq - clonidine was decreased to 0.1mg BID with plans to decrease to 0.1mg daily on 09/14 - rehab in 1-2 days #AVNRT, paroxysmal atrial fibrillation IDALIA eval #sinus pauses - Noted on telemetry, Multaq had been on hold during diuresis, started couple days ago. She has been borderline bradycardic in the 50s last night noted to have a couple of pauses. Held the metoprolol this morning, no recurrence - Patient has reached out to cardiology prior to this hospitalization and would like an additional clearance regards to his medications. Consult to cardiology placed - Ongoing pauses, held Multaq and metoprolol this morning. Continue clonidine although that may need to be tapered. Patient 09/11 - cardiology following; per cards no indication for pacemaker. #Globus sensation in the throat - Persistent, present since first procedure/intubation discussed ENT referral on discharge, for laryngoscopy #Physical deconditioning #Orthostasis -Consulted PT and OT, briefly discussed the possibility of entertaining rehab for short time given it is been about 6 weeks since she has been at a normal active self and has quite significant decline in functional status since then. - Normal saline bolus given, will monitor orthostatic vital signs. - Clinically euvolemic. Optimize from a cardiopulmonary standpoint with deconditioning rehab would certainly be beneficial. Referral out to [facility] at this time , awaitng bed availablility remainder of beds at #Anemia -No preprocedure hemoglobin on file, currently 9.7, last check normal was around 12 - Hgb stable, AM check tomorrow, no evidence of bleed or blood loss - Telemetry monitoring, no source of bleed, no hematuria, no-hematochezia or hematemesis - stable 9.3 -> 8.9 -> 8.5 - > 8.9 history of PE, likely delusional, will continue to monitor tomorrow morning. No evidence of bleeding #Hypertension #Markedly elevated blood pressure readings - In the setting of TCAR as above, blood pressure management to maintain systolic below 160, avoid hypotension - Hydralazine 5 mg every 3 hours as needed for systolic greater than 180, labetalol and/or Vasotec if needed - Was also on olmesartan at home, on lisinopril here and tolerating #widespread atherosclerotic vascular disease at several sites #status post TCAR procedure left 4 weeks ago right 1 week ago #known CAD #Renal Artery Stenosis #Superior mesenteric Stenosis Continue aspirin,-nitroglycerin, telemetry monitoring #late onset diabetes (managed as type I) - Consult to pharmacy for glycemic management, I do not see any insulin on her med list at this time - Above goal this AM, continue monitoring and SS #hypertension - As above, continue home losartan, metoprolol, clonidine - Blood pressure targets as above #hyperlipidemia - Continue statin and fenofibrate #tobacco dependence - ongoing, improving still sporadic cigarettes #osteopenia - Calcium and D3 vitamin D deficiency - Continue supplement, calcitriol #history of recent flux of esophagitis - Prevacid #anxiety and depression - Continue buspirone, clonazepam as needed #FEN - Diabetic/cardiac diet #CODE STATUS -Modified code, does not want chest compressions, okay with intubation, shocks, ACLS medication at least briefly. Very clear that she did not want sustained interventions if it was not to have a good outcome Admission and Anticipated Discharge Date Admission Date: September 05, 2025 Subjective Patient is feeling better. States she feels the clonazepam. Still anxious, but much better. States she thinks she can go to rehab tomorrow Review of Systems Review of Systems: Constitutional: No Weight Change, No Fever, No Chills, No Night Sweats, No Fatigue, No Malaise ENT/Mouth: No Hearing Changes, No Ear Pain, No Nasal Congestion, No Sinus Pain, No Hoarseness, No sore throat, No Rhinorrhea, No Swallowing Difficulty Eyes: No Eye Pain, No Swelling, No Redness, No Foreign Body, No Discharge, No Vision Changes Cardiovascular: No Chest Pain, No SOB, No PND, No Dyspnea on Exertion, No Orthopnea, No Claudication, No Edema, No Palpitations Respiratory: No Cough, No Sputum, No Wheezing, No Smoke Exposure, No Dyspnea Gastrointestinal: No Nausea, No Vomiting, No Diarrhea, No Constipation, No Pain, No Heartburn, No Anorexia, No Dysphagia, No Hematochezia, No Melena, No Flatulence, No Jaundice Genitourinary: No Dysmenorrhea, No DUB, No Dyspareunia, No Dysuria, No Urinary Frequency, No Hematuria, No Urinary Incontinence, No Urgency, No Flank Pain, No Urinary Flow Changes, No Hesitancy Musculoskeletal: No Arthralgias, No Myalgias, No Joint Swelling, No Joint Stiffness, No Back Pain, No Neck Pain, No Injury History Skin: No Skin Lesions, No Pruritis, No Hair Changes, No Breast/Skin Changes, No Nipple Discharge Neuro: No Weakness, No Numbness, No Paresthesias, No Loss of Consciousness, No Syncope, No Dizziness, No Headache, No Coordination Changes, No Recent Falls Psych: No Anxiety/Panic, No Depression, No Insomnia, No Personality Changes, No Delusions, No Rumination, No SI/HI/AH/VH, No Social Issues, No Memory Changes, No Violence/Abuse Hx., No Eating Concerns Heme/Lymph: No Bruising, No Bleeding, No Transfusions History, No Lymphadenopathy Endocrine: No Polyuria, No Polydipsia, No Temperature Intolerance Constitutional: + malaise; no fever, no chills, no sweat s, no body aches, no fatigue, no weakness and no daytime sleepiness Eyes: no problem reported Ear, Nose, Mouth, Throat: Reports raspy voice since her first TCAR procedure that has been stable Respiratory: See HPI Cardiovascular: + dyspnea on exertion; no chest pain at rest, no chest pain with activity, no orthopnea, no paroxysmal nocturnal dyspnea, no lightheadedness, no syncope and no edema Gastrointestinal: no abdominal pain, no nausea and no vomiting Musculoskeletal: no muscle weakness and no body aches Integumentary: no rash and no change in skin color Physical Exam Physical Exam: VITALS: Reviewed. WEIGHT/BMI reviewed. GEN: Healthy appearing, well-developed, NAD. PSYCH: Good Judgment. AOx3. +anxious appearing HEENT -Head: NC/AT; -Eyes: PERRL, EOMI. No discharge or redn ess; -Ears: External ears are normal. Normal TMs. -Nose: Normal nares. -Mouth and throat: MMM. Normal gums, muc juan ramon, palate,. Good dentition. NECK: Supple, with no masses. CV: RRR, no m/r/g. LUNGS: CTAB, no w/r/c. ABD: Soft, NT/ND, NBS, no masses or organomegaly. : N/A SKIN: Warm, well perfused. No skin rashes or abnormal lesions. MSK: No deformities, Normal gait. EXT: No clubbing, cyanosis, or edema. NEURO: Ambulating with no limitations. Normal muscle strength and tone. No focal deficits. Results & Data Vital Signs (Past 12 Hours) Vital Signs Temp Pulse Resp BP Pulse Ox O2 Del Method 09/13/25 08:20 36.5 C 74 18 120/70 100 Room Air 09/13/25 03:29 36.8 C 68 18 118/61 100 Room Air PG Care Time/CCT Total # of Minutes Spent Total Time Spent with Patient: Total time spent is greater than 50% in coordination of care (as documented) at patient's floor/unit and/or counseling patient: Coding Level of Care Code 14239 SUB INP/OBS CARE 2/35MIN Diagnoses S/P vascular surgery Z98.890 Carotid stenosis, bilateral I65.23 Hyperlipidemia, unspecified hyperlipidemia type E78.5 Hyperlipidemia type: unspecified Primary hypertension I10 Hypertension type: primary hypertension Anxiety and depression F41.9; F32.A Osteopenia M85.80 Chronic anticoagulation Z79.01 Thoracic kyphosis M40.204 S/P catheter ablation of slow pathway Z98.890; Z86.79 Hypomagnesemia E83.42 Left renal artery stenosis I70.1 Vitamin D deficiency E55.9 Superior mesenteric artery stenosis I77.1 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 transplanted heart: [place] heart Associated angina: without angina Voice hoarseness R49.0 Pulmonary hypertension I27.20 AVNRT (AV ramesh re-entry tachycardia) I47.19 Tobacco use disorder F17.200 SABINE (latent autoimmune diabetes in adults), managed as type 1 E13.9 GERD (gastroesophageal reflux disease) K21.9
--- NOTE | 2025-09-13 14:33 | Pharmacy Report ---
Pharmacy Glycemic Short Note 2 - Date of Service September 13, 2025 - Glycemic Short BSG Results (Last 24 hours): 09/12/25 09/12/25 09/13/25 16:26 20:40 07:32 POC Glucose 250 H 174 H 189 H 09/13/25 11:29 POC Glucose 162 H OUTPATIENT ANTIDIABETIC REGIMEN: * None - previously on 5 units Tresiba SC daily (July 2025) * HbA1c: 6.4% (06/09/2025) ASSESSMENT: 09/13: * Loren received a total of 25 units of insulin yesterday (14 units were basal and 11 units were bolus). BSGs were [id number]/dL. * Fasting BSG was 189mg/dL this morning. AM Lantus was increased by ~20% and HS Lantus scale was also increased. * Lunch BSG was still above goal, so carb ratio was tightened some. * Of note the prednisone is to be decreased from BID to daily tomorrow, so it is likely that insulin needs will start to decrease tomorrow. 09/11: * Loren received a total of 22 units of insulin yesterday (12 units were basal and 10 were bolus). * Fasting BSG was 168mg/dL this morning. Will continue AM basal insulin and modified PM basal scale (0 or 6 units depending on BSG). * CR was loosened yesterday, will continue bolus insulin regimen without change. 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) who presents to the hospital with inability to catch her breath * Recent TCAR procedure a few days ago * Glucose on arrival was 169 * T1DM diet * Stressors: methylprednisolone 60mg then 40mg Q12H, recent TCAR procedure * Will initiate Novolog around stress level of 2 given glucose within range and no longer on insulin outpatient * Adjust as needed based on glucose values with steroids PLAN FOR INPATIENT GLYCEMIC CONTROL: * Basal insulin * Lantus 10 units SC daily * Lantus 0, 6, or 8 units SC HS depending on BSG (see EHR for details) * Bolus insulin * NovoLog per scale ACHS or Q6hrs while NPO * Goal Range: Low 120 mg/dL - High 160 mg/dL * Correction Factor: 40 mg/dL/unit * Nutritional / Prandial insulin per carb ratio of 1 unit per 13 grams CHO consumed
[2025-09-13] MEDS: METOPROLOL TARTRATE 25 MG TAB PO STA (19:47)
[2025-09-14 06:51] LABS: Hematocrit (blood only) 28.1 % (37.0-47.0); Hemoglobin 9.3 g/dl (12.0-16.0); Mean Corpuscular Hemoglobin 29.7 pg (25.0-34.0); Mean Corpuscular Volume 89.8 fL (80.0-100.0); Platelet Count 306 K/uL (130-400); RDW Standard Deviation 43.4 fL (36.4-46.3); Red Blood Count 3.13 M/uL (4.20-5.40); White Blood Count 7.17 K/ul (4.8-10.8)
[2025-09-14 07:15] LABS: Anion Gap 5.0 (3-11); Blood Urea Nitrogen 16.0 mg/dl (6-23); Calcium 8.3 mg/dl (8.6-10.3); Carbon Dioxide 26.0 mmol/L (21-32); Chloride 105.0 mmol/L (98-107); Creatinine Clr Calc Pharmacy 52.3 ml/min; Glucose 132.0 mg/dl (70-99(Fasting)); Magnesium 1.6 mg/dl (1.7-2.4); Potassium 3.5 mmol/L (3.5-5.1); Sodium 136.0 mmol/L (136-145)
[2025-09-14] MEDS: predniSONE 20 MG TAB PO SCH (09:21)
--- NOTE | 2025-09-14 11:31 | Cardiology Progress Note ---
Date of Service September 14, 2025 Assessment & Plan (1) Paroxysmal atrial fibrillation: Plan: -Would restart Multaq at 400 mg twice daily. First dose this morning. -Continue Eliquis. -Would use metoprolol to tartrate on a as needed basis. -Okay for transfer to [facility] when bed available. (2) Bradycardia: Plan: -Bradycardia resolved with holding of metoprolol, dronedarone, and weaning of clonidine. -Would continue clonidine at 0.1 mg daily. -Case discussed with Dr. Presley who does not feel that a pacemaker is indicated at this time. (3) HTN (hypertension): Plan: -Adequate control currently. (4) AVNRT (AV ramesh re-entry tachycardia): Plan: -s/p catheter ablation of slow pathway (July 2021). (5) CAD (coronary artery disease): Plan: -s/p RCA AINTA, December 2011, patent March 2022). -Carries a history of chronic stable angina pectoris on medical management. Admission and Anticipated Discharge Date Admission Date: September 05, 2025 Subjective The patient is resting comfortably in bed without complaints of chest pain or dyspnea. She did note her paroxysm of atrial fibrillation last evening characterized by palpitations. We have discussed restarting her Multaq. Physical Exam Physical Exam: In general this is a thin white female in no acute distress. HEENT exam is neg ative. Neck is supple with full carotid upstrokes. No JVD. There is no thyromegaly. Cardiovascular exam reveals a regular rhythm with a normal S1 and S2. No S3, S4, or murmurs are noted. Lungs are clear without rales rhonchi, or recent. Abdomen is benign without bruits. Extremities reveal intact radial artery and posterior tibial pulses bilaterally. There is no peripheral edema. Results & Data Vital Signs (Past 12 Hours) Vital Signs Temp Pulse Pulse Resp BP Pulse Ox O2 Del Method 09/14/25 09:21 Room Air 09/14/25 07:52 36.7 C 56 L 18 119/61 99 Room Air 09/14/25 06:45 60 09/14/25 02:39 36.7 C 54 L 18 114/70 100 Room Air Diagnostic Findings equipment monitor phototypesetting noted a paroxysm of atrial fibrillation. Currently in sinus rhythm. PG Care Time/CCT Total # of Minutes Spent Total Time Spent with Patient: Total time spent is greater than 50% in coordination of care (as documented) at patient's floor/unit and/or counseling patient: Coding Level of Care Code 65153 SUB INP/OBS CARE 350MIN Diagnoses Paroxysmal atrial fibrillation I48.0 Bradycardia R00.1 Primary hypertension I10 Hypertension type: primary hypertension AVNRT (AV ramesh re-entry tachycardia) I47.1 Coronary artery disease involving [place] coronary artery of [place] heart without angina pectoris I25.10 Coronary Disease-Associated Artery/Lesion type: [place] artery [place] vs. transplanted heart: [place] heart Associated angina: without angina (3) HTN (hypertension) Hypertension type: primary hypertension Qualified Code(s): I10 - Essential (primary) hypertension (5) CAD (coronary artery disease) Coronary Disease-Associated Artery/Lesion type: [place] artery [place] vs. transplanted heart: [place] heart Associated angina: without angina Qualified Code(s): I25.10 - Atherosclerotic heart disease of [place] coronary artery without angina pectoris
--- NOTE | 2025-09-14 12:38 | Electrocardiogram Report ---
Test Reason : Blood Pressure : */* mmHG Vent. Rate : 119 BPM Atrial Rate : * BPM P-R Int : * ms QRS Dur : 76 ms QT Int : 340 ms P-R-T Axes : * -4 73 degrees QTcB Int : 478 ms Atrial fibrillation with rapid ventricular response Nonspecific ST abnormality Abnormal ECG When compared with ECG of 10-Sep-2025 10:42, Atrial fibrillation has replaced Sinus rhythm Vent. rate has increased by [address] no longer elevated in Lateral leads Confirmed by Deacon Hassan [id number] on 09/14/2025 12:38:23 PM Referred By: REFERRED SELF Confirmed By: Deacon Hassan
--- NOTE | 2025-09-14 14:45 | Discharge Summary ---
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 fib on Multaq and Eliquis, HTN, HLD, DM2, ongoing t obacco dependence - coming in with SOB #Shortness of breath #Malaise #Volume Overload - Undifferentiated, no evident hypoxemia, ongoing tobacco dependence raises the likelihood of an underlying mild emphysema, feeling better after nebs and steroids. - Echocardiogram demonstrated expected diastolic and pulmonary pattern with mild concentric LVH - She is optimized from a cardiopulmonary standpoint, at dry weight, see discussion in case management notes and HPI in regards to rehab versus home with home health. - Will continue to taper Solu-Medrol. Start with 20 mg oral twice daily for 5 days and 20 mg daily for 7 days 09/11 - spoke to patient and patient's niece about sinus pauses and if that's the cause of the SOB. spoke with Dr. Hassan who does not believe there is an indication for pacemaker. - patient does believe anxiety is contributing and I agree; will add PRN Klonopin. - cont prednisone, nebs 09/12 - change clonidine to 0.1mg bid 09/13 - continue to hold the metoprolol and Multaq - clonidine was decreased to 0.1mg BID with plans to decrease to 0.1mg daily on 09/14 - rehab in 1-2 days 09/14 - cardiology recommendations to restart Multaq at 400mg BID - cont clonidine 0.1mg daily - d/c metoprolol - will continue Lisinopril (can stop the Benicar) - patient has significant anxiety - cont clonazepam TID PRN #AVNRT, paroxysmal atrial fibrillation IDALIA eval #sinus pauses - Noted on telemetry, Multaq had been on hold during diuresis, started couple days ago. She has been borderline bradycardic in the 50s last night noted to h ave a couple of pauses. Held the metoprolol this morning, no recurrence - Patient has reached out to cardiology prior to this hospitalization and would like an additional clearance regards to his medications. Consult to cardiology placed - Ongoing pauses, held Multaq and metoprolol this morning. Continue clonidine although that may need to be tapered. Patient 09/11 - cardiology following; per cards no indication for pacemaker. #Globus sensation in the throat - Persistent, present since first procedure/intubation discussed ENT referral on discharge, for laryngoscopy #Physical deconditioning #Orthostasis -Consulted PT and OT, briefly discussed the possibility of entertaining rehab for short time given it is been about 6 weeks since she has been at a normal active self and has quite significant decline in functional status since then. - Normal saline bolus given, will monitor orthostatic vital signs. - Clinically euvolemic. Optimize from a cardiopulmonary standpoint with deconditioning rehab would certainly be beneficial. [facility] at this time , awaitng bed availablility remainder of beds at #Anemia -No preprocedure hemoglobin on file, currently 9.7, last check normal was around 12 - Hgb stable, AM check tomorrow, no evidence of bleed or blood loss - Telemetry monitoring, no source of bleed, no hematuria, no-hematochezia or hematemesis - stable 9.3 -> 8.9 -> 8.5 - > 8.9 history of PE, likely delusional, will continue to monitor tomorrow morning. No evidence of bleeding #Hypertension #Markedly elevated blood pressure readings - In the setting of TCAR as above, blood pressure management to maintain systolic below 160, avoid hypotension - Hydralazine 5 mg every 3 hours as needed for systolic greater than 180, labetalol and/or Vasotec if needed - Was also on olmesartan at home, on lisinopril here and tolerating #widespread atherosclerotic vascular disease at several sites #status post TCAR procedure left 4 weeks ago right 1 week ago #known CAD #Renal Artery Stenosis #Superior mesenteric Stenosis Continue aspirin,-nitroglycerin, telemetry monitoring #late onset diabetes (managed as type I) - Consult to pharmacy for glycemic management, I do not see any insulin on her med list at this time - Above goal this AM, continue monitoring and SS #hypertension - As above, continue home losartan, metoprolol, clonidine - Blood pressure targets as above #hyperlipidemia - Continue statin and fenofibrate #tobacco dependence - ongoing, improving still sporadic cigarettes #osteopenia - Calcium and D3 vitamin D deficiency - Continue supplement, calcitriol #history of recent flux of esophagitis - Prevacid #anxiety and depression - Continue buspirone, clonazepam as needed #FEN - Diabetic/cardiac diet #CODE STATUS -Modified code, does not want chest compressions, okay with intubation, shocks, ACLS medication at least briefly. Very clear that she did not want sustained interventions if it was not to have a good outcome Admission HPI Per Admitting Provider 75-year-old female history of widespread atherosclerotic vascular disease at several sites status post TCAR procedure left 4 weeks ago right 1 week ago known CAD, AVNRT, paroxysmal atrial fibrillation, hypertension, hyperlipidemia, late onset diabetes (managed as type I) ongoing tobacco dependence,, history of lymphocytic colitis, osteopenia, vitamin D deficiency, history of recent flux of esophagitis, thoracic kyphosis, anxiety and depression presents to the emergency department 3 days after having discharge from a right TCAR procedure. With inability to catch her breath or take a deep breath and dyspnea on exertion/malaise. Patient reports that after this last procedure it was a much "rougher road" than the previous one. Reports a lot more bruising and slight swelling. Had discharged home had restarted her Eliquis yesterday. This morning seemingly abruptly she felt a lot more short of breath, unable to take a deep breath. Denies any chest pain or palpitations. Her daughter felt she looked generally ill they brought her here to the emergency department for evaluation. Thus far in the ER x-ray shows bilateral infiltrates, no other obvious pulmonary pathology. Labs thus far largely unremarkable. She was given an albuterol nebulizer and Medrol loading dose. Patient reports feeling a littl e bit better and actually started with cough since being given the albuterol. Blood pressures have been labile in the 180s and 200 range initially. She was referred to the hospitalist service for admission for ongoing respiratory support, blood pressure management and further evaluation of her difficulty breathing. Discharge Exam VITALS: Reviewed. WEIGHT/BMI reviewed. GEN: Healthy appearing, well-developed, NAD. PSYCH: Good Judgment. AOx3. +anxious appearing HEENT -Head: NC/AT; -Eyes: PERRL, EOMI. No discharge or redness; -Ears: External ears are normal. Normal TMs. -Nose: Normal nares. -Mouth and throat: MMM. Normal gums, mucosa, palate,. Good dentition. NECK: Supple, with no masses. CV: RRR, no m/r/g. LUNGS: CTAB, no w/r/c. ABD: Soft, NT/ND, NBS, no masses or organomegaly. : N/A SKIN: Warm, well perfused. No skin rashes or abnormal lesions. MSK: No deformities, Normal gait. EXT: No clubbing, cyanosis, or edema. NEURO: Ambulating with no limitations. Normal muscle strength and tone. No focal deficits. Discharge Plan Discharge Items Patient Disposition: Transfer Detention Fac Reason For Visit: SHORTNESS OF BREATH Discharge Diagnosis: Junctional Bradycardia Paroxysmal Atrial Fibrillation AVNRT HTN CAD w hx of stents Anxiety Condition on Discharge: Good Health Concerns: Orders entered for prednisone 20mg BID until 09/13 then once daily from 09/14 until 09/20 for longer term taper outpatient referral to ENT for laryngoscopy if hoarseness persists Activity: Resume your previous activity Non-emergency contact: Primary Care Provider Call non-emergency contact if: you have any medication questions and your symptoms worsen Follow-up/Referrals: Saba Hinkle MD [Primary Care Provider] - Diet: Carb Count or DM1 Addtl Attending Provider Instructions: outpatient referral to ENT for laryngoscopy if hoarseness persists Pending Studies at Discharge: No Stand-Alone Forms: My [facility] Skilled Items Patient informed of condition?: Yes DNR: No (no compressions, okay with everything else) Discharge Level of Care: Skilled Communicable Disease: No Discharge Prognosis: Stable Lines: None Urinary Catheter: No Medications and DC Order Prescriptions: New clonidine HCl 0.1 mg Tablet 0.1 mg PO DAILY 30 Days Qty: 30 0RF clonazepam 0.5 mg Tablet 0.5 mg PO TID PRN (Reason: anxiety) 10 Days Qty: 30 0RF lisinopril 10 mg Tablet 10 mg PO QAM 30 Days Qty: 30 2RF Continued acetaminophen 500 mg capsule 500 mg PO Q6H PRN (Reason: Pain) Multaq 400 mg tablet 400 mg PO BID Qty: 180 3RF calcitonin (salmon) 200 unit/actuation spray,non-aerosol 1 spray intranasal (ALT) DAILY Qty: 3.7 3RF fenofibrate nanocrystallized 145 mg tablet 145 mg PO HS Qty: 90 1RF Eliquis 5 mg tablet 5 mg PO BID Qty: 180 3RF Rx Instructions: PER PT "WAS HELD WHILE TAKING IBUPROHEN FOR PAIN, WILL RESTART 06/11/25". varenicline tartrate [Chantix Starting Month Box] 0.5 mg (11)- 1 mg (42) tablets,dose pack See Rx Instructions .Route .COMPLEX Qty: 53 0RF Patient Comments: pt has not yet started Rx Instructions: 0.5 mg daily x 3 days then 0.5 mg BID x 4 days then 1 mg BID thereafter ; (DME) lancets [FreeStyle Lancets] 28 gauge misc See Dose Instructions .ROUTE .MEDSUPPLY Qty: 25 Rx Instructions: FOR USE 4 TIMES DAILY (DME) FreeStyle Lite Strips Strip See Rx Instructions .ROUTE .MEDSUPPLY Qty: 10 Rx Instructions: TEST 1 TIMES DAILY (DME) Dexcom G7 Sensor Device See Rx Instructions .Route Rx Instructions: As directed clopidogrel 75 mg tablet 75 mg PO DAILY nitroglycerin 0.4 mg tablet, sublingual 0.4 mg SL Q5M PRN (Reason: chest pain) Qty: 25 3RF Rx Instructions: do not exceed 3 doses per episode Adult 50 Plus Probiotic 4 billion cell capsule 4,000 mmu cells PO DAILY Rx Instructions: administer with a meal aspirin 81 mg tablet,delayed release (DR/EC) 81 mg PO DAILY multivitamin Tablet 1 tab PO QAM coenzyme Q10 [CoQ-10] 100 mg capsule 100 mg PO 3XWK Rx Instructions: MON, WED, & FRI cholecalciferol (vitamin D3) 50 mcg (2,000 unit) capsule 4,000 unit PO DAILY atorvastatin [Lipitor] 40 mg tablet 40 mg PO QPM oxycodone 5 mg Tablet 10 mg PO Q4H PRN (Reason: pain) Qty: 30 0RF ondansetron HCl 4 mg tablet 4 mg PO Q8H PRN (Reason: nausea and vomiting) 4 Days Qty: 10 0RF lansoprazole [Prevacid] 30 mg capsule,delayed release(DR/EC) 30 mg PO DAILYBB doxazosin [Cardura] 2 mg tablet 2 mg PO HS Discontinued clonidine HCl 0.2 mg tablet 0.2 mg PO BID Qty: 180 3RF Hold Instructions: May restart if systolic blood pressure over 140mmHg metoprolol succinate 50 mg tablet extended release 24 hr 50 mg PO BID Qty: 60 5RF Rx Instructions: TAKE 1 TABLET BY MOUTH TWICE DAILY buspirone 5 mg tablet 5 - 10 mg PO BID Qty: 180 1RF olmesartan [Benicar] 20 mg tablet 20 mg PO HS clonazepam [Klonopin] 0.5 mg tablet 0.25 - 0.5 mg PO HS PRN (Reason: Sleep /Anxiety ) Rx Instructions: Ongoing therapy Supervising physician Saba Rincon [id number] Discharge Orders: Discharge Order (Routine); Ordered 09/14/25 Ordered By: Carmelita Berumen Admission Data Admit Date/Time: 09/05/25 12:58 Attending Provider: Carmelita Berumen Admit Provider: Asher Hummel Primary Care Provider: Saba Hinkle V. [facility] Prov[facility] Asher Hummel; [facility]; Reynaldo August Hospital Stay Data Consultations 09/04/25 15:21 ED Decision to Admit Stat 09/09/25 13:51 Consult Cardiology Routine 09/10/25 06:16 Consult Cardiology Routine Diagnostic Imagining Performed 09/04/25 16:10 CT for pulmonary embolism PE [CT angio chest PE protocol] Stat Pending Results Patient Have Any Pending Studies at Discharge: No Discharge Instructions Given to Patient (Per Discharging Provider) outpatient referral to ENT for laryngoscopy if hoarseness persists Home Health Attestation I certify that this patient is under my care and that I, or a physicians assistant director of plant operations working with me, had a face to-face encounter that meets the home health [id number] encounter requirements with this patient. The encounter with the patient was in whole, or in part, for the following medical condition, which is the primary reason for home health care (list medical condition): resumption of care; recent TCAR; bilateral pleural effusions I certify that, based on my findings, the following services are medically necessary home health services: My clinical findings support the need for the above services because: Home Safety Assessment OT Assess ADL Status and Restore Function w ADLs PT Assessment for Endurance / Balance / Strength PT Eval for Safety and Mobility PT Eval for Safety, Gait Training, Assistive Devices PT Gait and Balance Training, Strengthening and Safety Safety Skilled Nsg Assessment Skilled Nsg Assessment Surgical Incision / Wound Skilled Nsg Instruction New Medications S/S to Report to Provider Further, I certify that my clinical findings support that this patient is homebound (i.e. absences from home require considerable and taxing effort and are for medical reasons or buddhism services or infrequently or of short duration when for other reasons) because: Poor Endurance; SOB Minimal Exertion Certification for Home Health Services: Based on the above findings, I certify that this patient is confined to the home and needs intermittent penitentiary care, physical therapy and/or speech therapy or continues to need occupational therapy. The patient is under my care, and I have initiated the establishment of the plan of care. This patient will be followed by a physician who will periodically review the plan of care. Total Time Total Time Spent Total Time Spent (In Minutes): 50 Coding Level of Care Code 81869 INP/OBS DISCH >30 MIN Diagnoses S/P vascular surgery Z98.890 Carotid stenosis, bilateral I65.23 Hyperlipidemia, unspecified hyperlipidemia type E78.5 Hyperlipidemia type: unspecified Primary hypertension I10 Hypertension type: primary hypertension Anxiety and depression F41.9; F32.A Osteopenia M85.80 Chronic anticoagulation Z79.01 Thoracic kyphosis M40.204 S/P catheter ablation of slow pathway Z98.890; Z86.79 Hypomagnesemia E83.42 Left renal artery stenosis I70.1 Vitamin D deficiency E55.9 Superior mesenteric artery stenosis I77.1 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 transplanted heart: [place] heart Associated angina: without angina Voice hoarseness R49.0 Pulmonary hypertension I27.20 AVNRT (AV ramesh re-entry tachycardia) I47.19 Tobacco use disorder F17.200 SABINE (latent autoimmune diabetes in adults), managed as type 1 E13.9 GERD (gastroesophageal reflux disease) K21.9 Time Spent (min) 50
[2025-09-14] MEDS ORDERED: FAMOTIDINE 40 MG TABLET PO PRN (22:55)
[2025-09-15] MEDS ORDERED: ALUMINUM/MAGNESIUM SUSP 30 ML UDC PO PRN (00:38)
--- NOTE | 2025-09-15 10:30 | Cardiology Progress Note ---
Date of Service September 15, 2025 Assessment & Plan (1) Paroxysmal atrial fibrillation: Plan: -Continue Multaq at 400 mg twice daily. -Continue Eliquis. -Would use metoprolol tartrate on a as needed basis. -Okay for transfer to [facility] when bed available. (2) Bradycardia: Plan: -Bradycardia resolved with holding of metoprolol, dronedarone, and weaning of clonidine. -Would continue clonidine at 0.1 mg daily. -Case discussed with Dr. Presley who does not feel that a pacemaker is indicated at this time. (3) HTN (hypertension): Plan: -Adequate control currently. (4) AVNRT (AV ramesh re-entry tachycardia): Plan: -s/p catheter ablation of slow pathway (July 2021). (5) CAD (coronary artery disease): Plan: -s/p RCA ANITA, December 2011, patent March 2022). -Carries a history of chronic stable angina pectoris on medical management. Admission and Anticipated Discharge Date Admission Date: September 05, 2025 Subjective The patient is resting comfortably in bed without complaints of chest pain, dyspnea, syncope, presyncope, or palpitations. She is awaiting a bed at [facility]. Physical Exam Physical Exam: In general this is a thin white female in no acute distress. HEENT exam is negative. Neck is supple with full carotid upstrokes. No JVD. There is no thyromegaly. Cardiovascular exam reveals a regular rhythm with a normal S1 and S2. No S3, S4, or murmurs are noted. Lungs are clear without rales rhonchi, or recent. Abdomen is benign without bruits. Extremities reveal intact radial artery and posterior tibial pulses bilaterally. There is no peripheral edema. Results & Data Vital Signs (Past 12 Hours) Vital Signs Temp Pulse Resp BP BP Pulse Ox O2 Del Method 09/15/25 08:39 36.6 C 60 16 114/56 L 98 Room Air 09/15/25 04:05 36.4 C L 53 L 18 98/58 L 100 Room Air 09/14/25 23:03 37.0 C 77 16 114/67 100 Room Air Diagnostic Findings evaporator repairer is benign. No atrial fibrillation. PG Care Time/CCT Total # of Minutes Spent Total Time Spent with Patient: Total time spent is greater than 50% in coordination of care (as documented) at patient's floor/unit and/or counseling patient: Coding Level of Care Code 69843 SUB INP/OBS CARE 50MIN Diagnoses Paroxysmal atrial fibrillation I48.0 Bradycardia R00.1 Primary hypertension I10 Hypertension type: primary hypertension AVNRT (AV ramesh re-entry tachycardia) I47.1 Coronary artery disease involving [place] coronary artery of [place] heart without angina pectoris I25.10 Coronary Disease-Associated Artery/Lesion type: [place] artery [place] vs. transplanted heart: [place] heart Associated angina: without angina (3) HTN (hypertension) Hypertension type: primary hypertension Qualified Code(s): I10 - Essential (primary) hypertension (5) CAD (coronary artery disease) Coronary Disease-Associated Artery/Lesion type: [place] artery [place] vs. transplanted heart: [place] heart Associated angina: without angina Qualified Code(s): I25.10 - Atherosclerotic heart disease of [place] coronary artery without angina pectoris
--- NOTE | 2025-09-15 12:17 | Hospitalist Progress Note ---
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 twice daily - Continue Eliquis - Continue Clonidine 0.1 mg p.o. daily - May use metoprolol tartrate as needed for symptomatic palpitations - Cardiology consulted #Globus sensation without dysphagia or odynophagia Outpatient assessment recommended #Normocytic, normochromic anemia // Iatrogenic Progressive slow decline in hemoglobin measure is likely consequential of unnecessary and prolonged laboratory assessment; discontinue routine lab work at this time given stability, other than ACHS glucose checks for management of SABINE Admission and Anticipated Discharge Date Admission Date: September 05, 2025 Subjective Ms. Chavez is a 75-year-old female whose active medical conditions include paroxysmal atrial fibrillation, severe peripheral arterial disease with recent TCAR, latent autoimmune diabetes in adults complicated by nonproliferative diabetic retinopathy, among other chronic conditions who was admitted to the [facility] for acute heart failure due to intermittent arrhythmias. No acute overnight events; anxious for discharge, but delayed due to bed availability Review of Systems Review of Systems: Review of constitutional, cardiovascular, and pulmonary systems was unremarkable Physical Exam Physical Exam: General: Adult female in no acute distress Vital Signs: Reviewed HEENT: Moist mucous membranes Pulmonary: Symmetric chest wall excursion without restriction; clear to auscultation bilaterally Cardiovascular: Irregularly irregular rhythm with controlled rate without murmurs, rubs, or gallops; right radial pulse 2+ Neurologic: Cranial nerves II through XII grossly intact without discernible focal weakness nor paresthesia Results & Data Results & Data Vital Signs (Past 12 Hours) Vital Signs Temp Pulse Resp BP BP Pulse Ox O2 Del Method 09/15/25 11:25 36.6 C 84 20 122/57 L 100 Room Air 09/15/25 08:39 36.6 C 60 16 114/56 L 98 Room Air 09/15/25 04:05 36.4 C L 53 L 18 98/58 L 100 Room Air PG Care Time/CCT Total # of Minutes Spent Total Time Spent with Patient: Total time spent is greater than 50% in coordination of care (as documented) at patient's floor/unit and/or counseling patient: Coding Level of Care Code 54739 SUB INP/OBS CARE 2/35MIN Diagnoses Paroxysmal atrial fibrillation I48.0 Junctional bradycardia R00.1 Bilateral pleural effusion J90 Nicotine use disorder F17.200 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
--- NOTE | 2025-09-15 14:20 | Pharmacy Report ---
Pharmacy Glycemic Short Note 2 - Date of Service September 15, 2025 - Glycemic Short BSG Results (Last 24 hours): 09/14/25 09/14/25 09/15/25 16:28 20:13 08:25 POC Glucose 231 H 171 H 97 09/15/25 13:27 POC Glucose 272 H OUTPATIENT ANTIDIABETIC REGIMEN: * None - previously on 5 units Tresiba SC daily (July 2025) * HbA1c: 6.4% (06/09/2025) ASSESSMENT: 09/15: * Patient received total of 20 units of insulin yesterday, of which 10 units were basal insulin * Fasting BSG 97 mg/dL - will continue with same basal / no change to CF/CR today 11/13: * Loren received a total of 25 units of insulin yesterday (14 units were basal and 11 units were bolus). BSGs were 732-100-541-174mg/dL. * Fasting BSG was 189mg/dL this morning. AM Lantus was increased by ~20% and HS Lantus scale was also increased. * Lunch BSG was still above goal, so carb ratio was tightened some. * Of note the prednisone is to be decreased from BID to daily tomorrow, so it is likely that insulin needs will start to decrease tomorrow. 09/11: * Loren received a total of 22 units of insulin yesterday (12 units were basal and 10 were bolus). * Fasting BSG was 168mg/dL this morning. Will continue AM basal insulin and modified PM basal scale (0 or 6 units depending on BSG). * CR was loosened yesterday, will continue bolus insulin regimen without change. 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) who presents to the hospital with inability to catch her breath * Recent TCAR procedure a few days ago * Glucose on arrival was 169 * T1DM diet * Stressors: methylprednisolone 60mg then 40mg Q12H, recent TCAR procedure * Will initiate Novolog around stress level of 2 given glucose within range and no longer on insulin outpatient * Adjust as needed based on glucose values with steroids PLAN FOR INPATIENT GLYCEMIC CONTROL: * Basal insulin * Lantus 10 units SC daily * Bolus insulin * NovoLog per scale ACHS or Q6hrs while NPO * Goal Range: Low 120 mg/dL - High 160 mg/dL * Correction Factor: 40 mg/dL/unit * Nutritional / Prandial insulin per carb ratio of 1 unit per 13 grams CHO consumed
[2025-09-15 16:12] VITALS: BP 135/80; PULSE 88; RESP 16; TEMP 98.1; O2SAT 99
== END 2025-09-15 17:11 | disposition home health service (06) | DRG 315 ==
LOC: EDINP 13:35 → ED 13:35 → EDINP 19:21 → 2S 09-05 00:31 → SUATTDRO 09-05 12:58 → 2S 09-10 00:18 → 2N 09-13 14:12